=== PATIENT | male | born 1955 | race Caucasian/White ===

== ENCOUNTER 2019-06-26 16:51 | Emergency (ER) | payer MEDICARE, SELFPAY ==
--- NOTE | ~2019-06-26 | US_ITS ---
EXAMINATION: US venous doppler [facility] DATE: 06/27/2019 10:32 INDICATION: Bilateral lower limb swelling TECHNIQUE: Grayscale ultrasound images without and with compression and Doppler ultrasound images of the bilateral lower extremity veins were obtained. COMPARISON: None. FINDINGS: The visualized portions of right common femoral vein, profunda (deep) femoral vein, femoral vein, pop liteal veins, posterior tibial veins, peroneal veins, gastrocnemius vein and greater saphenous vein o utflow are patent. The visualized portions of left common femoral vein, profunda femoral vein, femoral vein, popliteal v ein, posterior tibial veins, peroneal veins, gastrocnemius vein and greater saphenous vein outflow ar e patent. IMPRESSION: 1. No deep venous thrombosis in either lower limb. Reviewed, dictated and finalized at location A. DOG VENDER
--- NOTE | ~2019-06-26 | XR_ITS ---
EXAMINATION: XR chest 2V EXAM DATE: 06/26/2019 17:48 INDICATION: Lung crackles. Cough. TECHNIQUE: Frontal and lateral projections of the chest obtained and reviewed. Comparison is made to prior examination from 01/21/2019. FINDINGS: The lungs are clear. There are no pleural effusions. The cardiomediastinal silhouette is within normal limits. There is no pneumothorax suspected. Patient has diffuse idiopathic skeletal h yperostosis (DISH). IMPRESSION: No acute cardiopulmonary findings. Reviewed, dictated and finalized at location A. POLISHER
[2019-06-26 17:06] VITALS: BP 133/77; PULSE 64; RESP 20; TEMP 36.6; O2SAT 98
--- NOTE | 2019-06-26 17:35 | ECG_ITS ---
Measurements Intervals [place] Rate: 60 P: 67 NH: 225 QRS: -21 QRSD: 108 T: 39 QT: 441 QTc: 443 Interpretive Statements SINUS RHYTHM WITH FIRST DEGREE AV BLOCK DELAYED PRECORDIAL R/S TRANSITION BASELINE WANDER- I, II, III, AVR, AVL ABNORMAL ECG Electronically Signed On 06-26-2019 20:13:56 COMPUTED TOMOGRAPHY TECHNOLOGIST by Jose Lai D.O.
[2019-06-26 17:55] LABS: Basophils Absolute Auto 0.05 K/mm3 (0.00-0.10); Eosinophils Absolute Auto 0.24 K/mm3 (0.02-0.50); Eosinophils Percent Auto 4.7 % (1.0-6.0); Hemoglobin 14.3 g/dL (14.0-18.0); Immature Granulocyte Absolute 0.01 K/mm3 (0.00-0.00); Immature Granulocyte Percent A 0.2 % (0.0-0.0); Lymphocytes Absolute Auto 1.94 K/mm3 (1.10-4.50); Lymphocytes Percent Auto 38.2 % (18.0-42.0); Mean Corpuscular Hemoglobin 31.2 pg (27.0-31.0); Mean Corpuscular Volume 91.7 fL (78.0-102.0); Mean Platelet Volume 9.4 fl (8.7-11.0); Monocytes Absolute Auto 0.55 K/mm3 (0.10-0.90); Monocytes Percent Auto 10.8 % (2.0-11.0); Neutrophils Absolute Auto 2.3 K/mm3 (1.7-7.2); Neutrophils Percent Auto 45.1 % (50.0-70.0); Platelet Count Result 148 K/mm3 (150-420); Red Blood Count 4.58 M/mm3 (4.70-6.10); Red Cell Distribution Width 14.3 % (11.6-14.4); White Blood Count 5.1 K/mm3 (4.8-10.8)
[2019-06-26 18:06] LABS: INR 3.3; Prothrombin Time 33.2 Seconds (9.64-11.0)
[2019-06-26 18:12] LABS: Alanine Aminotransferase 20 U/L (16-63); Albumin Level 3.3 g/dL (3.4-5.0); Alkaline Phosphatase 112 U/L (46-116); Anion Gap 11.2 mmol/L (7-16); Aspartate Amino Transferase 14 U/L (15-37); Bilirubin,Total 0.3 mg/dL (0.00-1.00); Blood Urea Nitrogen 14 mg/dL (7-18); Calcium 8.6 mg/dL (8.5-10.1); Carbon Dioxide 27 mmol/L (21-32); Chloride 104 mmol/L (98-108); Estimated CRCL calculation 96 ml/min; Estimated Glomerular Filt Rate > 60; Glucose 232 mg/dL (70-99); Osmolality Calculated 293 mOsm/kg (285-295); Potassium 4.2 mmol/L (3.5-5.1); Sodium 138 mmol/L (136-145); Total Protein 7.8 g/dL (6.4-8.2)
[2019-06-26 18:13] LABS: BNP 19.5 pg/mL (0-100); Troponin I < 0.02 ng/mL (0.00-0.056)
[2019-06-26] MEDS: ENOXAPARIN 100 MG/ML SYRINGE (20:15)
[2019-06-26] MEDS: ENOXAPARIN 30 MG/0.3 ML SYRINGE (20:15)
[2019-06-26 20:17] VITALS: BP 132/81; PULSE 54; RESP 20; O2SAT 98
--- NOTE | 2019-06-26 20:19 | ED.EXTPRO ---
HPI - Extremity Problem General Chief complaint: Extremity Problem,Nontraumatic Stated complaint: swelling in feet History of Present Illness HPI Narrative: Michael is a 64-year-old man with a past medical history of hyperlipidemia, diabetes, neuropathy and DVT/PE ( he may have had 1 on anticoagulation) that presented with bilateral lower extremity swelling. It has been present for about a week and may be getting worse. it is painful swelling without associated trauma. He reports his right ankle has been swollen since ankle fracture and subsequent ORIF many years ago however his left has become significantly more swollen and painful. He denies any chest pain, shortness of breath, nausea, vomiting, syncope/near syncope as well as fevers and chills. Related Data Home Medications Medication Instructions Recorded Confirmed atorvastatin 20 mg PO DAILY 06/26/19 06/26/19 famotidine 20 mg PO BID 06/26/19 06/26/19 metformin 1,000 mg PO QAM 06/26/19 06/26/19 metformin 500 mg PO HS 06/26/19 06/26/19 pregabalin [Lyrica] 50 mg PO DAILY 06/26/19 06/26/19 warfarin 7.5 mg PO DAILY 06/26/19 06/26/19 Allergies Allergy/AdvReac Type Severity Reaction Status Date / Time No Known Allergies Allergy Verified 09/04/15 10:30 Review of Systems Constitutional: Constitutional: Reports no additional constitutional complaints Eyes: Eyes: Reports no additional eye complaints ENT: Reports system reviewed and no additional complaints, except as documented Cardiovascular: Cardiovascular: Reports no additional cardiovascular complaints, Denies chest pain and Denies radiating jaw, neck or arm pain Respiratory: Respiratory: Reports no additional respiratory complaints Gastrointestinal: Gastrointestinal: Reports as per HPI and Reports no additional gastrointestinal complaints Musculoskeletal: Musculoskeletal: Reports no additional musculoskeletal complaints Integumentary/Breasts: Skin/Breast: Reports system reviewed and no additional complaints, except as docu Neurologic: Reports system reviewed and no additional complaints, except as documented Psychiatric: Psychiatric: Reports no additional psychiatric complaints Endocrine: Endocrine: Reports no additional endocrine complaints Hematologic/Lymphatic: Hematologic/Lymphatic: Reports no additional hematologic/lymphatic complaints Allergic/Immunologic: Allergic/Immunologic: Reports no additional allergic/immunologic complaints [facility] Family History Family History Other Family history of arthritis Family history of malignant neoplasm Family history of seizure disorder Hypertension Social History Social History Smoking status: Heavy tobacco smoker Alcohol intake: never Gender identity (if verbalized by the patient): Male Exam Const: General: no acute distress and alert; No confusion Orientation/consciousness: patient oriented x3 Limitations: No altered mental status HENMT: Other: Normocephalic, atraumatic Eyes: Conjunctivae: conjunctivae normal Pupils: Equal, round and reactive pupils present Neck: Neck: normal visual inspection Chest: Chest palpation & inspection: normal inspection of the chest Resp: Effort & Inspection: normal respiratory effort, not labored and not tachypneic Auscultation: clear to auscultation bilaterally Cardio: Rate: regular rate Rhythm: regular rhythm GI: Inspection: non-distended GI Palp: Yes Soft to palpation, No Tenderness to palpation present (GI) and No Guarding due to palpation present (GI) Skin: Other: stasis dermatitis in the lower extremities bilaterally Neuro: General: patient oriented x3 and moves all extremities Extrem: Other: 2+ pitting edema up to the mid shins Psych: Mental Status: mental status grossly normal Course Course Emergency Course: Michael was seen and evaluated. A CBC, CMP, BNP and troponin we
== END 2019-06-26 20:28 | disposition home or self-care (01) ==
PROVIDERS: Emergency Provider Family Medicine; PCP Family Medicine
DX: R60.0 Localized edema (principal); F17.200 Nicotine dependence, unspecified, uncomplicated; E78.5 Hyperlipidemia, unspecified; E11.9 Type 2 diabetes mellitus without complications; Z86.718 Personal history of other venous thrombosis and embolism; Z79.01 Long term (current) use of anticoagulants
CPT/HCPCS: 36415; 71046; 80053; 83880; 84484; 85025; 85610; 93005; 93970; 96372; 99284; J1650

== ENCOUNTER 2019-06-27 09:33 | Outpatient (CLI) | payer MEDICARE, SELFPAY ==
--- NOTE | ~2019-06-27 | US_ITS ---
EXAMINATION: US venous doppler [facility] DATE: 06/27/2019 10:32 INDICATION: Bilateral lower limb swelling TECHNIQUE: Grayscale ultrasound images without and with compression and Doppler ultrasound images of the bilateral lower extremity veins were obtained. COMPARISON: None. FINDINGS: The visualized portions of right common femoral vein, profunda (deep) femoral vein, femoral vein, pop liteal veins, posterior tibial veins, peroneal veins, gastrocnemius vein and greater saphenous vein o utflow are patent. The visualized portions of left common femoral vein, profunda femoral vein, femoral vein, popliteal v ein, posterior tibial veins, peroneal veins, gastrocnemius vein and greater saphenous vein outflow ar e patent. IMPRESSION: 1. No deep venous thrombosis in either lower limb. Reviewed, dictated and finalized at location A. ANT PRINTER OPERATOR
== END 2019-06-27 09:34 | disposition home or self-care (01) ==
PROVIDERS: PCP Family Medicine; Visit Provider Family Medicine
DX: M79.89 Other specified soft tissue disorders (principal); Z86.718 Personal history of other venous thrombosis and embolism; Z79.01 Long term (current) use of anticoagulants
CPT/HCPCS: 93970

== ENCOUNTER 2019-07-12 11:40 | Outpatient (RCR) | payer MEDICARE, SELFPAY ==
[2019-07-12 12:13] LABS: Prothrombin Time 20.2 Seconds (9.64-11.0)
[2019-07-12 12:20] LABS: Hemoglobin A1C 7.4 % (<5.7)
== END 2019-10-10 23:59 | disposition home or self-care (01) ==
LOC: CHSLAB 11:40
PROVIDERS: PCP Family Medicine; Visit Provider Family Medicine
DX: Z86.718 Personal history of other venous thrombosis and embolism (principal); E11.9 Type 2 diabetes mellitus without complications
CPT/HCPCS: 36415; 83036; 85610

== ENCOUNTER 2019-08-26 07:09 | Outpatient (CLI) | payer MEDICARE, SELFPAY ==
[2019-08-26 07:50] LABS: INR 1.4; Prothrombin Time 14.8 Seconds (9.64-11.0)
[2019-08-26 07:53] LABS: Hemoglobin A1C 8.3 % (<5.7)
== END 2019-08-26 07:10 | disposition home or self-care (01) ==
LOC: CHSLAB 07:12
PROVIDERS: PCP Family Medicine; Visit Provider Family Medicine
DX: Z86.718 Personal history of other venous thrombosis and embolism (principal); E11.9 Type 2 diabetes mellitus without complications
CPT/HCPCS: 36415; 83036; 85610

== ENCOUNTER 2019-09-02 11:16 | Outpatient (CLI) | payer MEDICARE, SELFPAY ==
[2019-09-02 11:30] LABS: Hematocrit 45.6 % (40.0-54.0); Hemoglobin 15.2 g/dL (14.0-18.0); Mean Corpuscular HGB Conc 33.3 g/dL (32.0-36.0); Mean Corpuscular Hemoglobin 31.2 pg (27.0-31.0); Mean Corpuscular Volume 93.6 fL (78.0-102.0); Mean Platelet Volume 9.9 fl (8.7-11.0); Platelet Count Result 159 K/mm3 (150-420); Red Blood Count 4.87 M/mm3 (4.70-6.10); Red Cell Distribution Width 14.6 % (11.6-14.4); White Blood Count 5.6 K/mm3 (4.8-10.8)
[2019-09-02 12:42] LABS: Alanine Aminotransferase 34 U/L (16-63); Albumin Level 3.9 g/dL (3.4-5.0); Alkaline Phosphatase 125 U/L (46-116); Anion Gap 15.4 mmol/L (7-16); Aspartate Amino Transferase 24 U/L (15-37); Bilirubin,Total 0.6 mg/dL (0.00-1.00); Blood Urea Nitrogen 15 mg/dL (7-18); Calcium 8.8 mg/dL (8.5-10.1); Carbon Dioxide 26 mmol/L (21-32); Chloride 102 mmol/L (98-108); Estimated Glomerular Filt Rate > 60; Folic Acid 17.2 ng/mL (8.6->20); Glucose 159 mg/dL (70-99); Osmolality Calculated 291 mOsm/kg (285-295); Potassium 4.4 mmol/L (3.5-5.1); Sodium 139 mmol/L (136-145); Vitamin B12 626 pg/mL (193-986)
[2019-09-02 12:45] LABS: Thyroid Stimulating Hormone Reflex 0.73 u/IU/mL (0.36-3.74)
== END 2019-09-02 11:17 | disposition home or self-care (01) ==
LOC: CHSLAB 11:20
PROVIDERS: PCP Family Medicine; Visit Provider Family Medicine
DX: M79.641 Pain in right hand (principal); E11.9 Type 2 diabetes mellitus without complications
CPT/HCPCS: 36415; 80053; 82607; 82746; 84443; 85027

== ENCOUNTER 2019-10-28 10:41 | Outpatient (CLI) | payer MEDICARE, SELFPAY ==
[2019-10-28 11:00] LABS: INR 1.7; Prothrombin Time 17.4 Seconds (9.64-11.0)
== END 2019-10-28 10:42 | disposition home or self-care (01) ==
LOC: CHSLAB 10:42
PROVIDERS: PCP Family Medicine; Visit Provider Family Medicine
DX: Z86.718 Personal history of other venous thrombosis and embolism (principal)
CPT/HCPCS: 36415; 85610

== ENCOUNTER 2019-11-04 07:26 | Outpatient (RCR) | payer MEDICARE, SELFPAY ==
[2019-10-25 07:59] LABS: Prothrombin Time 59.8 Seconds (9.64-11.0)
[2019-10-25 08:08] LABS: INR 6.2
[2019-11-04 07:49] LABS: INR 3.4; Prothrombin Time 33.3 Seconds (9.64-11.0)
== END 2020-01-23 23:59 | disposition home or self-care (01) ==
LOC: CHSLAB 07:26
PROVIDERS: Nurse Practitioner Family; PCP Family Medicine; Visit Provider Family Medicine
DX: Z86.718 Personal history of other venous thrombosis and embolism (principal)
CPT/HCPCS: 36415; 85610

== ENCOUNTER 2019-12-09 14:47 | Outpatient (CLI) | payer MEDICARE, SELFPAY ==
[2019-12-09 14:59] LABS: Hematocrit 42.1 % (40.0-54.0); Hemoglobin 13.7 g/dL (14.0-18.0); Mean Corpuscular HGB Conc 32.5 g/dL (32.0-36.0); Mean Corpuscular Hemoglobin 31.4 pg (27.0-31.0); Mean Corpuscular Volume 96.3 fL (78.0-102.0); Mean Platelet Volume 9.5 fl (8.7-11.0); Platelet Count Result 145 K/mm3 (150-420); Red Blood Count 4.37 M/mm3 (4.70-6.10); Red Cell Distribution Width 14.7 % (11.6-14.4); White Blood Count 5.5 K/mm3 (4.8-10.8)
[2019-12-09 15:15] LABS: Hemoglobin A1C 7.6 % (<5.7)
[2019-12-09 16:13] LABS: Alanine Aminotransferase 30 U/L (16-63); Albumin Level 3.5 g/dL (3.4-5.0); Alkaline Phosphatase 117 U/L (46-116); Anion Gap 5 mmol/L (8-16); Aspartate Amino Transferase 20 U/L (15-37); Bilirubin,Total 0.4 mg/dL (0.00-1.00); Blood Urea Nitrogen 12 mg/dL (7-18); Calcium 8.6 mg/dL (8.5-10.1); Carbon Dioxide 33 mmol/L (21-32); Chloride 102 mmol/L (98-108); Estimated Glomerular Filt Rate > 60; Folic Acid 15.2 ng/mL (8.6->20); Glucose 118 mg/dL (70-99); Osmolality Calculated 290 mOsm/kg (285-295); Potassium 4.6 mmol/L (3.5-5.1); Sodium 140 mmol/L (136-145); Total Protein 7.7 g/dL (6.4-8.2); Vitamin B12 573 pg/mL (193-986)
[2019-12-09 16:14] LABS: Thyroid Stimulating Hormone Reflex 0.61 u/IU/mL (0.36-3.74)
== END 2019-12-09 14:48 | disposition home or self-care (01) ==
LOC: CHSLAB 14:50
PROVIDERS: PCP Family Medicine; Visit Provider Family Medicine
DX: R53.1 Weakness (principal); E11.9 Type 2 diabetes mellitus without complications; M79.604 Pain in right leg; M79.605 Pain in left leg
CPT/HCPCS: 36415; 80053; 82607; 82746; 83036; 84443; 85027

== ENCOUNTER 2020-01-03 06:10 | Emergency (ER) | payer MEDICARE, SELFPAY ==
--- NOTE | ~2020-01-03 | XR_ITS ---
EXAMINATION: XR chest 2V DATE: 01/03/2020 07:46 INDICATION: Chest pain. Upper extremity pain. TECHNIQUE: PA and lateral views of the chest were obtained. COMPARISON: Chest radiograph dated 06/26/2019 FINDINGS: Bilateral calcified pulmonary nodules and calcified right hilar and mediastinal lymph nodes consisten t with old granulomatous disease. No other airspace opacities, pulmonary edema, pleural effusion or p neumothorax. The cardiomediastinal silhouette is normal. IMPRESSION: 1. No acute cardiopulmonary disease. Reviewed, dictated and finalized at location A.
[2020-01-03 06:34] VITALS: BP 97/61; PULSE 63; PULSE 68; RESP 17; TEMP 36.4; O2SAT 95
--- NOTE | 2020-01-03 06:56 | ECG_ITS ---
Measurements Intervals [place] Rate: 65 P: 76 RI: 232 QRS: -22 QRSD: 112 T: 56 QT: 427 QTc: 445 Interpretive Statements SINUS RHYTHM WITH FIRST DEGREE AV BLOCK INTRAVENTRICULAR CONDUCTION DELAY DELAYED PRECORDIAL R/S TRANSITION LOW QRS VOLTAGE IN PRECORDIAL LEADS ABNORMAL ECG Electronically Signed On 01-03-2020 7:16:24 CDT by Jose Lai D.O.
--- NOTE | 2020-01-03 06:58 | ED.CHESTPAIN ---
HPI - Chest Pain General Chief Complaint: Chest Pain Stated Complaint: chest pain and shoulder pain Source: patient and family Mode of arrival: ambulatory Limitations: no limitations History of Present Illness HPI narrative: this is a 64-year-old gentleman that presents with some some mild chest heaviness currently not having any chest pain is having some bilateral arm numbness and weakness with no nausea vomiting does have mild shortness of breath secondary to COPD and smoking history. Has a history of a DVT and pulmonary embolism and is currently on Coumadin. complaint: chest pain, chest heaviness and chest discomfort Onset (ago): hour(s) Timing of current episode: episodic Prior episodes: Yes Onset: during rest Pain location: parasternal Pain radiation: right arm and left arm Severity: mild Quality: tightness and heaviness Relieving factors: nothing Exacerbating factors: nothing Risk Factors Coronary artery disease risk factors: diabetes, smoking history, hyperlipidemia and hypertension Related Data Home Medications Medication Instructions Recorded Confirmed atorvastatin 20 mg PO DAILY 06/26/19 06/26/19 famotidine 10 mg tablet 10 mg PO DAILY 07/03/19 tramadol 50 mg tablet 50 mg PO Q6H PRN 07/03/19 metformin 500 mg tablet 1,000 mg PO BID tablet 11/28/19 warfarin 1 mg tablet 2 mg PO DAILY tablet 12/09/19 warfarin 5 mg tablet 5 mg PO DAILY 12/09/19 dulaglutide 0.75 mg/0.5 mL 0.75 mg SUB-Q WEEKLY 12/10/19 subcutaneous pen injector Allergies Allergy/AdvReac Type Severity Reaction Status Date / Time No Known Allergies Allergy Verified 01/01/20 08:47 Review of Systems Review of Systems: All systems reviewed & are unremarkable except as noted in HPI and below PMFSH Past Medical History Medical History DM2 (diabetes mellitus, type 2) DVT (deep venous thrombosis) GERD (gastroesophageal reflux disease) Hyperlipidemia Lymphedema Neuropathy Pulmonary embolism Tobacco abuse Weakness Surgical History Surgical History History of ankle surgery Family History Family History Father Lung cancer Mother Lung cancer Other Family history of arthritis Family history of malignant neoplasm Family history of seizure disorder Hypertension Social History Social History Smoking packs per day: 1 Smoking cigarettes per day: 20.0 Years smoked: 50 Smoking pack-years: 50.00 Smoking status: Former smoker Tobacco type: cigarettes Alcohol intake: never Additional living arrangements comments: . Gender identity (if verbalized by the patient): Male Sexual Orientation (if Verbalized by the Patient): Straight or Heterosexual Exam Const: General: no acute distress and alert Orientation/consciousness: patient oriented x3 HENMT: Head: normal to inspection Eyes: Conjunctivae: conjunctivae normal Pupils: Equal, round and reactive pupils present Neck: Neck: normal visual inspection Chest: Chest palpation & inspection: normal inspection of the chest Resp: Auscultation: wheezes and diminished lung sounds Cardio: Rate: regular rate Rhythm: regular rhythm GI: Auscultation: normal bowel sounds Skin: General skin exam: normal color Rashes: no rashes Neuro: General: moves all extremities, no meningeal signs and no focal motor deficits Extrem: General: normal to inspection and no pedal edema Psych: Mental Status: mental status grossly normal Course Vital Signs Vital signs: Vital Signs Temperature 36.4 C 01/03/20 06:34 Pulse Rate 63 01/03/20 06:34 Respiratory Rate 17 01/03/20 06:34 Blood Pressure 97/61 L 01/03/20 06:34 Pulse Oximetry 95 01/03/20 06:34 Temperature 36.4 C 01/03/20 06:34 Pulse
[2020-01-03 07:00] VITALS: BP 128/68; PULSE 64; RESP 10; O2SAT 95
[2020-01-03 07:20] VITALS: PULSE 62; RESP 18
[2020-01-03 07:23] LABS: Basophils Absolute Auto 0.04 K/mm3 (0.00-0.10); Basophils Percent Auto 0.7 % (0.0-1.0); Eosinophils Absolute Auto 0.18 K/mm3 (0.02-0.50); Eosinophils Percent Auto 3.3 % (1.0-6.0); Hematocrit 41.3 % (40.0-54.0); Hemoglobin 13.3 g/dL (14.0-18.0); Immature Granulocyte Absolute 0.02 K/mm3 (0.00-0.00); Immature Granulocyte Percent A 0.4 % (0.0-0.0); Lymphocytes Absolute Auto 1.41 K/mm3 (1.10-4.50); Lymphocytes Percent Auto 26.1 % (18.0-42.0); Mean Corpuscular HGB Conc 32.2 g/dL (32.0-36.0); Mean Corpuscular Hemoglobin 31.1 pg (27.0-31.0); Mean Corpuscular Volume 96.7 fL (78.0-102.0); Mean Platelet Volume 9.8 fl (8.7-11.0); Monocytes Absolute Auto 0.77 K/mm3 (0.10-0.90); Monocytes Percent Auto 14.3 % (2.0-11.0); Neutrophils Percent Auto 55.2 % (50.0-70.0); Platelet Count Result 147 K/mm3 (150-420); Red Blood Count 4.27 M/mm3 (4.70-6.10); White Blood Count 5.4 K/mm3 (4.8-10.8)
[2020-01-03] MEDS: IPRATROPIUM 0.5 MG/ALBUTEROL SULFATE 2.5 MG AMPUL.NEB 3 ML INHALATION (07:23)
[2020-01-03] MEDS: ASPIRIN 81 MG CHEWABLE TABLET 324 MG PO (07:29)
--- NOTE | 2020-01-03 07:33 | ED.CHESTPAIN ---
HPI - Chest Pain General Chief Complaint: Chest Pain Stated Complaint: chest pain and shoulder pain Time Seen by Provider: 01/03/20 07:10 Source: patient and family Mode of arrival: ambulatory Limitations: no limitations History of Present Illness HPI narrative: 64-year-old man with a history of type 2 diabetes, hypertension, dyslipidemia, and smoking comes in today complaining of pain across his shoulders and heaviness in his chest that started about 5:00 a.m.. Patient states he was sitting in recliner and he stood up and started walking and felt very weak and lightheaded. He states that he did not lose consciousness or fall. He denies shortness of breath, nausea, sweating since this began and he has had no previous similar episodes in the last few weeks. States that he had a stress test in the and has no history of coronary artery disease. MD complaint: chest heaviness Onset (ago): hour(s) (3) Timing of current episode: constant Prior episodes: No Onset: during rest Pain location: parasternal Pain radiation: left shoulder and right shoulder Severity: moderate Quality: heaviness Relieving factors: nothing Exacerbating factors: nothing Context: history of DVT/PE Treatment prior to arrival: none Risk Factors Coronary artery disease risk factors: diabetes, smoking history, hyperlipidemia and hypertension Thoracic aortic dissection risk factors: longstanding hypertension Pulmonary embolism risk factors: history of deep vein thrombosis and history of pulmonary embolism Related Data Home Medications Medication Instructions Recorded Confirmed atorvastatin 20 mg PO DAILY 06/26/19 01/03/20 famotidine 10 mg tablet 20 mg PO DAILY 07/03/19 01/03/20 metformin 500 mg tablet 1,000 mg PO BID tablet 11/28/19 01/03/20 warfarin 1 mg tablet 2 mg PO DAILY tablet 12/09/19 01/03/20 warfarin 5 mg tablet 5 mg PO DAILY 12/09/19 01/03/20 dulaglutide 0.75 mg/0.5 mL 0.75 mg SUB-Q WEEKLY 12/10/19 01/03/20 subcutaneous pen injector pregabalin [Lyrica] 150 mg PO BID 01/03/20 01/03/20 Allergies Allergy/AdvReac Type Severity Reaction Status Date / Time No Known Allergies Allergy Verified 01/01/20 08:47 Review of Systems Constitutional: Constitutional: Denies chills and Denies fever(s) Eyes: Eyes: Denies change in vision and Denies photophobia ENT: Denies dysphagia, Denies nasal congestion and Denies sore throat Cardiovascular: Cardiovascular: Denies chest pain and Denies radiating jaw, neck or arm pain Respiratory: Respiratory: Denies cough, Denies dyspnea and Denies wheezing Gastrointestinal: Gastrointestinal: Denies abdominal pain, Denies diarrhea, Denies nausea and Denies vomiting Genitourinary: Genitourinary: Denies dysuria and Denies urinary frequency Musculoskeletal: Musculoskeletal: Denies arthralgias and Denies joint swelling Integumentary/Breasts: Skin/Breast: Denies pruritus, Denies erythema and Denies rash Neurologic: Denies vertigo, Denies dizziness and Denies syncope Hematologic/Lymphatic: Hematologic/Lymphatic: Reports easy bleeding and Reports easy bruising Comments: On Warfarin Allergic/Immunologic: Allergic/Immunologic: Denies lip swelling and Reports wheezing PMFSH Past Medical History Medical History DM2 (diabetes mellitus, type 2) DVT (deep venous thrombosis) GERD (gastroesophageal reflux disease) Hyperlipidemia Lymphedema Neuropathy Pulmonary embolism Tobacco abuse Weakness Surgical History Surgical History History of ankle surgery Family History Family History Father Lung cancer Mother Lung cancer Other Family history of arthritis Family history of malignant neoplasm Family history of seizure disorder Hypertension Social History Social History (Reviewed 01/03/20 @ 07:39 by Justin Jauregui
[2020-01-03 07:34] VITALS: PULSE 64; RESP 20
[2020-01-03 07:36] LABS: INR 1.8; Partial Thromboplastin Time 38.5 SEC (22.3-31.6)
[2020-01-03 07:40] LABS: BNP 7.2 pg/mL (0-100)
[2020-01-03 07:46] LABS: Alanine Aminotransferase 26 U/L (16-63); Albumin Level 3.4 g/dL (3.4-5.0); Alkaline Phosphatase 109 U/L (46-116); Anion Gap 7 mmol/L (8-16); Aspartate Amino Transferase 19 U/L (15-37); Bilirubin,Total 0.5 mg/dL (0.00-1.00); Blood Urea Nitrogen 18 mg/dL (7-18); Calcium 8.5 mg/dL (8.5-10.1); Carbon Dioxide 28 mmol/L (21-32); Chloride 105 mmol/L (98-108); Estimated CRCL calculation 85 ml/min; Estimated Glomerular Filt Rate > 60; Glucose 112 mg/dL (70-99); Osmolality Calculated 292 mOsm/kg (285-295); Sodium 140 mmol/L (136-145); Total Protein 7.8 g/dL (6.4-8.2); Troponin I < 0.02 ng/mL (0.00-0.056)
[2020-01-03 08:00] VITALS: BP 120/65; PULSE 69; RESP 19; O2SAT 99
--- NOTE | 2020-01-03 08:30 | PC.NURSE ---
Pt provided urinal and instructed to supply urine sample, pt verbalized understanding, but also stated that he didn't know if he would be able to pee. MD Boyd made aware.
[2020-01-03] MEDS: SODIUM CHLORIDE 0.9% IV 1,000 ML 999 ML IV CONT (08:31)
[2020-01-03 08:54] LABS: Lactic Acid Reflex 0.7 mmol/L (0.4-2.0)
[2020-01-03 09:22] VITALS: BP 108/64; PULSE 86; RESP 20; O2SAT 98
[2020-01-03 09:33] LABS: Add Urine Microscopic? NO; Appearance Urine Clear (Clear); Bilirubin Urine Negative (Negative); Blood Urine Negative (Negative); Color Urine Yellow (Yellow); Glucose Urine UA Negative (Negative); Ketones Urine Negative (Negative); Leukocyte Esterase Ur Negative (Negative); Nitrate Urine Negative (Negative); Protein Urine Negative (Negative)
== END 2020-01-03 09:22 | disposition left against medical advice (07) ==
PROVIDERS: Emergency Medicine; Emergency Provider Emergency Medicine; PCP Family Medicine
DX: R07.9 Chest pain, unspecified (principal); E11.9 Type 2 diabetes mellitus without complications; Z86.718 Personal history of other venous thrombosis and embolism; Z79.01 Long term (current) use of anticoagulants; K21.9 Gastro-esophageal reflux disease without esophagitis; Z87.891 Personal history of nicotine dependence; R06.2 Wheezing; Z79.899 Other long term (current) drug therapy
CPT/HCPCS: 36415; 71046; 80053; 81003; 83605; 83880; 84484; 85025; 85380; 85610; 85730; 87040; 87086; 93005; 94640; 96360; 99284; A9270; J7030

== ENCOUNTER 2020-01-16 14:05 | Outpatient (CLI) | payer MEDICARE, SELFPAY ==
[2020-01-16 14:20] LABS: Hemoglobin 15.2 g/dL (14.0-18.0); Mean Corpuscular HGB Conc 32.3 g/dL (32.0-36.0); Mean Corpuscular Hemoglobin 31.3 pg (27.0-31.0); Mean Corpuscular Volume 96.9 fL (78.0-102.0); Mean Platelet Volume 9.7 fl (8.7-11.0); Platelet Count Result 165 K/mm3 (150-420); Red Blood Count 4.85 M/mm3 (4.70-6.10); Red Cell Distribution Width 15.7 % (11.6-14.4); White Blood Count 6.6 K/mm3 (4.8-10.8)
[2020-01-16 14:44] LABS: Alanine Aminotransferase 26 U/L (16-63); Albumin Level 3.9 g/dL (3.4-5.0); Alkaline Phosphatase 117 U/L (46-116); Anion Gap 9 mmol/L (8-16); Aspartate Amino Transferase 16 U/L (15-37); Bilirubin,Total 0.5 mg/dL (0.00-1.00); Blood Urea Nitrogen 17 mg/dL (7-18); Calcium 8.7 mg/dL (8.5-10.1); Carbon Dioxide 24 mmol/L (21-32); Chloride 104 mmol/L (98-108); Estimated Glomerular Filt Rate > 60; Glucose 136 mg/dL (70-99); Osmolality Calculated 287 mOsm/kg (285-295); Potassium 4.6 mmol/L (3.5-5.1); Sodium 137 mmol/L (136-145); Total Protein 8.2 g/dL (6.4-8.2)
== END 2020-01-16 14:06 | disposition home or self-care (01) ==
LOC: CHSLAB 14:07
PROVIDERS: PCP Family Medicine; Visit Provider Family Medicine
DX: R19.7 Diarrhea, unspecified (principal)
CPT/HCPCS: 36415; 80053; 85027; 87324

== ENCOUNTER 2020-01-18 17:56 | Emergency (ER) | payer MEDICARE, SELFPAY ==
--- NOTE | 2020-01-18 18:01 | ED.NAVMDI ---
HPI - Nausea/Vomiting/Diarrhea General Chief complaint: Abdominal Pain Stated complaint: diarrhea vomiting weakness Source: patient and RN notes reviewed Mode of arrival: ambulatory Limitations: no limitations History of Present Illness HPI Narrative: Patient states he has been having nausea vomiting diarrhea for the last 3 days. He went to see his primary care physician 2 days ago. He had lab work and stool done for C difficile. The stool is negative labs were normal. He continues to feel weak. He continues to have diarrhea. He has been drinking Gatorade at home and is urinating regularly. He denies any urinary symptoms. MD elicited complaint: nausea, vomiting and diarrhea Onset (ago): day(s) (3) Description of vomiting: food contents Description of diarrhea: watery Associated nausea: Yes Associated abdominal pain: No Exacerbating factors: eating Relieving factors: none Associated symptoms: denies other symptoms Related Data Home Medications Medication Instructions Recorded Confirmed atorvastatin 20 mg PO DAILY 06/26/19 01/03/20 famotidine 10 mg tablet 20 mg PO DAILY 07/03/19 01/03/20 metformin 500 mg tablet 1,000 mg PO BID tablet 11/28/19 01/03/20 warfarin 1 mg tablet 2 mg PO DAILY tablet 12/09/19 01/03/20 warfarin 5 mg tablet 5 mg PO DAILY 12/09/19 01/03/20 dulaglutide 0.75 mg/0.5 mL 0.75 mg SUB-Q WEEKLY 12/10/19 01/03/20 subcutaneous pen injector pregabalin [Lyrica] 150 mg PO BID 01/03/20 01/03/20 Allergies Allergy/AdvReac Type Severity Reaction Status Date / Time No Known Allergies Allergy Verified 01/16/20 11:23 Review of Systems Review of Systems: All systems reviewed & are unremarkable except as noted in HPI and below Constitutional: Constitutional: Denies chills and Denies fever(s) Eyes: Eyes: Reports no additional eye complaints ENT: Reports system reviewed and no additional complaints, except as documented Cardiovascular: Cardiovascular: Reports no additional cardiovascular complaints Respiratory: Respiratory: Reports no additional respiratory complaints Gastrointestinal: Gastrointestinal: Reports as per HPI Genitourinary: Genitourinary: Reports no additional male genitourinary complaints, Denies dysuria, Denies urinary frequency and Denies urinary incontinence Musculoskeletal: Musculoskeletal: Denies myalgias Integumentary/Breasts: Skin/Breast: Reports system reviewed and no additional complaints, except as docu Neurologic: Reports as per HPI Psychiatric: Psychiatric: Reports no additional psychiatric complaints Endocrine: Endocrine: Reports no additional endocrine complaints Hematologic/Lymphatic: Hematologic/Lymphatic: Reports no additional hematologic/lymphatic complaints [facility] Past Medical History Medical History DM2 (diabetes mellitus, type 2) DVT (deep venous thrombosis) GERD (gastroesophageal reflux disease) Hyperlipidemia Lymphedema Neuropathy Pulmonary embolism Tobacco abuse Weakness Surgical History Surgical History History of ankle surgery Family History Family History Father Lung cancer Mother Lung cancer Other Family history of arthritis Family history of malignant neoplasm Family history of seizure disorder Hypertension Social History Social History (Updated 01/18/20 @ 19:08 by Ross Garrett MD) Smoking packs per day: 0.5 Smoking cigarettes per day: 10.0 Years smoked: 50 Smoking pack-years: 25.00 Smoking status: Current every day smoker Tobacco type: cigarettes Alcohol intake: never Additional living arrangements comments: . Gender identity (if verbalized by the patient): Male Exam Const: General: healthy appearing, no acute distress and alert Nutritional Appearance: well nourished and obese centrally obese Ave
[2020-01-18 18:10] VITALS: BP 123/86; PULSE 81; RESP 18; TEMP 36.6; O2SAT 98
[2020-01-18 19:24] LABS: Basophils Absolute Auto 0.04 K/mm3 (0.00-0.10); Basophils Percent Auto 0.5 % (0.0-1.0); Eosinophils Absolute Auto 0.35 K/mm3 (0.02-0.50); Eosinophils Percent Auto 4.4 % (1.0-6.0); Hemoglobin 14.7 g/dL (14.0-18.0); Immature Granulocyte Absolute 0.01 K/mm3 (0.00-0.00); Immature Granulocyte Percent A 0.1 % (0.0-0.0); Lymphocytes Absolute Auto 1.96 K/mm3 (1.10-4.50); Lymphocytes Percent Auto 24.9 % (18.0-42.0); Mean Corpuscular HGB Conc 32.7 g/dL (32.0-36.0); Mean Corpuscular Hemoglobin 31.1 pg (27.0-31.0); Mean Corpuscular Volume 95.3 fL (78.0-102.0); Mean Platelet Volume 9.9 fl (8.7-11.0); Monocytes Absolute Auto 0.74 K/mm3 (0.10-0.90); Monocytes Percent Auto 9.4 % (2.0-11.0); Neutrophils Absolute Auto 4.8 K/mm3 (1.7-7.2); Neutrophils Percent Auto 60.7 % (50.0-70.0); Platelet Count Result 146 K/mm3 (150-420); Red Blood Count 4.72 M/mm3 (4.70-6.10); Red Cell Distribution Width 15.3 % (11.6-14.4); White Blood Count 7.9 K/mm3 (4.8-10.8)
[2020-01-18 19:39] LABS: Alanine Aminotransferase 28 U/L (16-63); Albumin Level 3.8 g/dL (3.4-5.0); Alkaline Phosphatase 113 U/L (46-116); Amylase 18 U/L (25-115); Anion Gap 9 mmol/L (8-16); Aspartate Amino Transferase 26 U/L (15-37); Bilirubin,Total 0.7 mg/dL (0.00-1.00); Blood Urea Nitrogen 18 mg/dL (7-18); Carbon Dioxide 25 mmol/L (21-32); Chloride 103 mmol/L (98-108); Estimated CRCL calculation 64 ml/min; Estimated Glomerular Filt Rate > 60; Glucose 102 mg/dL (70-99); Lipase 51 U/L (73-393); Osmolality Calculated 285 mOsm/kg (285-295); Sodium 137 mmol/L (136-145); Total Protein 8.4 g/dL (6.4-8.2)
[2020-01-18 20:12] LABS: Add Urine Microscopic? YES; Appearance Urine Sl Cloudy (Clear); Bilirubin Urine 2+ (Negative); Blood Urine Negative (Negative); Color Urine Amber (Yellow); Glucose Urine UA Negative (Negative); Ketones Urine 1+ (Negative); Leukocyte Esterase Ur Negative LEU/UL (Negative); Nitrate Urine Negative (Negative); Protein Urine Trace (Negative); Specific Grav Ur >= 1.030 (1.010-1.020)
[2020-01-18 20:21] LABS: Bacteria Urine 1+ /hpf; Mucus Urine Moderate /lpf; RBC Urine None seen /hpf (0-2); Squamous Epithelial Cell Urine Few /hpf (Few); WBC Urine None seen /hpf (0-3)
[2020-01-18 20:51] VITALS: BP 140/86; PULSE 104; RESP 20; TEMP 37.1; O2SAT 97
== END 2020-01-18 20:52 | disposition home or self-care (01) ==
PROVIDERS: Emergency Provider Emergency Medicine; PCP Family Medicine
DX: K52.9 Noninfective gastroenteritis and colitis, unspecified (principal); E11.9 Type 2 diabetes mellitus without complications; Z86.718 Personal history of other venous thrombosis and embolism; Z79.01 Long term (current) use of anticoagulants; K21.9 Gastro-esophageal reflux disease without esophagitis; E78.5 Hyperlipidemia, unspecified; F17.200 Nicotine dependence, unspecified, uncomplicated
CPT/HCPCS: 36415; 80053; 81001; 82150; 83690; 85025; 99282; 99283

== ENCOUNTER 2020-01-20 14:33 | Outpatient (CLI) | payer MEDICARE, SELFPAY ==
[2020-01-21 23:22] LABS: SARS-CoV-2 RNA PCR Negative
== END 2020-01-20 14:34 | disposition home or self-care (01) ==
LOC: CHSLAB 14:35
PROVIDERS: PCP Nurse Practitioner Family; Visit Provider Nurse Practitioner Family
DX: R19.7 Diarrhea, unspecified (principal); Z20.828 Contact with and (suspected) exposure to other viral communicable diseases
CPT/HCPCS: 87635; C9803; U0003

== ENCOUNTER 2020-05-02 06:48 | Outpatient (CLI) | payer MEDICARE, SELFPAY ==
--- NOTE | ~2020-05-02 | XR_ITS ---
XR lumbar spine 6V w bending 05/02/2020 08:18 Indication: Low back pain Procedure: 7 views of the lumbar spine including flexion/extension views Comparison: 02/27/2015 Findings: No fracture or traumatic malalignment. There are prominent ventral osteophytes at multiple levels. No evidence for spondylolisthesis. No significant disc narrowing. There is mild lower lumbar facet hypertrophy at L5-S1. There is atherosclerosis of the aorta. Prominent marginal osteophytes lat erally. Impression: 1: Mild-moderate lumbar spondylosis. Reviewed, dictated and finalized at location A. MILLING MACHINE SET UP OPERATOR Impression: 1: Mild-moderate lumbar spondylosis.
--- NOTE | ~2020-05-02 | MR_ITS ---
EXAMINATION: MR lumbar spine wo con DATE: 05/02/2020 07:40 INDICATION: Low back pain. TECHNIQUE: Magnetic resonance imaging (MRI) of the lumbar spine was performed without intravenous con trast. Sequences included sagittal T2-weighted FSE, sagittal T2-weighted FS FSE, sagittal T1-weighted FSE, and axial T2-weighted FSE. COMPARISON: Lumbar spine radiographs 05/02/2020 FINDINGS: There is 5 degrees levocurvature of lumbar spine. Vertebral body heights are normal. Interv ertebral disc heights are normal. The distal spinal cord signal intensity is normal. The conus medull angela is at L2. Epidural lipomatosis is noted. The following disc levels are specifically discussed: L1-L2: The disc does not extend beyond the endplate margin. There is moderate bilateral facet joint o steoarthritis. There is mild right neural foraminal stenosis. There is no central canal stenosis. L2-L3: The disc is bulging and has an annular fissure. There is moderate bilateral facet joint osteoa rthritis. There is mild bilateral neural foraminal stenosis. There is mild central canal stenosis. L3-L4: The disc is bulging. There is severe bilateral facet joint osteoarthritis. There is mild bilat eral neural foraminal stenosis. There is mild central canal stenosis. L4-L5: The disc is bulging and has an annular fissure. There is moderate right and severe left facet joint osteoarthritis. There is moderate right and mild left neural foraminal stenosis. There is mild central canal stenosis. L5-S1: The disc does not extend beyond the endplate margin. There is severe bilateral facet joint ost eoarthritis. There is mild bilateral neural foraminal stenosis. There is no central canal stenosis. IMPRESSION: 1. Mild lumbar spondylosis. Reviewed, dictated and finalized at location A. TOPPER IMPRESSION: 1. Mild lumbar spondylosis.
--- NOTE | ~2020-05-02 | XR_ITS ---
XR thoracic spine 3V 05/02/2020 08:18 Indication: Back pain Procedure: 3 views thoracic spine Comparison: No prior studies for comparison. Findings: Mild dextrocurvature of the thoracic spine. Vertebral body heights are maintained. There ar e bulky anterior osteophytes, compatible with diffuse idiopathic skeletal hyperostosis. No acute frac ture or traumatic malalignment. Surrounding osseous structures within normal limits. Impression: 1: No acute abnormality of the thoracic spine. 2: Diffuse idiopathic skeletal hyperostosis (DISH) of the thoracic spine. Reviewed, dictated and finalized at location A. ITORY SUPERVISOR Impression: 1: No acute abnormality of the thoracic spine. 2: Diffuse idiopathic skeletal hyperostosis (DISH) of the thoracic spine.
== END 2020-05-02 06:49 | disposition home or self-care (01) ==
LOC: CHSIMG 06:54
PROVIDERS: PCP Family Medicine; Visit Provider Nurse Practitioner Family
DX: M54.6 Pain in thoracic spine (principal); M54.5 Low back pain
CPT/HCPCS: 72072; 72114; 72148

== ENCOUNTER 2020-06-11 10:11 | Outpatient (CLI) | payer MEDICARE, SELFPAY ==
--- NOTE | ~2020-06-11 | US_ITS ---
EXAMINATION: US venous doppler [place] DATE: 06/11/2020 11:26 INDICATION: Venous thrombosis and embolism TECHNIQUE: Grayscale ultrasound images without and with compression and Doppler ultrasound images of the right lower extremity veins were obtained. COMPARISON: 06/27/2019 FINDINGS: The visualized portions of right common femoral vein, profunda (deep) femoral vein, femoral vein, pop liteal vein, peroneal trunk, posterior tibial veins, peroneal veins, gastrocnemius vein and greater s aphenous vein outflow are patent. IMPRESSION: 1. No deep venous thrombosis in the right lower limb. Reviewed, dictated and finalized at location A. SAWYER
--- NOTE | ~2020-06-11 | XR_ITS ---
EXAMINATION: XR chest 2V DATE: 06/11/2020 10:51 INDICATION: Shortness of breath TECHNIQUE: PA and lateral views of the chest are obtained. COMPARISON: 01/03/2020 FINDINGS: The lungs are free of acute opacities. Calcified pulmonary nodules are consistent with old granulomatous disease. There is no pleural effusion or pneumothorax. The cardiomediastinal silhouette is normal. There are bridging osteophytes at multiple levels in the spine, consistent with diffuse i diopathic skeletal hyperostosis (DISH). IMPRESSION: 1. No acute cardiopulmonary abnormality. Reviewed, dictated and finalized at location A. CTOR PROJECT MANAGEMENT
--- NOTE | ~2020-06-11 | XR_ITS ---
XR foot RT 2V DATE: 06/11/2020 10:51 INDICATION: Recent fall. Pain and swelling. TECHNIQUE: 4 views of right foot COMPARISON: None FINDINGS: Plate and screws along the lateral malleolus and a screw through the distal tibia for prior trimalleolar fracture. There is diffuse osteopenia. There is prominent soft tissue swelling. No recent fracture or dislocation. No periosteal reaction or bone destruction. Plantar and posterior calcaneal enthesopathy. IMPRESSION: Prominent soft tissue swelling Diffuse osteopenia No recent fracture or dislocation Postoperative change of distal tibia and fibula from ORIF for trimalleolar fracture Calcaneal enthesopathy Reviewed, dictated and finalized at location B. MAKER IMPRESSION: Prominent soft tissue swelling Diffuse osteopenia No recent fracture or dislocation Postoperative change of distal tibia and fibula from ORIF for trimalleolar frac ture Calcaneal enthesopathy
--- NOTE | ~2020-06-11 | XR_ITS ---
XR ankle RT 2V DATE: 06/11/2020 10:51 INDICATION: Fall 2 weeks ago; swelling. TECHNIQUE: 4 views COMPARISON: 05/13/2018 right ankle FINDINGS: Plate and screws along the distal fibular shaft extending to the lateral malleolus. There i s a transverse screw through the distal tibial epiphyseal area. There is interval healing of trimalle olar fracture and reduction of posterolateral dislocation since 05/13/2018. There is a large soft tissue swelling, greater laterally. No recent fracture or dislocation is eviden t. Osteopenia. Plantar and posterior calcaneal enthesopathy. IMPRESSION: Soft tissue swelling; no recent fracture or dislocation Status post ORIF trimalleolar fracture/dislocation Calcaneal enthesopathy Reviewed, dictated and finalized at location B. ODITIES MANAGER
== END 2020-06-11 10:12 | disposition home or self-care (01) ==
LOC: CHSIMG 10:13
PROVIDERS: PCP Nurse Practitioner Family; Visit Provider Nurse Practitioner Family
DX: Z86.718 Personal history of other venous thrombosis and embolism (principal); M79.89 Other specified soft tissue disorders; M79.671 Pain in right foot; R06.02 Shortness of breath
CPT/HCPCS: 71046; 73600; 73620; 93971

== ENCOUNTER 2020-11-21 22:55 | Emergency (ER) | payer MEDICARE, SELFPAY ==
--- NOTE | ~2020-11-21 | CT_ITS ---
EXAMINATION: CT pelvis wo con DATE: 11/21/2020 23:33 INDICATION: Left hip pain and hematoma post fall one week prior TECHNIQUE: High resolution computed tomography (CT) of the pelvis was performed without intravenous c ontrast. Additional sagittal and coronal reconstructions were performed. Automated exposure control a nd iterative reconstruction technique were employed. The dose-length product was 915.87 mGy-cm. COMPARISON: None FINDINGS: Bone alignment is normal. No fracture. Mild bilateral hip osteoarthritis. No hip joint effusions. Mikhail dder, prostate and visualized portions of the bowels including the appendix are normal. Atherosclerot ic calcification is at the inferior abdominal aorta extending to the bilateral iliac and femoral glenys cinthia. IMPRESSION: 1. Mild bilateral hip osteoarthritis. No acute osseous abnormality. Reviewed, dictated and finalized at location A.
[2020-11-21 23:21] VITALS: BP 137/61; PULSE 74; RESP 18; TEMP 36.3; O2SAT 96
[2020-11-21] MEDS: HYDROcodone/acetaminophen (*CRX) 10-325 MG TABLET 1 TAB PO (23:41)
--- NOTE | 2020-11-21 23:49 | ED.LOWEXIN ---
HPI - Extremity Injury (Lower) General Chief Complaint: Extremity Injury, Lower Stated Complaint: Left hip injury Time Seen by Provider: 11/21/20 23:30 Source: patient Mode of arrival: ambulatory Limitations: no limitations History of Present Illness HPI Narrative: Patient comes in after a fall to the left hip a 4 days ago. Pain has been severe, sharp, made worse with movement, lessens with rest, not decreasing since the fall 4 days ago. Tylenol in great excess has not decreased the pain. He simply lost his balance and fell, precipitaiting the pain. MD complaint: hip injury Onset (ago): day(s) Type of Injury: blunt Place: home Severity: severe Relieving factors: nothing Exacerbating factors: weight bearing, movement and palpation Context: direct blow Other symptoms: none Related Data Home Medications Medication Instructions Recorded Confirmed famotidine 10 mg tablet 20 mg PO DAILY 07/03/19 01/20/20 dulaglutide 0.75 mg/0.5 mL 1.5 mg SUB-Q WEEKLY ml 09/28/20 09/28/20 subcutaneous pen injector Allergies Allergy/AdvReac Type Severity Reaction Status Date / Time No Known Allergies Allergy Verified 09/28/20 08:12 Review of Systems Constitutional: Constitutional: Reports no additional constitutional complaints Eyes: Eyes: Reports no additional eye complaints ENT: Reports system reviewed and no additional complaints, except as documented Cardiovascular: Cardiovascular: Reports no additional cardiovascular complaints Respiratory: Respiratory: Reports no additional respiratory complaints Gastrointestinal: Gastrointestinal: Reports no additional gastrointestinal complaints Genitourinary: Genitourinary: Reports no additional male genitourinary complaints Musculoskeletal: Musculoskeletal: Reports no additional musculoskeletal complaints Integumentary/Breasts: Skin/Breast: Reports system reviewed and no additional complaints, except as docu Neurologic: Reports system reviewed and no additional complaints, except as documented Psychiatric: Psychiatric: Reports no additional psychiatric complaints Endocrine: Endocrine: Reports no additional endocrine complaints Hematologic/Lymphatic: Hematologic/Lymphatic: Reports no additional hematologic/lymphatic complaints Allergic/Immunologic: Allergic/Immunologic: Reports no additional allergic/immunologic complaints [facility] Past Medical History Medical History DM2 (diabetes mellitus, type 2) DVT (deep venous thrombosis) GERD (gastroesophageal reflux disease) Hyperlipidemia Lymphedema Neuropathy Pulmonary embolism Tobacco abuse Weakness Surgical History Surgical History History of ankle surgery Family History Family History Father Lung cancer Mother Lung cancer Other Family history of arthritis Family history of malignant neoplasm Family history of seizure disorder Hypertension Social History Social History Smoking packs per day: 0.5 Smoking cigarettes per day: 10.0 Years smoked: 50 Smoking pack-years: 25.00 Smoking status: Current every day smoker Tobacco type: cigarettes Alcohol intake: never Additional living arrangements comments: . Gender identity (if verbalized by the patient): Male Exam Const: General: no acute distress and alert Orientation/consciousness: patient oriented x3 HENMT: Head: normal to inspection Ears: external ears normal General nose exam: Normal external nose present Mouth: Yes Normal oral and palatal mucosa present Eyes: Conjunctivae: conjunctivae normal Neck: Neck: normal visual inspection Chest: Chest palpation & inspection: normal inspection of the chest Resp: Effort & Inspection: normal respiratory effort Auscultation: clear to auscultation bi
[2020-11-22 00:09] VITALS: BP 137/61; PULSE 74; RESP 20; TEMP 36.3; O2SAT 96
== END 2020-11-22 00:11 | disposition home or self-care (01) ==
PROVIDERS: Emergency Provider Emergency Medicine; PCP Nurse Practitioner Family
DX: S70.02XA Contusion of left hip, initial encounter (principal); W19.XXXA Unspecified fall, initial encounter; E11.9 Type 2 diabetes mellitus without complications; K21.9 Gastro-esophageal reflux disease without esophagitis; E78.5 Hyperlipidemia, unspecified; F17.200 Nicotine dependence, unspecified, uncomplicated
CPT/HCPCS: 72192; 99283; 99284; A9270

== ENCOUNTER 2020-12-08 01:21 | Emergency (ER) | payer MEDICARE, SELFPAY ==
--- NOTE | ~2020-12-08 | XR_ITS ---
EXAMINATION: XR abdomen obstructive series DATE: 12/08/2020 03:00 INDICATION: Nausea. Belching. TECHNIQUE: Supine and upright views of the abdomen. FINDINGS: 05/18/2016 The visualized lung parenchyma is normal.. There is a nonobstructive bowel gas pattern. Gas and stool are seen throughout the colon to the level of the rectum. There is no free air. IMPRESSION: 1. No acute abdominal abnormality. Reviewed, dictated and finalized at location A.
[2020-12-08 01:25] VITALS: BP 148/93; PULSE 77; RESP 20; TEMP 36.3; O2SAT 97
--- NOTE | 2020-12-08 01:38 | ED.ABDPAIN ---
HPI - Abdominal Pain General Chief Complaint: Abdominal Pain Stated Complaint: Abdominal Pain Time Seen by Provider: 12/08/20 01:39 Source: patient and family Mode of arrival: wheelchair Limitations: no limitations History of Present Illness HPI narrative: 65-year-old man with a history of type 2 diabetes, PE, GERD and COPD comes to the emergency department complaining of abdominal pain was gotten gradually worse over last 4 days. His states he has also not had a bowel movement and is unable to belch. He denies new shortness of breath, chest pain, fever, chills, dysuria, black or bloody stools, sore throat, cold symptoms and sick contacts. MD elicited complaint: abdominal pain Pertinent past history: none Onset (ago): day(s) (4) Pain Consistency: constant Location: diffuse Severity: severe Quality: dull Radiation: none Migration to: no migration Exacerbating factors: nothing Relieving factors: nothing Associated symptoms: nausea Treatments prior to arrival: antacids Related Data Home Medications Medication Instructions Recorded Confirmed famotidine 10 mg tablet 20 mg PO BID 07/03/19 12/08/20 dulaglutide 0.75 mg/0.5 mL 1.5 mg SUB-Q WEEKLY ml 09/28/20 12/08/20 subcutaneous pen injector Allergies Allergy/AdvReac Type Severity Reaction Status Date / Time No Known Allergies Allergy Verified 09/28/20 08:12 Review of Systems Constitutional: Constitutional: Denies chills and Denies fever(s) Eyes: Eyes: Denies change in vision and Denies photophobia ENT: Denies nasal congestion and Denies sore throat Cardiovascular: Cardiovascular: Denies chest pain and Denies radiating jaw, neck or arm pain Respiratory: Respiratory: Reports cough, Reports dyspnea (Chronic) and Reports wheezing Gastrointestinal: Gastrointestinal: Reports abdominal pain, Denies diarrhea, Reports nausea and Denies vomiting Genitourinary: Genitourinary: Reports dysuria and Reports urinary frequency Musculoskeletal: Musculoskeletal: Denies back pain, Denies arthralgias and Denies joint swelling Integumentary/Breasts: Skin/Breast: Denies pruritus, Denies erythema and Denies rash Neurologic: Denies vertigo, Denies dizziness and Denies syncope Hematologic/Lymphatic: Hematologic/Lymphatic: Reports easy bleeding and Reports easy bruising Allergic/Immunologic: Allergic/Immunologic: Denies lip swelling and Denies throat swelling PMFSH Past Medical History Medical History DM2 (diabetes mellitus, type 2) DVT (deep venous thrombosis) GERD (gastroesophageal reflux disease) Hyperlipidemia Lymphedema Neuropathy Pulmonary embolism Tobacco abuse Weakness Surgical History Surgical History History of ankle surgery Family History Family History Father Lung cancer Mother Lung cancer Other Family history of arthritis Family history of malignant neoplasm Family history of seizure disorder Hypertension Social History Social History (Updated 12/08/20 @ 01:52 by Justin Nix MD) Smoking packs per day: 0.5 Smoking cigarettes per day: 10.0 Years smoked: 50 Smoking pack-years: 25.00 Smoking status: Current every day smoker Tobacco type: cigarettes Alcohol use details: Denies Substance use: current Substance use type: marijuana Living arrangements: with family Additional living arrangements comments: . Gender identity (if verbalized by the patient): Male Exam Const: General: alert and ill appearing acutely (Mildly) Orientation/consciousness: patient oriented x3 Other: [id number] acute distress. HENMT: Head: normal to inspection Mouth: Yes moist mucous membranes Throat: posterior oropharynx normal Eyes: Conjunctivae: conjunctivae normal Pupils: Equal, round and reactive pupils present E
--- NOTE | 2020-12-08 01:44 | ECG_ITS ---
Measurements Intervals [place] Rate: 63 P: 68 [place]: 214 QRS: -17 QRSD: 107 T: 38 QT: 408 QTc: 418 Interpretive Statements SINUS RHYTHM WITH FIRST DEGREE AV BLOCK LOW QRS VOLTAGE IN PRECORDIAL LEADS BASELINE ARTIFACT- I, II, III ABNORMAL ECG Electronically Signed On 12-08-2020 7:33:00 CDT by Jose Lai D.O.
[2020-12-08] MEDS: ONDANSETRON INJ 4 MG/2 ML VIAL IV PUSH (01:58)
[2020-12-08 01:59] LABS: Basophils Absolute Auto 0.02 K/mm3 (0.00-0.10); Basophils Percent Auto 0.5 % (0.0-1.0); Eosinophils Absolute Auto 0.16 K/mm3 (0.02-0.50); Eosinophils Percent Auto 3.6 % (1.0-6.0); Hematocrit 42.3 % (40.0-54.0); Hemoglobin 14.1 g/dL (14.0-18.0); Immature Granulocyte Absolute 0.01 K/mm3 (0.00-0.00); Immature Granulocyte Percent A 0.2 % (0.0-0.0); Lymphocytes Absolute Auto 1.77 K/mm3 (1.10-4.50); Mean Corpuscular HGB Conc 33.3 g/dL (32.0-36.0); Mean Corpuscular Hemoglobin 31.4 pg (27.0-31.0); Mean Corpuscular Volume 94.2 fL (78.0-102.0); Mean Platelet Volume 9.6 fl (8.7-11.0); Monocytes Absolute Auto 0.55 K/mm3 (0.10-0.90); Monocytes Percent Auto 12.4 % (2.0-11.0); Neutrophils Absolute Auto 1.9 K/mm3 (1.7-7.2); Neutrophils Percent Auto 43.3 % (50.0-70.0); Platelet Count Result 147 K/mm3 (150-420); Red Blood Count 4.49 M/mm3 (4.70-6.10); Red Cell Distribution Width 14.9 % (11.6-14.4); White Blood Count 4.4 K/mm3 (4.8-10.8)
[2020-12-08] MEDS: HYDROmorphone HCL INJ (*CRX) 2 MG/ML VIAL 0.5 MG IV PUSH (02:02)
[2020-12-08] MEDS: SODIUM CHLORIDE 0.9% IV 1,000 ML 999 ML IV CONT (02:03)
[2020-12-08 02:08] LABS: Glucose Point of Care 109 mg/dl (65-105)
[2020-12-08 02:19] LABS: Lactic Acid Reflex 0.8 mmol/L (0.4-2.0)
[2020-12-08 02:25] LABS: Alanine Aminotransferase 40 U/L (16-63); Albumin Level 3.3 g/dL (3.4-5.0); Alkaline Phosphatase 113 U/L (46-116); Anion Gap 13 mmol/L (8-16); Aspartate Amino Transferase 22 U/L (15-37); Bilirubin,Total 0.9 mg/dL (0.00-1.00); Blood Urea Nitrogen 11 mg/dL (7-18); Calcium 9.3 mg/dL (8.5-10.1); Carbon Dioxide 23 mmol/L (21-32); Chloride 103 mmol/L (98-108); Estimated CRCL calculation 102 ml/min; Estimated Glomerular Filt Rate > 60; Glucose 117 mg/dL (70-99); Lipase 44 U/L (73-393); Osmolality Calculated 288 mOsm/kg (285-295); Potassium 3.8 mmol/L (3.5-5.1); Sodium 139 mmol/L (136-145); Total Protein 7.9 g/dL (6.4-8.2); Troponin I 5.6 ng/L (0.00-60.4)
[2020-12-08 03:21] LABS: Add Urine Microscopic? YES; Appearance Urine Clear (Clear); Bilirubin Urine Negative (Negative); Blood Urine Negative (Negative); Color Urine Yellow (Yellow); Glucose Urine UA Negative (Negative); Ketones Urine Trace (Negative); Leukocyte Esterase Ur Negative LEU/UL (Negative); Nitrate Urine Negative (Negative); Protein Urine Negative (Negative); Specific Grav Ur 1.025 (1.010-1.020)
[2020-12-08 03:26] LABS: Bacteria Urine Trace /hpf; Mucus Urine Few /lpf; RBC Urine 0-2 /hpf (0-2); Squamous Epithelial Cell Urine Rare /hpf (Few); WBC Urine 0-3 /hpf (0-3)
[2020-12-08 03:33] VITALS: BP 133/62
--- NOTE | 2020-12-08 03:33 | PC.NURSE ---
pt resting per cot, no complaint at this time. resting eyes closed.
[2020-12-08 03:56] VITALS: BP 133/71; PULSE 84; RESP 20; TEMP 36.3; O2SAT 98
== END 2020-12-08 04:03 | disposition home or self-care (01) ==
PROVIDERS: Emergency Provider Emergency Medicine; PCP Family Medicine
DX: R10.84 Generalized abdominal pain (principal); E11.9 Type 2 diabetes mellitus without complications; K21.9 Gastro-esophageal reflux disease without esophagitis; J44.9 Chronic obstructive pulmonary disease, unspecified; F17.200 Nicotine dependence, unspecified, uncomplicated
CPT/HCPCS: 36415; 74019; 80053; 81001; 82948; 83605; 83690; 84484; 85025; 93005; 96361; 96374; 96375; 99283; 99284; J1170; J2405; J7030

== ENCOUNTER 2021-03-15 17:16 | Emergency (ER) | payer MEDICARE, SELFPAY ==
--- NOTE | ~2021-03-15 | XR_ITS ---
XR knee RT 3V 03/15/2021 18:22 Indication: Right knee pain after recent fall Procedure: 3 views right knee Comparison: 01/18/2012 Findings: There is mild tricompartment osteoarthritis of the knee. No acute fracture, subluxation or dislocation. No significant joint effusion. No foreign bodies. Impression: 1: Mild tricompartment osteoarthritis of the right knee. Reviewed, dictated and finalized at location A. L WEATHER STRIPPER Impression: 1: Mild tricompartment osteoarthritis of the right knee.
--- NOTE | ~2021-03-15 | XR_ITS ---
XR knee LT 3V 03/15/2021 18:22 Indication: Left knee pain after fall Procedure: 3 views left knee Comparison: 12/04/2006 Findings: There is mild patellofemoral compartment osteoarthritis. No fracture, subluxation or disloc ation. No significant joint effusion. No foreign bodies. Impression: 1: No acute fracture. Reviewed, dictated and finalized at location A. STITCH FRONT EDGE TAPE SEWER Impression: 1: No acute fracture.
--- NOTE | 2021-03-15 17:53 | ED.LOWEXIN ---
HPI - Extremity Injury (Lower) General Chief Complaint: Fall Stated Complaint: Both knee pain Time Seen by Provider: 03/15/21 17:53 Source: patient Mode of arrival: ambulatory Limitations: no limitations History of Present Illness HPI Narrative: 65-year-old man with a history of DVT/PE, type 2 diabetes, and chronic right ankle pain after ORIF comes in today complaining of bilateral knee pain, left greater than right, after he fell today. He states that he tripped and fell forward onto his anterior knees. He had a similar episode yesterday. He denies lightheadedness, weakness, shortness of breath, chest pain or palpitations associated with falls and he has none of those symptoms now. He has had no prior knee surgeries. The patient's warfarin is currently on hold due to an elevated INR. MD complaint: knee injury Injury: Bilateral: knee Type of Injury: blunt Place: home Severity: moderate Relieving factors: rest Exacerbating factors: weight bearing, movement and palpation Context: fall Associated symptoms: swelling Other symptoms: none Related Data Home Medications Medication Instructions Recorded Confirmed famotidine 10 mg tablet 20 mg PO BID 07/03/19 03/15/21 dulaglutide 0.75 mg/0.5 mL 1.5 mg SUB-Q WEEKLY ml 09/28/20 03/15/21 subcutaneous pen injector Allergies Allergy/AdvReac Type Severity Reaction Status Date / Time No Known Allergies Allergy Verified 03/08/21 07:56 Review of Systems Review of Systems: All systems reviewed & are unremarkable except as noted in HPI and below ENT: Denies nasal congestion and Denies sore throat Cardiovascular: Cardiovascular: Denies chest pain and Denies radiating jaw, neck or arm pain Respiratory: Respiratory: Denies cough, Denies dyspnea and Denies wheezing Gastrointestinal: Gastrointestinal: Denies abdominal pain, Denies nausea and Denies vomiting Genitourinary: Genitourinary: Denies hematuria and Denies dysuria Musculoskeletal: Musculoskeletal: Denies back pain, Reports arthralgias and Reports joint swelling Integumentary/Breasts: Skin/Breast: Denies pruritus and Denies rash Neurologic: Denies vertigo, Denies dizziness, Denies syncope, Denies focal weakness and Denies weakness Hematologic/Lymphatic: Hematologic/Lymphatic: Reports easy bleeding and Reports easy bruising Allergic/Immunologic: Allergic/Immunologic: Denies lip swelling and Denies throat swelling PMFSH Past Medical History Medical History DM2 (diabetes mellitus, type 2) DVT (deep venous thrombosis) GERD (gastroesophageal reflux disease) Hyperlipidemia Lymphedema Neuropathy Pulmonary embolism Tobacco abuse Weakness Surgical History Surgical History History of ankle surgery Family History Family History Father Lung cancer Mother Lung cancer Other Family history of arthritis Family history of malignant neoplasm Family history of seizure disorder Hypertension Social History Social History Smoking packs per day: 0.5 Smoking cigarettes per day: 10.0 Years smoked: 50 Smoking pack-years: 25.00 Smoking status: Current every day smoker Tobacco type: cigarettes Alcohol use details: Denies Substance use: current Substance use type: marijuana Additional living arrangements comments: . Gender identity (if verbalized by the patient): Male Sexual Orientation (if Verbalized by the Patient): Straight or Heterosexual Exam Const: General: healthy appearing and alert Orientation/consciousness: patient oriented x3 Limitations: no limitations Other: Moderate acute distress. Resp: Effort & Inspection: normal respiratory effort and not labored Auscultation: clear to auscultation bilaterally, no rales, no rhonchi and
[2021-03-15 17:56] VITALS: BP 136/59; PULSE 78; RESP 18; TEMP 36.6; O2SAT 95
[2021-03-15] MEDS: HYDROcodone/acetaminophen (*CRX) 5-325 MG TABLET 1 TAB PO (18:11)
--- NOTE | 2021-03-15 18:59 | PC.NURSE ---
refused ice packs
[2021-03-15 19:10] VITALS: BP 136/88; PULSE 66; RESP 16; TEMP 36.4; O2SAT 96
== END 2021-03-15 19:11 | disposition home or self-care (01) ==
PROVIDERS: Emergency Provider Emergency Medicine; PCP Family Medicine
DX: S80.212A Abrasion, left knee, initial encounter (principal); S80.211A Abrasion, right knee, initial encounter; S80.02XA Contusion of left knee, initial encounter; W19.XXXA Unspecified fall, initial encounter
CPT/HCPCS: 73562; 99283; 99284; A9270

== ENCOUNTER 2021-05-12 06:55 | Outpatient (RCR) | payer MEDICARE, SELFPAY ==
[2021-02-22 07:54] LABS: Prothrombin Time 11.1 Seconds (9.50-12.10)
[2021-03-01 07:33] LABS: INR 4.1; Prothrombin Time 41.1 Seconds (9.50-12.10)
[2021-03-08 07:39] LABS: Prothrombin Time 73.6 Seconds (9.50-12.10)
[2021-03-08 07:42] LABS: INR 7.6
[2021-03-15 07:31] LABS: Prothrombin Time 78.6 Seconds (9.50-12.10)
[2021-03-22 07:30] LABS: INR 1.3; Prothrombin Time 13.6 Seconds (9.50-12.10)
[2021-03-29 07:27] LABS: INR 1.7; Prothrombin Time 17.9 Seconds (9.50-12.10)
[2021-04-05 07:25] LABS: INR 2.4; Prothrombin Time 24.6 Seconds (9.50-12.10)
[2021-04-12 07:24] LABS: INR 3.3; Prothrombin Time 33.4 Seconds (9.50-12.10)
[2021-04-19 07:18] LABS: INR 2.8; Prothrombin Time 28.6 Seconds (9.50-12.10)
[2021-04-26 07:23] LABS: Prothrombin Time 20.7 Seconds (9.50-12.10)
[2021-05-12 07:19] LABS: Prothrombin Time 11.1 Seconds (9.50-12.10)
== END 2021-05-23 23:59 | disposition home or self-care (01) ==
LOC: CHSLAB 06:55
PROVIDERS: PCP Family Medicine; Visit Provider Family Medicine
DX: Z79.01 Long term (current) use of anticoagulants (principal)
CPT/HCPCS: 36415; 85610

== ENCOUNTER 2021-07-07 20:20 | Outpatient (CLI) | payer MEDICARE, SELFPAY ==
--- NOTE | 2021-07-11 15:22 | WPDSLEEPSTUD ---
Sleep Study Date of Study: 07/07/21 Ordering Provider: Sarath Arreaga DO Interpreting Physician: Alpa Cooper MD Sleep Study Type: Split Polysomnogram Height: 1.83 m Weight: 118.8 kg Body Mass Index: 35.5 Neck Circumference (inches): 17 [place]: 16 Reason for Sleep Study Hypersomnolence, fatigue, difficulty getting to sleep, non-restorative sleep Sleep History Michael Gonzalez is a 66 year old man with complaints of core poor quality sleep, and feeling tired all the time. He wakes up during the night. He is excessively sleepy during the day and has a difficult time waking in the morning. He occasionally awakens from sleep feeling short of breath, he frequently awakens at night with heartburn, belching or coughing. He occasionally snores. Frequently his snoring is loud enough that others complain. He frequently has trouble sleeping with a cold. He rarely wakes up gasping for breath at night. He frequently has breathing problems at night observed by others. He rarely sweats excessively at night. He occasionally notices his heart pounding or beating irregularly at night. He constantly falls asleep during the day, involuntarily but never falls asleep while driving. He rarely has loss of muscle tone with strong emotion. He occasionally feels paralyzed on waking or falling asleep. He occasionally has vivid dreamlike scenes upon awakening or falling asleep. He does not feel afraid to go to sleep. He rarely has nightmares. He does not remember his dreams. He rarely has racing thoughts. He does not feel sad or depressed. He rarely has anxiety. He frequently has muscular tension. He frequently notices parts of his body jerk kicking and he frequently kicks at night. He constantly has crawling and aching feelings in his legs, and he constantly has leg pain at night. He does not have morning jaw pain. He does not grind his teeth during sleep. He constantly is bothered by pain during the day and awakened by pain during the night. He frequently wakes up feeling stiff in the morning. He constantly wakes up with sore achy muscles and pain in the neck and spine. He is disabled. He has fatigue, sexual problems, memory problems and concentration difficulties. He takes antacids regularly. He has headaches. He has lost 45 lb in the last year. Normal bedtime is 10:30 p.m. to 11:00 p.m., falling asleep within 10 minutes sometimes much more quickly he wakes up 3 or 4 times at night to urinate, and although e tries to return to sleep, sometimes he stays awake. he wakes in the morning between 5:00 a.m. and 7:00 a.m.. He estimates getting 4 hours of sleep at night. He takes naps in the afternoon or evening. A short nap is not refreshing. He is drowsy in the morning for an hour or longer. Habits: Tobacco a pack per day. He drinks caffeine regularly. No alcohol. [facility] Past Medical History Medical History DM2 (diabetes mellitus, type 2) DVT (deep venous thrombosis) GERD (gastroesophageal reflux disease) Hyperlipidemia Lymphedema Neuropathy Pulmonary embolism Tobacco abuse Weakness Surgical History Surgical History History of ankle surgery Family History Family History Father Lung cancer Mother Lung cancer Other Family history of arthritis Family history of malignant neoplasm Family history of seizure disorder Hypertension Social History Social History Smoking packs per day: 0.5 Smoking cigarettes per day: 10.0 Years smoked: 50 Smoking pack-years: 25.00 Tobacco type: cigarettes Alcohol use details: Denies Substance use: current Substance use type: marijuana Additional living arrangements comments: . Gender identity (if verbalized by the patien
[2021-07-12 15:57] VITALS: BMI 35.5
== END 2021-07-08 05:59 | disposition home or self-care (01) ==
LOC: CHSCSM 20:22
PROVIDERS: PCP Family Medicine; Visit Provider Family Medicine
DX: G47.33 Obstructive sleep apnea (adult) (pediatric) (principal)
CPT/HCPCS: 95811

== ENCOUNTER 2021-08-27 09:56 | Outpatient (CLI) | payer MEDICARE, SELFPAY ==
--- NOTE | ~2021-08-27 | US_ITS ---
EXAMINATION: US arterial ankle brachial ind DATE: 08/27/2021 10:51 INDICATION: Peripheral vascular disease TECHNIQUE: Segmental pressures and plethysmographic and Doppler waveforms of the brachial and lower e xtremity arteries were obtained. COMPARISON: None. FINDINGS: Right and left brachial artery pressures of 124 mm Hg and 117 mm Hg, respectively, are concordant (no rmal difference <= 30 mmHg). The right ankle-brachial index (CRISTI) is 0.95 (normal >= 0.9-1.0). The right great toe-brachial index (TBI) is 0.45 (normal >= 0.65). There are brisk systolic upstrokes at both the right posterior tibial and dorsalis pedis arteries. The left CRISTI is 0.94. The left TBI is 0.70. There are brisk systolic upstrokes at both the left poste rior tibial and dorsalis pedis arteries. IMPRESSION: 1. Mild arterial occlusive disease with borderline bilateral ABIs and mildly decreased right TBI. Reviewed, dictated and finalized at location A. IMPRESSION: 1. Mild arterial occlusive disease with borderline bilateral ABIs and mildly de creased right TBI.
== END 2021-08-27 09:57 | disposition home or self-care (01) ==
LOC: CHSIMG 09:58
PROVIDERS: PCP Family Medicine; Visit Provider Family Medicine
DX: I73.9 Peripheral vascular disease, unspecified (principal)
CPT/HCPCS: 93922

== ENCOUNTER 2021-09-28 12:04 | Outpatient (CLI) | payer MEDICARE, SELFPAY ==
[2021-09-28 12:13] LABS: Hematocrit 31.5 % (37.0-46.0); Hemoglobin 9.8 g/dL (12.4-15.3); Mean Corpuscular HGB Conc 31.1 g/dL (32.0-36.0); Mean Corpuscular Hemoglobin 29.8 pg (27.0-31.0); Mean Corpuscular Volume 95.7 fL (78.0-102.0); Mean Platelet Volume 9.1 fl (8.7-11.0); Platelet Count Result 217 K/mm3 (150-420); Red Blood Count 3.29 M/mm3 (4.70-6.10); Red Cell Distribution Width 17.7 % (11.6-14.4); White Blood Count 7.2 K/mm3 (4.8-10.8)
== END 2021-09-28 12:05 | disposition home or self-care (01) ==
LOC: CHSLAB 12:05
PROVIDERS: PCP Family Medicine; Visit Provider Family Medicine
DX: R53.1 Weakness (principal); E11.9 Type 2 diabetes mellitus without complications
CPT/HCPCS: 36415; 83036; 85027

== ENCOUNTER 2021-11-11 18:39 | Inpatient (IN) | payer MEDICARE, SELFPAY ==
[2021-11-11] VITALS (43 sets, daily range): BP systolic 70–116; BP diastolic 49–71; PULSE 68–100; RESP 11–27; TEMP 36.1–37.7; O2SAT 93–100
--- NOTE | ~2021-11-11 | CT_ITS ---
EXAMINATION: CT brain wo con DATE: 11/11/2021 20:04 INDICATION: Altered mental status. Dizziness. TECHNIQUE: Computed tomography (CT) of the head was performed without intravenous contrast. The mA wa s adjusted according to patient size. Iterative reconstruction technique was employed. The dose-lengt h product was 681.00 mGy-cm. COMPARISON: None FINDINGS: There are scattered areas of low attenuation in the cerebral white matter. There is no intr acranial hemorrhage, acute infarction, or abnormal intracranial mass lesion. The ventricles are shreya l in size. There is mild mucosal thickening in the ethmoid sinuses. The orbits are normal. The mastoi d air cells are normal. IMPRESSION: 1. Mild nonspecific cerebral white matter disease, which likely represents chronic small vessel ische lina disease. Reviewed, dictated and finalized at location A. IMPRESSION: 1. Mild nonspecific cerebral white matter disease, which likely represents client support analyst ariane small vessel ischemic disease.
--- NOTE | ~2021-11-11 | XR_ITS ---
EXAMINATION: XR chest 1V portable DATE: 11/11/2021 20:04 INDICATION: Dizziness. Altered mental status. Weakness. TECHNIQUE: A single frontal view of the chest was obtained. COMPARISON: Chest 2 views 06/11/2020 FINDINGS: Calcified lung nodules and calcified hilar and mediastinal lymph nodes are consistent with old granulomatous disease. No pleural effusion or pneumothorax. The heart size is normal. IMPRESSION: 1. No acute cardiopulmonary disease. Reviewed, dictated and finalized at location A.
--- NOTE | 2021-11-11 19:37 | ECG_ITS ---
Measurements Intervals [place] Rate: 79 P: 116 [place]: 194 QRS: 201 QRSD: 90 T: 156 QT: 382 QTc: 440 Interpretive Statements SINUS RHYTHM ARM LEADS REVERSED LOW VOLTAGE- PRECORDIAL LEADS BASELINE ARTIFACT- I, III, AVL, V1 BORDERLINE ECG Electronically Signed On 11-11-2021 20:30:28 CDT by Jose Lai D.O.
[2021-11-11] MEDS: ACETAMINOPHEN 325 MG TABLET 650 MG PO (19:42)
[2021-11-11] MEDS: MORPHINE SULFATE (*CRX) 4 MG/ML INJ IM (19:43)
--- NOTE | 2021-11-11 19:47 | PC.NURSE ---
PT REFUSES IV, IVF, AND IV MEDICATIONS AT THIS TIME. ERP IS AWARE. WARM BLANKETS HAVE BEEN PROVIDED TO PT. AT BEDSIDE. WILL CONTINUE TO MONITOR.
--- NOTE | 2021-11-11 19:54 | ED.LOWEXIN ---
HPI - Extremity Injury (Lower) General Chief Complaint: Extremity Injury, Lower Stated Complaint: leg pain Time Seen by Provider: 11/11/21 18:43 Source: patient, family and RN notes reviewed Mode of arrival: wheelchair Limitations: no limitations History of Present Illness complaint: other (bilateral leg pain, weakness and dizziness x 2 days. worse sxs this PM. pt was unable to walk w/o falling.) Place: home Severity: mild Severity scale (1-10): 4 Relieving factors: rest Exacerbating factors: weight bearing Associated symptoms: numbness and tingling Related Data Allergies Allergy/AdvReac Type Severity Reaction Status Date / Time No Known Allergies Allergy Verified 12/07/21 14:00 Review of Systems Review of Systems: All systems reviewed & are unremarkable except as noted in HPI and below Constitutional: Constitutional: Reports no additional constitutional complaints Eyes: Eyes: Reports no additional eye complaints ENT: Reports system reviewed and no additional complaints, except as documented Cardiovascular: Cardiovascular: Reports no additional cardiovascular complaints Respiratory: Respiratory: Reports no additional respiratory complaints Gastrointestinal: Gastrointestinal: Reports no additional gastrointestinal complaints Musculoskeletal: Musculoskeletal: Reports no additional musculoskeletal complaints, Reports arthralgias and Reports muscle cramps Integumentary/Breasts: Skin/Breast: Reports system reviewed and no additional complaints, except as docu Neurologic: Reports system reviewed and no additional complaints, except as documented Psychiatric: Psychiatric: Reports no additional psychiatric complaints Endocrine: Endocrine: Reports no additional endocrine complaints Hematologic/Lymphatic: Hematologic/Lymphatic: Reports no additional hematologic/lymphatic complaints Allergic/Immunologic: Allergic/Immunologic: Reports no additional allergic/immunologic complaints [facility] Past Medical History Medical History Bilateral leg pain DM2 (diabetes mellitus, type 2) DVT (deep venous thrombosis) GERD (gastroesophageal reflux disease) Hyperlipidemia Lymphedema Neuropathy Pulmonary embolism Tobacco abuse Weakness Surgical History Surgical History History of ankle surgery Family History Family History Father Lung cancer Mother Lung cancer Other Family history of arthritis Family history of malignant neoplasm Family history of seizure disorder Hypertension Social History Social History Smoking packs per day: 2 Smoking cigarettes per day: 40.0 Years smoked: 40 Smoking pack-years: 80.00 Smoking status: Current every day smoker Tobacco type: cigarettes Additional smoking assessment comments: currently down to 1/2 pack Alcohol intake: current Alcohol use details: Denies Substance use: current Substance use type: marijuana Last use: 11/11/21 Additional living arrangements comments: . Gender identity (if verbalized by the patient): Male Sexual Orientation (if Verbalized by the Patient): Straight or Heterosexual Spiritual care concerns: No Exam Const: General: healthy appearing and no acute distress Nutritional Appearance: well nourished Orientation/consciousness: patient oriented x3 Limitations: no limitations HENMT: Head: normal to inspection Ears: external ears normal, TM's normal bilaterally and EAC's normal General nose exam: Normal external nose present and Normal nares present Face and sinus: normal facial exam and sinuses nontender Mouth: Yes Normal oral and palatal mucosa present and Yes moist mucous membranes Teeth and gingiva: dentition normal Throat: posterior oropharynx normal Eyes:
--- NOTE | 2021-11-11 20:09 | PC.NURSE ---
PT HAS RETURNED FROM CT, HAS HAD EKG COMPLETED. PT IS AWAITING LAB DRAW. AT BEDSIDE. ANOTHER WARM BLANKET PROVIDED. WILL CONTINUE TO MONITOR.
[2021-11-11 20:28] LABS: Hematocrit 22.2 % (37.0-46.0); Mean Corpuscular HGB Conc 30.6 g/dL (32.0-36.0); Mean Corpuscular Hemoglobin 29.7 pg (27.0-31.0); Mean Corpuscular Volume 96.9 fL (78.0-102.0); Mean Platelet Volume 9.3 fl (8.7-11.0); Platelet Count Result 195 K/mm3 (150-420); Red Blood Count 2.29 M/mm3 (4.70-6.10); Red Cell Distribution Width 18.8 % (11.6-14.4)
[2021-11-11 20:47] LABS: Alanine Aminotransferase 15 U/L (16-63); Albumin Level 1.9 g/dL (3.4-5.0); Alkaline Phosphatase 127 U/L (46-116); Anion Gap 8 mmol/L (8-16); Aspartate Amino Transferase 18 U/L (15-37); Bilirubin,Total 1.3 mg/dL (0.00-1.00); Blood Urea Nitrogen 15 mg/dL (7-18); Calcium 8.1 mg/dL (8.5-10.1); Carbon Dioxide 24 mmol/L (21-32); Chloride 99 mmol/L (98-108); Estimated CRCL calculation 91 ml/min; Estimated Glomerular Filt Rate > 60; Glucose 107 mg/dL (70-99); Osmolality Calculated 272 mOsm/kg (285-295); Potassium 3.6 mmol/L (3.5-5.1); Sodium 131 mmol/L (136-145); Total Protein 7.4 g/dL (6.4-8.2); Troponin I 6.5 ng/L (0.00-60.4)
--- NOTE | 2021-11-11 20:49 | PC.NURSE ---
CRITICAL HGB CALLED PER LAB, ERP AWARE. ADVISED PT AND IV SITE IS ESTABLISHED AT THIS TIME. WILL CONTINUE TO MONITOR. REPORTS DR GUERRERO HAS BEEN EVALUATING PT FOR ANEMIA.
[2021-11-11 20:50] LABS: Lactic Acid Reflex 0.9 mmol/L (0.4-2.0)
[2021-11-11 21:01] LABS: Hemoglobin 6.8 g/dL (12.4-15.3)
[2021-11-11 21:02] LABS: Ethanol < 3 mg/dL (0-6)
--- NOTE | 2021-11-11 21:12 | PC.NURSE ---
UPON REASSESSMENT OF PT, HAS PT STANDING AT BEDSIDE USING URINAL. PT TOLERATES WELL, RETURNED TO STRETCHER WITHOUT INCIDENT. UA SENT TO LAB. WILL CONTINUE TO MONITOR.
[2021-11-11 21:15] LABS: Band Neutrophils Percent 0 % (0-6); Basophils Absolute Manual 0.07 K/mm3 (0-0.1); Basophils Percent Manual 1 % (0-1); Eosinophils Absolute Manual 0.07 K/mm3 (0.02-0.5); Eosinophils Percent Manual 1 % (1-6); Lymphocytes Absolute Manual 1.82 K/mm3 (1.1-4.5); Lymphocytes Percent Manual 26 % (18-44); Monocytes Absolute Manual 0.98 K/mm3 (0.1-0.90); Monocytes Percent Manual 14 % (3-9); Neutrophils Absolute Manual 4.06 K/mm3 (1.3-6.7); Neutrophils Percent Manual 58 % (46-73)
[2021-11-11 21:16] LABS: Platelet Estimate Adequate (Adequate)
[2021-11-11 21:20] LABS: Add Urine Microscopic? YES; Appearance Urine Clear (Clear); Bilirubin Urine 1+ (Negative); Blood Urine Negative (Negative); Color Urine Dark Yellow (Yellow); Glucose Urine UA Negative (Negative); Ketones Urine Negative (Negative); Leukocyte Esterase Ur Negative (Negative); Nitrate Urine Negative (Negative); Protein Urine Negative (Negative); Urobilinogen Urine >=8.0 mg/dL (0.2-1.0)
[2021-11-11 21:27] LABS: Amphetamine Screen Urine Negative (Negative); Barbiturate Screen Urine Negative (Negative); Benzodiazepines Screen Urine Negative (Negative); Cannabinoid Screen Urine Positive (Negative); Cocaine Screen Urine Negative (Negative); Methadone Screen Urine Negative (Negative); Opiate Screen Urine Positive (Negative); Phencyclidine Screen Urine Negative (Negative)
[2021-11-11] MEDS: SODIUM CHLORIDE 0.9% IV 250 ML 30 ML IV CONT (21:50)
[2021-11-11 21:53] LABS: Bacteria Urine Trace /hpf; RBC Urine 0-2 /hpf (0-2); Squamous Epithelial Cell Urine Rare /hpf (Few); WBC Urine 0-3 /hpf (0-3)
--- NOTE | 2021-11-11 22:07 | PCDIET ---
[id number] Blood consent obtained, rectal exam completed per ERP. returns to bedside post procedure. blood to be transfused. nad noted. pt denies any needs or complaints. will continue to monitor.
[2021-11-11 22:16] LABS: Occult Blood Negative (Negative)
--- NOTE | 2021-11-11 23:13 | PC.NURSE ---
PT IS SLEEPING IN EXAM ROOM AT THIS TIME. PT IS AWAITING ADMISSION AND 2ND UNIT OF BLOOD TO BE READY. AT BEDSIDE. WILL CONTINUE TO MONITOR.
[2021-11-11 23:32] LABS: Hematocrit 24.9 % (37.0-46.0); Hemoglobin 7.8 g/dL (12.4-15.3)
[2021-11-12] VITALS (11 sets, daily range): BP systolic 98–116; BP diastolic 58–70; PULSE 56–71; RESP 14–18; TEMP 36.3–37.1; O2SAT 94–97; BMI 32.5
--- NOTE | 2021-11-12 | PC.NURSE ---
pt is to be admitted to room 206 pt and aware, has left for the evening. pt has blood transfusing at this time. nad noted. vss. pt denies any needs or complaints, declines wearing a hospital gown. pt has had a total of 1000ml urine output thus far. will continue to monitor.
--- NOTE | 2021-11-12 00:29 | PC.NURSE ---
BLOOD INFUSING ON ADMISSION, 110ML INFUSED.
--- NOTE | 2021-11-12 00:35 | ADMGEN ---
This patient, Michael Gonzalez, was admitted to 2nd Floor Room 206-1. Patient oriented to hospital policies and general routines including ID bracelet, bed and alarms, visiting hours, pain management, procedures, bathroom and other care routines, personal items, smoking policy, room service/diet, and visiting hours. Information on how to activate the Rapid Response Team has been discussed. Patient are encouraged to report perceived risks to care and to ask questions if they do not understand what they are told or what they should do.
[2021-11-12] MEDS: SODIUM CHLORIDE 0.9% IV 1,000 ML 100 ML IV CONT (02:53)
--- NOTE | 2021-11-12 03:00 | PC.NURSE ---
Blood transfusion complete, no adverse reactions note, pt tolerated well.
[2021-11-12 05:17] LABS: Basophils Absolute Auto 0.03 K/mm3 (0.00-0.10); Basophils Percent Auto 0.5 % (0.0-1.0); Eosinophils Absolute Auto 0.11 K/mm3 (0.02-0.50); Hematocrit 26.7 % (37.0-46.0); Hemoglobin 8.4 g/dL (12.4-15.3); Immature Granulocyte Absolute 0.02 K/mm3 (0.00-0.00); Immature Granulocyte Percent A 0.4 % (0.0-0.0); Lymphocytes Absolute Auto 1.67 K/mm3 (1.10-4.50); Lymphocytes Percent Auto 29.9 % (18.0-42.0); Mean Corpuscular HGB Conc 31.5 g/dL (32.0-36.0); Mean Corpuscular Volume 95.4 fL (78.0-102.0); Mean Platelet Volume 9.4 fl (8.7-11.0); Monocytes Absolute Auto 0.65 K/mm3 (0.10-0.90); Monocytes Percent Auto 11.6 % (2.0-11.0); Neutrophils Absolute Auto 3.1 K/mm3 (1.7-7.2); Neutrophils Percent Auto 55.6 % (50.0-70.0); Platelet Count Result 185 K/mm3 (150-420); Red Cell Distribution Width 18.7 % (11.6-14.4); White Blood Count 5.6 K/mm3 (4.8-10.8)
[2021-11-12 05:32] LABS: Alanine Aminotransferase 15 U/L (16-63); Albumin Level 1.7 g/dL (3.4-5.0); Alkaline Phosphatase 118 U/L (46-116); Anion Gap 5 mmol/L (8-16); Aspartate Amino Transferase 15 U/L (15-37); Bilirubin,Total 1.7 mg/dL (0.00-1.00); Blood Urea Nitrogen 11 mg/dL (7-18); Carbon Dioxide 26 mmol/L (21-32); Chloride 105 mmol/L (98-108); Estimated CRCL calculation 101 ml/min; Estimated Glomerular Filt Rate > 60; Glucose 160 mg/dL (70-99); INR 1.2; Osmolality Calculated 284 mOsm/kg (285-295); Partial Thromboplastin Time 32.3 SEC (23.90-30.70); Potassium 3.6 mmol/L (3.5-5.1); Prothrombin Time 12.7 Seconds (9.50-12.10); Sodium 136 mmol/L (136-145)
--- NOTE | 2021-11-12 08:22 | PM.SD2 ---
Same Day Admit/Disch: HPI History of Present Illness Chief complaint: ANEMIA Narrative: Michael Gonzalez is a 66 year old male came in for bilateral leg pain. Patient was found to be anemic with a hgb of 6.8 . Patient is asmptomatic with no source of bleeding noted. Patient guaiac is negative for blood. Patient was admitted to the floor with Anemia more than likely of Chronic disease and some hypotension. [facility] Past Medical History Medical History Bilateral leg pain DM2 (diabetes mellitus, type 2) DVT (deep venous thrombosis) GERD (gastroesophageal reflux disease) Hyperlipidemia Lymphedema Neuropathy Pulmonary embolism Tobacco abuse Weakness Surgical History Surgical History History of ankle surgery Family History Family History Father Lung cancer Mother Lung cancer Other Family history of arthritis Family history of malignant neoplasm Family history of seizure disorder Hypertension Social History Social History Smoking packs per day: 0.5 Smoking cigarettes per day: 10.0 Years smoked: 30 Smoking pack-years: 15.00 Smoking status: Current every day smoker Tobacco type: cigarettes Alcohol intake: current Alcohol use details: Denies Substance use: current Substance use type: marijuana Last use: 11/11/21 Additional living arrangements comments: . Gender identity (if verbalized by the patient): Male Sexual Orientation (if Verbalized by the Patient): Straight or Heterosexual Spiritual care concerns: No Comments At time as signature, I have reviewed and agree with nursing past medical, social, surgical and family history. Please see nursing chart for further information. There is no relevant family history pertinent to the presenting complaint. Same Day Admit/Disch: Med Pre-admit Medications Home Medications Medication Instructions Recorded Confirmed Type furosemide 20 mg tablet (Lasix) 20 mg PO QAM PRN edema #30 tabs 06/11/20 11/11/21 Rx quetiapine 25 mg tablet (Seroquel) 25 mg PO BID anxiety or agitation 03/08/21 11/11/21 Rx #60 tabs rivaroxaban 10 mg tablet (Xarelto) See Rx Instructions .Route 04/27/21 11/11/21 Rx .COMPLEX #90 tabs dulaglutide 3 mg/0.5 mL 3 mg (0.5 mL) subcut WEEKLY #2 mL 07/01/21 11/11/21 Rx subcutaneous pen injector (Trulicity) sertraline 50 mg tablet See Rx Instructions .Route 07/09/21 11/11/21 Rx .COMPLEX #90 tabs atorvastatin 20 mg tablet See Rx Instructions .Route 08/02/21 11/11/21 Rx .COMPLEX #90 tabs cilostazol 50 mg tablet 50 mg PO BID #60 tabs 08/31/21 11/11/21 Rx famotidine 10 mg tablet 20 mg PO BID #180 tabs 09/06/21 11/11/21 Rx lisinopril 5 mg tablet 5 mg PO DAILY #90 tabs 09/28/21 11/11/21 Rx gabapentin 300 mg capsule See Rx Instructions .Route 10/26/21 11/11/21 Rx .COMPLEX #270 caps acetaminophen 325 mg capsule 650 mg PO Q8H PRN pain #20 caps 11/11/21 Rx (Tylenol) Exam Narrative: GENERAL:pale / Jaudice -appearing, well-nourished, and in no acute distress. HEAD:Normocephalic, atraumatic. EYES: PERRLA and EOMI. ENT: Nares clear, no rhinorrhea or epistaxis. Mucous membranes moist. CHEST: Clear to auscultation. No respiratory distress. HEART: Regular rate and rhythm. ABDOMEN: Soft, nontender, nondistended, normal active bowel sounds. EXTREMITIES: Normal range of motion. No edema. SKIN: Warm, dry, no rash. NEURO: No focal deficits. Alert and oriented x3. very anxious and at time impulsive , Anger outburst at time DS: Data Data Completed and Pending Labs on day of discharge: Labs from last 24 hours 11/12/21 11/12/21 11/12/21 05:04 05:04 05:04 WBC 5.6 RBC 2.80 L Hgb 8.4 L Hct 26.7 L MCV 95.4 MCH 30.0 MCHC 31.5 L
[2021-11-12] MEDS: PANTOPRAZOLE SODIUM IV 40 MG VIAL IV PUSH (08:38)
[2021-11-12] MEDS: ATORVASTATIN 10 MG TABLET 20 MG PO (08:38)
[2021-11-12] MEDS: lisinopriL 5 MG TABLET PO (08:39)
[2021-11-12] MEDS: GABAPENTIN 300 MG CAPSULE PO (08:39)
[2021-11-12] MEDS: QUEtiapine FUMARATE 25 MG TABLET PO (08:39)
[2021-11-12] MEDS: SERTRALINE HCL 50 MG TABLET PO (08:39)
--- NOTE | 2021-11-12 11:00 | PC.NURSE ---
Reviewed discharge instructions with pt's . Pt unable to keep attention and said she is my ears . All questions answered and pt transported via wheelchair and assisted into private vehicle.
--- NOTE | 2021-11-16 09:53 | PC.NURSE ---
Spouse states they received and understood the discharge instructions. Has no other comments.
== END 2021-11-12 11:00 | disposition home or self-care (01) | DRG 812 ==
LOC: CHSED 22:48 → CHS2ND 11-12 00:27
PROVIDERS: Admitting Provider Internal Medicine; Emergency Provider Emergency Medicine; PCP Family Medicine; Visit Provider Internal Medicine
DX: D64.9 Anemia, unspecified (principal); E11.40 Type 2 diabetes mellitus with diabetic neuropathy, unspecified; E11.51 Type 2 diabetes mellitus with diabetic peripheral angiopathy without gangrene; E78.5 Hyperlipidemia, unspecified; K21.9 Gastro-esophageal reflux disease without esophagitis; M25.50 Pain in unspecified joint; F17.210 Nicotine dependence, cigarettes, uncomplicated; Z86.718 Personal history of other venous thrombosis and embolism; Z86.711 Personal history of pulmonary embolism; M79.604 Pain in right leg; M79.605 Pain in left leg; I89.0 Lymphedema, not elsewhere classified; Z79.01 Long term (current) use of anticoagulants
CPT/HCPCS: 36415; 36430; 70450; 71045; 80053; 80307; 81001; 83605; 84484; 85014; 85018; 85025; 85610; 85730; 86850; 86900; 86901; 86920; 93005; 96360; 96361; 96372; 97161; 97165; 99285; A9270; C9113; J2270; J7030; J7050; P9016

== ENCOUNTER 2021-11-18 10:20 | Outpatient (CLI) | payer MEDICARE, SELFPAY ==
[2021-11-18 10:34] LABS: Hematocrit 28.9 % (37.0-46.0); Hemoglobin 8.9 g/dL (12.4-15.3); Mean Corpuscular HGB Conc 30.8 g/dL (32.0-36.0); Mean Corpuscular Hemoglobin 29.7 pg (27.0-31.0); Mean Corpuscular Volume 96.3 fL (78.0-102.0); Mean Platelet Volume 9.3 fl (8.7-11.0); Platelet Count Result 206 K/mm3 (150-420); Red Cell Distribution Width 17.2 % (11.6-14.4); White Blood Count 6.1 K/mm3 (4.8-10.8)
[2021-11-18 12:24] LABS: Alanine Aminotransferase 15 U/L (16-63); Albumin Level 2.2 g/dL (3.4-5.0); Alkaline Phosphatase 146 U/L (46-116); Anion Gap 6 mmol/L (8-16); Aspartate Amino Transferase 22 U/L (15-37); Bilirubin,Total 1.2 mg/dL (0.00-1.00); Blood Urea Nitrogen 12 mg/dL (7-18); Carbon Dioxide 28 mmol/L (21-32); Chloride 99 mmol/L (98-108); Estimated Glomerular Filt Rate > 60; Glucose 100 mg/dL (70-99); Iron 33 ug/dL (65-175); Osmolality Calculated 275 mOsm/kg (285-295); Percent Iron Saturation 24 % (12-57); Potassium 3.8 mmol/L (3.5-5.1); Sodium 133 mmol/L (136-145); Total Protein 7.5 g/dL (6.4-8.2)
[2021-11-18 12:32] LABS: Ferritin > 1000 ng/mL (26-388)
== END 2021-11-18 10:21 | disposition home or self-care (01) ==
LOC: CHSLAB 10:22
PROVIDERS: PCP Family Medicine; Visit Provider Family Medicine
DX: D64.9 Anemia, unspecified (principal)
CPT/HCPCS: 36415; 80053; 82728; 83540; 83550; 85027

== ENCOUNTER 2021-11-25 13:46 | Outpatient (CLI) | payer MEDICARE, SELFPAY ==
[2021-11-25 14:41] LABS: Occult Blood Negative (Negative)
== END 2021-11-25 13:47 | disposition home or self-care (01) ==
LOC: CHSLAB 13:47
PROVIDERS: PCP Family Medicine; Visit Provider Family Medicine
DX: D64.9 Anemia, unspecified (principal)
CPT/HCPCS: 82272

== ENCOUNTER 2021-12-01 21:41 | Emergency (ER) | payer MEDICARE, SELFPAY ==
[2021-12-01] VITALS (10 sets, daily range): BP systolic 103–118; BP diastolic 53–64; PULSE 89; RESP 20; TEMP 36.4; O2SAT 94–100
--- NOTE | 2021-12-01 21:49 | ED.WEAKNESS ---
HPI - Weakness General Chief complaint: Weakness Stated complaint: weakness, fatigue Time Seen by Provider: 12/01/21 21:49 Source: patient History of Present Illness HPI Narrative: 66-year-old male, smoker with a history of dyslipidemia, diabetes mellitus, peripheral neuropathy, DVT/pulmonary embolism, Lymphedema the bilateral legs,hypertension, COPD, CORA, chronic anemia presents to the ER -- generalized weakness -- fatigue -- dizziness -- his stated that he had low blood pressure of 103/64. patient seen by primary care physician on 11/18/2021 for similar symptoms patient and his are concerned about possible low blood counts. The patient had a negative stool guaiac and normal iron studies. The patient had upper GI endoscopy and colonoscopy 8 years ago. MD Complaint: generalized weakness Onset (ago): day(s) ( Weakness started yesterday.) Duration: constant Location: generalized Migration: none Relieving factors: none Exacerbating factors: none Associated symptoms: denies other symptoms Related Data Allergies Allergy/AdvReac Type Severity Reaction Status Date / Time No Known Allergies Allergy Verified 12/01/21 21:53 Review of Systems Review of Systems: All systems reviewed & are unremarkable except as noted in HPI and below Constitutional: Constitutional: Reports as per HPI, Reports no additional constitutional complaints and Reports weakness Eyes: Eyes: Reports as per HPI and Reports no additional eye complaints ENT: Reports system reviewed and no additional complaints, except as documented and Reports as per HPI Cardiovascular: Cardiovascular: Reports as per HPI and Reports no additional cardiovascular complaints Respiratory: Respiratory: Reports as per HPI, Reports no additional respiratory complaints and Reports cough Gastrointestinal: Gastrointestinal: Reports as per HPI and Reports no additional gastrointestinal complaints Genitourinary: Genitourinary: Reports no additional male genitourinary complaints and Reports as per HPI Musculoskeletal: Musculoskeletal: Reports no additional musculoskeletal complaints and Reports as per HPI Integumentary/Breasts: Skin/Breast: Reports system reviewed and no additional complaints, except as docu and Reports as per HPI Comments: chronic venous stasis changes both legs Neurologic: Reports system reviewed and no additional complaints, except as documented and Reports as per HPI Psychiatric: Psychiatric: Reports no additional psychiatric complaints and Reports as per HPI Endocrine: Endocrine: Reports no additional endocrine complaints and Reports as per HPI Hematologic/Lymphatic: Hematologic/Lymphatic: Reports no additional hematologic/lymphatic complaints and Reports as per HPI Allergic/Immunologic: Allergic/Immunologic: Reports no additional allergic/immunologic complaints and Reports as per HPI [facility] Past Medical History Medical History Bilateral leg pain DM2 (diabetes mellitus, type 2) DVT (deep venous thrombosis) GERD (gastroesophageal reflux disease) Hyperlipidemia Lymphedema Neuropathy Pulmonary embolism Tobacco abuse Weakness Surgical History Surgical History History of ankle surgery Family History Family History Father Lung cancer Mother Lung cancer Other Family history of arthritis Family history of malignant neoplasm Family history of seizure disorder Hypertension Social History Social History Smoking packs per day: 0.5 Smoking cigarettes per day: 10.0 Years smoked: 30 Smoking pack-years: 15.00 Smoking status: Current every day smoker Tobacco type: cigarettes Alcohol intake: current Alcohol use details: Denies Substance use: current Substance use t
--- NOTE | 2021-12-01 22:09 | ECG_ITS ---
Measurements Intervals [place] Rate: 79 P: 66 [place]: 195 QRS: -16 QRSD: 97 T: 40 QT: 395 QTc: 455 Interpretive Statements SINUS RHYTHM LOW QRS VOLTAGE IN PRECORDIAL LEADS [QRS DEFLECTION < 1.0 mV IN CHEST LEADS] COMPARED TO ECG 11/11/2021 20:11:03 NO SIGNIFICANT CHANGES Electronically Signed On 12-02-2021 18:38:36 CDT by Nancy Hazel M.D.
[2021-12-01 22:26] LABS: Hematocrit 23.9 % (37.0-46.0); Hemoglobin 7.4 g/dL (12.4-15.3); Mean Corpuscular Hemoglobin 30.5 pg (27.0-31.0); Mean Corpuscular Volume 98.4 fL (78.0-102.0); Mean Platelet Volume 9.6 fl (8.7-11.0); Platelet Count Result 176 K/mm3 (150-420); Red Blood Count 2.43 M/mm3 (4.70-6.10); Red Cell Distribution Width 17.6 % (11.6-14.4); White Blood Count 5.7 K/mm3 (4.8-10.8)
[2021-12-01 22:43] LABS: Alanine Aminotransferase 15 U/L (16-63); Albumin Level 1.8 g/dL (3.4-5.0); Alkaline Phosphatase 139 U/L (46-116); Anion Gap 7 mmol/L (8-16); Aspartate Amino Transferase 21 U/L (15-37); Bilirubin,Total 1.6 mg/dL (0.00-1.00); Blood Urea Nitrogen 11 mg/dL (7-18); Calcium 8.3 mg/dL (8.5-10.1); Carbon Dioxide 26 mmol/L (21-32); Chloride 98 mmol/L (98-108); Estimated CRCL calculation 81 ml/min; Estimated Glomerular Filt Rate > 60; Glucose 129 mg/dL (70-99); Lipase 59 U/L (73-393); Osmolality Calculated 273 mOsm/kg (285-295); Potassium 3.6 mmol/L (3.5-5.1); Sodium 131 mmol/L (136-145); Total Protein 7.8 g/dL (6.4-8.2); Troponin I 7.2 ng/L (0.00-60.4)
[2021-12-01 22:46] LABS: Lactic Acid Reflex 0.5 mmol/L (0.4-2.0)
[2021-12-01 22:47] LABS: Band Neutrophils Percent 1 % (0-6); Basophils Percent Manual 0 % (0-1); Eosinophils Percent Manual 0 % (1-6); Lymphocytes Absolute Manual 1.93 K/mm3 (1.1-4.5); Lymphocytes Percent Manual 34 % (18-44); Monocytes Absolute Manual 0.57 K/mm3 (0.1-0.90); Monocytes Percent Manual 10 % (3-9); Neutrophils Absolute Manual 3.19 K/mm3 (1.3-6.7); Neutrophils Percent Manual 55 % (46-73); Platelet Estimate Adequate (Adequate); Total Cells Counted 100
[2021-12-01 23:01] LABS: SARS-CoV-2 RNA PCR Negative (Negative)
== END 2021-12-01 23:25 | disposition home or self-care (01) ==
PROVIDERS: Emergency Provider Internal Medicine Critical Care Medicine; PCP Family Medicine
DX: R53.1 Weakness (principal); D64.9 Anemia, unspecified; E46 Unspecified protein-calorie malnutrition; Z20.822 Contact with and (suspected) exposure to COVID-19; E78.5 Hyperlipidemia, unspecified; E11.9 Type 2 diabetes mellitus without complications; Z86.718 Personal history of other venous thrombosis and embolism; I10 Essential (primary) hypertension; J44.9 Chronic obstructive pulmonary disease, unspecified
CPT/HCPCS: 36415; 80053; 83605; 83690; 84484; 85025; 93005; 99284; C9803; U0003; U0005

== ENCOUNTER 2021-12-03 21:20 | Emergency (ER) | payer MEDICARE, SELFPAY ==
--- NOTE | ~2021-12-03 | XR_ITS ---
XR chest 1V portable 12/03/2021 21:56 Indication: Dyspnea. COPD. Procedure: AP portable chest Comparison: 01/03/2020 Findings: Heart size normal. There are subtle bibasilar infiltrates, suspicious for developing pneumo marcy. There is a calcified granuloma in the left upper lung. No pleural effusion or pneumothorax. No a cute osseous abnormality. The lungs are hyperinflated which is consistent with, but not diagnostic of chronic obstructive pulmonary disease. Impression: 1: Subtle bibasilar infiltrates, suspicious for developing pneumonia.. Reviewed, dictated and finalized at location A. Impression: 1: Subtle bibasilar infiltrates, suspicious for developing pneumonia..
[2021-12-03 21:28] VITALS: BP 109/57; PULSE 77; RESP 16; TEMP 36.8; O2SAT 98
[2021-12-03 21:55] LABS: Basophils Percent Auto 0.7 % (0.2-1.2); Eosinophils Absolute Auto 0.1 K/mm3 (0-0.3); Eosinophils Percent Auto 1.5 % (0-4.4); Hematocrit 25.3 % (42.0-52.0); Hemoglobin 7.6 g/dL (14.0-18.0); Immature Granulocyte Absolute 0.02 K/mm3 (0.00-0.031); Immature Granulocyte Percent A 0.3 % (0-0.5); Lymphocytes Absolute Auto 1.82 K/mm3 (0.9-3.2); Lymphocytes Percent Auto 30.8 % (18.3-44.2); Mean Corpuscular Hemoglobin 29.5 pg (26-34); Mean Corpuscular Volume 98.1 fl (80-100); Mean Platelet Volume 9.7 fl (7.4-10.4); Monocytes Absolute Auto 0.6 K/mm3 (0.1-0.6); Monocytes Percent Auto 10.7 % (2.6-8.5); Neutrophils Absolute Auto 3.3 K/mm3 (1.3-6.7); Platelet Count Result 186 k/mm3 (150-375); Red Blood Count 2.58 M/mm3 (4.6-6.20); Red Cell Distribution Width 18.1 % (11.5-14.5); White Blood Count 5.9 K/mm3 (4.5-10.0)
--- NOTE | 2021-12-03 22:02 | ED.GENADULT ---
HPI - General Adult General Chief complaint: Recheck/Abnormal Lab/Rx Stated complaint: abd pain Time Seen by Provider: 12/03/21 21:36 History of Present Illness HPI narrative: 66-year-old male presents emergency room accompanied by his . He comes in secondary to just overall general fatigue. He was seen at another hospital back in October and noted to be anemic was admitted to the hospital at that time and transfused with blood. His hemoglobin is 8.9. He follow-up with his physician and was still 8.9. They checked him and he was noted to be Hemoccult negative. Does have underlying history of COPD. Not coughing up any blood. No blood in his urine. His position is got him scheduled to follow-up with a grain broker and market operator in that appointment is not been scheduled yet. He was so weak tonight that he just did not feel like eating. concerned that he may be more anemic again. Related Data Allergies Allergy/AdvReac Type Severity Reaction Status Date / Time No Known Allergies Allergy Verified 12/03/21 21:32 Review of Systems Review of Systems: CONSTITUTIONAL: Denies fever, chills, or sweats. EYES: Denies visual changes, redness, or discharge. ENT: Denies rhinorrhea, congestion, sore throat, or otalgia. CARDIOVASCULAR: Denies chest pain, palpitations, or edema. RESPIRATORY: Denies cough or dyspnea. GASTROINTESTINAL: Denies abdominal pain, nausea, vomiting, or diarrhea. GENITOURINARY: Denies dysuria or hematuria. SKIN: Denies rash or itching. MUSCULOSKELETAL: Denies back pain, joint pain, or myalgia. NEUROLOGIC: Denies headache, numbness, or weakness. PSYCHIATRIC: Denies anxiety or depression. [facility] Past Medical History Medical History Bilateral leg pain DM2 (diabetes mellitus, type 2) DVT (deep venous thrombosis) GERD (gastroesophageal reflux disease) Hyperlipidemia Lymphedema Neuropathy Pulmonary embolism Tobacco abuse Weakness Surgical History Surgical History History of ankle surgery Family History Family History Father Lung cancer Mother Lung cancer Other Family history of arthritis Family history of malignant neoplasm Family history of seizure disorder Hypertension Social History Social History Smoking packs per day: 0.5 Smoking cigarettes per day: 10.0 Years smoked: 30 Smoking pack-years: 15.00 Smoking status: Current every day smoker Tobacco type: cigarettes Alcohol intake: current Alcohol use details: Denies Substance use: current Substance use type: marijuana Last use: 11/11/21 Additional living arrangements comments: . Gender identity (if verbalized by the patient): Male Sexual Orientation (if Verbalized by the Patient): Straight or Heterosexual Spiritual care concerns: No Exam Narrative: APPEARANCE: Well appearing, no pain or distress, well-nourished. Head Normocephalic and atraumatic. EYES: PERRLA/EOMI, conjunctivae clear. NOSE: Normal with no drainage EARS:TMS clear with Ng, with good light reflex. THROAT: Pharynx clear, no exudate. NECK: Supple. No adenopathy, no masses. RESPIRATORY: Airway patent, respirations nonlabored. Clear to auscultation bilaterally, no rales, rhonchi, wheezing. CARDIOVASCULAR: Regular rate and rhythm without murmurs, rubs, or gallops. ABDOMINAL: Soft, nontender, nondistended, no hepatosplenomegaly Musculoskeletal: Moves all extremities. Strength/ROM intact, No edema, No calf tenderness. NEURO: Alert. Cranial nerves II through XII intact. Normal gait. Good coordination. Nonfocal examination. SKIN:: Warm, dry. Somewhat pale PSYCHIATRIC: Normal affect/mood, normal interaction RECTAL: Brown stool, prostate not overly enlarged, Hemoccult negative Course Vital Signs Vital signs:
[2021-12-03 22:05] LABS: Alanine Aminotransferase 18 U/L (6-50); Albumin Level 3.1 g/dL (3.5-5.1); Alkaline Phosphatase 165 U/L (38-126); Anion Gap 6 mmol/L (8-16); Aspartate Amino Transferase 38 U/L (17-59); Bilirubin,Total 1.7 mg/dL (0.2-1.3); Blood Urea Nitrogen 9 mg/dL (9-20); Calcium 8.3 mg/dL (8.4-10.2); Carbon Dioxide 26 mmol/L (22-30); Chloride 99 mmol/L (98-107); Estimated CRCL calculation 101 ml/min; Estimated Glomerular Filt Rate > 60; Glucose 161 mg/dL (65-110); Immature Reticulocyte Fraction 26.8 % (3.0-15.9); Potassium 3.7 mmol/L (3.4-5.0); Reticulocyte Hemoglobin Conten 29.4 pg (28.2-35.7); Reticulocyte Percent 2.49 % (0.7-4.3); Reticulocytes Absolute 0.06 B/L (32.2-175.7); Sodium 131 mmol/L (137-145)
[2021-12-03 22:17] LABS: NT Pro B Type Natriuretic Pept 508 pg/mL (5-100); Troponin I < 0.012 ng/mL (0.000-0.034)
[2021-12-03 22:30] VITALS: BP 103/66; PULSE 76; RESP 16; O2SAT 99
[2021-12-03 23:10] VITALS: BP 100/65; PULSE 74; RESP 16; O2SAT 99
== END 2021-12-03 23:10 | disposition home or self-care (01) ==
PROVIDERS: Emergency Provider Emergency Medicine; PCP Family Medicine
DX: D64.9 Anemia, unspecified (principal); R53.83 Other fatigue; J44.9 Chronic obstructive pulmonary disease, unspecified; E78.5 Hyperlipidemia, unspecified; E11.40 Type 2 diabetes mellitus with diabetic neuropathy, unspecified; K21.9 Gastro-esophageal reflux disease without esophagitis; Z86.718 Personal history of other venous thrombosis and embolism; Z86.711 Personal history of pulmonary embolism; F17.210 Nicotine dependence, cigarettes, uncomplicated; Z79.01 Long term (current) use of anticoagulants; R91.8 Other nonspecific abnormal finding of lung field
CPT/HCPCS: 36415; 71045; 80053; 83880; 84484; 85025; 85046; 99284

== ENCOUNTER 2021-12-06 09:52 | Outpatient (CLI) | payer MEDICARE, SELFPAY ==
[2021-12-06 10:04] LABS: Hematocrit 25.1 % (37.0-46.0); Hemoglobin 7.7 g/dL (12.4-15.3); Mean Corpuscular HGB Conc 30.7 g/dL (32.0-36.0); Mean Corpuscular Hemoglobin 30.6 pg (27.0-31.0); Mean Corpuscular Volume 99.6 fL (78.0-102.0); Mean Platelet Volume 9.7 fl (8.7-11.0); Platelet Count Result 195 K/mm3 (150-420); Red Blood Count 2.52 M/mm3 (4.70-6.10); Red Cell Distribution Width 17.8 % (11.6-14.4); White Blood Count 5.4 K/mm3 (4.8-10.8)
== END 2021-12-06 09:53 | disposition home or self-care (01) ==
LOC: CHSLAB 09:53
PROVIDERS: PCP Family Medicine; Visit Provider Family Medicine
DX: D64.9 Anemia, unspecified (principal)
CPT/HCPCS: 36415; 85027

== ENCOUNTER 2021-12-11 19:25 | Observation (INO) | payer MEDICARE, SELFPAY ==
[2021-12-11] VITALS (9 sets, daily range): BP systolic 90–114; BP diastolic 52–62; PULSE 70–87; RESP 18–114; TEMP 36.4–37.6; O2SAT 97–98; BMI 31.6
--- NOTE | ~2021-12-11 | XR_ITS ---
EXAMINATION: XR chest 2V Exam Date/Time: 12/11/2021 20:05 CDT HISTORY: left shoulder blade pain;hx of COPD, aplastic anemia Comparison: 06/11/2020, 12/03/2021. RESULT: Posterior costophrenic angles excluded from the [id number] in the lateral view. Lines, tubes, and devices: None. Lungs and pleura: Subtle hazy opacity projecting over the right lower lung.. Cardiomediastinal silhouette: Stable. Other: No acute osseous or upper abdominal finding. IMPRESSION: Subtle hazy opacity over the right lower lung may represent summation artifact or consolidation of pn eumonia. Reviewed, dictated and finalized at location K. IMPRESSION: Subtle hazy opacity over the right lower lung may represent summation artifact or consolidation of pneumonia.
--- NOTE | ~2021-12-11 | XR_ITS ---
EXAM: XR shoulder LT min 2V DATE: 12/11/2021 20:23 HISTORY: pain, hx of COPD, aplastic anemia . COMPARISON: None available. FINDINGS: Normal mineralization. No fracture or dislocation. No lytic or blastic lesion. Likely rota tor cuff pathology. Degenerative changes at the glenohumeral and AC joints. No erosion or periosteal change. Soft tissues within normal limits. IMPRESSION: No acute osseous finding in the left shoulder. Reviewed, dictated and finalized at location K.
--- NOTE | ~2021-12-11 | CT_ITS ---
EXAMINATION: CTA chest PE protocol DATE: 12/11/2021 21:19 INDICATION: elevated d dimer, left shoulder blade pain TECHNIQUE: Computed tomography angiography (CTA) of the chest was performed with 100 mL Omnipaque-350 intravenous contrast timed to evaluate the pulmonary arteries. Coronal maximum intensity projection 3D-reconstructions were created by the technologist. The dose-length product (DLP) was 497.10 mGy-cm. Automated exposure control and iterative reconstruction technique were employed. COMPARISON: 03/03/2014. X-ray chest, same date FINDINGS: Lung parenchyma and airways: Peripheral interstitial change, most pronounced in the subpleural lung i n the right lower lobe, likely represents the opacities in the prior radiograph. Pleura: Unremarkable. Thoracic inlet, axillae and chest wall: Unremarkable. Thoracic aorta: Ectasia and arch calcification. Mediastinum: Calcified lymph nodes. Heart and pericardium: Normal. Coronary artery calcifications: Moderate. Upper abdomen: Marked fatty infiltration of the pancreas. Bones: No acute osseous finding. Pulmonary arteries: Study quality: Adequate. No pulmonary emboli detected. IMPRESSION: No CT evidence of acute pulmonary embolus. Interstitial change in the lungs, without CT evidence of l obar pneumonia. Reviewed, dictated and finalized at location K. IMPRESSION: No CT evidence of acute pulmonary embolus. Interstitial change in the lungs, wi thout CT evidence of lobar pneumonia.
--- NOTE | 2021-12-11 19:54 | ECG_ITS ---
Measurements Intervals [place] Rate: 77 P: 64 [place]: 184 QRS: 4 QRSD: 104 T: 48 QT: 394 QTc: 447 Interpretive Statements SINUS RHYTHM NORMAL EKG NO SIGNIFICANT CHANGES Electronically Signed On 12-12-2021 15:05:06 CDT by Nancy Hazel M.D.
--- NOTE | 2021-12-11 20:00 | ED.GENADULT ---
HPI - General Adult General Chief complaint: Back Pain/Injury Stated complaint: pain in my back/weakness Time Seen by Provider: 12/11/21 19:38 Source: patient, family, RN notes reviewed and old records reviewed Mode of arrival: ambulatory Limitations: no limitations History of Present Illness HPI narrative: This is a 66 year old male with history of obstructive sleep apnea, anemia, PE/DVT who presents for evaluation of left shoulder blade pain . His is at bedside to assist with history. Patient is currently being evaluated by heme/onc Dr. Hicks regarding anemia. She states his hemoglobin on Monday was 7.5 but she is concerned he may have PE since he is complaining of left shoulder blade pain today. He describes his pain has sharp and worse with movement of his left shoulder. He denies any recent trauma to cause his pain. He has not taken anything for her pain. He denies associated nausea, vomiting, chills, chest pain, sob , or abdominal pain. He reports chronic cough due to smoking. He has chronic bilateral lymphedema but he denies any concerning new signs of DVT. He takes Xarelto 10 mg daily for history of DVT. Last DVT was 2 years ago per his . He rates his left shoulder blade pain has 9/10. He also denies any bleeding. Related Data Home Medications Medication Instructions Recorded Confirmed sertraline 50 mg tablet 50 mg PO DAILY 12/12/21 12/12/21 Allergies Allergy/AdvReac Type Severity Reaction Status Date / Time No Known Allergies Allergy Verified 12/11/21 19:52 Review of Systems Review of Systems: All systems reviewed & are unremarkable except as noted in HPI and below Constitutional: Constitutional: Reports fatigue and Reports weakness Cardiovascular: Cardiovascular: Denies chest pain and Denies radiating jaw, neck or arm pain Respiratory: Respiratory: Reports cough, Denies dyspnea and Reports wheezing Gastrointestinal: Gastrointestinal: Denies abdominal pain, Denies bloating, Denies nausea and Denies vomiting Musculoskeletal: Musculoskeletal: Reports arthralgias PMF Past Medical History Medical History (Updated 12/12/21 @ 05:31 by Brittney Canada MD) Anemia of chronic disease Chronic hyponatremia Claudication in peripheral vascular disease COPD (chronic obstructive pulmonary disease) DM2 (diabetes mellitus, type 2) DVT (deep venous thrombosis) 1998 and 2015 GERD (gastroesophageal reflux disease) Hiatal hernia Hyperlipidemia Ischemic colitis (04/2016) Lymphedema of both lower extremities MDD (major depressive disorder) Obstructive sleep apnea (06/2021) Polysomnogram demonstrated moderate obstructive sleep apnea with hypo apnea index of 15 desaturations of 85% he is treated with auto PAP with a range of 7-12 cm Peripheral neuropathy Pulmonary embolism 1990s Tobacco abuse Surgical History Surgical History (Updated 12/11/21 @ 22:36 by Lucinda Limon DO) Abnormal colonoscopy (04/2016) Colonic ulcer with pathology demonstrating acute and chronic colitis with benign ulcer consistent with ischemic colitis History of ankle surgery (2017) ORIF History of esophagogastroduodenoscopy (EGD) (~2012) Esophageal diverticulum S/P cubital tunnel release Family History Family History Father Lung cancer Mother Lung cancer Seizures Diabetes mellitus Sibling Lung cancer Hepatitis C Other Family history of arthritis Hypertension Social History Social History (Updated 12/12/21 @ 02:04 by Lucinda Limon DO) Smoking packs per day: 0.5 Smoking cigarettes per day: 10.0 Years smoked: 55 Smoking pack-years: 27.50 Smoking status: Current every day smoker Tobacco type: cigarettes Additional smoking assessment comments: currently down to 1/2 pack Alcohol intake: former Alcohol use details: Denies Substance use: former Substance use type: marijuana Last use:
[2021-12-11 20:05] LABS: Basophils Percent Auto 0.7 % (0.2-1.2); Eosinophils Absolute Auto 0.1 K/mm3 (0-0.3); Eosinophils Percent Auto 2.1 % (0-4.4); Hematocrit 22.8 % (42.0-52.0); Immature Granulocyte Absolute 0.03 K/mm3 (0.00-0.031); Immature Granulocyte Percent A 0.5 % (0-0.5); Lymphocytes Absolute Auto 2.01 K/mm3 (0.9-3.2); Mean Corpuscular HGB Conc 30.3 g/dl (32-36); Mean Corpuscular Hemoglobin 29.7 pg (26-34); Mean Corpuscular Volume 98.3 fl (80-100); Mean Platelet Volume 9.8 fl (7.4-10.4); Monocytes Absolute Auto 0.6 K/mm3 (0.1-0.6); Monocytes Percent Auto 10.5 % (2.6-8.5); Neutrophils Absolute Auto 3.2 K/mm3 (1.3-6.7); Neutrophils Percent Auto 53.2 % (45.5-73.1); Platelet Count Result 172 k/mm3 (150-375); Red Blood Count 2.32 M/mm3 (4.6-6.20); Red Cell Distribution Width 18.4 % (11.5-14.5); White Blood Count 6.1 K/mm3 (4.5-10.0)
[2021-12-11 20:17] LABS: INR 2.2; Prothrombin Time 23.9 Seconds (11.1-14.7)
[2021-12-11 20:18] LABS: Alanine Aminotransferase 20 U/L (6-50); Albumin Level 2.9 g/dL (3.5-5.1); Alkaline Phosphatase 178 U/L (38-126); Anion Gap 7 mmol/L (8-16); Aspartate Amino Transferase 49 U/L (17-59); Bilirubin,Total 1.6 mg/dL (0.2-1.3); Blood Urea Nitrogen 11 mg/dL (9-20); Calcium 8.1 mg/dL (8.4-10.2); Carbon Dioxide 26 mmol/L (22-30); Chloride 95 mmol/L (98-107); Estimated CRCL calculation 113 ml/min; Estimated Glomerular Filt Rate > 60; Glucose 224 mg/dL (65-110); Lipase 58 U/L (23-300); Magnesium 2.1 mg/dL (1.6-2.3); Partial Thromboplastin Time 51.3 SECONDS (22.3-36.8); Potassium 3.4 mmol/L (3.4-5.0); Sodium 128 mmol/L (137-145)
[2021-12-11] MEDS: ONDANSETRON INJ 4 MG/2 ML VIAL IV PUSH (20:25)
[2021-12-11] MEDS: HYDROmorphone HCL INJ (*CRX) 1 MG/ML SYR 0.5 MG IV PUSH (20:25)
[2021-12-11 20:28] LABS: Troponin I < 0.012 ng/mL (0.000-0.034)
[2021-12-11 20:40] LABS: Anisocytosis 1+ (NORMAL); D Dimer 0.95 ug/mL (<0.48); Hemoglobin 6.9 g/dL (14.0-18.0); Platelet Estimate Adequate (Adequate)
[2021-12-11 20:41] LABS: Atypical Lymphocytes Present
[2021-12-11] MEDS: SODIUM CHLORIDE 0.9% IV 1,000 ML 999 ML IV CONT (20:41)
--- NOTE | 2021-12-11 21:41 | PC.NURSE ---
Per Blood Bank, Type and Screen confirmation tube is needed and 1 unit PRBCs is NOT ready.
--- NOTE | 2021-12-11 22:12 | PM.IMHP ---
H&P: HPI History of Present Illness Date/Time: 12/11/21 23:00 Chief Complaint: Left shoulder pain Narrative: 66-year-old male with a past medical history of diabetic peripheral neuropathy, chronic pain, DVTs, pulmonary embolism, on chronic anticoagulation with Coumadin, peripheral vascular disease with claudication and COPD who presented to the ER with left shoulder pain and shortness of breath. The patient was hospitalized in October due to acute on chronic anemia and received 2 units of packed red blood cells. He has been from [facility] with Dr. Hicks and has an outpatient bone marrow biopsy scheduled to evaluate for myeloproliferative process such as aplastic anemia. His brought him into the ER today because she was concerned that the patient may have a recurrent PE. CTA performed in the ER was negative for pulmonary embolism but demonstrated chronic interstitial changes. There is no evidence of pneumonia. Unfortunately the patient's hemoglobin returned low at 6.9. The patient had previously received 2 units blood on 11/11/2021 and his hemoglobin had been up to 8.9 but has trended downward over the course of this month. His last outpatient hemoglobin on the was 7.5. Patient denies any hematochezia or melena. In the past his Hemoccult stools have been negative. The patient's blood work in the past has demonstrated anemia chronic disease with a low reticulocyte percentage. Patient received Dilaudid in the ER for shoulder pain. Imaging did not demonstrate any acute process to explain the patient's pain. Patient's pain is worse with movement of the opposite arm. Pain is aching in nature in a 7/10 in intensity. The pain is reproducible to palpation. Patient denies any known injury, pulling, tugging or straining. He reports that he woke up with pain 3 or 4 days ago. The pain has not changed any has not tried any medications at home for the pain. Pain was minimally relieved with Dilaudid in the ER. He reports chronic swelling and neuropathic pain to his right foot. He has had a total of 3 surgeries on the right foot the last 1 being in 2018. He has chronic swelling to that extremity that has not changed. Review of Systems Review of Systems: 12 systems were reviewed with pertinent positives and negatives per HPI. Except as documented in the HPI, all other systems were reviewed and are negative. [facility] Past Medical History Medical History (Updated 12/11/21 @ 22:41 by Lucinda Limon DO) Anemia of chronic disease Chronic hyponatremia Claudication in peripheral vascular disease COPD (chronic obstructive pulmonary disease) DM2 (diabetes mellitus, type 2) DVT (deep venous thrombosis) 1998 and 2015 GERD (gastroesophageal reflux disease) Hiatal hernia Hyperlipidemia Ischemic colitis (04/2016) Lymphedema of both lower extremities MDD (major depressive disorder) Obstructive sleep apnea (06/2021) Polysomnogram demonstrated moderate obstructive sleep apnea with hypo apnea index of 15 desaturations of 85% he is treated with auto PAP with a range of 7-12 cm Peripheral neuropathy Pulmonary embolism 1990s Tobacco abuse Surgical History Surgical History (Updated 12/11/21 @ 22:36 by Lucinda Limon DO) Abnormal colonoscopy (04/2016) Colonic ulcer with pathology demonstrating acute and chronic colitis with benign ulcer consistent with ischemic colitis History of ankle surgery (2017) ORIF History of esophagogastroduodenoscopy (EGD) (~2012) Esophageal diverticulum S/P cubital tunnel release Family History Family History Father Lung cancer Mother Lung cancer Seizures Diabetes mellitus Sibling Lung cancer Hepatitis C Other Family history of arthritis Hypertension Social History Social History (Updated 12/12/21 @ 02:04 by Lucinda Limon DO) Smoking packs per day: 0.5 Smoking cigarettes per day: 10.0 Years smoked: 55 Smokin
[2021-12-11 23:14] LABS: Appearance Urine Clear (Clear); Bilirubin Urine 2+ (Negative); Color Urine Amber (Yellow); Glucose Urine UA Trace mg/dL (Negative); Ketones Urine Trace mg/dL (Negative); Leukocyte Esterase Ur Negative LEU/UL (Negative); Nitrate Urine Negative (Negative); Protein Urine Trace mg/dL (Negative); Specific Grav Ur 1.015 (1.001-1.035); Urobilinogen Urine >=8.0 mg/dL (<2.0); pH Urine 5.5 (5.0-9.0)
[2021-12-11 23:17] LABS: Bacteria Urine Trace /hpf; Mucus Urine Heavy /lpf; Squamous Epithelial Cell Urine Few /hpf (Few); WBC Urine 0-3 /hpf
[2021-12-11 23:29] LABS: Add Urine Microscopic? YES; Blood Urine Trace-Intact (Negative)
[2021-12-11] MEDS: HYDROcodone/acetaminophen (*CRX) 5-325 MG TABLET 1 TAB PO (23:41)
--- NOTE | 2021-12-11 23:51 | ADMGEN ---
This patient, Michael Gonzalez, was admitted to 3 [facility] Room 316-02. Patient/family oriented to hospital policies and general routines including ID bracelet, bed and alarms, visiting hours, pain management, procedures, bathroom and other care routines, personal items, smoking policy, room service/diet, and visiting hours. Information on how to activate the Rapid Response Team has been discussed. Patient/Family are encouraged to report perceived risks to care and to ask questions if they do not understand what they are told or what they should do.
--- NOTE | 2021-12-12 00:17 | PCRCNOTE ---
Per RN: Pt does not use CPAP or 02. No hospital unit placed in room.
[2021-12-12 00:56] VITALS: BP 107/60; PULSE 67; RESP 18; TEMP 36.1; O2SAT 97
[2021-12-12 01:10] VITALS: O2SAT 95
[2021-12-12 01:56] VITALS: BP 104/60; PULSE 70; RESP 16; TEMP 36.1; O2SAT 95
[2021-12-12] MEDS: SODIUM CHLORIDE 0.9% IV 250 ML 30 ML IV CONT (02:10)
[2021-12-12 02:17] VITALS: BP 95/64; PULSE 64; RESP 20; TEMP 36.1; O2SAT 94
[2021-12-12 03:03] VITALS: BP 96/54; PULSE 64; RESP 17; TEMP 36.2; O2SAT 98
[2021-12-12] MEDS: traMADol HCL (*CRX) 50 MG TABLET PO (03:14)
[2021-12-12] MEDS: CYCLOBENZAPRINE HCL 5 MG TABLET PO (03:14)
[2021-12-12] MEDS: TUBING, BLOOD PLUM PUMP TUBING XX (03:15)
[2021-12-12] MEDS: TUBING, BLOOD PLUM PUMP TUBING 1 EACH XX (03:15)
[2021-12-12] MEDS: SODIUM CHLORIDE 0.9% IV 1,000 ML 75 ML IV CONT (04:26)
[2021-12-12 06:09] LABS: Basophils Percent Auto 0.4 % (0.2-1.2); Eosinophils Absolute Auto 0.1 K/mm3 (0-0.3); Eosinophils Percent Auto 2.5 % (0-4.4); Hematocrit 24.2 % (42.0-52.0); Hemoglobin 7.4 g/dL (14.0-18.0); Immature Granulocyte Absolute 0.02 K/mm3 (0.00-0.031); Immature Granulocyte Percent A 0.4 % (0-0.5); Lymphocytes Absolute Auto 1.54 K/mm3 (0.9-3.2); Lymphocytes Percent Auto 32.4 % (18.3-44.2); Mean Corpuscular HGB Conc 30.6 g/dl (32-36); Mean Corpuscular Hemoglobin 29.7 pg (26-34); Mean Corpuscular Volume 97.2 fl (80-100); Mean Platelet Volume 9.9 fl (7.4-10.4); Monocytes Absolute Auto 0.6 K/mm3 (0.1-0.6); Monocytes Percent Auto 12.4 % (2.6-8.5); Neutrophils Absolute Auto 2.5 K/mm3 (1.3-6.7); Neutrophils Percent Auto 51.9 % (45.5-73.1); Platelet Count Result 152 k/mm3 (150-375); Red Blood Count 2.49 M/mm3 (4.6-6.20); Red Cell Distribution Width 18.6 % (11.5-14.5); White Blood Count 4.8 K/mm3 (4.5-10.0)
[2021-12-12 06:23] LABS: Anion Gap 3 mmol/L (8-16); Blood Urea Nitrogen 10 mg/dL (9-20); Carbon Dioxide 28 mmol/L (22-30); Chloride 100 mmol/L (98-107); Estimated CRCL calculation 114 ml/min; Estimated Glomerular Filt Rate > 60; Glucose 144 mg/dL (65-110); Potassium 3.5 mmol/L (3.4-5.0); Sodium 131 mmol/L (137-145)
[2021-12-12] MEDS: cilostazoL 50 MG TABLET PO (08:12)
[2021-12-12] MEDS: RIVAROXABAN 10 MG TABLET PO (08:12)
[2021-12-12] MEDS: ATORVASTATIN 20 MG TABLET PO (08:12)
[2021-12-12] MEDS: FAMOTIDINE 20 MG TABLET PO (08:12)
[2021-12-12] MEDS: GABAPENTIN 300 MG CAPSULE PO (08:13)
[2021-12-12] MEDS: SERTRALINE HCL 50 MG TABLET PO (08:13)
[2021-12-12] MEDS: DICLOFENAC SODIUM 1% 100 GM GEL (*BKC) 1 APPLIC TOPICAL (08:14)
--- NOTE | 2021-12-12 11:43 | PC.NURSE ---
This nurse was called into pts room. pt and at bedside stated that the dr is not sending him home now. pt and noted to be frustrated. pt stated I am leaving here . this nurse explained to pt that it is important to stay here for tx due to condition. pt stated he does not want to stay here and hes going home. AMA papers were given, pt signed with no issues. pt requested a wheelchair to leave building.
--- NOTE | 2021-12-12 11:50 | PC.NURSE ---
this nurse notified provider that pt is leaving ama. provider stated that pt mentioned leaving ama to him when he was talking to pt in room. pt encouraged to stay and educated.
--- NOTE | 2021-12-12 12:12 | PM.IMPN ---
Progress Note: A&P Assessment and Plan (1) Anemia of chronic disease: Code(s): D63.8 - Anemia in other chronic diseases classified elsewhere Status: Acute Assessment and Plan: Acute on chronic anemia. Likely due to anemia chronic disease and/or some myelodysplastic process. The patient already has follow-up with Oncology as outpatient. Will transfuse 1 unit packed red blood cells and repeat CBC in a.m.. 12/12/2021 interval history 66-year-old male with history anemia, PE/ DVT on Xarelto presented with left shoulder pain around scapula concerning for PE patient had a CTA of the chest and was normal without any PE, upon arrival patient hemoglobin was 6.9 patient was given 1 unit of pack RBC and currently his hemoglobin 7.4 concerning for bleeding will consult GI, patient also seen by Hematology plan was to do a bone marrow biopsy will consult Hematology for further recommendation patient can have bone marrow biopsy while in the hospital, patient remains clinically stable will continue to monitor. (2) Obstructive sleep apnea: Onset Date: 06/2021 Code(s): G47.33 - Obstructive sleep apnea (adult) (pediatric) Status: Acute Assessment and Plan: Auto titrating CPAP has been ordered. (3) Chronic anticoagulation: Code(s): Z79.01 - penitentiary (current) use of anticoagulants Status: Acute Assessment and Plan: Will continue home Xarelto. (4) COPD (chronic obstructive pulmonary disease): Code(s): J44.9 - Chronic obstructive pulmonary disease, unspecified Status: Acute Assessment and Plan: Will continue p.r.n. inhalers. Smoking cessation encouraged. (5) Hyponatremia: Code(s): E87.1 - Hypo-osmolality and hyponatremia Status: Acute Assessment and Plan: Possibly due to hypovolemia. The patient received 1 L IV fluids in the ER. Will check spot urine creatinine and sodium. Will continue with gentle IV fluid hydration. Will repeat BMP in a.m.. Plan Patient has been admitted as observation status. Subjective Date/time seen: 12/12/21 12:12 HPI-Narrative: 66-year-old male with a past medical history of diabetic peripheral neuropathy, chronic pain, DVTs, pulmonary embolism, on chronic anticoagulation with Coumadin, peripheral vascular disease with claudication and COPD who presented to the ER with left shoulder pain and shortness of breath.? The patient was hospitalized in October due to acute on chronic anemia and received 2 units of packed red blood cells.? He has [facility]. Hicks and has an outpatient bone marrow biopsy scheduled to evaluate for myeloproliferative process such as aplastic anemia.? His brought him into the ER today because she was concerned that the patient may have a recurrent PE.? CTA performed in the ER was negative for pulmonary embolism but demonstrated chronic interstitial changes.? There is no evidence of pneumonia.? Unfortunately the patient's hemoglobin returned low at 6.9.? The patient had previously received 2 units blood on 11/11/2021 and his hemoglobin had been up to 8.9 but has trended downward over the course of this month.? His last outpatient hemoglobin on the was 7.5.? Patient denies any hematochezia or melena.? In the past his Hemoccult stools have been negative.? The patient's blood work in the past has demonstrated anemia chronic disease with a low reticulocyte percentage.? Patient received Dilaudid in the ER for shoulder pain.? Imaging did not demonstrate any acute process to explain the patient's pain.? Patient's pain is worse with movement of the opposite arm.? Pain is aching in nature in a 7/10 in intensity.? The pain is reproducible to palpation.? Patient denies any known injury, pulling, tugging or straining.? He reports that he woke up with pain 3 or 4 days ago.? The pain has not changed any has not tried any medications at home for the pain.? Pain was minimally relieved with Dila
--- NOTE | 2021-12-12 12:23 | PM.DS ---
DS: Admitting Diagnosis Discharge Date 12/12/21 Admitting Diagnosis Left shoulder pain DS: Discharge Diagnosis Discharge Diagnosis (1) Anemia of chronic disease: Code(s): D63.8 - Anemia in other chronic diseases classified elsewhere Status: Acute Assessment and Plan: Acute on chronic anemia. Likely due to anemia chronic disease and/or some myelodysplastic process. The patient already has follow-up with Oncology as outpatient. Will transfuse 1 unit packed red blood cells and repeat CBC in a.m.. 12/12/2021 interval history 66-year-old male with history anemia, PE/ DVT on Xarelto presented with left shoulder pain around scapula concerning for PE patient had a CTA of the chest and was normal without any PE, upon arrival patient hemoglobin was 6.9 patient was given 1 unit of pack RBC and currently his hemoglobin 7.4 concerning for bleeding will consult GI, patient also seen by Hematology plan was to do a bone marrow biopsy will consult Hematology for further recommendation patient can have bone marrow biopsy while in the hospital, patient remains clinically stable will continue to monitor. (2) Obstructive sleep apnea: Onset Date: 06/2021 Code(s): G47.33 - Obstructive sleep apnea (adult) (pediatric) Status: Acute Assessment and Plan: Auto titrating CPAP has been ordered. 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 (4) COPD (chronic obstructive pulmonary disease): Code(s): J44.9 - Chronic obstructive pulmonary disease, unspecified Status: Acute Assessment and Plan: Will continue p.r.n. inhalers. Smoking cessation encouraged. (5) Hyponatremia: Code(s): E87.1 - Hypo-osmolality and hyponatremia Status: Acute Assessment and Plan: Possibly due to hypovolemia. The patient received 1 L IV fluids in the ER. Will check spot urine creatinine and sodium. Will continue with gentle IV fluid hydration. Will repeat BMP in a.m.. Plan Patient has been admitted as observation status. DS: Summary Hospital Course Reason for hospitalization: Left shoulder pain Narrative: 66-year-old male with a past medical history of diabetic peripheral neuropathy, chronic pain, DVTs, pulmonary embolism, on chronic anticoagulation with Coumadin, peripheral vascular disease with claudication and COPD who presented to the ER with left shoulder pain and shortness of breath.? The patient was hospitalized in October due to acute on chronic anemia and received 2 units of packed red blood cells.? He has been [facility] Hicks and has an outpatient bone marrow biopsy scheduled to evaluate for myeloproliferative process such as aplastic anemia.? His brought him into the ER today because she was concerned that the patient may have a recurrent PE.? CTA performed in the ER was negative for pulmonary embolism but demonstrated chronic interstitial changes.? There is no evidence of pneumonia.? Unfortunately the patient's hemoglobin returned low at 6.9.? The patient had previously received 2 units blood on 11/11/2021 and his hemoglobin had been up to 8.9 but has trended downward over the course of this month.? His last outpatient hemoglobin on the was 7.5.? Patient denies any hematochezia or melena.? In the past his Hemoccult stools have been negative.? The patient's blood work in the past has demonstrated anemia chronic disease with a low reticulocyte percentage.? Patient received Dilaudid in the ER for shoulder pain.? Imaging did not demonstrate any acute process to explain the patient's pain.? Patient's pain is worse with movement of the opposite arm.? Pain is aching in nature in a 7/10 in intensity.? The pain is reproducible to palpation.? Patient denies any known injury, pulling, tugging or straining.? He reports that he woke up with pain 3 or 4 da
== END 2021-12-12 11:40 | disposition left against medical advice (07) ==
LOC: ANHED 19:38 → ANH3MEDSUR 12-12 03:07
PROVIDERS: Admitting Provider Internal Medicine; Emergency Provider General Practice; PCP Family Medicine; Visit Provider Family Medicine
DX: D62 Acute posthemorrhagic anemia (principal); G47.33 Obstructive sleep apnea (adult) (pediatric); J44.9 Chronic obstructive pulmonary disease, unspecified; E87.1 Hypo-osmolality and hyponatremia; E11.42 Type 2 diabetes mellitus with diabetic polyneuropathy; E11.51 Type 2 diabetes mellitus with diabetic peripheral angiopathy without gangrene; G89.29 Other chronic pain; I73.9 Peripheral vascular disease, unspecified; I89.0 Lymphedema, not elsewhere classified; K21.9 Gastro-esophageal reflux disease without esophagitis; M25.512 Pain in left shoulder; R06.02 Shortness of breath; F32.9 Major depressive disorder, single episode, unspecified; E78.5 Hyperlipidemia, unspecified; K44.9 Diaphragmatic hernia without obstruction or gangrene; K52.89 Other specified noninfective gastroenteritis and colitis; F12.90 Cannabis use, unspecified, uncomplicated; F17.210 Nicotine dependence, cigarettes, uncomplicated; Z86.718 Personal history of other venous thrombosis and embolism; Z86.711 Personal history of pulmonary embolism; Z79.1 Long term (current) use of non-steroidal anti-inflammatories (NSAID); Z79.51 Long term (current) use of inhaled steroids; Z79.01 Long term (current) use of anticoagulants; Z79.899 Other long term (current) drug therapy; Z83.3 Family history of diabetes mellitus; Z82.49 Family history of ischemic heart disease and other diseases of the circulatory system
CPT/HCPCS: 36415; 36430; 71046; 71275; 73030; 80048; 80053; 81001; 83690; 83735; 84484; 85025; 85380; 85610; 85730; 86850; 86900; 86901; 86920; 93005; 96361; 96374; 96375; 99285; A9270; G0378; J1170; J2405; J7030; J7050; P9016; Q9967

== ENCOUNTER 2021-12-16 10:59 | Outpatient (CLI) | payer MEDICARE, SELFPAY ==
[2021-12-16 11:26] LABS: Basophils Percent Auto 0.6 % (0.2-1.2); Eosinophils Absolute Auto 0.1 K/mm3 (0-0.3); Eosinophils Percent Auto 1.3 % (0-4.4); Hematocrit 24.2 % (42.0-52.0); Hemoglobin 7.4 g/dL (14.0-18.0); Immature Granulocyte Absolute 0.03 K/mm3 (0.00-0.031); Immature Granulocyte Percent A 0.6 % (0-0.5); Lymphocytes Absolute Auto 1.41 K/mm3 (0.9-3.2); Lymphocytes Percent Auto 26.9 % (18.3-44.2); Mean Corpuscular HGB Conc 30.6 g/dl (32-36); Mean Corpuscular Hemoglobin 29.6 pg (26-34); Mean Corpuscular Volume 96.8 fl (80-100); Mean Platelet Volume 9.4 fl (7.4-10.4); Monocytes Absolute Auto 0.5 K/mm3 (0.1-0.6); Monocytes Percent Auto 9.9 % (2.6-8.5); Neutrophils Absolute Auto 3.2 K/mm3 (1.3-6.7); Neutrophils Percent Auto 60.7 % (45.5-73.1); Platelet Count Result 145 k/mm3 (150-375); Red Cell Distribution Width 18.2 % (11.5-14.5); White Blood Count 5.2 K/mm3 (4.5-10.0)
[2021-12-17 14:15] LABS: Immature Reticulocyte Fraction 25.5 % (3.0-15.9); Reticulocyte Hemoglobin Conten 30.2 pg (28.2-35.7); Reticulocyte Percent 2.81 % (0.7-4.3); Reticulocytes Absolute 0.07 B/L (32.2-175.7)
[2021-12-17 16:56] LABS: Lactate Dehydrogenase 171 U/L (120-246)
[2021-12-17 19:46] LABS: Hepatitis C Virus Antibody Negative (Negative)
[2021-12-20 12:09] LABS: Hepatitis B Core Ab Total Nonreactive (Nonreactive)
[2021-12-21 07:30] LABS: HIV 1 2 Ag Ab 4th Gen w Rflxs Non-reactive (Non-reactive)
[2021-12-21 21:24] LABS: Erythropoietin (EPO) 234.1 mIU/mL (2.6-18.5)
== END 2021-12-16 11:00 | disposition home or self-care (01) ==
LOC: ANHLAB 11:01
PROVIDERS: PCP Family Medicine; Visit Provider Internal Medicine Hematology & Oncology
DX: D61.9 Aplastic anemia, unspecified (principal)
CPT/HCPCS: 36415; 82668; 83615; 85025; 85046; 86704; 86803; 87389; 87799

== ENCOUNTER 2021-12-21 00:42 | Day surgery (SDC) | payer MEDICARE, SELFPAY ==
[2021-12-20 14:56] VITALS: BMI 30.1
--- NOTE | 2021-12-20 15:13 | PC.NURSE ---
Pt last dose of Xarelto 12/19 at 1999 and cilostazol 12/20 in AM, Dr. Scott notified and reports to have pt hold Xarelto and cilostazol until after procedure. Pt and notified and report understanding.
--- NOTE | ~2021-12-21 | BM_ITS ---
EXAMINATION: CCL bone marrow asp w bx diag DATE: 12/21/2021 09:05 INDICATION: Anemia. TECHNIQUE: A time-out was performed to verify the patient's name, date of , and procedure to b e performed. The procedure including the risks, benefits, and alternatives was discussed with the pat ient. Risks discussed included bleeding and infection. The patient understood the risks and agreed to proceed. The skin overlying the left ilium was prepped and draped in usual sterile fashion. Anesth etic was administered with 1% lidocaine subcutaneously. Minimal sedation was achieved with 50 mcg fen tanyl IV. An 11 gauge needle was inserted into the ilium with fluoroscopic guidance. Bone marrow was aspirated. An 8 gauge needle was then inserted into the ilium with fluoroscopic guidance. A core bon e marrow biopsy was obtained. There were no immediate complications. Fluoroscopy exposure time was 0. 0 minutes. The total number of images was 22. FINDINGS: Real-time fluoroscopy demonstrates a marker overlying the left posterior superior iliac spi ne. IMPRESSION: 1. Fluoro-guided bone marrow aspiration. 2. Fluoro-guided bone marrow core biopsy. Reviewed, dictated and finalized at location A.
[2021-12-21 07:15] VITALS: BMI 31.1
[2021-12-21 07:16] LABS: Basophils Percent Auto 0.6 % (0.2-1.2); Eosinophils Absolute Auto 0.1 K/mm3 (0-0.3); Eosinophils Percent Auto 1.1 % (0-4.4); Hematocrit 23.1 % (42.0-52.0); Hemoglobin 7.1 g/dL (14.0-18.0); Immature Granulocyte Absolute 0.02 K/mm3 (0.00-0.031); Immature Granulocyte Percent A 0.4 % (0-0.5); Lymphocytes Absolute Auto 1.39 K/mm3 (0.9-3.2); Lymphocytes Percent Auto 25.9 % (18.3-44.2); Mean Corpuscular HGB Conc 30.7 g/dl (32-36); Mean Corpuscular Volume 97.5 fl (80-100); Mean Platelet Volume 10.2 fl (7.4-10.4); Monocytes Absolute Auto 0.6 K/mm3 (0.1-0.6); Monocytes Percent Auto 11.2 % (2.6-8.5); Neutrophils Absolute Auto 3.3 K/mm3 (1.3-6.7); Neutrophils Percent Auto 60.8 % (45.5-73.1); Platelet Count Result 147 k/mm3 (150-375); Red Blood Count 2.37 M/mm3 (4.6-6.20); Red Cell Distribution Width 18.7 % (11.5-14.5); White Blood Count 5.4 K/mm3 (4.5-10.0)
[2021-12-21 07:20] VITALS: BP 118/60; PULSE 68; RESP 17; TEMP 37.2; O2SAT 100
[2021-12-21 07:29] LABS: INR 1.6; Prothrombin Time 18.1 Seconds (11.1-14.7)
--- NOTE | 2021-12-21 07:29 | SUR.PREOP ---
Patient last smoked marijuana last night around 1999. Patient is also on a sample of an inhaler. does not have name with her and it has not been picked up at a pharmacy because it is just as a sample.
[2021-12-21 07:30] LABS: Anisocytosis 1+ (NORMAL); Ovalocytes 1+ (NORMAL); Platelet Estimate Adequate (Adequate)
[2021-12-21 07:31] LABS: Atypical Lymphocytes Present
--- NOTE | 2021-12-21 08:04 | WPDMODSED ---
Moderate Sedation Note-Pt Data Patient Data Diagnosis: Anemia. Present Complaint: Anemia. Procedure to be performed/Plan: Fluoro-guided bone marrow biopsy of ilium. Allergies Allergy/AdvReac Type Severity Reaction Status Date / Time No Known Allergies Allergy Verified 12/21/21 07:23 Home Medications Medication Instructions Recorded Confirmed Type cilostazol 50 mg tablet 50 mg PO BID #60 tabs 08/31/21 12/21/21 Rx famotidine 10 mg tablet 20 mg PO BID #180 tabs 09/06/21 12/21/21 Rx acetaminophen 325 mg capsule 650 mg PO Q8H PRN pain #20 caps 11/11/21 12/21/21 Rx (Tylenol) albuterol sulfate 90 mcg/actuation 1 inh inhalation Q4H PRN shortness 11/18/21 12/21/21 Rx aerosol inhaler of breath or wheezing #8.5 grams sertraline 50 mg tablet 50 mg PO DAILY 12/12/21 12/21/21 History atorvastatin 20 mg tablet 20 mg PO DAILY 12/20/21 12/21/21 History gabapentin 300 mg capsule 300 mg PO TID 12/20/21 12/21/21 History rivaroxaban 10 mg tablet (Xarelto) 10 mg PO DAILY 12/20/21 12/21/21 History ferrous sulfate 325 mg (65 mg 325 mg PO DAILY 12/21/21 12/21/21 History iron) tablet Current Medications: Active Medications Sodium Chloride (Normal Saline Iv) 1,000 mls @ 30 mls/hr IV CONT .Q24H [id number] Sedation/Anesthesia: No previous sedation/anesthesia problems (including family history). [facility] Past Medical History Medical History Anemia of chronic disease Chronic hyponatremia Claudication in peripheral vascular disease COPD (chronic obstructive pulmonary disease) DM2 (diabetes mellitus, type 2) DVT (deep venous thrombosis) 1998 and 2015 GERD (gastroesophageal reflux disease) Hiatal hernia Hyperlipidemia Ischemic colitis (04/2016) Lymphedema of both lower extremities MDD (major depressive disorder) Obstructive sleep apnea (06/2021) Polysomnogram demonstrated moderate obstructive sleep apnea with hypo apnea index of 15 desaturations of 85% he is treated with auto PAP with a range of 7-12 cm Peripheral neuropathy Pulmonary embolism 1990s Tobacco abuse Surgical History Surgical History Abnormal colonoscopy (04/2016) Colonic ulcer with pathology demonstrating acute and chronic colitis with benign ulcer consistent with ischemic colitis History of ankle surgery (2018) ORIF History of esophagogastroduodenoscopy (EGD) (~2012) Esophageal diverticulum S/P cubital tunnel release Family History Family History Father Lung cancer Mother Lung cancer Seizures Diabetes mellitus Sibling Lung cancer Hepatitis C Other Family history of arthritis Hypertension Social History Social History (Updated 12/12/21 @ 02:04 by Lucinda Limon DO) Smoking packs per day: 0.5 Smoking cigarettes per day: 10.0 Years smoked: 55 Smoking pack-years: 27.50 Smoking status: Current every day smoker Tobacco type: cigarettes Additional smoking assessment comments: currently down to 1/2 pack Alcohol intake: former Alcohol use details: Denies Substance use: former Substance use type: marijuana Last use: 11/11/21 Living arrangements: with family Additional living arrangements comments: He lives with his . They have no children. They live in [place]. 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 Gender identity (if verbalized by the patient): Male Sexual Orientation (if Verbalized by the Patient): Straight or Heterosexual Spiritual care concerns: No Mod Sed Physical Exam Physical Exam Pre Procedural Exam: Normal: Heart Rate, Heart Rhythm and Abdomen and Variation: Lungs (Coarse breath sounds. Wheezing.) Hours since solid foods: 10 Hours since liquid intake: 10 Mallampati Classification: class II Internal Medicine - PN:
--- NOTE | 2021-12-21 08:09 | SUR.PREOP ---
0800 Dr. Scott in room talking with patient and . He was informed again of last doses of Xarelto and cilostazol. Temp max of 99.3 on arrival today. Use of marijuana per patient last night. Informed of abnormal labs.
[2021-12-21 09:00] VITALS: BP 118/70; PULSE 70; RESP 16; O2SAT 95
[2021-12-21 09:15] VITALS: BP 125/70; PULSE 70; RESP 16; O2SAT 96
== END 2021-12-21 09:50 | disposition home or self-care (01) ==
PROVIDERS: PCP Family Medicine; Referring Provider Internal Medicine Hematology & Oncology; Visit Provider Radiology Diagnostic Radiology
DX: D64.9 Anemia, unspecified (principal); E11.42 Type 2 diabetes mellitus with diabetic polyneuropathy; E11.51 Type 2 diabetes mellitus with diabetic peripheral angiopathy without gangrene; E78.5 Hyperlipidemia, unspecified; J44.9 Chronic obstructive pulmonary disease, unspecified; K21.9 Gastro-esophageal reflux disease without esophagitis; F32.A Depression, unspecified; G47.33 Obstructive sleep apnea (adult) (pediatric); Z86.711 Personal history of pulmonary embolism; Z86.718 Personal history of other venous thrombosis and embolism; F17.210 Nicotine dependence, cigarettes, uncomplicated; Z79.51 Long term (current) use of inhaled steroids; Z79.01 Long term (current) use of anticoagulants
CPT/HCPCS: 36415; 38222; 85025; 85610; 88184; 88185; 88305; 88311; 88313; 88341; 88342; 88360; 88364; 88365; J1642; J2250; J3010; J7030

== ENCOUNTER 2021-12-25 20:21 | Emergency (ER) | payer MEDICARE, SELFPAY ==
--- NOTE | ~2021-12-25 | XR_ITS ---
EXAMINATION: XR chest 2V Exam Date/Time: 12/25/2021 21:05 CDT HISTORY: weakness, RECENT BONE MARROW TRANSPLANT Comparison: 12/11/2021, chest x-ray and CTPA. RESULT: Lines, tubes, and devices: None. Lungs and pleura: Slightly increased peripheral reticular and hazy opacities. Cardiomediastinal silhouette: Stable. Other: No acute osseous or upper abdominal finding. IMPRESSION: Slight interval worsening of the interstitial opacities in the lungs. Given history of bone marrow tr ansplant the pulmonary manifestations of wxurp-boapzy-bcjf disease could be considered in the differe ntial, along with other interstitial processes. Reviewed, dictated and finalized at location [facility]. IMPRESSION: Slight interval worsening of the interstitial opacities in the lungs. Given his tory of bone marrow transplant the pulmonary manifestations of gadsr-cyydqb-jiy t disease could be considered in the differential, along with other interstitia l processes.
[2021-12-25 20:42] VITALS: BP 106/53; PULSE 54; RESP 16; TEMP 36.4; O2SAT 100
--- NOTE | 2021-12-25 21:04 | ECG_ITS ---
Measurements Intervals [place] Rate: 57 P: 66 NJ: 201 QRS: -5 QRSD: 111 T: 20 QT: 488 QTc: 476 Interpretive Statements SINUS BRADYCARDIA BORDERLINE AV CONDUCTION DELAY MINIMAL Q WAVES- HIGH LATERAL LEADS BORDERLINE T WAVE ABNORMALITY- ANTERIOR LEADS BORDERLINE ECG COMPARED TO ECG 12/11/2021 20:04:17 SINUS BRADYCARDIA NOW PRESENT Electronically Signed On 12-26-2021 8:32:20 CDT by Jose Lai D.O.
--- NOTE | 2021-12-25 21:34 | ED.WEAKNESS ---
HPI - Weakness General Chief complaint: Weakness Stated complaint: sweating, leg pain Time Seen by Provider: 12/25/21 20:54 History of Present Illness HPI Narrative: Patient is a 66-year-old male with history of aplastic anemia who presents ER with weakness. Patient has had some fatigue throughout the day and has had multiple episodes of spontaneous diaphoresis. Denies fevers or chills. No chest pain or chest pressure or dyspnea. No urinary frequency or urgency. He is without diarrhea or abdominal pain. No blood in stool. Due to the frequent episodes of spontaneous sweating brought him to the ER to be evaluated. Recently had a bone marrow biopsy on 12/21/2021. Awaiting results. He sees Dr. Hicks. Patient reports some cramping in his legs today. Has history of peripheral vascular disease and claudication. Related Data Home Medications Medication Instructions Recorded Confirmed sertraline 50 mg tablet 50 mg PO DAILY 12/12/21 12/21/21 atorvastatin 20 mg tablet 20 mg PO DAILY 12/20/21 12/21/21 gabapentin 300 mg capsule 300 mg PO TID 12/20/21 12/21/21 rivaroxaban 10 mg tablet (Xarelto) 10 mg PO DAILY 12/20/21 12/21/21 ferrous sulfate 325 mg (65 mg 325 mg PO DAILY 12/21/21 12/21/21 iron) tablet Allergies Allergy/AdvReac Type Severity Reaction Status Date / Time No Known Allergies Allergy Verified 12/21/21 07:23 Review of Systems Review of Systems: All systems reviewed & are unremarkable except as noted in HPI and below Constitutional: Constitutional: Denies chills, Reports fatigue, Denies fever(s) and Reports weakness Comments: Diaphoresis ENT: Denies nasal congestion and Denies sore throat Cardiovascular: Cardiovascular: Denies chest pain, Denies rapid heart rate and Denies radiating jaw, neck or arm pain Respiratory: Respiratory: Denies chest congestion, Denies cough and Denies dyspnea Gastrointestinal: Gastrointestinal: Denies abdominal pain, Denies nausea and Denies vomiting Genitourinary: Genitourinary: Denies dysuria and Denies urinary frequency PMF Past Medical History Medical History Anemia of chronic disease Chronic hyponatremia Claudication in peripheral vascular disease COPD (chronic obstructive pulmonary disease) DM2 (diabetes mellitus, type 2) DVT (deep venous thrombosis) 1998 and 2015 GERD (gastroesophageal reflux disease) Hiatal hernia Hyperlipidemia Ischemic colitis (04/2016) Lymphedema of both lower extremities MDD (major depressive disorder) Obstructive sleep apnea (06/2021) Polysomnogram demonstrated moderate obstructive sleep apnea with hypo apnea index of 15 desaturations of 85% he is treated with auto PAP with a range of 7-12 cm Peripheral neuropathy Pulmonary embolism 1990s Tobacco abuse Surgical History Surgical History Abnormal colonoscopy (04/2016) Colonic ulcer with pathology demonstrating acute and chronic colitis with benign ulcer consistent with ischemic colitis History of ankle surgery (2018) ORIF History of esophagogastroduodenoscopy (EGD) (~2012) Esophageal diverticulum S/P cubital tunnel release Family History Family History Father Lung cancer Mother Lung cancer Seizures Diabetes mellitus Sibling Lung cancer Hepatitis C Other Family history of arthritis Hypertension Social History Social History (Updated 12/12/21 @ 02:04 by Lucinda Limon DO) Smoking packs per day: 0.5 Smoking cigarettes per day: 10.0 Years smoked: 55 Smoking pack-years: 27.50 Smoking status: Current every day smoker Tobacco type: cigarettes Additional smoking assessment comments: currently down to 1/2 pack Alcohol intake: former Alcohol use details: Denies Substance use: former Substance use type: marijuana Last use: 11/11/21 Additional living shanel
[2021-12-25 22:01] LABS: Alanine Aminotransferase 13 U/L (6-50); Albumin Level 2.8 g/dL (3.5-5.1); Alkaline Phosphatase 179 U/L (38-126); Anion Gap 4 mmol/L (8-16); Aspartate Amino Transferase 27 U/L (17-59); Bilirubin,Total 1.2 mg/dL (0.2-1.3); Blood Urea Nitrogen 9 mg/dL (9-20); Calcium 8.1 mg/dL (8.4-10.2); Carbon Dioxide 26 mmol/L (22-30); Chloride 106 mmol/L (98-107); Estimated CRCL calculation 153 ml/min; Estimated Glomerular Filt Rate > 60; Glucose 128 mg/dL (65-110); Potassium 3.4 mmol/L (3.4-5.0); Sodium 136 mmol/L (137-145)
[2021-12-25 22:10] LABS: Appearance Urine Clear (Clear); Bilirubin Urine Negative (Negative); Blood Urine Negative (Negative); Color Urine Yellow (Yellow); Glucose Urine UA Negative (Negative); Ketones Urine Negative (Negative); Leukocyte Esterase Ur Negative LEU/UL (Negative); Nitrate Urine Negative (Negative); Protein Urine Negative (Negative); Specific Grav Ur <= 1.005 (1.001-1.035); pH Urine 6.5 (5.0-9.0)
[2021-12-25 22:21] LABS: Add Urine Microscopic? YES; RBC Urine 0-2 /hpf (0-2); WBC Urine None seen /hpf (0-3)
[2021-12-25 22:26] LABS: Glucose Point of Care 128 mg/dl (65-105)
[2021-12-25 22:28] LABS: SARS-CoV-2 RNA PCR Negative
[2021-12-25 22:51] LABS: Basophils Percent Auto 0.6 % (0.2-1.2); Eosinophils Absolute Auto 0.1 K/mm3 (0-0.3); Eosinophils Percent Auto 1.2 % (0-4.4); Hematocrit 27.2 % (42.0-52.0); Hemoglobin 8.5 g/dL (14.0-18.0); Immature Granulocyte Absolute 0.03 K/mm3 (0.00-0.031); Immature Granulocyte Percent A 0.6 % (0-0.5); Lymphocytes Absolute Auto 1.51 K/mm3 (0.9-3.2); Lymphocytes Percent Auto 29.7 % (18.3-44.2); Mean Corpuscular HGB Conc 31.3 g/dl (32-36); Mean Corpuscular Hemoglobin 30.9 pg (26-34); Mean Corpuscular Volume 98.9 fl (80-100); Monocytes Absolute Auto 0.6 K/mm3 (0.1-0.6); Monocytes Percent Auto 11.4 % (2.6-8.5); Neutrophils Absolute Auto 2.9 K/mm3 (1.3-6.7); Neutrophils Percent Auto 56.5 % (45.5-73.1); Platelet Count Result 129 k/mm3 (150-375); Red Blood Count 2.75 M/mm3 (4.6-6.20); Red Cell Distribution Width 17.9 % (11.5-14.5); White Blood Count 5.1 K/mm3 (4.5-10.0)
[2021-12-25 23:00] LABS: Lactic Acid Reflex 0.7 mmol/L (0.7-2.0)
[2021-12-25 23:02] VITALS: PULSE 61; RESP 16; O2SAT 98
[2021-12-25 23:06] LABS: INR 1.4; Prothrombin Time 16.8 Seconds (11.1-14.7)
[2021-12-25 23:07] LABS: Partial Thromboplastin Time 39.9 SECONDS (22.3-36.8)
== END 2021-12-26 01:02 | disposition home or self-care (01) ==
PROVIDERS: Emergency Provider Emergency Medicine; PCP Family Medicine
DX: J18.9 Pneumonia, unspecified organism (principal); Z20.822 Contact with and (suspected) exposure to COVID-19; D64.9 Anemia, unspecified; J44.9 Chronic obstructive pulmonary disease, unspecified; E11.9 Type 2 diabetes mellitus without complications; K21.9 Gastro-esophageal reflux disease without esophagitis; E78.5 Hyperlipidemia, unspecified; G47.30 Sleep apnea, unspecified; Z79.01 Long term (current) use of anticoagulants
CPT/HCPCS: 36415; 71046; 80053; 81001; 82948; 83605; 85025; 85610; 85730; 86850; 86900; 86901; 93005; 99283; C9803; U0003; U0005

== ENCOUNTER 2021-12-31 14:24 | Outpatient (CLI) | payer MEDICARE, MEDICAID, SELFPAY ==
--- NOTE | 2021-12-31 14:26 | ECHO_ITS ---
Patient Info Name: Michael Gonzalez Age: 66 years : 1955 Gender: Male Ht: 72 in Wt: 230 lbs BSA: 2.33 m2 HR: 67 bpm BP: 115 / 65 mmHg Technical Quality: Good Exam Date: 12/31/2021 2:35 PM Exam Location: [facility] Patient Status: Outpatient Admit Date: 12/31/2021 Staff Ordering Physician: Sarath Arreaga DO Inflated Pad Buffer: Simba Ferreira RDCS, RT Attending Provider: Sarath Arreaga DO Referring Physician: Whitley RODRIGUEZ; Exam Type: CA echo doppler color flow Study Info Indications R60.0 - Localized edema Complete two-dimensional, color flow and Doppler transthoracic echocardiogram is performed. Strain analysis performed. Summary 1. Complete two-dimensional, color flow and Doppler transthoracic echocardiogram is performed. 2. Left ventricular chamber dimension is normal. 3. Left ventricular systolic function is normal, estimated at 55-60%. 4. There is moderate concentric increased left ventricular wall thickness. 5. The left ventricular diastolic function is grade II diastolic dysfunction. 6. E/e' 10 is mildly elevated. 7. Global longitudinal strain is normal at -19.4%. 8. There is mild aortic valve sclerosis. 9. The mitral valve has mildly calcified annulus. 10. There is trace mitral valve regurgitation. 11. Dilated inferior vena cava with <50% collapse upon inspiration consistent with significantly elevated right atrial pressure, 15 mmHg. Left Ventricle E/e' 10 is mildly elevated. Global longitudinal strain is normal at -19.4%. Left ventricular chamber dimension is normal. Left ventricular systolic function is normal, estimated at 55-60%. There is moderate concentric increased left ventricular wall thickness. The left ventricular diastolic function is grade II diastolic dysfunction. Right Ventricle Right ventricular chamber dimension is normal. Right ventricular systolic function is normal. Left Atria Left atrial chamber dimension is normal. Right Atria Right atrial chamber dimension is normal. Aortic Valve The aortic valve is trileaflet. There is mild aortic valve sclerosis. There is no aortic valve stenosis. There is no aortic valve regurgitation. Pulmonic Valve There is no pulmonic regurgitation. Mitral Valve The mitral valve has mildly calcified annulus. There is no mitral valve stenosis. There is trace mitral valve regurgitation. Tricuspid Valve There is no tricuspid valve regurgitation. Pericardium/Pleural There is no pericardial effusion. Inferior Vena Cava Dilated inferior vena cava with <50% collapse upon inspiration consistent with significantly elevated right atrial pressure, 15 mmHg. Aorta The aortic root size at the sinus of Valsalva is normal. Left Ventricular Outflow Tract Name Value Normal LVOT 2D LVOT Diameter 2.1 cm LVOT Doppler LVOT Peak Velocity 148 cm/s LVOT Peak Gradient 9 mmHg LVOT Mean Gradient 4 mmHg LVOT VTI 30 cm LVOT VTI/AV VTI Ratio 0.6 LVOT Stroke Volume
== END 2021-12-31 14:25 | disposition home or self-care (01) ==
LOC: CHSIMG 14:26
PROVIDERS: PCP Family Medicine; Visit Provider Family Medicine
DX: R60.0 Localized edema (principal); I50.9 Heart failure, unspecified
CPT/HCPCS: 93306

== ENCOUNTER 2022-01-15 14:53 | Emergency (ER) | payer MEDICARE, SELFPAY ==
[2022-01-15] VITALS (23 sets, daily range): BP systolic 100–120; BP diastolic 45–68; PULSE 81–100; RESP 16–25; TEMP 37.2; O2SAT 95–100
--- NOTE | ~2022-01-15 | XR_ITS ---
XR ankle RT min 3V DATE: 01/15/2022 15:25 INDICATION: Joint infection TECHNIQUE: 3 views of right ankle COMPARISON: None FINDINGS: Plate and multiple screws along the distal fibular shaft and lateral malleolus. Transverse screw of the distal tibia. There is soft tissue swelling of the anterolateral ankle and dorsum of the foot. No recent fracture or dislocation of the ankle or disruption of the ankle mortise is detected. No per iosteal reaction or bone destruction. Mild plantar and posterior calcaneal enthesopathy. IMPRESSION: Status post ORIF distal fibula and tibia Mild plantar and posterior calcaneal enthesopathy Anterolateral soft tissue swelling of the ankle and soft tissue swelling of the dorsum of the foot. Reviewed, dictated and finalized at location A.
--- NOTE | ~2022-01-15 | CT_ITS ---
CORRECTED REPORT order change [facility] 01/17/22 This report was recreated on 01/17/22 0935. Original report was signed by Michael Butler M.D. on 01/15/2022 17:[address] ankle RT wo con DATE: 01/15/2022 17:37 INDICATION: Ankle infection TECHNIQUE: Axial images through the ankle and sagittal and coronal reconstructions were performed without IV contrast material. Exam dose: 483.46 mGy-cm total exam DLP. COMPARISON: 01/11/2022 right ankle FINDINGS: There is soft tissue swelling and subcutaneous fat stranding which may be due to edema or inflammatory exudate. Plate and screws are noted along the distal fibular shaft and lateral malleolus laterally. There is a transverse screw through the distal tibial epiphysis providing fixation of prior posterior malleolar tibial fracture. No periosteal reaction or active bone destruction is detected. Apposing cortices at the tibiotalar and tarsal and tarsometatarsal joints are intact and joint space is relatively preserved, without evidence of significant cartilage loss or osteomyelitic bone destruction. However, a small amount of air is noted in the tibiotalar joint which might indicate infection if there has been no intervention such as joint aspiration. Plantar and posterior calcaneal enthesopathy. IMPRESSION: Small amount of air in the tibiotalar joint space; if there has been no intervention such as joint aspiration, this might be a sign of infection. However, no significant cartilage loss or active bone destruction at any of the joints of the ankle or hindfoot are identified Status post ORIF lateral and posterior malleolar fractures Plantar and posterior calcaneal enthesopathy Soft tissue swelling and subcutaneous edema and/or inflammatory change of the ankle and foot Reviewed, dictated and finalized at Location [facility]. Reviewed, dictated and finalized at location A. MTDD IMPRESSION: Small amount of air in the tibiotalar joint space; if there has bee n no intervention such as joint aspiration, this might be a sign of infection. However, no significant cartilage loss or active bone destruction at any of the joints of the ankle or hindfoot are identified Status post ORIF lateral and posterior malleolar fractures Plantar and posterior calcaneal enthesopathy Soft tissue swelling and subcutaneous edema and/or inflammatory change of the a nkle and foot
--- NOTE | 2022-01-15 15:05 | ECG_ITS ---
Measurements Intervals [place] Rate: 97 P: 72 PA: 177 QRS: -17 QRSD: 98 T: 54 QT: 359 QTc: 456 Interpretive Statements SINUS RHYTHM DELAYED PRECORDIAL R/S TRANSITION BORDERLINE ECG COMPARED TO ECG 12/25/2021 22:22:52 SINUS RHYTHM NOW PRESENT HEART RATE HAS INCREASED Electronically Signed On 01-16-2022 8:11:58 CDT by Jose Lai D.O.
[2022-01-15] MEDS: LACTATED RINGERS 1,000 ML 999 ML IV CONT ×2 (15:36→20:19)
[2022-01-15 15:45] LABS: Hemoglobin 7.4 g/dL (14.0-18.0); Mean Corpuscular HGB Conc 30.8 g/dl (32-36); Mean Corpuscular Hemoglobin 31.1 pg (26-34); Mean Corpuscular Volume 100.8 fl (80-100); Mean Platelet Volume 10.4 fl (7.4-10.4); Platelet Count Result 161 k/mm3 (150-375); Red Blood Count 2.38 M/mm3 (4.6-6.20); Red Cell Distribution Width 17.4 % (11.5-14.5); White Blood Count 7.5 K/mm3 (4.5-10.0)
[2022-01-15 15:57] LABS: Lactic Acid Reflex 1.7 mmol/L (0.7-2.0)
[2022-01-15 16:02] LABS: INR 2.5; Prothrombin Time 25.9 Seconds (11.1-14.7)
[2022-01-15 16:03] LABS: Partial Thromboplastin Time 49.2 SECONDS (22.3-36.8)
[2022-01-15 16:19] LABS: Alanine Aminotransferase 22 U/L (6-50); Albumin Level 3.1 g/dL (3.5-5.1); Alkaline Phosphatase 249 U/L (38-126); Anion Gap 9 mmol/L (8-16); Aspartate Amino Transferase 37 U/L (17-59); Bilirubin,Total 2.7 mg/dL (0.2-1.3); Blood Urea Nitrogen 7 mg/dL (9-20); Calcium 8.1 mg/dL (8.4-10.2); Carbon Dioxide 29 mmol/L (22-30); Chloride 88 mmol/L (98-107); Estimated CRCL calculation 99 ml/min; Estimated Glomerular Filt Rate > 60; Glucose 151 mg/dL (65-110); Potassium 3.1 mmol/L (3.4-5.0); Sodium 126 mmol/L (137-145)
[2022-01-15 16:25] LABS: Platelet Estimate Adequate (Adequate)
[2022-01-15 16:26] LABS: Anisocytosis 1+ (NORMAL); Band Neutrophils Percent 4 % (0-6); Eosinophils Absolute Manual 0.15 K/mm3 (0.02-0.5); Eosinophils Percent Manual 2 % (0-4); Lymphocytes Absolute Manual 2.47 K/mm3 (1.1-4.5); Lymphocytes Percent Manual 33 % (18-44); Monocytes Percent Manual 8 % (3-9); Neutrophils Absolute Manual 4.27 K/mm3 (1.3-6.7); Neutrophils Percent Manual 53 % (46-73)
[2022-01-15 16:27] LABS: Schistocytes None Seen (NORMAL)
[2022-01-15 16:29] LABS: CRP 29.2 mg/dL (<1.0)
[2022-01-15] MEDS: SODIUM CHLORIDE 0.9% IV 1,000 ML 999 ML IV CONT ×2 (17:21→18:25)
--- NOTE | 2022-01-15 17:25 | ED.SKABFB ---
HPI - Skin/Abscess/Foreign Bdy General Chief complaint: Wound/Laceration Stated complaint: foot sore, weakness Time Seen by Provider: 01/15/22 15:06 History of Present Illness HPI narrative: 66yoM h/o R ankle ORIF 2019 p/w possible infxn to ankle, first noticed 2d ago. PCP started him on gout meds, and today he went to urgent care and they tried to do a needle drainage and got purulent drainage so told pt to go to the ER. Related Data Home Medications Medication Instructions Recorded Confirmed sertraline 50 mg tablet 50 mg PO DAILY 12/12/21 12/21/21 atorvastatin 20 mg tablet 20 mg PO DAILY 12/20/21 12/21/21 gabapentin 300 mg capsule 300 mg PO TID 12/20/21 12/21/21 ferrous sulfate 325 mg (65 mg 325 mg PO DAILY 12/21/21 12/21/21 iron) tablet Allergies Allergy/AdvReac Type Severity Reaction Status Date / Time No Known Allergies Allergy Verified 01/15/22 15:05 Review of Systems Review of Systems: CONST: No fever. HEENT: No sore throat C/V: No chest pain RESP: No cough GI: No nausea : No dysuria. M/S: Right ankle pain and swelling SKIN: Redness with purulent drainage from lateral right ankle NEURO: [No headache or focal numbness or weakness] PSYCH: [No depression] [facility] Past Medical History Medical History Anemia of chronic disease Chronic hyponatremia Claudication in peripheral vascular disease COPD (chronic obstructive pulmonary disease) DM2 (diabetes mellitus, type 2) DVT (deep venous thrombosis) 1998 and 2015 GERD (gastroesophageal reflux disease) Hiatal hernia Hyperlipidemia Ischemic colitis (04/2016) Lymphedema of both lower extremities MDD (major depressive disorder) Obstructive sleep apnea (06/2021) Polysomnogram demonstrated moderate obstructive sleep apnea with hypo apnea index of 15 desaturations of 85% he is treated with auto PAP with a range of 7-12 cm Peripheral neuropathy Pulmonary embolism 1990s Tobacco abuse Surgical History Surgical History Abnormal colonoscopy (04/2016) Colonic ulcer with pathology demonstrating acute and chronic colitis with benign ulcer consistent with ischemic colitis History of ankle surgery (2017) ORIF History of esophagogastroduodenoscopy (EGD) (~2012) Esophageal diverticulum S/P cubital tunnel release Family History Family History Father Lung cancer Mother Lung cancer Seizures Diabetes mellitus Sibling Lung cancer Hepatitis C Other Family history of arthritis Hypertension Social History Social History Smoking packs per day: 0.5 Smoking cigarettes per day: 10.0 Years smoked: 55 Smoking pack-years: 27.50 Smoking status: Current every day smoker Tobacco type: cigarettes Additional smoking assessment comments: currently down to 1/2 pack Alcohol intake: former Alcohol use details: Denies Substance use: former Substance use type: marijuana Last use: 11/11/21 Additional living arrangements comments: He lives with his . They have no children. They live in [place]. 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 Gender identity (if verbalized by the patient): Male Sexual Orientation (if Verbalized by the Patient): Straight or Heterosexual Spiritual care concerns: No Exam Narrative: EXAMINATION OF ORGAN SYSTEMS/BODY AREAS: Constitutional: Vital signs per nursing GENERAL:[No acute distress, non-toxic appearing.] HEAD: Normal with no signs of head trauma. EYES: EOMI, conjunctiva normal ENT: Hearing grossly intact LUNGS: Nonlabored breathing. HEART: [Regular rate and rhythm] ABD: [Soft], [nontender to palpation] EXT: Tenderness to right ankle SKIN: Induration and fluctuance lateral right ank
[2022-01-15] MEDS: fentaNYL CITRATE INJ (*CRX) 100 MCG/2 ML VIAL IV PUSH ×2 (18:25→21:32)
[2022-01-15 18:35] LABS: SARS-CoV-2 RNA PCR Negative
[2022-01-15] MEDS: fentaNYL CITRATE INJ (*CRX) 100 MCG/2 ML VIAL 50 MCG IV PUSH (20:19)
--- NOTE | 2022-01-15 20:19 | PC.NURSE ---
called [facility] for ETA update. ETA [id number]
--- NOTE | 2022-01-15 20:27 | PC.NURSE ---
called [facility] to request transport. declined
--- NOTE | 2022-01-15 20:37 | PC.NURSE ---
called [facility] to request transport. declined
--- NOTE | 2022-01-15 20:45 | PC.NURSE ---
called [facility] to request transport. ETA 3 1/2 hour called [facility] lights and sirens. ETA 15 minutes.
--- NOTE | 2022-01-15 21:07 | PC.NURSE ---
[facility] here.
== END 2022-01-15 21:33 | disposition short-term general hospital (02) ==
PROVIDERS: Emergency Provider Emergency Medicine; PCP Family Medicine
DX: M00.9 Pyogenic arthritis, unspecified (principal); E11.42 Type 2 diabetes mellitus with diabetic polyneuropathy; Z20.822 Contact with and (suspected) exposure to COVID-19; J44.9 Chronic obstructive pulmonary disease, unspecified; E87.1 Hypo-osmolality and hyponatremia; E78.5 Hyperlipidemia, unspecified; D63.8 Anemia in other chronic diseases classified elsewhere; G47.33 Obstructive sleep apnea (adult) (pediatric); K21.9 Gastro-esophageal reflux disease without esophagitis; F32.9 Major depressive disorder, single episode, unspecified; Z86.718 Personal history of other venous thrombosis and embolism; Z86.711 Personal history of pulmonary embolism; F17.210 Nicotine dependence, cigarettes, uncomplicated; M77.9 Enthesopathy, unspecified; R94.31 Abnormal electrocardiogram [ECG] [EKG]; Z79.01 Long term (current) use of anticoagulants
CPT/HCPCS: 36415; 73610; 73700; 73701; 80053; 83605; 85025; 85610; 85730; 86140; 87040; 93005; 96361; 96365; 96367; 96375; 96376; 99285; C9803; J0692; J3010; J3370; J7030; J7120; U0003; U0005

== ENCOUNTER 2022-01-28 18:23 | Emergency (ER) | payer MEDICARE, SELFPAY ==
--- NOTE | ~2022-01-28 | XR_ITS ---
XR chest PICC line 01/28/2022 18:48 Indication: PICC line placement Procedure: AP portable chest Comparison: 12/25/2021 Findings: Bilateral interstitial infiltrates, right greater than left. There is peribronchial thicken ing. Heart size normal. Interval placement of left subclavian PICC line, tip in the SVC. No pleural e ffusion or pneumothorax. Impression: 1: Diffuse bilateral interstitial infiltrates which may represent edema or pneumonia. Reviewed, dictated and finalized at location A. Impression: 1: Diffuse bilateral interstitial infiltrates which may represent edema or pneu monia.
[2022-01-28 18:24] VITALS: BP 113/52; PULSE 77; RESP 20; TEMP 36.8; O2SAT 100
--- NOTE | 2022-01-28 18:34 | ECG_ITS ---
Measurements Intervals [place] Rate: 75 P: 65 MN: 184 QRS: -2 QRSD: 102 T: 55 QT: 427 QTc: 480 Interpretive Statements SINUS RHYTHM WITHIN NORMAL LIMITS COMPARED TO ECG 01/15/2022 15:08:30 NO SIGNIFICANT CHANGES Electronically Signed On 01-29-2022 7:58:08 CDT by Rai Marroquin M.D.
--- NOTE | 2022-01-28 18:44 | ED.RECABL ---
HPI - Recheck/Abnormal Lab/Rx General Chief Complaint: Recheck/Abnormal Lab/Rx Stated Complaint: needs blood transfusion Time Seen by Provider: 01/28/22 18:38 Source: patient, family and old records reviewed Mode of arrival: ambulatory Limitations: no limitations History of Present Illness HPI narrative: Patient is a 66 y/o male who presents to the ED with c/o low hemoglobin. Per patient's records, he has a history of anemia and has had previous blood transfusions. Sees Dr. Hicks. at bedside reports patient was transferred from here to [facility] on 01/15 for suspected infection of right ankle hardware. Patient was hospitalized there for a week and had hardware removed. He is currently receiving oral Flagyl and IV Rocephin through PICC line. Patient has a home health nurse to dress his blood twice a week. They were notified today that his hemoglobin was 6.9 and referred to the ED for transfusion. Patient has been feeling weak and fatigued. Denies fevers, denies pain, denies rectal bleeding, melena, hematemesis, nausea, vomiting, epistaxis, hematuria. Denies CP, SOB, cough. Patient is on Xarelto due to Hx of PE/DVT. Related Data Home Medications Medication Instructions Recorded Confirmed sertraline 50 mg tablet 50 mg PO DAILY 12/12/21 12/21/21 atorvastatin 20 mg tablet 20 mg PO DAILY 12/20/21 12/21/21 gabapentin 300 mg capsule 300 mg PO TID 12/20/21 12/21/21 ferrous sulfate 325 mg (65 mg 325 mg PO DAILY 12/21/21 12/21/21 iron) tablet atorvastatin 20 mg tablet mg 01/15/22 01/15/22 cilostazol 50 mg tablet mg 01/15/22 furosemide 20 mg tablet mg 01/15/22 gabapentin 300 mg capsule mg 01/15/22 sertraline 50 mg tablet mg 01/15/22 ceftriaxone 2 gram intravenous 2 g IV Q24H 01/24/22 solution cholecalciferol (vitamin D3) 1,250 1,250 mcg PO WEEKLY 01/24/22 mcg (50,000 unit) capsule metronidazole 500 mg tablet 500 mg PO Q8H 01/24/22 cyanocobalamin (vitamin B-12) 1,000 mcg PO DAILY 01/28/22 01/28/22 1,000 mcg tablet hydrocodone 5 mg-acetaminophen 325 1 tablet PO Q4H PRN pain 01/28/22 01/28/22 mg tablet Allergies Allergy/AdvReac Type Severity Reaction Status Date / Time No Known Allergies Allergy Verified 01/28/22 18:33 Review of Systems Review of Systems: CONSTITUTIONAL: Reports generalized weakness, fatigue. Denies fever, chills, or sweats. ENT: Denies epistaxis. CARDIOVASCULAR: Denies chest pain. RESPIRATORY: Denies cough or dyspnea. GASTROINTESTINAL: Denies abdominal pain, nausea, vomiting, rectal bleeding, melena, hematemesis, diarrhea. GENITOURINARY: Denies dysuria or hematuria. MUSCULOSKELETAL: Denies back pain, joint pain. NEUROLOGIC: Denies headache, numbness, or weakness. All systems reviewed & are unremarkable except as noted in HPI and below PMFSH Past Medical History Medical History Anemia of chronic disease Chronic hyponatremia Claudication in peripheral vascular disease COPD (chronic obstructive pulmonary disease) DM2 (diabetes mellitus, type 2) DVT (deep venous thrombosis) 1998 and 2015 GERD (gastroesophageal reflux disease) Hiatal hernia Hyperlipidemia Ischemic colitis (04/2016) Lymphedema of both lower extremities MDD (major depressive disorder) Obstructive sleep apnea (06/2021) Polysomnogram demonstrated moderate obstructive sleep apnea with hypo apnea index of 15 desaturations of 85% he is treated with auto PAP with a range of 7-12 cm Peripheral neuropathy Pulmonary embolism 1990s Tobacco abuse Surgical History Surgical History Abnormal colonoscopy (04/2016) Colonic ulcer with pathology demonstrating acute and chronic colitis with benign ulcer consistent with ischemic colitis History of ankle surgery (2018) ORIF History of esophagogastroduodenoscopy (EGD) (~2012) Esophageal diverticulum S/P cubital tunnel release Family History Family History (Reviewed
[2022-01-28 18:50] LABS: Hematocrit 23.6 % (42.0-52.0); Hemoglobin 7.6 g/dL (14.0-18.0); Immature Platelet Fraction Pct 5.7 % (0.9-11.2); Mean Corpuscular HGB Conc 32.2 g/dl (32-36); Mean Corpuscular Hemoglobin 31.1 pg (26-34); Mean Corpuscular Volume 96.7 fl (80-100); Platelet Count Result 74 k/mm3 (150-375); Red Blood Count 2.44 M/mm3 (4.6-6.20); Red Cell Distribution Width 18.1 % (11.5-14.5); White Blood Count 6.6 K/mm3 (4.5-10.0)
[2022-01-28 19:06] LABS: Alanine Aminotransferase 14 U/L (6-50); Albumin Level 2.9 g/dL (3.5-5.1); Alkaline Phosphatase 208 U/L (38-126); Anion Gap 8 mmol/L (8-16); Aspartate Amino Transferase 33 U/L (17-59); Blood Urea Nitrogen 9 mg/dL (9-20); Calcium 7.6 mg/dL (8.4-10.2); Carbon Dioxide 22 mmol/L (22-30); Chloride 100 mmol/L (98-107); Estimated CRCL calculation 151 ml/min; Estimated Glomerular Filt Rate > 60; Glucose 111 mg/dL (65-110); Potassium 3.8 mmol/L (3.4-5.0); Sodium 130 mmol/L (137-145)
[2022-01-28 19:14] LABS: Anisocytosis 1+ (NORMAL); Eosinophils Absolute Manual 0.26 K/mm3 (0.02-0.5); Eosinophils Percent Manual 4 % (0-4); Lymphocytes Absolute Manual 2.24 K/mm3 (1.1-4.5); Monocytes Absolute Manual 0.33 K/mm3 (0.1-0.90); Monocytes Percent Manual 5 % (3-9); Neutrophils Percent Manual 57 % (46-73); Platelet Estimate Decreased (Adequate); Total Cells Counted 100
[2022-01-28 19:44] LABS: INR 2.1; Prothrombin Time 22.4 Seconds (11.1-14.7)
[2022-01-28 19:44] LABS: Add Urine Microscopic? YES; Appearance Urine Cloudy (Clear); Bacteria Urine Trace /hpf; Bilirubin Urine Negative (Negative); Blood Urine Negative (Negative); Color Urine Amber (Yellow); Glucose Urine UA Negative (Negative); Ketones Urine Negative (Negative); Leukocyte Esterase Ur Trace LEU/UL (Negative); Mucus Urine Rare /lpf; Nitrate Urine Negative (Negative); Protein Urine Negative (Negative); Specific Grav Ur 1.018 (1.001-1.035); Squamous Epithelial Cell Urine Occasional /hpf (Few); WBC Urine 0-3 /hpf
[2022-01-28 19:45] LABS: Partial Thromboplastin Time 48.7 SECONDS (22.3-36.8)
[2022-01-28 19:52] LABS: NT Pro B Type Natriuretic Pept 1070 pg/mL (5-100)
[2022-01-28] MEDS: FUROSEMIDE 20 MG TABLET PO (21:21)
[2022-01-28 21:53] VITALS: BP 126/64; PULSE 82; RESP 22; O2SAT 100
== END 2022-01-28 21:25 | disposition home or self-care (01) ==
PROVIDERS: Physician Assistant; Emergency Provider General Practice; PCP Family Medicine
DX: I50.33 Acute on chronic diastolic (congestive) heart failure (principal); D63.8 Anemia in other chronic diseases classified elsewhere; R79.89 Other specified abnormal findings of blood chemistry; J44.9 Chronic obstructive pulmonary disease, unspecified; E11.51 Type 2 diabetes mellitus with diabetic peripheral angiopathy without gangrene; I70.219 Atherosclerosis of native arteries of extremities with intermittent claudication, unspecified extremity; E11.42 Type 2 diabetes mellitus with diabetic polyneuropathy; E78.5 Hyperlipidemia, unspecified; E87.1 Hypo-osmolality and hyponatremia; I89.0 Lymphedema, not elsewhere classified; G47.33 Obstructive sleep apnea (adult) (pediatric); K21.9 Gastro-esophageal reflux disease without esophagitis; F32.9 Major depressive disorder, single episode, unspecified; Z86.718 Personal history of other venous thrombosis and embolism; Z86.711 Personal history of pulmonary embolism; F17.210 Nicotine dependence, cigarettes, uncomplicated; R91.8 Other nonspecific abnormal finding of lung field; Z79.01 Long term (current) use of anticoagulants
CPT/HCPCS: 36415; 80053; 81001; 83880; 85025; 85055; 85610; 85730; 86850; 86900; 86901; 93005; 99285; A9270

== ENCOUNTER 2022-01-31 10:03 | Outpatient (CLI) | payer MEDICARE, SELFPAY ==
--- NOTE | ~2022-01-31 | XR_ITS ---
EXAMINATION: XR chest 2V DATE: 01/31/2022 10:31 INDICATION: Congestive heart failure and shortness of breath TECHNIQUE: AP and lateral views of the chest are obtained. COMPARISON: 01/28/2022 FINDINGS: Diffuse opacities persist with slight improvement. A left upper extremity PICC ends with it s tip in the distal superior vena cava. No pleural effusion or pneumothorax. The cardiomediastinal si lhouette is normal. There are bridging osteophytes at multiple levels in the spine, consistent with d iffuse idiopathic skeletal hyperostosis (DISH). Calcified pulmonary nodules and calcified bilateral h ilar lymph nodes are consistent with old granulomatous disease. IMPRESSION: 1. Diffuse lung disease with interval improvement, consistent with resolving pneumonia versus pulmona ry edema. Reviewed, dictated and finalized at location A. IMPRESSION: 1. Diffuse lung disease with interval improvement, consistent with resolving pn eumonia versus pulmonary edema.
[2022-01-31 10:24] LABS: Hemoglobin 7.2 g/dL (12.4-15.3); Mean Corpuscular HGB Conc 31.3 g/dL (32.0-36.0); Mean Corpuscular Volume 99.1 fL (78.0-102.0); Mean Platelet Volume 10.8 fl (8.7-11.0); Platelet Count Result 93 K/mm3 (150-420); Red Blood Count 2.32 M/mm3 (4.70-6.10); White Blood Count 5.3 K/mm3 (4.8-10.8)
[2022-01-31 10:35] LABS: Band Neutrophils Percent 0 % (0-6); Eosinophils Absolute Manual 0.05 K/mm3 (0.02-0.5); Eosinophils Percent Manual 1 % (1-6); Lymphocytes Absolute Manual 1.16 K/mm3 (1.1-4.5); Lymphocytes Percent Manual 22 % (18-44); Monocytes Absolute Manual 0.53 K/mm3 (0.1-0.90); Monocytes Percent Manual 10 % (3-9); Neutrophils Absolute Manual 3.55 K/mm3 (1.3-6.7); Neutrophils Percent Manual 67 % (46-73); Platelet Estimate Adequate (Adequate); Schistocytes None Seen (NORMAL); Total Cells Counted 100
[2022-01-31 11:16] LABS: Albumin Level 1.4 g/dL (3.4-5.0); Alkaline Phosphatase 165 U/L (46-116); Anion Gap 8 mmol/L (8-16); Aspartate Amino Transferase 19 U/L (15-37); Bilirubin,Total 1.5 mg/dL (0.00-1.00); Blood Urea Nitrogen 6 mg/dL (7-18); Calcium 7.2 mg/dL (8.5-10.1); Carbon Dioxide 26 mmol/L (21-32); Chloride 98 mmol/L (98-108); Estimated Glomerular Filt Rate > 60; Glucose 175 mg/dL (70-99); NT Pro B Type Natriuretic Pept 697 pg/mL (0-125); Osmolality Calculated 275 mOsm/kg (285-295); Potassium 3.5 mmol/L (3.5-5.1); Sodium 132 mmol/L (136-145)
[2022-01-31 11:25] LABS: Alanine Aminotransferase 6 U/L (16-63)
== END 2022-01-31 10:04 | disposition home or self-care (01) ==
LOC: CHSLAB 10:05
PROVIDERS: PCP Family Medicine; Visit Provider Physician Assistant
DX: D64.9 Anemia, unspecified (principal); I50.30 Unspecified diastolic (congestive) heart failure; R79.89 Other specified abnormal findings of blood chemistry
CPT/HCPCS: 36415; 71046; 80053; 83880; 85025; 85055

== ENCOUNTER 2022-02-03 22:52 | Observation (INO) | payer MEDICARE, SELFPAY ==
--- NOTE | ~2022-02-03 | XR_ITS ---
EXAMINATION: XR chest 1V portable DATE: 02/03/2022 23:30 INDICATION: Wheezing. TECHNIQUE: A single frontal view of the chest was obtained. COMPARISON: Chest 2 views 01/31/2022, chest CT 12/11/2021 FINDINGS: There is a diffuse interstitial pattern, consistent with mild pulmonary edema. Calcified pu lmonary nodules and calcified hilar lymph nodes are consistent with old granulomatous disease. No ple ural effusion or pneumothorax. The heart size is normal. A left upper extremity peripherally inserted central venous catheter (PICC) is seen with tip at the superior cavoatrial junction. IMPRESSION: 1. Mild pulmonary edema. Reviewed, dictated and finalized at location A. IMPRESSION: 1. Mild pulmonary edema.
[2022-02-03 22:53] VITALS: BP 108/57; PULSE 93; RESP 18; TEMP 36.6; O2SAT 98
[2022-02-03] MEDS: ALBUTEROL SULFATE NEB 2.5 MG/3 ML INH 5 MG INHALATION (23:13)
[2022-02-03] MEDS: IPRATROPIUM BR 0.02% INH SOLN 0.5 MG/2.5 ML VIAL INHALATION (23:14)
[2022-02-03 23:16] VITALS: PULSE 86; RESP 22; RESP 29; O2SAT 96
[2022-02-03 23:19] VITALS: BP 106/59; PULSE 86; RESP 23; O2SAT 100
[2022-02-03 23:22] VITALS: PULSE 85; RESP 22
[2022-02-03 23:37] VITALS: PULSE 92; RESP 31
[2022-02-03 23:54] VITALS: PULSE 94; RESP 34; O2SAT 95
[2022-02-04] VITALS (44 sets, daily range): BP systolic 76–114; BP diastolic 40–65; PULSE 84–101; RESP 14–28; TEMP 36.8–37.6; O2SAT 92–99; BMI 28.6
[2022-02-04 00:12] LABS: Mean Corpuscular HGB Conc 32.2 g/dl (32-36); Mean Corpuscular Hemoglobin 31.6 pg (26-34); Mean Corpuscular Volume 98.1 fl (80-100); Mean Platelet Volume 10.3 fl (7.4-10.4); Platelet Count Result 109 k/mm3 (150-375); Red Blood Count 2.12 M/mm3 (4.6-6.20); Red Cell Distribution Width 18.2 % (11.5-14.5); White Blood Count 4.9 K/mm3 (4.5-10.0)
[2022-02-04 00:16] LABS: Hematocrit 20.8 % (42.0-52.0); Hemoglobin 6.7 g/dL (14.0-18.0)
--- NOTE | 2022-02-04 00:17 | ED.GENADULT ---
HPI - General Adult General Chief complaint: Recheck/Abnormal Lab/Rx Stated complaint: low hemoglobin Time Seen by Provider: 02/03/22 23:00 History of Present Illness HPI narrative: Patient is a 66-year-old male who presents ER with concerns of anemia. Patient has known chronic anemia. There is no known cause for it. He sees Dr. Jc. He has been planned that he was going receive an iron infusion however patient was then hospitalized due to infected orthopedic hardware in his leg. He currently has a PICC line and is receiving IV antibiotics for the infection. At this time he has no fever chills or sweats. No chest pain or chest pressure. He has had no dark black stools and has not vomited any blood. He reports he had routine lab work performed and they were contacted this evening that he had a critically low hemoglobin and should come to the ER for transfusion. Related Data Home Medications Medication Instructions Recorded Confirmed sertraline 50 mg tablet 50 mg PO DAILY 12/12/21 02/04/22 atorvastatin 20 mg tablet 20 mg PO DAILY 12/20/21 02/04/22 gabapentin 300 mg capsule 300 mg PO TID 12/20/21 02/04/22 ferrous sulfate 325 mg (65 mg 325 mg PO DAILY 12/21/21 02/04/22 iron) tablet ceftriaxone 2 gram intravenous 2 g IV Q24H 01/24/22 02/04/22 solution cholecalciferol (vitamin D3) 1,250 1,250 mcg PO WEEKLY 01/24/22 02/04/22 mcg (50,000 unit) capsule metronidazole 500 mg tablet 500 mg PO BID 01/24/22 02/04/22 cyanocobalamin (vitamin B-12) 1,000 mcg PO DAILY 01/28/22 02/04/22 1,000 mcg tablet hydrocodone 5 mg-acetaminophen 325 1 tablet PO Q4H PRN pain 01/28/22 02/04/22 mg tablet cilostazol 50 mg tablet 50 mg PO DAILY 02/04/22 02/04/22 famotidine 10 mg tablet 10 mg PO DAILY 02/04/22 02/04/22 Allergies Allergy/AdvReac Type Severity Reaction Status Date / Time No Known Allergies Allergy Verified 02/04/22 05:04 Review of Systems Review of Systems: All systems reviewed & are unremarkable except as noted in HPI and below Constitutional: Constitutional: Denies chills, Reports fatigue and Denies fever(s) Cardiovascular: Cardiovascular: Denies chest pain, Denies rapid heart rate and Denies radiating jaw, neck or arm pain Respiratory: Respiratory: Denies cough, Denies dyspnea and Reports wheezing Gastrointestinal: Gastrointestinal: Denies abdominal pain, Denies diarrhea, Denies nausea and Denies vomiting Neurologic: Denies syncope, Denies focal weakness and Denies numbness PMFSH Past Medical History Medical History (Updated 02/04/22 @ 07:06 by Lucinda Limon DO) Anemia of chronic disease Chronic hyponatremia Claudication in peripheral vascular disease COPD (chronic obstructive pulmonary disease) Diastolic heart failure Echocardiogram December 2021: Left ventricular systolic function normal with EF of 55-60, moderate concentric left ventricular increased wall thickness, grade 2 diastolic dysfunction, mild aortic valve sclerosis, 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 consistent with significantly elevated right atrial pressures DM2 (diabetes mellitus, type 2) DVT (deep venous thrombosis) 1998 and 2015 GERD (gastroesophageal reflux disease) Hiatal hernia Hyperlipidemia Ischemic colitis (04/2016) Lymphedema of both lower extremities MDD (major depressive disorder) Obstructive sleep apnea (06/2021) Polysomnogram demonstrated moderate obstructive sleep apnea with hypo apnea index of 15 desaturations of 85% he is treated with auto PAP with a range of 7-12 cm Peripheral neuropathy Pulmonary embolism 1990s Tobacco abuse Surgical History Surgical History Abnormal colonoscopy (04/2016) Colonic ulcer with pathology demonstrating acute and chronic colitis with benign ulcer consistent with ischemic colitis History of ankle surgery (2017) ORIF History of esophagogastroduodenoscopy (EGD) (~2012) Esophageal diverticulum S/P cubital tunnel rele
[2022-02-04 00:22] LABS: Alanine Aminotransferase 11 U/L (6-50); Albumin Level 2.8 g/dL (3.5-5.1); Alkaline Phosphatase 194 U/L (38-126); Anion Gap 9 mmol/L (8-16); Aspartate Amino Transferase 39 U/L (17-59); Bilirubin,Total 1.8 mg/dL (0.2-1.3); Blood Urea Nitrogen 12 mg/dL (9-20); Calcium 7.7 mg/dL (8.4-10.2); Carbon Dioxide 27 mmol/L (22-30); Chloride 94 mmol/L (98-107); Estimated CRCL calculation 130 ml/min; Estimated Glomerular Filt Rate > 60; Glucose 149 mg/dL (65-110); Potassium 2.9 mmol/L (3.4-5.0); Sodium 130 mmol/L (137-145)
[2022-02-04 00:45] LABS: Anisocytosis 2+ (NORMAL); Lymphocytes Absolute Manual 1.37 K/mm3 (1.1-4.5); Macrocytosis 2+ (NORMAL); Monocytes Absolute Manual 0.39 K/mm3 (0.1-0.90); Monocytes Percent Manual 8 % (3-9); Myelocytes Percent 4 %; Neutrophils Percent Manual 58 % (46-73); Plasma Cells 2; Platelet Estimate Adequate (Adequate); Spherocytes 1+ (NORMAL); Total Cells Counted 100
[2022-02-04 00:46] LABS: Atypical Lymphocytes Present; Hypersegmented Neutrophils Present; Hypochromasia 3+ (NORMAL); Schistocytes None Seen (NORMAL); Toxic Granulation Present (NORMAL)
[2022-02-04 01:11] LABS: INR 3.5; Prothrombin Time 33.8 Seconds (11.1-14.7)
[2022-02-04 01:12] LABS: Partial Thromboplastin Time 56.2 SECONDS (22.3-36.8)
[2022-02-04] MEDS: TUBING, BLOOD PLUM PUMP TUBING 1 EACH XX (03:00)
[2022-02-04] MEDS: SODIUM CHLORIDE 0.9% IV 250 ML 30 ML IV CONT (03:00)
[2022-02-04] MEDS: SODIUM CHLORIDE 0.9% IV 500 ML (03:18)
[2022-02-04] MEDS: POTASSIUM CHLORIDE 20 MEQ PACKET (FOR LIQUID) 40 MEQ PO (03:22)
--- NOTE | 2022-02-04 03:45 | PM.IMHP ---
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 The patient is a relatively poor historian. Patient evidently presented to an outside hospital approximately 3 or 4 weeks ago due to an infection on his right ankle. He was noted to have abscess at the site where he had prior ORIF. He was transferred to [place] where he had hardware removed. He had a PICC line placed at that time and was discharged on Rocephin 2 g IV daily and Flagyl. He does have anemia of chronic disease and is had a extensive workup regarding his anemia including bone marrow biopsy in December that was unremarkable. He is followed by Dr. Kurt martin as outpatient. The patient reports that his last transfusion was right after his recent ankle surgery. He had followed up for his outpatient labs since he has been continued on antibiotics in at that time they were told his hemoglobin was 6.3 and he was directed to come to the ER. We route to the ER his hemoglobin was 6.7. He denies any palpitations, shortness shortness of breath, cough, congestion or increased weakness. He has marked wheezing on exam but denies any increased respiratory symptoms or fever. He does continue to smoke intermittently. He denies any urinary symptoms or changes in bowel habits. He reports that his ankle has been doing good in his pain is controlled. He states that he is supposed to return to the orthopedic surgeon next week to have his sutures removed. He denies any drainage from his wound in last changes bandage yesterday morning. He has not had any fevers or chills. He denies any melena or hematochezia. He denies any hematuria. His blood pressures have been ranging between the low 90 systolic and the 110s. This is not unusual for the patient. The patient had presented to the ER on the with a similar story but at that time his hemoglobin was reported to be 6.9 but his repeat hemoglobin on arrival to the ER was 7.6 which was his baseline. Patient is on chronic anticoagulation due to history of recurrent DVT and pulmonary embolism. He was switched from Coumadin to Xarelto in October. Review of Systems Review of Systems: 12 systems were reviewed with pertinent positives and negatives per HPI. Except as documented in the HPI, all other systems were reviewed and are negative. 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 consistent with significantly elevated right atrial pressures DM2 (diabetes mellitus, type 2) DVT (deep venous thrombosis) 1998 and 2015 GERD (gastroesophageal reflux disease) Hiatal hernia Hyperlipidemia Ischemic colitis (04/2016) Lymphedema of both lower extremities MDD (major depressive disorder) Obstructive sleep apnea (06/2021) Polysomnogram demonstrated moderate obstructive sleep apnea with hypo apnea index of 15 desaturations of 85% he is treated with auto PAP with a range of 7-12 cm Peripheral neuropathy Pulmonary embolism 1990s Tobacco abuse Surgical History Surgical History Abnormal colonoscopy (04/2016) Colonic ulcer with pathology demonstrating acute and chronic colitis with benign ulcer consistent with ischemic colitis Hi
[2022-02-04 04:40] LABS: Add Urine Microscopic? YES; Appearance Urine Clear (Clear); Bilirubin Urine 1+ (Negative); Blood Urine 1+ (Negative); Color Urine Amber (Yellow); Glucose Urine UA Negative (Negative); Ketones Urine Negative (Negative); Leukocyte Esterase Ur Trace LEU/UL (Negative); Mucus Urine Rare /lpf; Nitrate Urine Negative (Negative); Protein Urine Negative (Negative); Specific Grav Ur 1.021 (1.001-1.035); Squamous Epithelial Cell Urine Occasional /hpf (Few); WBC Urine 0-3 /hpf
--- NOTE | 2022-02-04 07:15 | P.PNIM_ITS ---
Progress Note: A&P Assessment and Plan (1) Anemia: Qualifiers: Anemia type: unspecified type Qualified Code(s): D64.9 - Anemia, unspecified Code(s): D64.9 - Anemia, unspecified Status: Acute Assessment and Plan: * Recurrent acute on chronic anemia. * Likely due to combination of anemia chronic disease, acute blood loss given patient's recent surgical procedures, and iron deficient anemia * Currently on anticoagulation for history of DVT/PE * 2 Units of PRBC * Follow with Dr. Hicks outpatient * Continue iron 325mg PO daily, increase to BID * Anemia labs from 12/31/21 iron 27, TIBC 139, % saturation 19, Transferrin 3.08, Ferritin 1700, B12 510, Folate 5.4 * Continue to trend H/H * Transfuse as indicated * Repeat H/H one hour post infusion (2) Hypokalemia: Code(s): E87.6 - Hypokalemia Status: Acute Assessment and Plan: * K is 2.9 * 40meq replacement * Recheck labs this afternoon * Mag level also ordered * Replace as indicated (3) Elevated INR: Code(s): R79.1 - Abnormal coagulation profile Status: Acute Assessment and Plan: * Current INR is 3.5 * Could be falsely elevated due to PICC line and heparin use or the Xarelto * Trend INR (4) COPD (chronic obstructive pulmonary disease): Code(s): J44.9 - Chronic obstructive pulmonary disease, unspecified Status: Acute Assessment and Plan: * Noted wheezing on exam but denies any change in his respiratory status from baseline. * p.r.n. albuterol nebulizers. * not interested in additional smoking cessation information. (5) Hyponatremia: Code(s): E87.1 - Hypo-osmolality and hyponatremia Status: Acute Assessment and Plan: * Current Na 130 * Seems to be at baseline * Continue to trend * Stable at this time Time Spent With Patient Time with patient: Greater than 35 minutes Subjective Date/time seen: 02/04/22 07:15 Interval history: 02/04/22 02/04/22? 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 The patient is a relatively poor historian.? Patient evidently presented to an outside hospital approximately 3 or 4 weeks ago due to an infection on his right ankle.? He was noted to have abscess at the site where he had prior ORIF.? He was transferred to [place] where he had hardware removed.? He had a PICC line placed at that time and was discharged on Rocephin 2 g IV daily and Flagyl.? He does have anemia of chronic disease and is had a extensive workup regarding his anemia including bone marrow biopsy in December that was unremarkable.? He is followed by Dr. Kurt martin as outpatient.? The patient reports that his last transfusion was right after his recent ankle surgery.? He had followed up for his outpatient labs since he has been continued on antibiotics in at that time they were told his hemoglobin was 6.3 and he was directed to come to the ER.? We route to the ER his hemoglobin was 6.7.? He denies any palpitations, shortness shortness of breath, cough, congestion or increased weakness.? He has marked wheezing on exam but denies any increased respiratory symptoms or fever.? He does continue to smoke inter
--- NOTE | 2022-02-04 07:15 | PM.IMPN ---
Progress Note: A&P Assessment and Plan (1) Anemia: Qualifiers: Anemia type: unspecified type Qualified Code(s): D64.9 - Anemia, unspecified Code(s): D64.9 - Anemia, unspecified Status: Acute Assessment and Plan: Recurrent acute on chronic anemia. Likely due to combination of anemia chronic disease, acute blood loss given patient's recent surgical procedures, and iron deficient anemia Currently on anticoagulation for history of DVT/PE 2 Units of PRBC Follow with Dr. Hicks outpatient Continue iron 325mg PO daily, increase to BID Anemia labs from 12/31/21 iron 27, TIBC 139, % saturation 19, Transferrin 3.08, Ferritin 1700, B12 510, Folate 5.4 Continue to trend H/H Transfuse as indicated Repeat H/H one hour post infusion (2) Hypokalemia: Code(s): E87.6 - Hypokalemia Status: Acute Assessment and Plan: K is 2.9 40meq replacement Recheck labs this afternoon Mag level also ordered Replace as indicated (3) Elevated INR: Code(s): R79.1 - Abnormal coagulation profile Status: Acute Assessment and Plan: Current INR is 3.5 Could be falsely elevated due to PICC line and heparin use or the Xarelto Trend INR (4) COPD (chronic obstructive pulmonary disease): Code(s): J44.9 - Chronic obstructive pulmonary disease, unspecified Status: Acute Assessment and Plan: Noted wheezing on exam but denies any change in his respiratory status from baseline. p.r.n. albuterol nebulizers. not interested in additional smoking cessation information. (5) Hyponatremia: Code(s): E87.1 - Hypo-osmolality and hyponatremia Status: Acute Assessment and Plan: Current Na 130 Seems to be at baseline Continue to trend Stable at this time Time Spent With Patient Time with patient: Greater than 35 minutes Subjective Date/time seen: 02/04/22 07:15 Interval history: 02/04/22 02/04/22? 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 The patient is a relatively poor historian.? Patient evidently presented to an outside hospital approximately 3 or 4 weeks ago due to an infection on his right ankle.? He was noted to have abscess at the site where he had prior ORIF.? He was transferred to [place] where he had hardware removed.? He had a PICC line placed at that time and was discharged on Rocephin 2 g IV daily and Flagyl.? He does have anemia of chronic disease and is had a extensive workup regarding his anemia including bone marrow biopsy in December that was unremarkable.? He is followed by Dr. Kurt martin as outpatient.? The patient reports that his last transfusion was right after his recent ankle surgery.? He had followed up for his outpatient labs since he has been continued on antibiotics in at that time they were told his hemoglobin was 6.3 and he was directed to come to the ER.? We route to the ER his hemoglobin was 6.7.? He denies any palpitations, shortness shortness of breath, cough, congestion or increased weakness.? He has marked wheezing on exam but denies any increased respiratory symptoms or fever.? He does continue to smoke intermittently.? He denies any urinary symptoms or changes in bowel habits.? He reports that his ankle has been doing good in his pain is controlled.? He states that he is supposed to return to the orthopedic surgeon next week to have his sutures removed.? He denies any drainage from his wound in last changes bandage yesterday morning.? He has not had any fevers or chills.? He denies any melena or hematochezia.? He denies any hematuria.? His blood pressures have been ranging between the low 90 systolic and the 110
[2022-02-04 07:45] LABS: Glucose Point of Care 146 mg/dl (65-105)
[2022-02-04] MEDS: FERROUS SULFATE 324 MG TABLET PO (08:16)
[2022-02-04] MEDS: cilostazoL 50 MG TABLET PO (08:16)
[2022-02-04] MEDS: FUROSEMIDE 10 MG TABLET PO (08:16)
[2022-02-04] MEDS: GABAPENTIN 300 MG CAPSULE PO ×2 (08:16→16:00)
[2022-02-04] MEDS: ATORVASTATIN 20 MG TABLET PO (08:16)
[2022-02-04] MEDS: FAMOTIDINE 10 MG TABLET PO (08:16)
[2022-02-04] MEDS: metroNIDAZOLE 250 MG TABLET 500 MG PO ×2 (08:17→19:27)
[2022-02-04] MEDS: SERTRALINE HCL 50 MG TABLET PO (08:17)
[2022-02-04] MEDS: CYANOCOBALAMIN 1,000 MCG TABLET 1000 MCG PO (08:17)
--- NOTE | 2022-02-04 09:00 | P.DS_ITS ---
DS: Admitting Diagnosis Discharge Date 02/04/22 0900 Admitting Diagnosis Symptomatic anemia DS: Discharge Diagnosis Discharge Diagnosis (1) Anemia: Qualifiers: Anemia type: unspecified type Qualified Code(s): D64.9 - Anemia, unspecified Code(s): D64.9 - Anemia, unspecified Status: Acute Assessment and Plan: * Recurrent acute on chronic anemia. * Likely due to combination of anemia chronic disease, acute blood loss given patient's recent surgical procedures, and iron deficient anemia * Currently on anticoagulation for history of DVT/PE * 2 Units of PRBC * Follow with Dr. Hicks outpatient * Continue iron 325mg PO daily, increase to BID * Anemia labs from 12/31/21 iron 27, TIBC 139, % saturation 19, Transferrin 3.08, Ferritin 1700, B12 510, Folate 5.4 * Continue to trend H/H * Transfuse as indicated * Repeat H/H 7.9/24.8 (2) Hypokalemia: Code(s): E87.6 - Hypokalemia Status: Acute Assessment and Plan: * K is 2.9 * 40meq replacement * Recheck labs this afternoon * Mag level also ordered * Replace as indicated * Recheck was 3.5 (3) Elevated INR: Code(s): R79.1 - Abnormal coagulation profile Status: Acute Assessment and Plan: * Current INR is 3.5 * Could be falsely elevated due to PICC line and heparin use or the Xarelto * Trend INR (4) COPD (chronic obstructive pulmonary disease): Code(s): J44.9 - Chronic obstructive pulmonary disease, unspecified Status: Acute Assessment and Plan: * Noted wheezing on exam but denies any change in his respiratory status from baseline. * p.r.n. albuterol nebulizers. * not interested in additional smoking cessation information. (5) Hyponatremia: Code(s): E87.1 - Hypo-osmolality and hyponatremia Status: Acute Assessment and Plan: * Current Na 132 * Seems to be at baseline * Continue to trend * Stable at this time Plan Discussed findings with Dr. Gomez who agrees with DC DS: Summary Hospital Course Hospital Course: Patient is 66-year-old male with a past medical history of anemia, DVT, PE, GERD, hyperlipidemia who presented to the ED with complaints of a chronic anemia. Patient has been going through a lot with his right ankle and was recently discharged from [place] with IV antibiotics. Patient is followed by Dr. Hicks for outpatient treatment of chronic anemia. Upon arrival patient was noted to have a hemoglobin of 6.7 and hematocrit of 20.8. Patient was given 2 units of packed red blood cells and hemoglobin hematocrit is currently 7.9/24.8. Iron has been increased to b.i.d.. Currently patient denies any complaints of chest pain, shortness a breath, nausea, vomiting, diarrhea, constipation, weakness or fatigue. Patient did state that he is mostly in a wheelchair due to his ankle. Urine is dark however patient and his both state that that is nothing new for him. Anemia peers to be of chronic disease, iron deficiency. Anemia labs have been drawn and supplementation has been adjusted. Patient does have follow-up appointment with Hematology on 03/01/2022. Potassium was a little low at 2.9 but is currently 3.5 after transfusion and supplementation. Patient is stable for discharge at this time, and currently denies any chest pain, shortness a breath, nausea, vomiting, diarrhea, constipation, weakness or fatigue. Patient is really wanti
--- NOTE | 2022-02-04 09:00 | PM.DS ---
DS: Admitting Diagnosis Discharge Date 02/04/22 0900 Admitting Diagnosis Symptomatic anemia DS: Discharge Diagnosis Discharge Diagnosis (1) Anemia: Qualifiers: Anemia type: unspecified type Qualified Code(s): D64.9 - Anemia, unspecified Code(s): D64.9 - Anemia, unspecified Status: Acute Assessment and Plan: Recurrent acute on chronic anemia. Likely due to combination of anemia chronic disease, acute blood loss given patient's recent surgical procedures, and iron deficient anemia Currently on anticoagulation for history of DVT/PE 2 Units of PRBC Follow with Dr. Hicks outpatient Continue iron 325mg PO daily, increase to BID Anemia labs from 12/31/21 iron 27, TIBC 139, % saturation 19, Transferrin 3.08, Ferritin 1700, B12 510, Folate 5.4 Continue to trend H/H Transfuse as indicated Repeat H/H 7.9/24.8 (2) Hypokalemia: Code(s): E87.6 - Hypokalemia Status: Acute Assessment and Plan: K is 2.9 40meq replacement Recheck labs this afternoon Mag level also ordered Replace as indicated Recheck was 3.5 (3) Elevated INR: Code(s): R79.1 - Abnormal coagulation profile Status: Acute Assessment and Plan: Current INR is 3.5 Could be falsely elevated due to PICC line and heparin use or the Xarelto Trend INR (4) COPD (chronic obstructive pulmonary disease): Code(s): J44.9 - Chronic obstructive pulmonary disease, unspecified Status: Acute Assessment and Plan: Noted wheezing on exam but denies any change in his respiratory status from baseline. p.r.n. albuterol nebulizers. not interested in additional smoking cessation information. (5) Hyponatremia: Code(s): E87.1 - Hypo-osmolality and hyponatremia Status: Acute Assessment and Plan: Current Na 132 Seems to be at baseline Continue to trend Stable at this time Plan Discussed findings with Dr. Gomez who agrees with DC DS: Summary Hospital Course Hospital Course: Patient is 66-year-old male with a past medical history of anemia, DVT, PE, GERD, hyperlipidemia who presented to the ED with complaints of a chronic anemia. Patient has been going through a lot with his right ankle and was recently discharged from [place] with IV antibiotics. Patient is followed by Dr. Hicks for outpatient treatment of chronic anemia. Upon arrival patient was noted to have a hemoglobin of 6.7 and hematocrit of 20.8. Patient was given 2 units of packed red blood cells and hemoglobin hematocrit is currently 7.9/24.8. Iron has been increased to b.i.d.. Currently patient denies any complaints of chest pain, shortness a breath, nausea, vomiting, diarrhea, constipation, weakness or fatigue. Patient did state that he is mostly in a wheelchair due to his ankle. Urine is dark however patient and his both state that that is nothing new for him. Anemia peers to be of chronic disease, iron deficiency. Anemia labs have been drawn and supplementation has been adjusted. Patient does have follow-up appointment with Hematology on 03/01/2022. Potassium was a little low at 2.9 but is currently 3.5 after transfusion and supplementation. Patient is stable for discharge at this time, and currently denies any chest pain, shortness a breath, nausea, vomiting, diarrhea, constipation, weakness or fatigue. Patient is really wanting to leave and rest been given to the patient along with signs and symptoms of when to return back to the hospital if needed. Talked to Dr. Hicks who recommended that the patient get a one time 500mg IV infusion of iron. He stated that he feels the patient should be able to maintain until his appointment on 03/01/22 Time Spent with Patient Time attestation: Total time spent providing and/or coordinating discharge services: Exam Const: General: cooperative, healthy appearing, no acute distress
[2022-02-04 10:08] LABS: Hematocrit 24.8 % (42.0-52.0); Hemoglobin 7.9 g/dL (14.0-18.0)
[2022-02-04 10:19] LABS: Anion Gap 8 mmol/L (8-16); Blood Urea Nitrogen 9 mg/dL (9-20); Calcium 7.7 mg/dL (8.4-10.2); Carbon Dioxide 27 mmol/L (22-30); Chloride 97 mmol/L (98-107); Estimated CRCL calculation 135 ml/min; Estimated Glomerular Filt Rate > 60; Glucose 126 mg/dL (65-110); Magnesium 2.1 mg/dL (1.6-2.3); Potassium 3.5 mmol/L (3.4-5.0); Sodium 132 mmol/L (137-145)
[2022-02-04 11:13] LABS: Hematocrit 23.8 % (42.0-52.0); Hemoglobin 7.6 g/dL (14.0-18.0); Mean Corpuscular HGB Conc 31.9 g/dl (32-36); Mean Corpuscular Hemoglobin 30.6 pg (26-34); Mean Platelet Volume 10.2 fl (7.4-10.4); Platelet Count Result 93 k/mm3 (150-375); Red Blood Count 2.48 M/mm3 (4.6-6.20); Red Cell Distribution Width 18.3 % (11.5-14.5); White Blood Count 4.5 K/mm3 (4.5-10.0)
[2022-02-04 11:27] LABS: INR 2.6; Prothrombin Time 26.6 Seconds (11.1-14.7)
[2022-02-04 11:28] LABS: Partial Thromboplastin Time 44.4 SECONDS (22.3-36.8)
[2022-02-04 11:42] LABS: Glucose Point of Care 125 mg/dl (65-105)
[2022-02-04 11:42] LABS: Transferrin < 80 mg/dL (206-381)
[2022-02-04 12:29] LABS: Folic Acid 5.7 ng/mL (2.76->20)
[2022-02-04 12:36] LABS: Iron 46 ug/dL (49-181)
[2022-02-04 12:47] LABS: Percent Iron Saturation 48 % (20-50)
[2022-02-04 14:52] LABS: Ferritin > 2000.00 ng/mL (11.1-264)
[2022-02-04] MEDS: IRON SUCROSE COMPLEX 500 MG in SODIUM CHLORIDE 0.9% IV 250 ML 78.57 MG IVPB (15:56)
[2022-02-04 17:09] LABS: Glucose Point of Care 120 mg/dl (65-105)
[2022-02-04] MEDS: RIVAROXABAN 10 MG TABLET PO (17:12)
== END 2022-02-04 19:40 | disposition home health service (06) ==
LOC: ANHED 02-04 01:25 → ANH2MED 02-04 06:10
PROVIDERS: Nurse Practitioner; Admitting Provider Internal Medicine; Emergency Provider Emergency Medicine; PCP Family Medicine; Visit Provider Internal Medicine
DX: D64.9 Anemia, unspecified (principal); E87.6 Hypokalemia; R79.1 Abnormal coagulation profile; E87.1 Hypo-osmolality and hyponatremia; Z79.2 Long term (current) use of antibiotics; J44.9 Chronic obstructive pulmonary disease, unspecified; I50.30 Unspecified diastolic (congestive) heart failure; Z86.718 Personal history of other venous thrombosis and embolism; E78.5 Hyperlipidemia, unspecified; G47.33 Obstructive sleep apnea (adult) (pediatric); Z86.711 Personal history of pulmonary embolism; F17.210 Nicotine dependence, cigarettes, uncomplicated; E11.42 Type 2 diabetes mellitus with diabetic polyneuropathy; Z79.01 Long term (current) use of anticoagulants
CPT/HCPCS: 36415; 36430; 71045; 80048; 80053; 81001; 82607; 82728; 82746; 82948; 83540; 83550; 83735; 84466; 85014; 85018; 85025; 85027; 85610; 85730; 86850; 86900; 86901; 86920; 87040; 94640; 96374; 96375; 99285; A9270; G0378; J1756; J7040; J7050; P9016

== ENCOUNTER 2022-02-07 14:40 | Outpatient (CLI) | payer MEDICARE, SELFPAY ==
[2022-02-07 14:58] LABS: Hematocrit 23.9 % (37.0-46.0); Hemoglobin 7.6 g/dL (12.4-15.3); Mean Corpuscular HGB Conc 31.8 g/dL (32.0-36.0); Mean Corpuscular Hemoglobin 30.4 pg (27.0-31.0); Mean Corpuscular Volume 95.6 fL (78.0-102.0); Mean Platelet Volume 10.7 fl (8.7-11.0); Platelet Count Result 115 K/mm3 (150-420); Red Cell Distribution Width 17.8 % (11.6-14.4); White Blood Count 5.8 K/mm3 (4.8-10.8)
[2022-02-07 15:12] LABS: Albumin Level 1.4 g/dL (3.4-5.0); Alkaline Phosphatase 156 U/L (46-116); Anion Gap 7 mmol/L (8-16); Aspartate Amino Transferase 22 U/L (15-37); Bilirubin,Total 2.1 mg/dL (0.00-1.00); Blood Urea Nitrogen 10 mg/dL (7-18); Calcium 8.1 mg/dL (8.5-10.1); Carbon Dioxide 28 mmol/L (21-32); Chloride 95 mmol/L (98-108); Estimated Glomerular Filt Rate > 60; Glucose 156 mg/dL (70-99); Osmolality Calculated 272 mOsm/kg (285-295); Potassium 3.6 mmol/L (3.5-5.1); Sodium 130 mmol/L (136-145); Total Protein 8.3 g/dL (6.4-8.2)
[2022-02-07 15:13] LABS: Alanine Aminotransferase < 6 U/L (16-63)
== END 2022-02-07 14:41 | disposition home or self-care (01) ==
PROVIDERS: PCP Family Medicine; Visit Provider Family Medicine
DX: R82.998 Other abnormal findings in urine (principal); D64.9 Anemia, unspecified
CPT/HCPCS: 36415; 80053; 85027; 87086

== ENCOUNTER 2022-02-09 22:30 | Emergency (ER) | payer MEDICARE, SELFPAY ==
[2022-02-09 22:33] VITALS: BP 85/46; PULSE 117; RESP 20; TEMP 36.5; O2SAT 91
[2022-02-09 23:00] LABS: Basophils Absolute Auto 0.1 K/mm3 (0.0-0.1); Basophils Percent Auto 0.8 % (0.2-1.2); Eosinophils Absolute Auto 0.3 K/mm3 (0-0.3); Eosinophils Percent Auto 4.7 % (0-4.4); Immature Granulocyte Absolute 0.04 K/mm3 (0.00-0.031); Immature Granulocyte Percent A 0.7 % (0-0.5); Lymphocytes Absolute Auto 1.19 K/mm3 (0.9-3.2); Lymphocytes Percent Auto 20.1 % (18.3-44.2); Mean Corpuscular HGB Conc 31.2 g/dl (32-36); Mean Corpuscular Volume 96.2 fl (80-100); Mean Platelet Volume 10.8 fl (7.4-10.4); Monocytes Absolute Auto 0.8 K/mm3 (0.1-0.6); Monocytes Percent Auto 14.2 % (2.6-8.5); Neutrophils Absolute Auto 3.5 K/mm3 (1.3-6.7); Neutrophils Percent Auto 59.5 % (45.5-73.1); Platelet Count Result 104 k/mm3 (150-375); White Blood Count 5.9 K/mm3 (4.5-10.0)
[2022-02-09 23:03] LABS: Hemoglobin 6.3 g/dL (14.0-18.0)
[2022-02-09 23:04] LABS: Hematocrit 20.2 % (42.0-52.0)
--- NOTE | 2022-02-09 23:05 | ED.RECABL ---
HPI - Recheck/Abnormal Lab/Rx General Chief Complaint: Recheck/Abnormal Lab/Rx Stated Complaint: abnormal labs Time Seen by Provider: 02/09/22 22:52 History of Present Illness HPI narrative: This is a 66-year-old male with past medical history of anemia of chronic disease, prior infections instrumentation of the right ankle, who was referred to the emergency department by his primary care doctor for hemoglobin of 6. Patient states he has had multiple transfusions in the past without a clear cause for his anemia. He denies bleeding from any source, complains of chronic fatigue but denies chest pain, shortness of breath or loss of consciousness. Related Data Home Medications Medication Instructions Recorded Confirmed atorvastatin 20 mg tablet 20 mg PO DAILY 12/20/21 02/04/22 gabapentin 300 mg capsule 300 mg PO TID 12/20/21 02/04/22 ceftriaxone 2 gram intravenous 2 g IV Q24H 01/24/22 02/04/22 solution cholecalciferol (vitamin D3) 1,250 1,250 mcg PO WEEKLY 01/24/22 02/04/22 mcg (50,000 unit) capsule metronidazole 500 mg tablet 500 mg PO BID 01/24/22 02/04/22 cyanocobalamin (vitamin B-12) 1,000 mcg PO DAILY 01/28/22 02/04/22 1,000 mcg tablet hydrocodone 5 mg-acetaminophen 325 1 tablet PO Q4H PRN pain 01/28/22 02/04/22 mg tablet famotidine 10 mg tablet 10 mg PO DAILY 02/04/22 02/04/22 Allergies Allergy/AdvReac Type Severity Reaction Status Date / Time No Known Allergies Allergy Verified 02/07/22 07:32 Review of Systems Review of Systems: CONSTITUTIONAL: Fatigue, chills denies fever, chills, or sweats. EYES: Denies visual changes, redness, or discharge. ENT: Denies rhinorrhea, congestion, sore throat, or otalgia. CARDIOVASCULAR: Denies chest pain, palpitations, or edema. RESPIRATORY: Denies cough or dyspnea. GASTROINTESTINAL: Denies abdominal pain, nausea, vomiting, or diarrhea. GENITOURINARY: Denies dysuria or hematuria. SKIN: Denies rash or itching. MUSCULOSKELETAL: Denies back pain, joint pain, or myalgia. NEUROLOGIC: Denies headache, numbness, dizziness, or weakness. PSYCHIATRIC: Denies anxiety or depression. FORMERLY [facility], [facility] Past Medical History Medical History (Updated 02/10/22 @ 05:05 by Pool Argueta MD) Anemia of chronic disease Chronic hyponatremia Claudication in peripheral vascular disease COPD (chronic obstructive pulmonary disease) Diastolic heart failure Echocardiogram December 2021: Left ventricular systolic function normal with EF of 55-60, moderate concentric left ventricular increased wall thickness, grade 2 diastolic dysfunction, mild aortic valve sclerosis, 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 consistent with significantly elevated right atrial pressures DM2 (diabetes mellitus, type 2) DVT (deep venous thrombosis) 1998 and 2015 GERD (gastroesophageal reflux disease) Hiatal hernia Hyperlipidemia Ischemic colitis (04/2016) Lymphedema of both lower extremities MDD (major depressive disorder) Obstructive sleep apnea (06/2021) Polysomnogram demonstrated moderate obstructive sleep apnea with hypo apnea index of 15 desaturations of 85% he is treated with auto PAP with a range of 7-12 cm Peripheral neuropathy Pulmonary embolism 1990s Tobacco abuse Surgical History Surgical History Abnormal colonoscopy (04/2016) Colonic ulcer with pathology demonstrating acute and chronic colitis with benign ulcer consistent with ischemic colitis History of ankle surgery (2017) ORIF History of esophagogastroduodenoscopy (EGD) (~2012) Esophageal diverticulum S/P cubital tunnel release Family History Family History Father Lung cancer Mother Lung cancer Seizures Diabetes mellitus Sibling Lung cancer Hepatitis C Other Family history of arthritis Hypertension Social History Social History Smoking pa
[2022-02-09 23:10] LABS: Alanine Aminotransferase 13 U/L (6-50); Albumin Level 2.7 g/dL (3.5-5.1); Alkaline Phosphatase 249 U/L (38-126); Anion Gap 7 mmol/L (8-16); Aspartate Amino Transferase 37 U/L (17-59); Bilirubin,Total 2.2 mg/dL (0.2-1.3); Blood Urea Nitrogen 12 mg/dL (9-20); Calcium 7.5 mg/dL (8.4-10.2); Carbon Dioxide 27 mmol/L (22-30); Chloride 95 mmol/L (98-107); Estimated CRCL calculation 130 ml/min; Estimated Glomerular Filt Rate > 60; Glucose 151 mg/dL (65-110); Potassium 2.9 mmol/L (3.4-5.0); Sodium 129 mmol/L (137-145)
[2022-02-09 23:13] LABS: INR 2.1; Prothrombin Time 22.6 Seconds (11.1-14.7)
[2022-02-10 00:02] LABS: Magnesium 2.3 mg/dL (1.6-2.3)
[2022-02-10 00:04] LABS: Hemoglobin 6.1 g/dL (14.0-18.0)
[2022-02-10 00:05] LABS: Hematocrit 19.2 % (42.0-52.0)
[2022-02-10 00:36] VITALS: BP 118/73; PULSE 117; RESP 18; TEMP 37.1; O2SAT 99
[2022-02-10] MEDS: POTASSIUM CHLORIDE 20 MEQ PACKET (FOR LIQUID) 40 MEQ PO (00:44)
[2022-02-10] MEDS: TUBING, BLOOD PLUM PUMP TUBING 1 EACH XX (00:46)
[2022-02-10] MEDS: SODIUM CHLORIDE 0.9% IV 250 ML 30 ML IV CONT (00:46)
[2022-02-10 00:53] VITALS: BP 120/66; PULSE 110; RESP 18; TEMP 37; O2SAT 99
[2022-02-10 01:17] LABS: SARS-CoV-2 RNA PCR Negative
[2022-02-10 02:08] VITALS: BP 109/62; PULSE 108; RESP 20; TEMP 36.9; O2SAT 99
[2022-02-10 02:25] LABS: Hemoglobin 6.7 g/dL (14.0-18.0)
[2022-02-10 02:26] LABS: Hematocrit 20.8 % (42.0-52.0)
[2022-02-10 02:37] VITALS: BP 126/73; PULSE 105; RESP 21; TEMP 37.1; O2SAT 98
[2022-02-10 02:53] VITALS: BP 110/67; PULSE 100; RESP 20; TEMP 36.8; O2SAT 97
[2022-02-10 04:04] VITALS: BP 116/71; PULSE 101; RESP 18; TEMP 37; O2SAT 97
== END 2022-02-10 05:21 | disposition home or self-care (01) ==
PROVIDERS: Emergency Provider Preventive Medicine Aerospace Medicine; PCP Family Medicine
DX: E11.42 Type 2 diabetes mellitus with diabetic polyneuropathy (principal); E11.51 Type 2 diabetes mellitus with diabetic peripheral angiopathy without gangrene; D63.8 Anemia in other chronic diseases classified elsewhere; E87.6 Hypokalemia; Z20.822 Contact with and (suspected) exposure to COVID-19; J44.9 Chronic obstructive pulmonary disease, unspecified; I50.30 Unspecified diastolic (congestive) heart failure; I11.0 Hypertensive heart disease with heart failure; I73.9 Peripheral vascular disease, unspecified; E87.1 Hypo-osmolality and hyponatremia; E78.5 Hyperlipidemia, unspecified; K21.9 Gastro-esophageal reflux disease without esophagitis; K44.9 Diaphragmatic hernia without obstruction or gangrene; G47.33 Obstructive sleep apnea (adult) (pediatric); F32.9 Major depressive disorder, single episode, unspecified; Z86.718 Personal history of other venous thrombosis and embolism; Z86.711 Personal history of pulmonary embolism; F17.210 Nicotine dependence, cigarettes, uncomplicated; Z79.01 Long term (current) use of anticoagulants
CPT/HCPCS: 36415; 36430; 80053; 83735; 85014; 85018; 85025; 85610; 86850; 86900; 86901; 86923; 96360; 96361; 99285; A9270; C9803; J7050; P9016; U0003; U0005

== ENCOUNTER 2022-02-11 08:39 | Outpatient (CLI) | payer MEDICARE, SELFPAY ==
--- NOTE | ~2022-02-11 | CT_ITS ---
EXAMINATION: CT abdomen pelvis wo con DATE: 02/11/2022 09:03 INDICATION: Hematuria TECHNIQUE: Computed tomography (CT) of the abdomen and pelvis was performed without intravenous contr ast. The dose-length product (DLP) was 1011.84 mGy-cm. Automated exposure control and iterative recon struction technique were employed. COMPARISON: 05/17/2016 FINDINGS: Minimal dependent atelectasis is present in the lung bases. The heart size is normal. There is a trace pericardial effusion. Attenuation of blood in the harness less than that of the myometriu m. Punctate calcifications in an otherwise normal spleen likely represent healed granulomatous diseas e. The liver, pancreas, gallbladder, and adrenal glands are normal. The kidneys are unremarkable. The re are left retroperitoneal lymph nodes adjacent to the left kidney which measure up to 4.3 x 3.1 cm. Mild additional retroperitoneal lymphadenopathy is noted. There is calcified atherosclerosis of the aorta and many of the other arteries. There is no free intraperitoneal gas or evidence of bowel obstr uction. There is moderate lumbar spondylosis. There are bridging osteophytes at multiple levels in th e lower thoracic spine, consistent with diffuse idiopathic skeletal hyperostosis (DISH). IMPRESSION: 1. Retroperitoneal lymphadenopathy, consistent with lymphoma versus metastatic disease. Reviewed, dictated and finalized at location B.
[2022-02-11 08:50] LABS: Hemoglobin 8.1 g/dL (12.4-15.3)
== END 2022-02-11 08:40 | disposition home or self-care (01) ==
LOC: CHSIMG 08:40
PROVIDERS: PCP Family Medicine; Visit Provider Family Medicine
DX: R31.9 Hematuria, unspecified (principal); D63.8 Anemia in other chronic diseases classified elsewhere
CPT/HCPCS: 74176; 85014; 85018

== ENCOUNTER 2022-02-11 22:28 | Emergency (ER) | payer MEDICARE, SELFPAY ==
[2022-02-11 22:44] VITALS: BP 91/60; PULSE 71; RESP 20; TEMP 36.6; O2SAT 99
--- NOTE | 2022-02-11 22:52 | ECG_ITS ---
Measurements Intervals [place] Rate: 121 P: [place]: 0 QRS: 4 QRSD: 98 T: 69 QT: 347 QTc: 493 Interpretive Statements ATRIAL FLUTTER WITH RAPID VENTRICULAR RESPONSE NONSPECIFIC ST & T-WAVE ABNORMALITY ABNORMAL RHYTHM ECG COMPARED TO ECG 01/28/2022 18:38:59 ATRIAL FLUTTER NOW PRESENT T-WAVE ABNORMALITY NOW PRESENT Electronically Signed On 02-12-2022 9:01:30 CDT by Nancy Hazel M.D.
[2022-02-11 23:06] LABS: Basophils Percent Auto 0.6 % (0.2-1.2); Eosinophils Absolute Auto 0.1 K/mm3 (0-0.3); Eosinophils Percent Auto 1.8 % (0-4.4); Hematocrit 22.9 % (42.0-52.0); Hemoglobin 7.6 g/dL (14.0-18.0); Immature Granulocyte Absolute 0.08 K/mm3 (0.00-0.031); Immature Granulocyte Percent A 1.2 % (0-0.5); Lymphocytes Absolute Auto 1.07 K/mm3 (0.9-3.2); Lymphocytes Percent Auto 15.9 % (18.3-44.2); Mean Corpuscular HGB Conc 33.2 g/dl (32-36); Mean Corpuscular Volume 93.5 fl (80-100); Mean Platelet Volume 10.6 fl (7.4-10.4); Monocytes Percent Auto 14.2 % (2.6-8.5); Neutrophils Absolute Auto 4.5 K/mm3 (1.3-6.7); Neutrophils Percent Auto 66.3 % (45.5-73.1); Platelet Count Result 116 k/mm3 (150-375); Red Blood Count 2.45 M/mm3 (4.6-6.20); Red Cell Distribution Width 17.6 % (11.5-14.5); White Blood Count 6.7 K/mm3 (4.5-10.0)
[2022-02-11 23:16] LABS: Alanine Aminotransferase 11 U/L (6-50); Albumin Level 2.8 g/dL (3.5-5.1); Alkaline Phosphatase 206 U/L (38-126); Anion Gap 12 mmol/L (8-16); Aspartate Amino Transferase 37 U/L (17-59); Bilirubin,Total 3.1 mg/dL (0.2-1.3); Blood Urea Nitrogen 13 mg/dL (9-20); Calcium 7.7 mg/dL (8.4-10.2); Carbon Dioxide 26 mmol/L (22-30); Chloride 92 mmol/L (98-107); Estimated CRCL calculation 129 ml/min; Estimated Glomerular Filt Rate > 60; Glucose 131 mg/dL (65-110); Lipase 28 U/L (23-300); Potassium 2.9 mmol/L (3.4-5.0); Sodium 130 mmol/L (137-145)
--- NOTE | 2022-02-12 01:58 | PC.NURSE ---
noted patient has existing picc line in place to left upper arm
[2022-02-12] MEDS: POTASSIUM CHLORIDE 20 MEQ TABLET 40 MEQ PO (02:06)
[2022-02-12] MEDS: SODIUM CHLORIDE 0.9% IV 1,000 ML 999 ML IV CONT (02:13)
[2022-02-12 04:09] LABS: Add Urine Microscopic? YES; Appearance Urine Clear (Clear); Bilirubin Urine Negative (Negative); Blood Urine 1+ (Negative); Color Urine Amber (Yellow); Glucose Urine UA Negative (Negative); Ketones Urine Negative (Negative); Leukocyte Esterase Ur Trace LEU/UL (Negative); Mucus Urine Rare /lpf; Nitrate Urine Negative (Negative); Protein Urine Negative (Negative); Specific Grav Ur 1.019 (1.001-1.035); Squamous Epithelial Cell Urine Few /hpf (Few); WBC Urine 0-3 /hpf
--- NOTE | 2022-02-12 04:31 | ED.GENADULT ---
HPI - General Adult General Chief complaint: Abdominal Pain Stated complaint: abd pain, diagnosed with lymphoma today Time Seen by Provider: 02/12/22 01:51 History of Present Illness HPI narrative: This is a 66-year-old male who was recently diagnosed with lymphoma. He then came to hospital as he had pain in his left armpit and across his belly. They were worried because they her that lymphoma can affect the armpits.This pain started after he had received the CT scan. The patient says that the pain is now resolved and he feels better and would like to go home. He denies fever, chills, chest pain difficulty breathing, abdominal pain, nausea vomiting or diarrhea. He does have some chronic health issues that are being taking care of by his mother. Related Data Home Medications Medication Instructions Recorded Confirmed atorvastatin 20 mg tablet 20 mg PO DAILY 12/20/21 02/04/22 gabapentin 300 mg capsule 300 mg PO TID 12/20/21 02/04/22 ceftriaxone 2 gram intravenous 2 g IV Q24H 01/24/22 02/04/22 solution cholecalciferol (vitamin D3) 1,250 1,250 mcg PO WEEKLY 01/24/22 02/04/22 mcg (50,000 unit) capsule metronidazole 500 mg tablet 500 mg PO BID 01/24/22 02/04/22 cyanocobalamin (vitamin B-12) 1,000 mcg PO DAILY 01/28/22 02/04/22 1,000 mcg tablet hydrocodone 5 mg-acetaminophen 325 1 tablet PO Q4H PRN pain 01/28/22 02/04/22 mg tablet famotidine 10 mg tablet 10 mg PO DAILY 02/04/22 02/04/22 Allergies Allergy/AdvReac Type Severity Reaction Status Date / Time No Known Allergies Allergy Verified 02/11/22 12:47 Review of Systems Review of Systems: CONSTITUTIONAL: Denies night sweats. EYES: No eye pain ENT: Denies rhinorrhea CARDIOVASCULAR: Denies palpitations RESPIRATORY: Denies hemoptysis GASTROINTESTINAL: Denies hematemesis GENITOURINARY: Denies hematuria. SKIN: Denies rash MUSCULOSKELETAL: Denies myalgia. NEUROLOGIC: Denies weakness. PSYCHIATRIC: Denies delusions PMFSH Past Medical History Medical History Anemia of chronic disease Chronic hyponatremia Claudication in peripheral vascular disease COPD (chronic obstructive pulmonary disease) Diastolic heart failure Echocardiogram December 2021: Left ventricular systolic function normal with EF of 55-60, moderate concentric left ventricular increased wall thickness, grade 2 diastolic dysfunction, mild aortic valve sclerosis, 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 consistent with significantly elevated right atrial pressures DM2 (diabetes mellitus, type 2) DVT (deep venous thrombosis) 1998 and 2015 GERD (gastroesophageal reflux disease) Hiatal hernia Hyperlipidemia Ischemic colitis (04/2016) Lymphedema of both lower extremities MDD (major depressive disorder) Obstructive sleep apnea (06/2021) Polysomnogram demonstrated moderate obstructive sleep apnea with hypo apnea index of 15 desaturations of 85% he is treated with auto PAP with a range of 7-12 cm Peripheral neuropathy Pulmonary embolism 1990s Tobacco abuse Surgical History Surgical History Abnormal colonoscopy (04/2016) Colonic ulcer with pathology demonstrating acute and chronic colitis with benign ulcer consistent with ischemic colitis History of ankle surgery (2017) ORIF History of esophagogastroduodenoscopy (EGD) (~2012) Esophageal diverticulum S/P cubital tunnel release Family History Family History Father Lung cancer Mother Lung cancer Seizures Diabetes mellitus Sibling Lung cancer Hepatitis C Other Family history of arthritis Hypertension Social History Social History Smoking packs per day: 1 Smoking cigarettes per day: 20.0 Years smoked: 55 Smoking pack-years: 55.00 Smoking status: Current every day smoker T
[2022-02-12 04:56] VITALS: BP 113/81; PULSE 113; RESP 16; O2SAT 96
== END 2022-02-12 05:00 | disposition home or self-care (01) ==
PROVIDERS: Emergency Medicine; Emergency Provider Emergency Medicine; PCP Family Medicine
DX: R10.9 Unspecified abdominal pain (principal); C85.90 Non-Hodgkin lymphoma, unspecified, unspecified site; E87.1 Hypo-osmolality and hyponatremia; E87.8 Other disorders of electrolyte and fluid balance, not elsewhere classified; E87.6 Hypokalemia; D63.8 Anemia in other chronic diseases classified elsewhere; J44.9 Chronic obstructive pulmonary disease, unspecified; I50.30 Unspecified diastolic (congestive) heart failure; E78.5 Hyperlipidemia, unspecified; E11.42 Type 2 diabetes mellitus with diabetic polyneuropathy; K21.9 Gastro-esophageal reflux disease without esophagitis; G47.33 Obstructive sleep apnea (adult) (pediatric); Z86.718 Personal history of other venous thrombosis and embolism; Z86.711 Personal history of pulmonary embolism; F17.210 Nicotine dependence, cigarettes, uncomplicated; Z79.01 Long term (current) use of anticoagulants
CPT/HCPCS: 36415; 80053; 81001; 83690; 85025; 93005; 96360; 99283; A9270; J7030

== ENCOUNTER 2022-02-15 17:54 | Inpatient (IN) | payer MEDICARE, SELFPAY ==
[2022-02-15] VITALS (23 sets, daily range): BP systolic 93–115; BP diastolic 45–88; PULSE 103–150; RESP 17–31; TEMP 36.8–37.3; O2SAT 95–98; BMI 28.8
--- NOTE | ~2022-02-15 | CT_ITS ---
EXAMINATION: CT abdomen pelvis w con DATE: 02/16/2022 09:07 INDICATION: Gastrointestinal hemorrhage. Diarrhea. TECHNIQUE: Computed tomography (CT) of the abdomen and pelvis was performed with 100 mL Omnipaque 350 intravenous contrast. Automated exposure control and iterative reconstruction technique were employe d. The dose-length product was 1166.46 mGy-cm. COMPARISON: CT abdomen and pelvis 02/11/22, 05/17/2016, pelvis CT 11/21/20 FINDINGS: The visualized portions of the lung bases demonstrate septal thickening. There are mild dep endent airspace opacities in the lower lobes. A calcified right lung nodule is consistent with old gr anulomatous disease. No pleural effusion. The heart size is normal. There are coronary artery calcifi cations. No pericardial effusion. There is a small sliding hiatal hernia. Calcifications in the liver and spleen are consistent with old granulomatous disease. There is mild splenomegaly. The gallbladde r is normal in size. The pancreas, adrenal glands, and left kidney are normal. There is focal cortica l volume loss of right kidney. There are no dilated loops of bowel. The base of the appendix is dilat ed to 13 mm, which is chronic. The tip of the appendix is normal. There is aortocaval, left para-aort ic, and periportal lymphadenopathy. For example, a left para-aortic node measures 4.4 x 3.3 cm. There is mild lumbar spondylosis. There are bridging endplate osteophytes at multiple levels in the thorac ic spine, consistent with diffuse idiopathic skeletal hyperostosis (DISH). IMPRESSION: 1. No specific etiology for gastrointestinal hemorrhage. 2. Abdominal lymphadenopathy, consistent with lymphoma versus metastatic disease. Consider CT-guided core needle biopsy of a left para-aortic lymph node. 3. Mild splenomegaly, new from 05/17/2016. 4. Opacities at the lung bases, likely a combination of mild pulmonary edema and mild atelectasis. Reviewed, dictated and finalized at location A. IMPRESSION: 1. No specific etiology for gastrointestinal hemorrhage. 2. Abdominal lymphadenopathy, consistent with lymphoma versus metastatic diseas e. Consider CT-guided core needle biopsy of a left para-aortic lymph node. 3. Mild splenomegaly, new from 05/17/2016. 4. Opacities at the lung bases, likely a combination of mild pulmonary edema an d mild atelectasis.
--- NOTE | ~2022-02-15 | XR_ITS ---
XR chest 1V portable DATE: 02/15/2022 18:28 INDICATION: Weakness. History of congestive heart failure. TECHNIQUE: Portable AP chest on 02/15/2022 at 1833 hours COMPARISON: 02/03/2022 portable AP chest at 2326 hours 01/31/2022 2 view chest 01/28/2022 portable AP chest 12/25/2021 AP and lateral chest PA and lateral chest FINDINGS: Left upper extremity PIC catheter in superior vena cava. Heart size is normal. No hilar or mediastinal enlargement is detected. Bilateral Nella B-lines are noted suggesting pulmonary interstitial prominence which are likely due to pulmonary interstitial edema, not present on 06/11/2020. No pulmonary consolidation or pneumothorax. Aortic calcification. Calcified mediastinal nodes consistent with old granulomatous disease. Osteopenia. IMPRESSION: Mild pulmonary interstitial edema Reviewed, dictated and finalized at location A.
--- NOTE | 2022-02-15 18:09 | ED.WEAKNESS ---
HPI - Weakness General Chief complaint: Unspecified Stated complaint: blood pressure low Time Seen by Provider: 02/15/22 17:58 Source: patient, family and RN notes reviewed Mode of arrival: wheelchair Limitations: no limitations History of Present Illness HPI Narrative: patient has been having some problems with low blood pressure today. Home health came in and noted him to have the lower blood pressure. He says he has just been feeling weak. states he has been having problems with intermittent weakness for some time now over the last month or so. She said he had 2 good days and then today just felt weak. He says been feeling like he had a fast heart rate. Told the nurse he had some shortness of breath but denied shortness of breath ME. He also complains of a rapid heart rate. he recently had a PICC line put in for IV antibiotics in order to treat an infection in the hardware in his right ankle. He has chronic anemia and has had several blood transfusions. Also has a history of COPD continues to smoke. Has a history of congestive heart failure and has been taking increased dose of Lasix to a.m. and 2:00 p.m.. Also recently diagnosed with lymphoma MD Complaint: generalized weakness Onset (ago): day(s) (2-3) Duration: constant and progressively worsening Location: generalized Migration: none Severity: moderate Relieving factors: rest Exacerbating factors: movement and exertion Context: history of similar Associated symptoms: other (rapid heart rate) Related Data Home Medications Medication Instructions Recorded Confirmed atorvastatin 20 mg tablet 20 mg PO DAILY 12/20/21 02/15/22 gabapentin 300 mg capsule 300 mg PO TID 12/20/21 02/15/22 ceftriaxone 2 gram intravenous 2 g IV Q24H 01/24/22 02/15/22 solution cholecalciferol (vitamin D3) 1,250 1,250 mcg PO WEEKLY 01/24/22 02/15/22 mcg (50,000 unit) capsule metronidazole 500 mg tablet 500 mg PO BID 01/24/22 02/15/22 cilostazol 50 mg tablet 50 mg PO DAILY 02/15/22 02/15/22 cyanocobalamin (vitamin B-12) 1,000 mcg PO DAILY 02/15/22 02/15/22 1,000 mcg tablet famotidine 20 mg tablet 20 mg PO DAILY 02/15/22 02/15/22 ferrous sulfate 325 mg (65 mg 325 mg PO BID 02/15/22 02/15/22 iron) tablet (FeroSul) furosemide 20 mg tablet 40 mg PO BID 02/15/22 02/15/22 hydrocodone 5 mg-acetaminophen 325 1 tablet PO Q4H PRN Pain 02/15/22 02/15/22 mg tablet Allergies Allergy/AdvReac Type Severity Reaction Status Date / Time No Known Allergies Allergy Verified 02/15/22 18:09 Review of Systems Review of Systems: All systems reviewed & are unremarkable except as noted in HPI and below Constitutional: Constitutional: Denies chills and Denies fever(s) PMFSH Past Medical History Medical History Anemia of chronic disease Chronic hyponatremia Claudication in peripheral vascular disease COPD (chronic obstructive pulmonary disease) Diastolic heart failure Echocardiogram December 2021: Left ventricular systolic function normal with EF of 55-60, moderate concentric left ventricular increased wall thickness, grade 2 diastolic dysfunction, mild aortic valve sclerosis, 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 consistent with significantly elevated right atrial pressures DM2 (diabetes mellitus, type 2) DVT (deep venous thrombosis) 1998 and 2015 GERD (gastroesophageal reflux disease) Hiatal hernia Hyperlipidemia Ischemic colitis (04/2016) Lymphedema of both lower extremities MDD (major depressive disorder) Obstructive sleep apnea (06/2021) Polysomnogram demonstrated moderate obstructive sleep apnea with hypo apnea index of 15 desaturations of 85% he is treated with auto PAP with a range of 7-12 cm Peripheral neuropathy Pulmonary embolism 1990s Tobacco abuse Surgical History Surgical History Abnormal colonoscopy (04/2016) Colonic ulcer with pathology demonstrating ac
--- NOTE | 2022-02-15 18:16 | ECG_ITS ---
Measurements Intervals [place] Rate: 121 P: [place]: 0 QRS: -15 QRSD: 104 T: 89 QT: 331 QTc: 471 Interpretive Statements ATRIAL FLUTTER/TACHYCARDIA WITH RAPID VENTRICULAR RESPONSE LOW QRS VOLTAGE IN PRECORDIAL LEADS NONSPECIFIC ST & T-WAVE ABNORMALITY ABNORMAL ECG COMPARED TO ECG 02/11/2022 22:58:29 NO SIGNIFICANT CHANGES Electronically Signed On 02-16-2022 16:17:56 CDT by Jovi Shipman M.D.
[2022-02-15 18:35] LABS: Basophils Absolute Auto 0.03 K/mm3 (0.00-0.10); Basophils Percent Auto 0.6 % (0.0-1.0); Eosinophils Absolute Auto 0.07 K/mm3 (0.02-0.50); Eosinophils Percent Auto 1.3 % (1.0-6.0); Immature Granulocyte Absolute 0.05 K/mm3 (0.00-0.00); Immature Granulocyte Percent A 0.9 % (0.0-0.0); Lymphocytes Absolute Auto 0.89 K/mm3 (1.10-4.50); Lymphocytes Percent Auto 16.9 % (18.0-42.0); Mean Corpuscular HGB Conc 32.3 g/dL (32.0-36.0); Mean Corpuscular Hemoglobin 30.5 pg (27.0-31.0); Mean Corpuscular Volume 94.5 fL (78.0-102.0); Mean Platelet Volume 10.3 fl (8.7-11.0); Monocytes Percent Auto 13.3 % (2.0-11.0); Neutrophils Absolute Auto 3.5 K/mm3 (1.7-7.2); Platelet Count Result 106 K/mm3 (150-420); Red Cell Distribution Width 17.4 % (11.6-14.4); White Blood Count 5.3 K/mm3 (4.8-10.8)
[2022-02-15 18:40] LABS: Hemoglobin 6.1 g/dL (12.4-15.3)
[2022-02-15 18:41] LABS: Hematocrit 18.9 % (37.0-46.0)
--- NOTE | 2022-02-15 18:50 | PC.NURSE ---
PT LYING ON STRETCHER, AT BEDSIDE PT HR 115, APPEARS AFLUTTER. PT HGB CALLED 6.1 ERP IS AWARE. NAD NOTED. WILL CONTINUE TO MONITOR.
[2022-02-15 18:58] LABS: Alanine Aminotransferase < 6 U/L (16-63); Albumin Level 1.2 g/dL (3.4-5.0); Alkaline Phosphatase 184 U/L (46-116); Anion Gap 9 mmol/L (8-16); Aspartate Amino Transferase 24 U/L (15-37); Bilirubin,Total 2.7 mg/dL (0.00-1.00); Blood Urea Nitrogen 12 mg/dL (7-18); Calcium 7.8 mg/dL (8.5-10.1); Carbon Dioxide 28 mmol/L (21-32); Chloride 93 mmol/L (98-108); Estimated CRCL calculation 74 ml/min; Estimated Glomerular Filt Rate > 60; Glucose 108 mg/dL (70-99); Magnesium 1.9 mg/dL (1.8-2.4); NT Pro B Type Natriuretic Pept 2061 pg/mL (0-125); Osmolality Calculated 270 mOsm/kg (285-295); Potassium 2.6 mmol/L (3.5-5.1); Sodium 130 mmol/L (136-145); Total Protein 7.9 g/dL (6.4-8.2)
[2022-02-15 19:14] LABS: CRP > 25.0 mg/dL (0.0-0.9)
[2022-02-15 19:15] LABS: Appearance Urine Clear (Clear); Bilirubin Urine 2+ (Negative); Glucose Urine UA Trace (Negative); Ketones Urine Trace (Negative); Leukocyte Esterase Ur Trace LEU/UL (Negative); Nitrate Urine Positive (Negative); Protein Urine Trace (Negative); Specific Grav Ur 1.015 (1.010-1.020); Urobilinogen Urine >=8.0 mg/dL (0.2-1.0)
[2022-02-15 19:22] LABS: Add Urine Microscopic? YES; Amorphous Sediment Urine Few; Bacteria Urine 1+ /hpf; Blood Urine Trace-Intact (Negative); Color Urine Dark Orange (Yellow); RBC Urine 0-2 /hpf (0-2); Squamous Epithelial Cell Urine Few /hpf (Few); WBC Urine 0-3 /hpf (0-3)
--- NOTE | 2022-02-15 19:25 | PC.NURSE ---
ERp Dr Garrett spoke to pt and about labs and bill for transfer. Pts oncologist is at [facility] and state they have been there numerous times. Call placed to [facility] for pt transfer. Will await call back from hospitalist. Orders obtained from Dr Garrett for PRBC's.
--- NOTE | 2022-02-15 19:33 | PC.NURSE ---
Pt resting c at bedside, VSS at this time. Awaiting call back from [place] for hospitalist. Current BP 106/63.
[2022-02-15] MEDS: metroNIDAZOLE 250 MG TABLET 500 MG PO (19:38)
[2022-02-15] MEDS: SODIUM CHLORIDE 0.9% IV 250 ML 30 ML IV CONT (20:27)
[2022-02-15] MEDS: POTASSIUM BICARBONATE 25 MEQ TABEF 50 MEQ PO (20:44)
--- NOTE | 2022-02-15 20:45 | PC.NURSE ---
Call back from [facility]OR[facility] Stewart Dr spoke to Dr Limon and advised to admit here. Call placed to Vilma YOUNG, hospitalist for admission.
--- NOTE | 2022-02-15 21:18 | PM.EVENT ---
Event Note Event Note Event Note: Xarelto on hold due to hgb of 6, cilostazol and lasix on hold due to low bp, cxr in the am. cefrtriaxone and metronidazole hold medication due to infection in hardware. unsure when metronidazole will need to be discontinued.
--- NOTE | 2022-02-15 21:23 | PC.NURSE ---
Pt will go to bed 205 for admit, Report given to SHELDON Paz and Sonia Serna RN.
[2022-02-15 22:50] LABS: Hematocrit 19.6 % (37.0-46.0); Hemoglobin 6.4 g/dL (12.4-15.3)
--- NOTE | 2022-02-15 23:29 | PC.NURSE ---
Antwon Navarro ordered a blood culture on patient.
[2022-02-16] VITALS (14 sets, daily range): BP systolic 90–126; BP diastolic 47–78; PULSE 60–117; RESP 18–24; TEMP 35.8–37.7; O2SAT 93–99
[2022-02-16] MEDS: SODIUM CHLORIDE 0.9% IV 500 ML 150 ML (00:15)
[2022-02-16] MEDS: ACETAMINOPHEN 325 MG TABLET 650 MG PO (00:57)
[2022-02-16 05:13] LABS: Hematocrit 21.1 % (37.0-46.0); Mean Corpuscular HGB Conc 32.2 g/dL (32.0-36.0); Mean Corpuscular Hemoglobin 30.1 pg (27.0-31.0); Mean Corpuscular Volume 93.4 fL (78.0-102.0); Mean Platelet Volume 10.6 fl (8.7-11.0); Platelet Count Result 88 K/mm3 (150-420); Red Blood Count 2.26 M/mm3 (4.70-6.10); Red Cell Distribution Width 16.2 % (11.6-14.4); White Blood Count 4.9 K/mm3 (4.8-10.8)
--- NOTE | 2022-02-16 05:15 | PC.NURSE ---
Lab called to report critical Hgb of 6.8.
[2022-02-16 05:16] LABS: Hemoglobin 6.8 g/dL (12.4-15.3)
[2022-02-16 05:25] LABS: Albumin Level 1.1 g/dL (3.4-5.0); Alkaline Phosphatase 164 U/L (46-116); Anion Gap 7 mmol/L (8-16); Aspartate Amino Transferase 22 U/L (15-37); Bilirubin,Total 2.7 mg/dL (0.00-1.00); Blood Urea Nitrogen 12 mg/dL (7-18); Calcium 7.6 mg/dL (8.5-10.1); Carbon Dioxide 28 mmol/L (21-32); Chloride 96 mmol/L (98-108); Estimated CRCL calculation 87 ml/min; Estimated Glomerular Filt Rate > 60; Glucose 107 mg/dL (70-99); Osmolality Calculated 271 mOsm/kg (285-295); Potassium 2.7 mmol/L (3.5-5.1); Sodium 131 mmol/L (136-145); Total Protein 7.1 g/dL (6.4-8.2)
[2022-02-16 05:36] LABS: Alanine Aminotransferase < 6 U/L (16-63)
--- NOTE | 2022-02-16 05:46 | PC.NURSE ---
Antwon Navarro NP, notified of pt's low hemoglobin of 6.8; New orders received and noted.
--- NOTE | 2022-02-16 06:25 | PC.NURSE ---
Antwon Navarro NP, called and ordered a CT scan of the abdomen and pelvis for 0900 this AM (02/16/22)
--- NOTE | 2022-02-16 06:25 | PC.NURSE ---
Antwon Navarro NP, suggested that Lamonte Guerra NP, talk to pt's oncologist about his condition; She also mentioned that she discuss hospice with oncologist and patient.
[2022-02-16 08:56] LABS: Occult Blood Negative (Negative)
[2022-02-16] MEDS: SODIUM CHLORIDE 0.9% IV 250 ML 30 ML IV CONT (09:00)
[2022-02-16] MEDS: KCL 20 MEQ/SW 100 ML 100 ML 50 MEQ IVPB (09:05)
[2022-02-16] MEDS: SERTRALINE HCL 50 MG TABLET PO (09:14)
[2022-02-16] MEDS: FAMOTIDINE 20 MG TABLET PO (09:14)
[2022-02-16] MEDS: GABAPENTIN 300 MG CAPSULE PO ×2 (09:14→13:01)
[2022-02-16] MEDS: SULFAMETHOXAZOLE/TRIMETHOPRIM 800/160 MG DS TABLET 1 TAB PO (09:14)
[2022-02-16] MEDS: ERGOCALCIFEROL 50,000 UNITS CAPSULE 50000 UNITS PO (09:15)
[2022-02-16] MEDS: CYANOCOBALAMIN 1,000 MCG TABLET 1000 MCG PO (09:16)
--- NOTE | 2022-02-16 11:00 | PM.IMHP ---
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 The patient is a relatively poor historian.? 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 Patient hemoglobin 2 day ago was 6.3 presented here at 6.1 with potassium of 2.7 sodium of 131 . Patient is on anticoagulation for history of DVT he is being seen by ID for infected hardware and has a PICC line and was receiving daily dose of Rocephin which is due to be stopped today and he is being placed on Cefadroxil 1000 mg po bid for 14 days. Patient get home health and he has an orthopedic Dr Smith. I spoke with [place] at Oncologist office who will be seeing him on FEB 25 @315. Discussed stable number of HGB that they are comfortable with in which I was informed 7.0 and pt would be seen next weeks. We completed a CT scan which was discussed with them as well and Dr. Hicks will review on his visit and they will come up with a plan Patient does continue to intermittently smoke. Patient denies any melena or hematochezi or Hemoptysis . Patient denies any shortness of breath or pain. WE will continue to transfuse until his hgb is above 7. Patient has informed me if his hgb is above 7 he is going home we will continue to monitor. Review of Systems Review of Systems: weakness, Chronic on acute anemia , All systems reviewed & are unremarkable except as noted in HPI and below PMFSH Past Medical History Medical History Anemia of chronic disease Chronic hyponatremia Claudication in peripheral vascular disease COPD (chronic obstructive pulmonary disease) Diastolic heart failure Echocardiogram December 2021: Left ventricular systolic function normal with EF of 55-60, moderate concentric left ventricular increased wall thickness, grade 2 diastolic dysfunction, mild aortic valve sclerosis, 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 consistent with significantly elevated right atrial pressures DM2 (diabetes mellitus, type 2) DVT (deep venous thrombosis) 1998 and 2015 GERD (gastroesophageal reflux disease) Hiatal hernia Hyperlipidemia Ischemic colitis (04/2016) Lymphedema of both lower extremities MDD (major depressive disorder) Obstructive sleep apnea (06/2021) Polysomnogram demonstrated moderate obstructive sleep apnea with hypo apnea index of 15 desaturations of 85% he is treated with auto PAP with a range of 7-12 cm Peripheral neuropathy Pulmonary embolism 1990s Tobacco abuse Surgical History Surgical History Abnormal colonoscopy (04/2016) Colonic ulcer with pathology demonstrating acute and chronic colitis with benign ulcer consistent with ischemic colitis History of ankle surgery (2018) ORIF History of esophagogastroduodenoscopy (EGD) (~2012) Esophageal diverticulum S/P cubital tunnel release Family History Family History Father Lung cancer Mother Lung cancer Seizures Diabetes mellitus Sibling Lung cancer Hepatitis C Other Family history of arthritis Hypertension Social History Social History Smoking packs per day: 1 Smoking cigarettes per day: 20.0 Years smoked: 50 Smoking pack-years: 50.00 Smoking status: Current every day smoker Tobacco type: cigarettes Second hand tobacco smoke exposure: No Additional smoking assessment comments: currently down to 1/2 pack Alcohol intake: nev
[2022-02-16 12:53] LABS: Hematocrit 23.8 % (37.0-46.0); Hemoglobin 7.9 g/dL (12.4-15.3); Immature Platelet Fraction Pct 3.5 % (1.0-7.0); Mean Corpuscular HGB Conc 33.2 g/dL (32.0-36.0); Mean Corpuscular Hemoglobin 30.6 pg (27.0-31.0); Mean Corpuscular Volume 92.2 fL (78.0-102.0); Mean Platelet Volume 10.8 fl (8.7-11.0); Platelet Count Result 88 K/mm3 (150-420); Red Blood Count 2.58 M/mm3 (4.70-6.10); Red Cell Distribution Width 16.1 % (11.6-14.4); White Blood Count 5.5 K/mm3 (4.8-10.8)
[2022-02-16 13:06] LABS: Anion Gap 6 mmol/L (8-16); Blood Urea Nitrogen 10 mg/dL (7-18); Calcium 7.9 mg/dL (8.5-10.1); Carbon Dioxide 28 mmol/L (21-32); Chloride 97 mmol/L (98-108); Estimated CRCL calculation 98 ml/min; Estimated Glomerular Filt Rate > 60; Glucose 125 mg/dL (70-99); Osmolality Calculated 272 mOsm/kg (285-295); Sodium 131 mmol/L (136-145)
[2022-02-16] MEDS: ONDANSETRON INJ 4 MG/2 ML VIAL IV PUSH (14:03)
--- NOTE | 2022-02-16 14:11 | PC.NURSE ---
Pt is leaving AMA with discharge orders . The peripheral IV is out but the Picc line remains. Picc flushed with 10 ml NS. Picc dressing changed by this RN prior to discharge. VSS, discharge instructions given to pt and spouse. Tele discontinued.
--- NOTE | 2022-02-16 15:13 | PC.NURSE ---
Pt discharged AMA. Discharge instructions given to pt and spouse, medication instructions given, S&S that require immediate attention discussed.
--- NOTE | 2022-02-21 11:22 | PC.NURSE ---
Spouse states her and pt received and understood the discharge instructions. Spouse stated the patient had good care .
== END 2022-02-16 14:45 | disposition left against medical advice (07) | DRG 812 ==
LOC: CHSED 21:08 → CHS2ND 21:16
PROVIDERS: Nurse Practitioner; Admitting Provider Internal Medicine; Emergency Provider Emergency Medicine; PCP Family Medicine; Visit Provider Nurse Practitioner Family
DX: D64.9 Anemia, unspecified (principal); I50.32 Chronic diastolic (congestive) heart failure; C85.90 Non-Hodgkin lymphoma, unspecified, unspecified site; J44.9 Chronic obstructive pulmonary disease, unspecified; E87.6 Hypokalemia; E87.1 Hypo-osmolality and hyponatremia; E11.42 Type 2 diabetes mellitus with diabetic polyneuropathy; E11.51 Type 2 diabetes mellitus with diabetic peripheral angiopathy without gangrene; E78.5 Hyperlipidemia, unspecified; K21.9 Gastro-esophageal reflux disease without esophagitis; K44.9 Diaphragmatic hernia without obstruction or gangrene; I89.0 Lymphedema, not elsewhere classified; T85.79XD Infection and inflammatory reaction due to other internal prosthetic devices, implants and grafts, subsequent encounter; G47.33 Obstructive sleep apnea (adult) (pediatric); F17.210 Nicotine dependence, cigarettes, uncomplicated; F32.9 Major depressive disorder, single episode, unspecified; Z79.01 Long term (current) use of anticoagulants; Z86.711 Personal history of pulmonary embolism; Z86.718 Personal history of other venous thrombosis and embolism; Z79.899 Other long term (current) drug therapy; M86.9 Osteomyelitis, unspecified; T84.629D Infection and inflammatory reaction due to internal fixation device of unspecified bone of leg, subsequent encounter; Z79.84 Long term (current) use of oral hypoglycemic drugs
CPT/HCPCS: 36415; 36430; 71045; 74177; 80048; 80053; 81001; 82272; 83735; 83880; 84484; 85014; 85018; 85025; 85027; 85055; 86140; 86850; 86900; 86901; 86920; 87040; 87086; 93005; 96360; 96361; 99285; A9270; J2405; J3480; J7040; J7050; P9016; Q9967

== ENCOUNTER 2022-02-18 14:26 | Emergency (ER) | payer MEDICARE, SELFPAY ==
[2022-02-18] VITALS (13 sets, daily range): BP systolic 91–102; BP diastolic 58–63; PULSE 112–120; RESP 16–20; TEMP 36.6; O2SAT 96–98
--- NOTE | 2022-02-18 14:53 | ED.GENADULT ---
HPI - General Adult General Chief complaint: Unspecified Stated complaint: Low blood pressure Time Seen by Provider: 02/18/22 14:51 Source: patient, family and RN notes reviewed Mode of arrival: wheelchair Limitations: physical limitation History of Present Illness HPI narrative: home health nurse was visiting the patient today and found blood pressure to be 78/58. They called their PCP who recommended he come to the emergency room. He has a history of chronic anemia hyponatremia hypokalemia. He was transfused 3 units of PRBC 3 days ago. MD complaint: Low blood pressure Onset (ago): hour(s) (1) Associated symptoms: weakness ( Generalized not new) Treatments prior to arrival: none Related Data Home Medications Medication Instructions Recorded Confirmed atorvastatin 20 mg tablet 20 mg PO DAILY 12/20/21 02/18/22 gabapentin 300 mg capsule 300 mg PO TID 12/20/21 02/18/22 cholecalciferol (vitamin D3) 1,250 1,250 mcg PO WEEKLY 01/24/22 02/18/22 mcg (50,000 unit) capsule metronidazole 500 mg tablet 500 mg PO BID 01/24/22 02/18/22 cilostazol 50 mg tablet 50 mg PO DAILY 02/15/22 02/18/22 cyanocobalamin (vitamin B-12) 1,000 mcg PO DAILY 02/15/22 02/18/22 1,000 mcg tablet famotidine 20 mg tablet 20 mg PO DAILY 02/15/22 02/18/22 ferrous sulfate 325 mg (65 mg 325 mg PO BID 02/15/22 02/18/22 iron) tablet (FeroSul) furosemide 20 mg tablet 40 mg PO BID 02/15/22 02/18/22 hydrocodone 5 mg-acetaminophen 325 1 tablet PO Q4H PRN Pain 02/15/22 02/18/22 mg tablet cefadroxil 500 mg capsule 1,000 mg PO BID 02/18/22 02/18/22 Allergies Allergy/AdvReac Type Severity Reaction Status Date / Time No Known Allergies Allergy Verified 02/18/22 15:01 Review of Systems Review of Systems: All systems reviewed & are unremarkable except as noted in HPI and below PMFSH Past Medical History Medical History Anemia of chronic disease Chronic hyponatremia Claudication in peripheral vascular disease COPD (chronic obstructive pulmonary disease) Diastolic heart failure Echocardiogram December 2021: Left ventricular systolic function normal with EF of 55-60, moderate concentric left ventricular increased wall thickness, grade 2 diastolic dysfunction, mild aortic valve sclerosis, 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 consistent with significantly elevated right atrial pressures DM2 (diabetes mellitus, type 2) DVT (deep venous thrombosis) 1998 and 2015 GERD (gastroesophageal reflux disease) Hiatal hernia Hyperlipidemia Ischemic colitis (04/2016) Lymphedema of both lower extremities MDD (major depressive disorder) Obstructive sleep apnea (06/2021) Polysomnogram demonstrated moderate obstructive sleep apnea with hypo apnea index of 15 desaturations of 85% he is treated with auto PAP with a range of 7-12 cm Peripheral neuropathy Pulmonary embolism 1990s Tobacco abuse Surgical History Surgical History Abnormal colonoscopy (04/2016) Colonic ulcer with pathology demonstrating acute and chronic colitis with benign ulcer consistent with ischemic colitis History of ankle surgery (2017) ORIF History of esophagogastroduodenoscopy (EGD) (~2012) Esophageal diverticulum S/P cubital tunnel release Family History Family History Father Lung cancer Mother Lung cancer Seizures Diabetes mellitus Sibling Lung cancer Hepatitis C Other Family history of arthritis Hypertension Social History Social History Smoking packs per day: 1 Smoking cigarettes per day: 20.0 Years smoked: 50 Smoking pack-years: 50.00 Smoking status: Current every day smoker Tobacco type: cigarettes Second hand tobacco smoke exposure: No Additional smoking assessment comments: currently down to 1/2 pack Alcoho
[2022-02-18 15:21] LABS: Hemoglobin 8.2 g/dL (12.4-15.3); Immature Platelet Fraction Pct 3.1 % (1.0-7.0); Mean Corpuscular HGB Conc 32.8 g/dL (32.0-36.0); Mean Corpuscular Hemoglobin 30.9 pg (27.0-31.0); Mean Corpuscular Volume 94.3 fL (78.0-102.0); Mean Platelet Volume 10.3 fl (8.7-11.0); Platelet Count Result 84 K/mm3 (150-420); Red Blood Count 2.65 M/mm3 (4.70-6.10); Red Cell Distribution Width 16.3 % (11.6-14.4); White Blood Count 6.1 K/mm3 (4.8-10.8)
[2022-02-18 15:37] LABS: Alanine Aminotransferase 6 U/L (16-63); Albumin Level 1.2 g/dL (3.4-5.0); Alkaline Phosphatase 305 U/L (46-116); Anion Gap 6 mmol/L (8-16); Aspartate Amino Transferase 31 U/L (15-37); Blood Urea Nitrogen 14 mg/dL (7-18); Carbon Dioxide 29 mmol/L (21-32); Chloride 95 mmol/L (98-108); Estimated CRCL calculation 73 ml/min; Estimated Glomerular Filt Rate > 60; Glucose 105 mg/dL (70-99); Osmolality Calculated 270 mOsm/kg (285-295); Potassium 2.9 mmol/L (3.5-5.1); Sodium 130 mmol/L (136-145)
--- NOTE | 2022-02-18 15:43 | PC.NURSE ---
PT IS LYING ON STRETCHER WITH AT BEDSIDE AWAITING RESULTS AT THIS TIME. NAD NOTED. WILL CONTINUE TO MONITOR.
[2022-02-18 15:48] LABS: Band Neutrophils Percent 0 % (0-6); Basophils Percent Manual 0 % (0-1); Eosinophils Percent Manual 0 % (1-6); Lymphocytes Absolute Manual 1.15 K/mm3 (1.1-4.5); Lymphocytes Percent Manual 19 % (18-44); Monocytes Absolute Manual 0.97 K/mm3 (0.1-0.90); Monocytes Percent Manual 16 % (3-9); Neutrophils Absolute Manual 3.96 K/mm3 (1.3-6.7); Neutrophils Percent Manual 65 % (46-73); Platelet Estimate Decreased (Adequate); Total Cells Counted 100
[2022-02-18] MEDS: POTASSIUM BICARBONATE 25 MEQ TABEF 50 MEQ PO (16:23)
--- NOTE | 2022-02-18 16:25 | PC.NURSE ---
ERP WAS AT BEDSIDE SPEAKING WITH PT AND . NAD. WILL CONTINUE TO MONITOR.
== END 2022-02-18 16:43 | disposition home or self-care (01) ==
PROVIDERS: Emergency Provider Emergency Medicine; PCP Family Medicine
DX: E87.1 Hypo-osmolality and hyponatremia (principal); E87.6 Hypokalemia; I95.0 Idiopathic hypotension; J44.9 Chronic obstructive pulmonary disease, unspecified; E11.9 Type 2 diabetes mellitus without complications; E78.5 Hyperlipidemia, unspecified; F17.200 Nicotine dependence, unspecified, uncomplicated
CPT/HCPCS: 36415; 80053; 83735; 85025; 85055; 99283; A9270

== ENCOUNTER 2022-02-22 15:58 | Inpatient (IN) | payer MEDICARE, SELFPAY ==
[2022-02-22] VITALS (52 sets, daily range): BP systolic 79–100; BP diastolic 49–63; PULSE 99–141; RESP 13–23; TEMP 36.4; O2SAT 96–100
--- NOTE | ~2022-02-22 | US_ITS ---
EXAMINATION: US abdomen limited DATE: 02/23/2022 09:47 INDICATION: Hyperbilirubinemia. TECHNIQUE: Multiple grayscale and Doppler ultrasound images of the abdomen were obtained. COMPARISON: CT abdomen and pelvis 02/16/2022 FINDINGS: The visualized portion of the head of the pancreas is normal. The liver is normal without f ocal lesion. There is normal flow in main portal vein. The gallbladder is normal in size and contains sludge. Gallbladder wall thickening is noted. No sonographic Ferreira sign. The common duct is normal and measures 5 mm. IMPRESSION: 1. Gallbladder sludge. Gallbladder wall thickening may be seen with interstitial edema, chronic liver disease, or chronic cholecystitis. Reviewed, dictated and finalized at location A. IMPRESSION: 1. Gallbladder sludge. Gallbladder wall thickening may be seen with interstitia l edema, chronic liver disease, or chronic cholecystitis.
--- NOTE | ~2022-02-22 | XR_ITS ---
EXAMINATION: XR chest 1V portable Exam Date/Time: 02/22/2022 17:45 CDT HISTORY: altered loc Comparison: X-ray and CT abdomen and pelvis 02/15/2022, CTPA 12/11/2021. RESULT: Lines, tubes, and devices: Interval removal of the left upper extremity PICC. Lungs and pleura: Stable reticular opacities with a peripheral and lower lung predominance. Cardiomediastinal silhouette: Stable. Other: No acute osseous or upper abdominal finding. IMPRESSION: Pulmonary opacities may reflect a component of interstitial edema and/or underlying interstitial dise ase. Reviewed, dictated and finalized at location K. IMPRESSION: Pulmonary opacities may reflect a component of interstitial edema and/or underl juana interstitial disease.
--- NOTE | ~2022-02-22 | CT_ITS ---
EXAMINATION: CT brain wo con DATE: 02/22/2022 19:27 INDICATION: altered loc . TECHNIQUE: Computed tomography (CT) of the head was performed without intravenous contrast. The mA wa s adjusted according to patient size. Iterative reconstruction technique was employed. The dose-lengt h product was 681.00 mGy-cm. COMPARISON: 11/11/2021. FINDINGS: No acute intracranial hemorrhage or extra-axial fluid collection. No hydrocephalus, mass, or herniation. No acute ischemic infarct. Unremarkable dural venous sinus attenuation. No acute osseous abnormality. The aerated spaces are clear. Mild atrophy and chronic white matter change. Atherosclerotic intracranial calcification. IMPRESSION: No acute intracranial process. Reviewed, dictated and finalized at location K.
--- NOTE | ~2022-02-22 | CT_ITS ---
EXAMINATION: CT biopsy lymph node DATE: 02/24/2022 14:27 INDICATION: Retroperitoneal lymphadenopathy. TECHNIQUE: The procedure including the risks, benefits, and alternatives was discussed with the patie nt. Risks discussed included bleeding and infection. The patient verbalized understanding of the risk s and agreed to proceed. The skin overlying the retroperitoneum was prepped and draped in usual ster ile fashion. Anesthetic was administered with 1% lidocaine subcutaneously. A 16 gauge outer needle was advanced under CT guidance into the left para-aortic region. An 18 gauge core biopsy needle was t hen used to obtain 6 core biopsy specimens. The mA was adjusted according to patient size. Iterative reconstruction technique was employed. The dose-length product was 199.91 mGy-cm. The needle was vicente jerry and the entry site was cleaned and dressed. There were no immediate complications. FINDINGS: CT images demonstrate the outer needle tip adjacent to an enlarged left paraaortic lymph no de. IMPRESSION: 1. CT-guided core needle biopsy of an enlarged left paraaortic lymph node. Reviewed, dictated and finalized at location A.
--- NOTE | ~2022-02-22 | CT_ITS ---
EXAMINATION: CT abdomen pelvis wo con DATE: 02/23/2022 11:22 INDICATION: Anemia. TECHNIQUE: Computed tomography (CT) of the abdomen and pelvis was performed without intravenous contr ast. Automated exposure control and iterative reconstruction technique were employed. The dose-length product was 1086.64 mGy-cm. COMPARISON: CT abdomen and pelvis 02/16/2022 FINDINGS: The visualized portions of the lung bases demonstrate small pleural effusions. There is smo oth septal thickening, consistent with pulmonary edema. There are dependent airspace opacities bilate rally, likely atelectasis. Calcified right lung nodules and calcified right hilar lymph nodes are con sistent with old granulomatous disease. The heart size is normal. There are coronary artery calcifica tions. No pericardial effusion. There is a small sliding hiatal hernia. Calcifications in the liver a nd spleen are consistent with old granulomatous disease. There is mild splenomegaly. The gallbladder is normal in size. The pancreas, adrenal glands, and kidneys are normal. There is no urolithiasis. Th ere is a Elena catheter in expected position. There are no dilated loops of bowel. The appendix is no rmal. There is aortocaval and left para-aortic lymphadenopathy. For example, and left para-aortic nod e measures 4.9 x 3.3 cm. IMPRESSION: 1. Mild pulmonary edema. 2. Small pleural effusions. 3. Abdominal lymphadenopathy suspicious for lymphoma or metastatic disease. Consider CT-guided biopsy of a left para-aortic lymph node. 4. Mild splenomegaly. Reviewed, dictated and finalized at location A. IMPRESSION: 1. Mild pulmonary edema. 2. Small pleural effusions. 3. Abdominal lymphadenopathy suspicious for lymphoma or metastatic disease. Con repairer typewriter CT-guided biopsy of a left para-aortic lymph node. 4. Mild splenomegaly.
--- NOTE | 2022-02-22 16:16 | ECG_ITS ---
Measurements Intervals [place] Rate: 137 P: VT: 0 QRS: -25 QRSD: 103 T: 81 QT: 306 QTc: 463 Interpretive Statements ATRIAL FLUTTER/TACHYCARDIA WITH RAPID VENTRICULAR RESPONSE BORDERLINE ST-T WAVE ABNORMALITY- LAT/HIGH LAT LEADS BASELINE WANDER- I, II ABNORMAL ECG COMPARED TO ECG 02/15/2022 18:06:21 NO SIGNIFICANT CHANGES Electronically Signed On 02-22-2022 16:32:01 CDT by Jose Lai D.O.
--- NOTE | 2022-02-22 16:32 | ED.AMS ---
HPI - Altered Mental Status General Chief Complaint: Unspecified Stated Complaint: LOW O2 SAT Time Seen by Provider: 02/22/22 16:11 History of Present Illness HPI narrative: states that patient slept all day yesterday and has been very listless all day today. She says his BP has been running low for a couple of days and the [facility] HH nurse today could not get a oxygen saturation so they came to the ER. Pt has not been eating well but has been drinking per . Pt had recent diagnosis of lymphoma and has had a recent blood transfusion due to anemia but has not been bleeding or passing dark or bloody stools. Pt has not been febrile. Pt is unable to provide much history himself. Related Data Home Medications Medication Instructions Recorded Confirmed atorvastatin 20 mg tablet 20 mg PO DAILY 12/20/21 02/18/22 gabapentin 300 mg capsule 300 mg PO TID 12/20/21 02/18/22 cholecalciferol (vitamin D3) 1,250 1,250 mcg PO WEEKLY 01/24/22 02/18/22 mcg (50,000 unit) capsule metronidazole 500 mg tablet 500 mg PO BID 01/24/22 02/18/22 cilostazol 50 mg tablet 50 mg PO DAILY 02/15/22 02/18/22 cyanocobalamin (vitamin B-12) 1,000 mcg PO DAILY 02/15/22 02/18/22 1,000 mcg tablet famotidine 20 mg tablet 20 mg PO DAILY 02/15/22 02/18/22 ferrous sulfate 325 mg (65 mg 325 mg PO BID 02/15/22 02/18/22 iron) tablet (FeroSul) furosemide 20 mg tablet 40 mg PO BID 02/15/22 02/18/22 hydrocodone 5 mg-acetaminophen 325 1 tablet PO Q4H PRN Pain 02/15/22 02/18/22 mg tablet cefadroxil 500 mg capsule 1,000 mg PO BID 02/18/22 02/18/22 Allergies Allergy/AdvReac Type Severity Reaction Status Date / Time No Known Allergies Allergy Verified 02/22/22 16:17 Review of Systems Review of Systems: ROS unobtainable: Yes unobtainable due to mental status PMFSH Past Medical History Medical History Anemia of chronic disease Chronic hyponatremia Claudication in peripheral vascular disease COPD (chronic obstructive pulmonary disease) Diastolic heart failure Echocardiogram December 2021: Left ventricular systolic function normal with EF of 55-60, moderate concentric left ventricular increased wall thickness, grade 2 diastolic dysfunction, mild aortic valve sclerosis, 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 consistent with significantly elevated right atrial pressures DM2 (diabetes mellitus, type 2) DVT (deep venous thrombosis) 1998 and 2015 GERD (gastroesophageal reflux disease) Hiatal hernia Hyperlipidemia Ischemic colitis (04/2016) Lymphedema of both lower extremities MDD (major depressive disorder) Obstructive sleep apnea (06/2021) Polysomnogram demonstrated moderate obstructive sleep apnea with hypo apnea index of 15 desaturations of 85% he is treated with auto PAP with a range of 7-12 cm Peripheral neuropathy Pulmonary embolism 1990s Tobacco abuse Surgical History Surgical History Abnormal colonoscopy (04/2016) Colonic ulcer with pathology demonstrating acute and chronic colitis with benign ulcer consistent with ischemic colitis History of ankle surgery (2017) ORIF History of esophagogastroduodenoscopy (EGD) (~2012) Esophageal diverticulum S/P cubital tunnel release Family History Family History Father Lung cancer Mother Lung cancer Seizures Diabetes mellitus Sibling Lung cancer Hepatitis C Other Family history of arthritis Hypertension Social History Social History (Updated 02/22/22 @ 21:02 by Perri Noriega NP) Social History: 0 children diabled Smoking packs per day: 1 Smoking cigarettes per day: 20.0 Years smoked: 50 Smoking pack-years: 50.00 Smoking status: Current every day smoker Tobacco type: cigarettes Second hand tobacco smoke exposure: No Additional smoking assessment comments: currently
[2022-02-22 16:34] LABS: Basophils Percent Auto 0.7 % (0.2-1.2); Eosinophils Percent Auto 0.7 % (0-4.4); Hematocrit 25.7 % (42.0-52.0); Hemoglobin 8.1 g/dL (14.0-18.0); Immature Granulocyte Absolute 0.11 K/mm3 (0.00-0.031); Immature Granulocyte Percent A 1.8 % (0-0.5); Immature Platelet Fraction Pct 7.2 % (0.9-11.2); Lymphocytes Absolute Auto 1.11 K/mm3 (0.9-3.2); Lymphocytes Percent Auto 18.1 % (18.3-44.2); Mean Corpuscular HGB Conc 31.5 g/dl (32-36); Mean Corpuscular Hemoglobin 30.3 pg (26-34); Mean Corpuscular Volume 96.3 fl (80-100); Mean Platelet Volume 10.8 fl (7.4-10.4); Monocytes Absolute Auto 0.8 K/mm3 (0.1-0.6); Monocytes Percent Auto 12.4 % (2.6-8.5); Neutrophils Absolute Auto 4.1 K/mm3 (1.3-6.7); Neutrophils Percent Auto 66.3 % (45.5-73.1); Platelet Count Result 71 k/mm3 (150-375); Red Blood Count 2.67 M/mm3 (4.6-6.20); Red Cell Distribution Width 16.8 % (11.5-14.5); White Blood Count 6.1 K/mm3 (4.5-10.0)
[2022-02-22] MEDS: SODIUM CHLORIDE 0.9% IV 500 ML 999 ML IV CONT ×3 (16:43→19:03)
[2022-02-22 16:47] LABS: Lactic Acid Reflex 1.3 mmol/L (0.7-2.0)
[2022-02-22 16:49] LABS: Alanine Aminotransferase 12 U/L (6-50); Albumin Level 2.9 g/dL (3.5-5.1); Alkaline Phosphatase 352 U/L (38-126); Anion Gap 12 mmol/L (8-16); Aspartate Amino Transferase 41 U/L (17-59); Bilirubin,Total 4.4 mg/dL (0.2-1.3); Blood Urea Nitrogen 15 mg/dL (9-20); Calcium 7.7 mg/dL (8.4-10.2); Carbon Dioxide 27 mmol/L (22-30); Chloride 91 mmol/L (98-107); Estimated CRCL calculation 113 ml/min; Estimated Glomerular Filt Rate > 60; Glucose 116 mg/dL (65-110); Potassium 3.7 mmol/L (3.4-5.0); Sodium 130 mmol/L (137-145)
[2022-02-22 17:02] LABS: INR 3.2
[2022-02-22 17:03] LABS: Partial Thromboplastin Time 59.8 SECONDS (22.3-36.8)
[2022-02-22 17:14] LABS: Influenza A QL RT-PCR Negative (Negative); Influenza B QL RT-PCR Negative (Negative); SARS-CoV-2 RNA PCR Negative
[2022-02-22 17:18] LABS: Platelet Estimate Decreased (Adequate)
[2022-02-22 17:19] LABS: Anisocytosis 2+ (NORMAL); Hypochromasia 1+ (NORMAL); Schistocytes None Seen (NORMAL)
[2022-02-22 18:43] LABS: Glucose Point of Care 103 mg/dl (65-105)
--- NOTE | 2022-02-22 18:44 | PC.NURSE ---
decrease in LOC at this time. BSBS checked, WNL. Dr. Carrillo aware. new orders received
[2022-02-22 19:10] LABS: Add Urine Microscopic? YES; Appearance Urine Clear (Clear); Bilirubin Urine 2+ (Negative); Blood Urine Negative (Negative); Color Urine Orange (Yellow); Glucose Urine UA Trace mg/dL (Negative); Ketones Urine Trace mg/dL (Negative); Leukocyte Esterase Ur Negative LEU/UL (Negative); Nitrate Urine Negative (Negative); Protein Urine Trace mg/dL (Negative); Urobilinogen Urine >=8.0 mg/dL (<2.0)
[2022-02-22 19:16] LABS: Bacteria Urine Trace /hpf; Mucus Urine Rare /lpf; RBC Urine 0-2 /hpf (0-2); Squamous Epithelial Cell Urine Many /hpf (Few); WBC Urine 0-3 /hpf
[2022-02-22] MEDS: AMIODARONE 150 MG/D5W 100 ML 150 MG/100 ML BAG 600 MG IV CONT (20:22)
[2022-02-22] MEDS: AMIODARONE 360 MG/D5W 200 ML 360 MG/200 ML BAG 33.33 MG IV CONT (20:44)
--- NOTE | 2022-02-22 21:00 | PM.IMHP ---
H&P: HPI History of Present Illness Date/Time: 02/22/22 21:00 Chief Complaint: Low O2 saturation. Narrative: This is a 66-year-old male patient who was recently diagnosed with lymphoma and has had severe anemia and has had have blood transfusions. The patient slept all day yesterday and has been listless all day today. The stated his blood pressures been running low for couple days in the [facility] Home Health nurse could not get an oxygen saturation on him and sent him to the emergency room. The patient has not been eating or drinking well. He appears to be jaundice. He is afebrile and the is at the bedside answering questions. He has a history of atrial fibrillation and was found to be in AFib with RVR and he was hypotensive. His H&H is stable at 8.1 and 25.7. His sodium is low at 130 which is his baseline. His albumin is low at 2.9. Patient has approximately 3+ to 4+ pitting edema to lower extremities. He was found to be negative for influenza a and B as well as COVID. Patient had been given 3 L of IV fluid boluses. The patient's blood pressure did come up slightly but then would come back down. Seed Expert was consulted and recommended that we start him on amiodarone and antibiotics. Patient's blood pressure is slightly improved. However the patient appears to be jaundice and still is nonverbal. The is answering questions for him. The patient is going to be admitted to inpatient ICU on the date of service of 02/23/2020 Review of Systems Review of Systems: The is answering questions please see HPI All systems reviewed & are unremarkable except as noted in HPI and below Constitutional: Constitutional: Reports as per HPI and Reports no additional constitutional complaints Eyes: Eyes: Reports as per HPI and Reports no additional eye complaints ENT: Reports system reviewed and no additional complaints, except as documented and Reports Normal hearing present Cardiovascular: Cardiovascular: Reports no additional cardiovascular complaints Respiratory: Respiratory: Reports no additional respiratory complaints and Reports no additional respiratory complaints Gastrointestinal: Gastrointestinal: Reports as per HPI and Reports no additional gastrointestinal complaints Musculoskeletal: Musculoskeletal: Reports no additional musculoskeletal complaints Integumentary/Breasts: Skin/Breast: Reports system reviewed and no additional complaints, except as docu and Reports as per HPI Neurologic: Reports system reviewed and no additional complaints, except as documented, Reports as per HPI and Reports Normal hearing present Psychiatric: Psychiatric: Reports no additional psychiatric complaints and Reports as per HPI Endocrine: Endocrine: Reports no additional endocrine complaints Hematologic/Lymphatic: Hematologic/Lymphatic: Reports no additional hematologic/lymphatic complaints Allergic/Immunologic: Allergic/Immunologic: Reports no additional allergic/immunologic complaints [facility] Past Medical History Medical History Anemia of chronic disease Chronic hyponatremia Claudication in peripheral vascular disease COPD (chronic obstructive pulmonary disease) Diastolic heart failure Echocardiogram December 2021: Left ventricular systolic function normal with EF of 55-60, moderate concentric left ventricular increased wall thickness, grade 2 diastolic dysfunction, mild aortic valve sclerosis, 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 consistent with significantly elevated right atrial pressures DM2 (diabetes mellitus, type 2) DVT (deep venous thrombosis) 1998 and 2015 GERD (gastroesophageal reflux disease) Hiatal hernia Hyperlipidemia Ischemic colitis (04/2016) Lymphedema of both lower extremities MDD (major depressive disorder) Obstructive sleep apnea (06/2021) Polysomnogram demonstrated moderate obstructive sleep apnea with hypo apnea index of 15 desaturations of 8
[2022-02-22] MEDS: ENOXAPARIN 120 MG/0.8 ML SYRINGE 105 MG SUB-Q (21:24)
[2022-02-23] VITALS (110 sets, daily range): BP systolic 90–114; BP diastolic 55–97; PULSE 92–134; RESP 14–28; TEMP 36.3–37.2; O2SAT 91–100; BMI 29.3
[2022-02-23 00:11] LABS: Alveolar/Arterial O2 Gradient 35.4 mmHg; Base Excess ABG 3.6 mEq/l (+/-2.0); Fractional Inspired Oxygen 21 %; HCO3 ABG 27.7 mEq/l (22.0-26.0); Oxygen Content ABG 8.2 %vol (16.0-22.0); Oxygen Saturation ABG 94.3 % (95.0-100.0); PCO2 ABG 39.5 mmHg (35.0-45.0); PO2 FiO2 Ratio Arterial Blood 3.19 %; pH ABG 7.463 (7.350-7.450)
[2022-02-23 00:12] LABS: Device ROOM AIR; Modified Allen's Test Pass; Site Drawn RIGHT RADIAL; Total Hemoglobin 6.4 g/dL (12.0-18.0)
--- NOTE | 2022-02-23 00:37 | PC.NURSE ---
patient transferred to ICU with IV meds infusing
[2022-02-23 01:16] LABS: Glucose Point of Care 152 mg/dl (65-105)
[2022-02-23 01:39] LABS: Hematocrit 18.2 % (42.0-52.0); Hemoglobin 5.7 g/dL (14.0-18.0)
[2022-02-23] MEDS: AMIODARONE 360 MG/D5W 200 ML 360 MG/200 ML BAG 16.67 MG IV CONT (02:05)
[2022-02-23] MEDS: IPRATROPIUM BR 0.02% INH SOLN 0.5 MG/2.5 ML VIAL INHALATION ×4 (02:30→20:31)
[2022-02-23] MEDS: SODIUM CHLORIDE 0.9% IV 250 ML 30 ML IV CONT ×3 (03:10→09:23)
[2022-02-23 05:54] LABS: Glucose Point of Care 115 mg/dl (65-105)
[2022-02-23] MEDS: PHYTONADIONE ADULT INJ 10 MG in DEXTROSE 5% IN WATER 50 ML 100 MG IVPB (09:00)
--- NOTE | 2022-02-23 10:06 | PM.CNCAR ---
Assessment and Plan Assessment and plan (1) Atrial flutter with rapid ventricular response: Code(s): I48.92 - Unspecified atrial flutter Status: Acute Assessment and Plan: ECG confirming atrial flutter with RVR. His ECGs from 02/11 showed atrial flutter with RVR, along with ECG from 02/15 and 02/22 Recent echocardiogram from 12/31/2021 showing normal LV size, LVEF 55-60%, moderate increased LV wall thickness, grade 2 diastolic dysfunction, trace MVR. As patient is in sinus rhythm now, would stop Amiodarone drip and transition to oral Amio. Given severe anemia with Hgb 5.7, not a candidate for anticoagulation at this time. History of Present Illness History of Present Illness Consult date/time: 02/23/22 10:06 Requesting physician: Trisha Lieberman MD Consult reason: Other (Atrial flutter) Reason For Visit: Hypotension Narrative: Patient is a 66-year-old male who was recently diagnosed with lymphoma. Complicated by severe anemia requiring blood transfusions. Patient was sent to the ED because [facility] home health nurse was unable to get an oxygen saturation on him. Also noted to have low blood pressures. Patient noted to be in atrial flutter with RVR on presentation, for which we are consulted. Patient was started on Amiodarone drip. Patient currently in sinus rhythm on 0.5 of Amio. Denies chest pain, shortness of breath, palpitations. Hgb 5.7 this AM. Review of Systems Review of Systems: 12-point ROS obtained. Negative, unless stated in [facility] Past Medical History Medical History Anemia of chronic disease Chronic hyponatremia Claudication in peripheral vascular disease COPD (chronic obstructive pulmonary disease) Diastolic heart failure Echocardiogram December 2021: Left ventricular systolic function normal with EF of 55-60, moderate concentric left ventricular increased wall thickness, grade 2 diastolic dysfunction, mild aortic valve sclerosis, 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 consistent with significantly elevated right atrial pressures DM2 (diabetes mellitus, type 2) DVT (deep venous thrombosis) 1998 and 2015 GERD (gastroesophageal reflux disease) Hiatal hernia Hyperlipidemia Ischemic colitis (04/2016) Lymphedema of both lower extremities MDD (major depressive disorder) Obstructive sleep apnea (06/2021) Polysomnogram demonstrated moderate obstructive sleep apnea with hypo apnea index of 15 desaturations of 85% he is treated with auto PAP with a range of 7-12 cm Peripheral neuropathy Pulmonary embolism 1990s Tobacco abuse Surgical History Surgical History Abnormal colonoscopy (04/2016) Colonic ulcer with pathology demonstrating acute and chronic colitis with benign ulcer consistent with ischemic colitis History of ankle surgery (2018) ORIF History of esophagogastroduodenoscopy (EGD) (~2012) Esophageal diverticulum S/P cubital tunnel release Family History Family History Father Lung cancer Mother Lung cancer Seizures Diabetes mellitus Sibling Lung cancer Hepatitis C Other Family history of arthritis Hypertension Social History Social History Social History: The patient lives with his and they have no children. He is Diabled. He continues to smoke approximately half a pack- 1 pack a cigarettes a day. No alcohol marijuana or illicit drugs. His is the [employer]. Code status full code Smoking packs per day: 1 Smoking cigarettes per day: 20.0 Years smoked: 55 Smoking pack-years: 55.00 Smoking status: Current every day smoker Tobacco type: cigarettes Second hand tobacco smoke exposure: No Additional smoking assessment comments: currently down to 1/2 pack Alcohol intake: never Al
[2022-02-23] MEDS: PANTOPRAZOLE SODIUM IV 40 MG VIAL IV PUSH ×2 (10:43→21:03)
[2022-02-23] MEDS: AMIODARONE HCL 200 MG TABLET 400 MG PO ×2 (10:43→17:24)
[2022-02-23 10:50] LABS: Basophils Percent Auto 0.4 % (0.2-1.2); Eosinophils Absolute Auto 0.1 K/mm3 (0-0.3); Eosinophils Percent Auto 2.4 % (0-4.4); Hematocrit 23.1 % (42.0-52.0); Hemoglobin 7.4 g/dL (14.0-18.0); Immature Platelet Fraction Pct 7.2 % (0.9-11.2); Lymphocytes Absolute Auto 0.48 K/mm3 (0.9-3.2); Lymphocytes Percent Auto 9.5 % (18.3-44.2); Mean Corpuscular Hemoglobin 29.7 pg (26-34); Mean Corpuscular Volume 92.8 fl (80-100); Mean Platelet Volume 11.4 fl (7.4-10.4); Monocytes Absolute Auto 0.6 K/mm3 (0.1-0.6); Monocytes Percent Auto 11.2 % (2.6-8.5); Neutrophils Absolute Auto 3.8 K/mm3 (1.3-6.7); Neutrophils Percent Auto 74.5 % (45.5-73.1); Platelet Count Result 48 k/mm3 (150-375); Red Blood Count 2.49 M/mm3 (4.6-6.20); Red Cell Distribution Width 17.1 % (11.5-14.5); White Blood Count 5.1 K/mm3 (4.5-10.0)
[2022-02-23 11:06] LABS: Ammonia 10 umol/L (9-30); Lactic Acid Reflex 1.2 mmol/L (0.7-2.0)
[2022-02-23 11:09] LABS: Alanine Aminotransferase 10 U/L (6-50); Albumin Level 2.4 g/dL (3.5-5.1); Alkaline Phosphatase 238 U/L (38-126); Anion Gap 10 mmol/L (8-16); Aspartate Amino Transferase 28 U/L (17-59); Bilirubin,Total 3.4 mg/dL (0.2-1.3); Blood Urea Nitrogen 12 mg/dL (9-20); Calcium 7.1 mg/dL (8.4-10.2); Carbon Dioxide 26 mmol/L (22-30); Chloride 95 mmol/L (98-107); Estimated CRCL calculation 114 ml/min; Estimated Glomerular Filt Rate > 60; Glucose 115 mg/dL (65-110); Phosphorus 5.5 mg/dL (2.5-4.5); Sodium 131 mmol/L (137-145)
[2022-02-23 11:12] LABS: Hemoglobin A1C 5.3 % (<5.7)
[2022-02-23 12:03] LABS: Glucose Point of Care 116 mg/dl (65-105)
[2022-02-23 12:15] LABS: Anisocytosis 1+ (NORMAL); Hypochromasia 1+ (NORMAL); Platelet Estimate Decreased (Adequate); Poikilocytosis 1+ (NORMAL); Schistocytes None Seen (NORMAL)
--- NOTE | 2022-02-23 14:08 | WPDCNINT ---
Assessment and Plan Assessment and plan (1) Atrial flutter with rapid ventricular response: Code(s): I48.92 - Unspecified atrial flutter Status: Acute Assessment and Plan: Patient presented with me weakness, low O2 sats, was found to be in AFib RVR with hypotension in the ER -patient was given amiodarone bolus and started on amiodarone infusion with conversion to sinus rhythm. -appreciate Cardiology evaluation and recommendations, patient is being placed on oral amiodarone and amiodarone infusion be discontinued. -echocardiogram 12/31/2021 showed normal LV size, LVEF of 55-60%, grade 2 diastolic dysfunction, trace MVR, moderate increased LV wall thickness. (2) Acute hypotension: Code(s): I95.9 - Hypotension, unspecified Status: Acute Assessment and Plan: Acute hypotension was probably related with AFib RVR a and anemia -once patient was started on amiodarone, given IV fluids and packed RBCs, blood patient remained stable and improving -will continue to monitor (3) Anemia: Qualifiers: Anemia type: unspecified type Qualified Code(s): D64.9 - Anemia, unspecified Code(s): D64.9 - Anemia, unspecified Status: Acute Assessment and Plan: Patient has a history of aplastic anemia has been requiring multiple blood transfusions over the last few months -patient dropped his hemoglobin in the hospital to 5.7 requiring 2 units of packed RBCs -patient is on Xarelto for history of DVTs and PE -will hold Xarelto for now -INR was elevated, patient was given vitamin K and FFP -stool for Hemoccult on 02/16/2022 was negative -will repeat stool for Hemoccult -checks serial H&H (4) Hyperbilirubinemia: Code(s): E80.6 - Other disorders of bilirubin metabolism Status: Acute Assessment and Plan: Hyperbilirubinemia likely related to anemia, possibly due to gallbladder sludge and wall thickening. Patient possibly has some chronic underlying liver disease -02/23:right upper quadrant ultrasound showed: ?Gallbladder sludge. Gallbladder wall thickening may be seen with interstitial edema, chronic liver disease, or chronic cholecystitis. -02/23 CT scan of the abdomen and pelvis showed mild pulmonary edema, small pleural effusions, abdominal lymphadenopathy suspicious for lymphoma or metastatic disease. Consider CT I did biopsy of the left para-aortic lymph node. Mild splenomegaly. (5) Lymphoma: Code(s): C85.90 - Non-Hodgkin lymphoma, unspecified, unspecified site Status: Acute Assessment and Plan: CT scan of the abdomen pelvis from 02/16 and 02/23 suspicious for lymphoma, -await Hematology/Oncology to evaluate the patient -he is on Xarelto with elevated INR, left be cautious with biopsy (6) Elevated INR: Code(s): R79.1 - Abnormal coagulation profile Status: Acute Assessment and Plan: Elevated INR could be related to Xarelto, underlying liver disease -patient with drop in his hemoglobin, was given vitamin K and FFP on 02/23 (7) COPD (chronic obstructive pulmonary disease): Code(s): J44.9 - Chronic obstructive pulmonary disease, unspecified Status: Acute Assessment and Plan: Will start bronchodilators (8) DM2 (diabetes mellitus, type 2): Code(s): E11.9 - Type 2 diabetes mellitus without complications Status: Chronic Assessment and Plan: Continue sliding scale insulin and Accu-Chek Plan DVT prophylaxis: SCD Stress ulcer prophylaxis: Protonix IV q.12 hours Nutrition: Clear liquid diet Code Status: Patient is a modified code, no intubation but okay for CPR Critical Care Time Spent: 48 minutes Due to a high probability of clinically significant, life threatening deterioration, the patient required my highest level of preparedness to intervene emergently and I personally spent this critical care time directly and personally managing the patient. This critical care time included obtaining a history; ex
[2022-02-23 17:30] LABS: Glucose Point of Care 95 mg/dl (65-105)
--- NOTE | 2022-02-23 18:27 | PDONCCN ---
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 Patient also had bone marrow aspiration and biopsy done in November 2021 that showed no clonal B cells or blasts. Marrow was hypocellular with trilineage hematopoiesis with no evidence of neoplasia and dysplasia. He came into the hospital due to tiredness and fatigue along with listlessness and sleepiness. He has been eating poorly and has lost more than 5 lb weight. He has chills all the time. Denies any fevers. Patient also has a history of atrial flutter. He was found to be hypotensive with tachycardia. Labs showed hemoglobin of 5.7. He received 2 units of packed red blood cell and fresh frozen plasma. He also received 3 units of packed red blood cell on February 15 that [facility]. There was no bleeding and bruising. There was some darkening of the urine. He seems to be quite lethargic. CT abdomen and pelvis showed abdominal lymphadenopathy suspicious for lymphoma or metastatic disease. There was 4.9 x 3.3 cm left para-aortic lymphadenopathy. Review of Systems - Review of Systems All systems reviewed & are unremarkable except as noted in HPI and bel - Neurologic Reports system reviewed and no additional complaints, except as documented, Reports hearing normal [facility] Medical History: Medical History (Last Reviewed 02/23/22 @ 10:13 by Anna Rivers MD) Anemia of chronic disease Chronic hyponatremia Claudication in peripheral vascular disease COPD (chronic obstructive pulmonary disease) Diastolic heart failure Echocardiogram December 2021: Left ventricular systolic function normal with EF of 55-60, moderate concentric left ventricular increased wall thickness, grade 2 diastolic dysfunction, mild aortic valve sclerosis, 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 consistent with significantly elevated right atrial pressures DM2 (diabetes mellitus, type 2) DVT (deep venous thrombosis) 1998 and 2015 GERD (gastroesophageal reflux disease) Hiatal hernia Hyperlipidemia Ischemic colitis Onset Date: 04/2016 Lymphedema of both lower extremities MDD (major depressive disorder) Obstructive sleep apnea Onset Date: 06/2021 Polysomnogram demonstrated moderate obstructive sleep apnea with hypo apnea index of 15 desaturations of 85% he is treated with auto PAP with a range of 7-12 cm Peripheral neuropathy Pulmonary embolism 1990s Tobacco abuse Surgical History: Surgical History (Last Reviewed 02/23/22 @ 10:13 by Anna Rivers MD) Abnormal colonoscopy Onset Date: 04/2016 Colonic ulcer with pathology demonstrating acute and chronic colitis with benign ulcer consistent with ischemic colitis History of ankle surgery Onset Date: 2017 ORIF History of esophagogastroduodenoscopy (EGD) Onset Date: ~2012 Esophageal diverticulum S/P cubital tunnel release Family History: Family History (Last Reviewed 02/23/22 @ 10:13 by Anna Rivers MD) Father Lung cancer Mother Lung cancer Seizures Diabetes mellitus Sibling Lung cancer Hepatitis C Other Family history of arthritis Hypertension - Social History Social History: Social History (Last Reviewed 02/23/22 @ 10:13 by Anna Rivers MD) Gender Identity: Gender identity (if verbalized by the patient): Male Sexual Orientation: Sexual Orientation (if Verbalized by the Patient): Straight or Heterosexual Alcohol Use: Alcohol intake: never Alcohol use details: Denies Substance Use: Subst
[2022-02-23 18:28] LABS: Hemoglobin 7.3 g/dL (14.0-18.0)
[2022-02-23 20:17] LABS: Immature Reticulocyte Fraction 16.8 % (3.0-15.9); Reticulocyte Hemoglobin Conten 28.4 pg (28.2-35.7); Reticulocyte Percent 2.29 % (0.7-4.3); Reticulocytes Absolute 0.06 B/L (32.2-175.7)
[2022-02-23 20:23] LABS: Lactate Dehydrogenase 101 U/L (120-246)
[2022-02-24] VITALS (16 sets, daily range): BP systolic 95–108; BP diastolic 50–65; PULSE 92–111; RESP 18–20; TEMP 36.2–37; O2SAT 92–96
[2022-02-24 00:02] LABS: Glucose Point of Care 129 mg/dl (65-105)
[2022-02-24] MEDS: IPRATROPIUM BR 0.02% INH SOLN 0.5 MG/2.5 ML VIAL INHALATION ×3 (02:54→20:33)
[2022-02-24 05:47] LABS: Glucose Point of Care 122 mg/dl (65-105)
[2022-02-24 07:07] LABS: Basophils Absolute Auto 0.1 K/mm3 (0.0-0.1); Basophils Percent Auto 1.1 % (0.2-1.2); Eosinophils Absolute Auto 0.1 K/mm3 (0-0.3); Eosinophils Percent Auto 1.7 % (0-4.4); Hematocrit 22.8 % (42.0-52.0); Immature Granulocyte Absolute 0.08 K/mm3 (0.00-0.031); Immature Granulocyte Percent A 1.5 % (0-0.5); Lymphocytes Absolute Auto 0.61 K/mm3 (0.9-3.2); Lymphocytes Percent Auto 11.4 % (18.3-44.2); Mean Corpuscular HGB Conc 31.1 g/dl (32-36); Mean Corpuscular Hemoglobin 29.8 pg (26-34); Mean Corpuscular Volume 95.8 fl (80-100); Mean Platelet Volume 11.6 fl (7.4-10.4); Monocytes Absolute Auto 0.6 K/mm3 (0.1-0.6); Monocytes Percent Auto 10.5 % (2.6-8.5); Neutrophils Absolute Auto 3.9 K/mm3 (1.3-6.7); Neutrophils Percent Auto 73.8 % (45.5-73.1); Platelet Count Result 41 k/mm3 (150-375); Red Blood Count 2.38 M/mm3 (4.6-6.20); Red Cell Distribution Width 17.5 % (11.5-14.5); White Blood Count 5.3 K/mm3 (4.5-10.0)
[2022-02-24 07:17] LABS: Alanine Aminotransferase 9 U/L (6-50); Albumin Level 2.5 g/dL (3.5-5.1); Alkaline Phosphatase 250 U/L (38-126); Anion Gap 11 mmol/L (8-16); Aspartate Amino Transferase 20 U/L (17-59); Bilirubin,Total 3.4 mg/dL (0.2-1.3); Blood Urea Nitrogen 10 mg/dL (9-20); Calcium 7.2 mg/dL (8.4-10.2); Carbon Dioxide 24 mmol/L (22-30); Chloride 96 mmol/L (98-107); Estimated CRCL calculation 114 ml/min; Estimated Glomerular Filt Rate > 60; Glucose 109 mg/dL (65-110); Magnesium 2.1 mg/dL (1.6-2.3); Phosphorus 5.4 mg/dL (2.5-4.5); Potassium 2.6 mmol/L (3.4-5.0); Sodium 131 mmol/L (137-145)
[2022-02-24 07:55] LABS: Hemoglobin 7.1 g/dL (14.0-18.0)
[2022-02-24 08:26] LABS: INR 1.8; Prothrombin Time 19.8 Seconds (11.1-14.7)
[2022-02-24] MEDS: POTASSIUM CHLORIDE 20 MEQ TABLET 40 MEQ PO (08:49)
[2022-02-24] MEDS: PANTOPRAZOLE SODIUM IV 40 MG VIAL IV PUSH ×2 (08:49→20:52)
--- NOTE | 2022-02-24 09:20 | PM.PNCARD ---
Progress Note: A&P Assessment and Plan (1) Atrial flutter with rapid ventricular response: Code(s): I48.92 - Unspecified atrial flutter Status: Acute Assessment and Plan: ECG confirming atrial flutter with RVR. His ECGs from 02/11 showed atrial flutter with RVR, along with ECG from 02/15 and 02/22 Recent echocardiogram from 12/31/2021 showing normal LV size, LVEF 55-60%, moderate increased LV wall thickness, grade 2 diastolic dysfunction, trace MVR. Continue oral amiodarone 400mg p.o. b.i.d. Should decrease to 200mg daily on discharge for maintenance dose Given severe anemia with Hgb 5.7, not a candidate for anticoagulation at this time. Cardiology will sign off at this time. Please do not hesitate to call us with questions. Subjective Date/time seen: 02/24/22 09:20 Cardiology follow up for atrial fibrillation Stable overnight. H/H stable this morning. He denies any chest pain, shortness of breath. Remains in sinus rhythm. Review of Systems Review of Systems: All systems reviewed & are unremarkable except as noted in HPI and below Exam Const: General: no acute distress Nutritional Appearance: average body habitus Other: Ill-appearing HENMT: Mouth: Yes dry mucous membranes Eyes: General: appearance normal, both eyes and all related structures Neck: Neck: no JVD Resp: Effort & Inspection: normal respiratory effort Auscultation: diminished lung sounds Cardio: Rate: regular rate Rhythm: regular rhythm Heart sounds: Murmur heart sound present systolic at the base GI: Auscultation: normal bowel sounds Urinary Catheter: Urinary Catheter: patent and draining and urine clear Skin: Other: No edema Neuro: Speech: normal speech Extrem: General: no edema Psych: Mental Status: mental status grossly normal Objective Data Vital Signs Vital Signs: Vital Signs - 24 hr 02/23/22 09:23 02/23/22 09:24 02/23/22 09:35 Temperature Pulse Rate 99 96 Respiratory Rate 20 21 H Blood Pressure Pulse Oximetry 96 Oxygen Delivery Room Air 02/23/22 09:30 02/23/22 10:43 02/23/22 10:00 Temperature 36.6 C Pulse Rate 101 H 106 H 102 H Respiratory Rate 22 H 19 Blood Pressure 111/97 H 103/65 Pulse Oximetry 96 94 Oxygen Delivery 02/23/22 10:00 02/23/22 12:00 02/23/22 12:00 Temperature Pulse Rate 102 H 103 H 103 H Respiratory Rate 16 Blood Pressure Pulse Oximetry 94 Oxygen Delivery Room Air 02/23/22 09:30 02/23/22 09:31 02/23/22 09:45 Temperature Pulse Rate 96 99 101 H Respiratory Rate 19 19 21 H Blood Pressure 103/65 103/64 Pulse Oximetry 100 100 Oxygen Delivery 02/23/22 09:46 02/23/22 10:00 02/23/22 10:01 Temperature Pulse Rate 102 H 106 H 104 H Respiratory Rate 20 27 H 25 H Blood Pressure 106/59 L Pulse Oximetry 99 98 97 Oxygen Delivery 02/23/22 10:15 02/23/22 10:16 02/23/22 10:30 Temperature Pulse Rate 104 H 104 H 103 H Respiratory Rate 21 H 18 18 Blood Pressure 104/61 100/64 Pulse Oximetry 97 97 95 Oxygen Delivery 02/23/22 10:31 02/23/22 10:45 02/23/22 10:46 Temperature Pulse Rate 103 H 101 H 101 H Respiratory Rate 22 H 22 H 20 Blood Pressure 103/65 Pulse Oximetry 96 95 95 Oxygen Delivery 02/23/22 11:00 02/23/22 11:01 02/23/22 11:07 Temperature Pulse Rate 101 H 104 H Respiratory Rate 17 19 Blood Pressure 102/62 102/62 Pulse Oximetry 95 96 95 Oxygen Delivery 02/23/22 11:15 02/23/22 11:25 02/23/22 11:30 Temperature Pulse Rate 102 H 107 H 104 H Respiratory Rate 19 19 16 Blood Pressure 102/62 Pulse Oximetry 98 100 98 Oxygen Delivery 02/23/22 11:45 02/23/22 12:00 02/23/22 12:01 Temperature 36.8 C Pulse Rate 104 H 102 H 102 H Respiratory Rate 17 17 16 Blood Pressure 102/58 L Pulse Oximetry 95 94 94 Oxygen Delivery 02/23/22 14:00 02/23/22 12:10 02/23/22 12:15 Temperature Pulse Rate 105 H 105 H 102 H Respiratory Rate 16 16 Blood Press
[2022-02-24] MEDS: AMIODARONE HCL 200 MG TABLET 400 MG PO ×2 (09:50→17:38)
[2022-02-24] MEDS: POTASSIUM CHLORIDE INJ 40 MEQ in SODIUM CHLORIDE 0.9% IV 500 ML 130 MEQ IVPB (10:53)
[2022-02-24 11:47] LABS: Glucose Point of Care 121 mg/dl (65-105)
[2022-02-24 18:10] LABS: Glucose Point of Care 183 mg/dl (65-105)
--- NOTE | 2022-02-24 18:45 | PM.IMPN ---
Progress Note: A&P Assessment and Plan (1) Atrial flutter with rapid ventricular response: Code(s): I48.92 - Unspecified atrial flutter Status: Acute Assessment and Plan: Patient presented with me weakness, low O2 sats, was found to be in AFib RVR with hypotension in the ER -patient was given amiodarone bolus and started on amiodarone infusion with conversion to sinus rhythm. -appreciate Cardiology evaluation and recommendations, patient is being placed on oral amiodarone and amiodarone infusion be discontinued. -echocardiogram 12/31/2021 showed normal LV size, LVEF of 55-60%, grade 2 diastolic dysfunction, trace MVR, moderate increased LV wall thickness. (2) Acute hypotension: Code(s): I95.9 - Hypotension, unspecified Status: Acute Assessment and Plan: Acute hypotension was probably related with AFib RVR a and anemia -once patient was started on amiodarone, given IV fluids and packed RBCs, blood patient remained stable and improving -will continue to monitor (3) Anemia: Qualifiers: Anemia type: unspecified type Qualified Code(s): D64.9 - Anemia, unspecified Code(s): D64.9 - Anemia, unspecified Status: Acute Assessment and Plan: Patient has a history of aplastic anemia has been requiring multiple blood transfusions over the last few months -patient dropped his hemoglobin in the hospital to 5.7 requiring 2 units of packed RBCs -patient is on Xarelto for history of DVTs and PE -will hold Xarelto for now -INR was elevated, patient was given vitamin K and FFP -stool for Hemoccult on 02/16/2022 was negative -will repeat stool for Hemoccult -checks serial H&H (4) Hyperbilirubinemia: Code(s): E80.6 - Other disorders of bilirubin metabolism Status: Acute Assessment and Plan: Hyperbilirubinemia likely related to anemia, possibly due to gallbladder sludge and wall thickening. Patient possibly has some chronic underlying liver disease -02/23:right upper quadrant ultrasound showed: ?Gallbladder sludge. Gallbladder wall thickening may be seen with interstitial edema, chronic liver disease, or chronic cholecystitis. -02/23 CT scan of the abdomen and pelvis showed mild pulmonary edema, small pleural effusions, abdominal lymphadenopathy suspicious for lymphoma or metastatic disease. Consider CT I did biopsy of the left para-aortic lymph node. Mild splenomegaly. Underwent CT-guided biopsy of left para-aortic lymph node (5) Lymphoma: Code(s): C85.90 - Non-Hodgkin lymphoma, unspecified, unspecified site Status: Acute Assessment and Plan: Recently diagnosed CT scan of the abdomen pelvis from 02/16 and 02/23 suspicious for lymphoma, heme Onc evaluated and plan for biopsy of his left para-aortic lymph node which was done today 02/24/2022 (6) Elevated INR: Code(s): R79.1 - Abnormal coagulation profile Status: Acute Assessment and Plan: Elevated INR could be related to Xarelto, underlying liver disease -patient with drop in his hemoglobin, was given vitamin K and FFP on 02/23 (7) COPD (chronic obstructive pulmonary disease): Code(s): J44.9 - Chronic obstructive pulmonary disease, unspecified Status: Acute Assessment and Plan: continue bronchodilators (8) DM2 (diabetes mellitus, type 2): Code(s): E11.9 - Type 2 diabetes mellitus without complications Status: Chronic Assessment and Plan: Continue sliding scale insulin and Accu-Chek Plan DVT prophylaxis: SCD Stress ulcer prophylaxis: Protonix IV q.12 hours Nutrition: Clear liquid diet history of right ankle infected hardware now right recently to surgery likely like off treated with IV antibiotics. On oral antibiotics currently until 02 of March. Will resume these Code Status: Patient is a modified code, no intubation but okay for CPR Subjective Date/time seen: 02/24/22 18:45 Interval history: This is a 66-year-old mal
[2022-02-24 19:36] LABS: Potassium 3.2 mmol/L (3.4-5.0)
[2022-02-24] MEDS: GABAPENTIN 300 MG CAPSULE PO (20:52)
[2022-02-24] MEDS: metroNIDAZOLE 250 MG TABLET 500 MG PO (20:52)
[2022-02-24] MEDS: CEPHALEXIN 500 MG CAPSULE 1000 MG PO (20:52)
[2022-02-25] VITALS (21 sets, daily range): BP systolic 97–111; BP diastolic 57–83; PULSE 98–112; RESP 16–20; TEMP 36.3–36.8; O2SAT 92–97
[2022-02-25 00:16] LABS: Glucose Point of Care 156 mg/dl (65-105)
[2022-02-25] MEDS: IPRATROPIUM BR 0.02% INH SOLN 0.5 MG/2.5 ML VIAL INHALATION ×4 (01:17→20:13)
[2022-02-25] MEDS: metroNIDAZOLE 250 MG TABLET 500 MG PO ×3 (05:47→20:39)
[2022-02-25 06:11] LABS: Glucose Point of Care 130 mg/dl (65-105)
[2022-02-25 06:40] LABS: Basophils Percent Auto 0.6 % (0.2-1.2); Eosinophils Absolute Auto 0.1 K/mm3 (0-0.3); Hematocrit 22.2 % (42.0-52.0); Immature Granulocyte Absolute 0.08 K/mm3 (0.00-0.031); Immature Granulocyte Percent A 1.5 % (0-0.5); Immature Platelet Fraction Pct 8.3 % (0.9-11.2); Lymphocytes Absolute Auto 0.73 K/mm3 (0.9-3.2); Lymphocytes Percent Auto 14.1 % (18.3-44.2); Mean Corpuscular HGB Conc 31.5 g/dl (32-36); Mean Corpuscular Hemoglobin 29.9 pg (26-34); Mean Corpuscular Volume 94.9 fl (80-100); Mean Platelet Volume 11.1 fl (7.4-10.4); Monocytes Absolute Auto 0.6 K/mm3 (0.1-0.6); Monocytes Percent Auto 11.8 % (2.6-8.5); Neutrophils Absolute Auto 3.7 K/mm3 (1.3-6.7); Platelet Count Result 40 k/mm3 (150-375); Red Blood Count 2.34 M/mm3 (4.6-6.20); Red Cell Distribution Width 17.2 % (11.5-14.5); White Blood Count 5.2 K/mm3 (4.5-10.0)
[2022-02-25 07:15] LABS: Alanine Aminotransferase 9 U/L (6-50); Albumin Level 2.4 g/dL (3.5-5.1); Alkaline Phosphatase 241 U/L (38-126); Anion Gap 9 mmol/L (8-16); Aspartate Amino Transferase 19 U/L (17-59); Blood Urea Nitrogen 12 mg/dL (9-20); Calcium 7.3 mg/dL (8.4-10.2); Carbon Dioxide 25 mmol/L (22-30); Chloride 100 mmol/L (98-107); Estimated CRCL calculation 135 ml/min; Estimated Glomerular Filt Rate > 60; Glucose 115 mg/dL (65-110); Magnesium 2.2 mg/dL (1.6-2.3); Potassium 3.1 mmol/L (3.4-5.0); Sodium 134 mmol/L (137-145)
[2022-02-25] MEDS: AMIODARONE HCL 200 MG TABLET 400 MG PO ×2 (08:08→17:01)
[2022-02-25] MEDS: FERROUS SULFATE 324 MG TABLET PO ×2 (08:08→17:02)
[2022-02-25] MEDS: PANTOPRAZOLE SODIUM IV 40 MG VIAL IV PUSH ×2 (08:08→20:38)
[2022-02-25] MEDS: ALPRAZolam (*CRX) 0.5 MG TABLET PO (08:09)
[2022-02-25] MEDS: SERTRALINE HCL 50 MG TABLET PO (08:09)
[2022-02-25] MEDS: CEPHALEXIN 500 MG CAPSULE 1000 MG PO ×2 (08:09→17:02)
[2022-02-25] MEDS: ATORVASTATIN 20 MG TABLET PO (08:09)
[2022-02-25] MEDS: POTASSIUM CHLORIDE 20 MEQ TABLET 40 MEQ PO (08:09)
[2022-02-25] MEDS: FAMOTIDINE 20 MG TABLET PO (08:09)
[2022-02-25] MEDS: CYANOCOBALAMIN 1,000 MCG TABLET 1000 MCG PO (08:09)
[2022-02-25] MEDS: GABAPENTIN 300 MG CAPSULE PO ×3 (08:10→17:02)
[2022-02-25] MEDS: POTASSIUM CHLORIDE 20 MEQ TABLET.ER PO (08:10)
[2022-02-25 11:56] LABS: Glucose Point of Care 137 mg/dl (65-105)
[2022-02-25] MEDS: ALBUTEROL SULFATE NEB 2.5 MG/3 ML INH INHALATION (14:03)
[2022-02-25 16:11] LABS: Basophils Percent Auto 0.6 % (0.2-1.2); Eosinophils Percent Auto 0.6 % (0-4.4); Hematocrit 21.5 % (42.0-52.0); Immature Granulocyte Absolute 0.11 K/mm3 (0.00-0.031); Immature Platelet Fraction Pct 7.2 % (0.9-11.2); Lymphocytes Absolute Auto 0.71 K/mm3 (0.9-3.2); Lymphocytes Percent Auto 13.1 % (18.3-44.2); Mean Corpuscular HGB Conc 31.6 g/dl (32-36); Mean Corpuscular Hemoglobin 29.8 pg (26-34); Mean Corpuscular Volume 94.3 fl (80-100); Mean Platelet Volume 10.8 fl (7.4-10.4); Monocytes Absolute Auto 0.6 K/mm3 (0.1-0.6); Monocytes Percent Auto 10.4 % (2.6-8.5); Neutrophils Percent Auto 73.3 % (45.5-73.1); Platelet Count Result 37 k/mm3 (150-375); Red Blood Count 2.28 M/mm3 (4.6-6.20); Red Cell Distribution Width 17.2 % (11.5-14.5); White Blood Count 5.4 K/mm3 (4.5-10.0)
[2022-02-25 16:17] LABS: Hemoglobin 6.8 g/dL (14.0-18.0)
--- NOTE | 2022-02-25 16:36 | PM.IMPN ---
Progress Note: A&P Assessment and Plan (1) Atrial flutter with rapid ventricular response: Code(s): I48.92 - Unspecified atrial flutter Status: Acute Assessment and Plan: Patient presented with me weakness, low O2 sats, was found to be in AFib RVR with hypotension in the ER -patient was given amiodarone bolus and started on amiodarone infusion with conversion to sinus rhythm. -appreciate Cardiology evaluation and recommendations, patient is being placed on oral amiodarone and amiodarone infusion be discontinued. -echocardiogram 12/31/2021 showed normal LV size, LVEF of 55-60%, grade 2 diastolic dysfunction, trace MVR, moderate increased LV wall thickness. amidoarone switch to oral 200 mg po daily (2) Acute hypotension: Code(s): I95.9 - Hypotension, unspecified Status: Acute Assessment and Plan: Acute hypotension was probably related with AFib RVR a and anemia -once patient was started on amiodarone, given IV fluids and packed RBCs, blood patient remained stable and improving -will continue to monitor hold lasix at [facility]. leg swelling has improved. (3) Anemia: Qualifiers: Anemia type: unspecified type Qualified Code(s): D64.9 - Anemia, unspecified Code(s): D64.9 - Anemia, unspecified Status: Acute Assessment and Plan: Patient has a history of aplastic anemia has been requiring multiple blood transfusions over the last few months -patient dropped his hemoglobin in the hospital to 5.7 requiring 2 units of packed RBCs -patient is on Xarelto for history of DVTs and PE -will hold Xarelto for now -INR was elevated, patient was given vitamin K and FFP -stool for Hemoccult on 02/16/2022 was negative -repeat stool for Hemoccult pending. supsected hemolytic anemia. haptoglobin pending. LDH normal - (4) Hyperbilirubinemia: Code(s): E80.6 - Other disorders of bilirubin metabolism Status: Acute Assessment and Plan: Hyperbilirubinemia likely related to anemia, possibly due to gallbladder sludge and wall thickening. Patient possibly has some chronic underlying liver disease -02/23:right upper quadrant ultrasound showed: ?Gallbladder sludge. Gallbladder wall thickening may be seen with interstitial edema, chronic liver disease, or chronic cholecystitis. -02/23 CT scan of the abdomen and pelvis showed mild pulmonary edema, small pleural effusions, abdominal lymphadenopathy suspicious for lymphoma or metastatic disease. Consider CT I did biopsy of the left para-aortic lymph node. Mild splenomegaly. Underwent CT-guided biopsy of left para-aortic lymph node results pending (5) Lymphoma: Code(s): C85.90 - Non-Hodgkin lymphoma, unspecified, unspecified site Status: Acute Assessment and Plan: Recently diagnosed CT scan of the abdomen pelvis from 02/16 and 02/23 suspicious for lymphoma, heme Onc evaluated and plan for biopsy of his left para-aortic lymph node which was done today 02/24/2022 (6) Elevated INR: Code(s): R79.1 - Abnormal coagulation profile Status: Acute Assessment and Plan: Elevated INR could be related to Xarelto, underlying liver disease -patient with drop in his hemoglobin, was given vitamin K and FFP on 02/23 (7) COPD (chronic obstructive pulmonary disease): Code(s): J44.9 - Chronic obstructive pulmonary disease, unspecified Status: Acute Assessment and Plan: continue bronchodilators (8) DM2 (diabetes mellitus, type 2): Code(s): E11.9 - Type 2 diabetes mellitus without complications Status: Chronic Assessment and Plan: Continue sliding scale insulin and Accu-Chek Plan DVT prophylaxis: SCD Stress ulcer prophylaxis: Protonix IV q.12 hours Nutrition: Clear liquid diet history of right ankle infected hardware now right recently to surgery likely like off treated with IV antibiotics. On oral antibiotics currently until 02 of March. Will resume these to co
[2022-02-25] MEDS: SODIUM CHLORIDE 0.9% IV 250 ML 30 ML IV CONT (16:54)
[2022-02-25] MEDS: TUBING, BLOOD PLUM PUMP TUBING 1 EACH XX (16:54)
[2022-02-25] MEDS: predniSONE 20 MG TABLET 60 MG PO (17:09)
[2022-02-25 18:34] LABS: Glucose Point of Care 138 mg/dl (65-105)
--- NOTE | 2022-02-25 19:39 | PM.DS ---
DS: Admitting Diagnosis Discharge Date 02/25/22 Admitting Diagnosis Weakness DS: Discharge Diagnosis Discharge Diagnosis (1) Atrial flutter with rapid ventricular response: Code(s): I48.92 - Unspecified atrial flutter Status: Acute (2) Acute hypotension: Code(s): I95.9 - Hypotension, unspecified Status: Acute (3) Anemia: Qualifiers: Anemia type: unspecified type Qualified Code(s): D64.9 - Anemia, unspecified Code(s): D64.9 - Anemia, unspecified Status: Acute (4) Hyperbilirubinemia: Code(s): E80.6 - Other disorders of bilirubin metabolism Status: Acute (5) Lymphoma: Code(s): C85.90 - Non-Hodgkin lymphoma, unspecified, unspecified site Status: Acute (6) Elevated INR: Code(s): R79.1 - Abnormal coagulation profile Status: Acute (7) COPD (chronic obstructive pulmonary disease): Code(s): J44.9 - Chronic obstructive pulmonary disease, unspecified Status: Acute (8) DM2 (diabetes mellitus, type 2): Code(s): E11.9 - Type 2 diabetes mellitus without complications Status: Chronic DS: Summary Hospital Course Hospital Course: # Atrial flutter with rapid ventricular response: Patient presented with generalized weakness, low O2 sats, was found to be in AFib RVR with hypotension in the ER -patient was given amiodarone bolus and started on amiodarone infusion with conversion to sinus rhythm. - cardiology consulted and amiodarone was switched over to oral amiodarone. -echocardiogram 12/31/2021 showed normal LV size, LVEF of 55-60%, grade 2 diastolic dysfunction, trace MVR, moderate increased LV wall thickness. amidoarone switch to oral 200 mg po daily At discharge. Remains in intermittent AFib Due to severe anemia anticoagulation contraindicated. # Acute hypotension: ?Acute hypotension was probably related with AFib RVR a and anemia -once patient was started on amiodarone, given IV fluids and packed RBCs, blood patient remained stable and improving -will continue to monitor hold lasix at [facility]. leg swelling has improved. Patient has a history of aplastic anemia has been requiring multiple blood transfusions over the last few months -patient dropped his hemoglobin in the hospital to 5.7 requiring 2 units of packed RBCs -patient is on Xarelto for history of DVTs and PE - Xarelto was discontinued during the hospital stay and stopped at discharge due to ongoing anemia -INR was elevated, patient was given vitamin K and FFP -stool for Hemoccult on 02/16/2022 was negative -repeat stool for Hemoccult pending. supsected hemolytic anemia. oncology was consulted during the hospital stay. haptoglobin pending. LDH normal Suggested we start him on prednisone for possible hemolytic anemia. He does have underlying lymphoma however recent biopsy was negative for any involvement. - # Hyperbilirubinemia: Hyperbilirubinemia likely related to anemia, possibly due to gallbladder sludge and wall thickening.? Patient possibly has some chronic underlying liver disease -02/23:right upper quadrant ultrasound showed:??Gallbladder sludge. Gallbladder wall thickening may be seen with interstitial edema, chronic liver disease, or chronic cholecystitis. -02/23 CT scan of the abdomen and pelvis showed mild pulmonary edema, small pleural effusions, abdominal lymphadenopathy suspicious for lymphoma or metastatic disease.? Consider CT I did biopsy of the left para-aortic lymph node.? Mild splenomegaly. Underwent CT-guided? biopsy of left para-aortic lymph node results pending. This would be followed up by oncology as an outpatient basis # lymphoma: Recently diagnosed CT scan of the abdomen pelvis from 02/16 and 02/23 suspicious for lymphoma, ?heme Onc evaluated and plan for biopsy of his left para-aortic lymph node which was done 02/24/2022 # elevated INR: Elevated INR could be related to Xarelto, underlying liver disease -patient with drop in his hem
[2022-02-25 21:21] LABS: Glucose Point of Care 159 mg/dl (65-105)
[2022-03-01 04:51] LABS: Haptoglobin 271 mg/dL (43-212)
== END 2022-02-25 21:36 | disposition home health service (06) | DRG 841 ==
LOC: ANHED 20:35 → ANHICU 02-23 03:16 → ANH3MEDSUR 02-23 17:15
PROVIDERS: Emergency Medicine; Internal Medicine; Internal Medicine Hematology & Oncology; Nurse Practitioner; Admitting Provider Internal Medicine; Emergency Provider Emergency Medicine; PCP Family Medicine; Visit Provider Internal Medicine
DX: C85.90 Non-Hodgkin lymphoma, unspecified, unspecified site (principal); D61.9 Aplastic anemia, unspecified; I48.92 Unspecified atrial flutter; I50.32 Chronic diastolic (congestive) heart failure; E87.1 Hypo-osmolality and hyponatremia; I95.9 Hypotension, unspecified; E11.42 Type 2 diabetes mellitus with diabetic polyneuropathy; E11.51 Type 2 diabetes mellitus with diabetic peripheral angiopathy without gangrene; E80.6 Other disorders of bilirubin metabolism; R79.1 Abnormal coagulation profile; G47.33 Obstructive sleep apnea (adult) (pediatric); J44.9 Chronic obstructive pulmonary disease, unspecified; F17.210 Nicotine dependence, cigarettes, uncomplicated; E78.5 Hyperlipidemia, unspecified; K21.9 Gastro-esophageal reflux disease without esophagitis; K44.9 Diaphragmatic hernia without obstruction or gangrene; F32.9 Major depressive disorder, single episode, unspecified; Z20.822 Contact with and (suspected) exposure to COVID-19; Z79.01 Long term (current) use of anticoagulants; Z79.899 Other long term (current) drug therapy; Z86.711 Personal history of pulmonary embolism; Z86.718 Personal history of other venous thrombosis and embolism
CPT/HCPCS: 36415; 36430; 36600; 38505; 70450; 71045; 74176; 76705; 77012; 80053; 81001; 82140; 82805; 82948; 83010; 83036; 83605; 83615; 83735; 84100; 84132; 84443; 85014; 85018; 85025; 85046; 85055; 85610; 85730; 86850; 86880; 86900; 86901; 86923; 87040; 87502; 88184; 88305; 88341; 88342; 93005; 94640; 96361; 96365; 96366; 96367; 96372; 96375; 96376; 97162; 99285; A9270; C9113; G0378; J0282; J0692; J1650; J3370; J3430; J3480; J7040; J7050; J7512; P9016; P9017; U0003; U0005

== ENCOUNTER 2022-03-11 03:48 | Inpatient (IN) | payer MEDICARE, MEDICAID, SELFPAY ==
[2022-03-11] VITALS (16 sets, daily range): BP systolic 130–144; BP diastolic 65–75; PULSE 78–101; RESP 16–20; TEMP 36.2–36.7; O2SAT 96–100; BMI 23.5
--- NOTE | ~2022-03-11 | XR_ITS ---
EXAMINATION: XR chest 1V portable DATE: 03/16/2022 06:15 INDICATION: Atelectasis. TECHNIQUE: A single frontal view of the chest was obtained. COMPARISON: Chest single view 03/15/2022, chest CT 03/15/2022 FINDINGS: There are airspace opacities in all lung zones bilaterally, left worse than right. There is an interstitial pattern in right lung. Calcified bilateral lung nodules and calcified hilar and medi astinal lymph nodes are consistent with old granulomatous disease. There is a small left pleural effu amanda. No pneumothorax. The heart size is normal. There is a right internal jugular port with tip in s uperior vena cava. IMPRESSION: 1. Diffuse lung disease with improvement in left upper lobe, likely a combination of pneumonia and pu lmonary edema. 2. Stable small left pleural effusion. 3. Cardiomegaly. Reviewed, dictated and finalized at location A. STANT MAINTENANCE MANAGER IMPRESSION: 1. Diffuse lung disease with improvement in left upper lobe, likely a combinati on of pneumonia and pulmonary edema. 2. Stable small left pleural effusion. 3. Cardiomegaly.
--- NOTE | ~2022-03-11 | XR_ITS ---
EXAMINATION: XR chest port-a-cath/central DATE: 03/14/2022 15:17 INDICATION: Port placement. TECHNIQUE: A single frontal view of the chest was obtained on 2 radiographs. COMPARISON: Chest single view 02/22/2022 FINDINGS: There is volume loss of left hemithorax. There is complete opacification of left hemithorax with leftward shift of the mediastinum. There is interstitial pattern in the right lung, consistent with mild pulmonary edema. Calcified hilar and mediastinal lymph nodes are consistent with old granul omatous disease. The heart size is normal. There is a right internal jugular port with tip in superio r vena cava. IMPRESSION: 1. Port tip in superior vena cava. 2. New complete opacification of left hemithorax with leftward shift of the mediastinum, likely predo minantly atelectasis. 3. Mild pulmonary edema. Reviewed, dictated and finalized at location A. ER SORTER IMPRESSION: 1. Port tip in superior vena cava. 2. New complete opacification of left hemithorax with leftward shift of the med iastinum, likely predominantly atelectasis. 3. Mild pulmonary edema.
--- NOTE | ~2022-03-11 | CT_ITS ---
EXAMINATION:CT diagnostic chest wo con DATE: 03/15/2022 10:56 INDICATION: Pleural effusion. Atelectasis. TECHNIQUE: Computed tomography (CT) of the chest was performed without intravenous contrast. Automate d exposure control and iterative reconstruction technique were employed. The dose-length product (DLP ) was 240.46 mGy-cm. COMPARISON: Chest CT 12/11/2021, CT abdomen and pelvis 02/23/2022 FINDINGS: There is mild emphysema. There are patchy groundglass and airspace opacities in right upper lobe, right middle lobe, and right lower lobe, consistent with pneumonia. Calcified pulmonary nodule s and calcified hilar and mediastinal lymph nodes are consistent with old granulomatous disease. Ther e are extensive airspace opacities, nodules, and groundglass opacities in left lung. There is volume loss of left hemithorax with material in the left-sided bronchi. These findings are likely a combinat ion of atelectasis and pneumonia in left lung. There is a small left pleural effusion. The heart size is normal. There are coronary artery calcifications. There is a right internal jugular port with tip in superior vena cava. Calcifications in the spleen are consistent with old granulomatous disease. T here is aortocaval and left para-aortic lymphadenopathy. There is contrast in the gallbladder. There are bridging endplate osteophytes at multiple levels in the spine, consistent with diffuse idiopathic skeletal hyperostosis (DISH). IMPRESSION: 1. Diffuse lung disease, left worse than right, consistent with pneumonia and a component of left-jose luis ed atelectasis. 2. Small left pleural effusion. 3. Abdominal lymphadenopathy again seen, consistent with lymphoma. 4. Mild emphysema. Reviewed, dictated and finalized at location A. RS INSPECTOR IMPRESSION: 1. Diffuse lung disease, left worse than right, consistent with pneumonia and a component of left-sided atelectasis. 2. Small left pleural effusion. 3. Abdominal lymphadenopathy again seen, consistent with lymphoma. 4. Mild emphysema.
--- NOTE | ~2022-03-11 | XR_ITS ---
EXAMINATION: XR chest 1V portable DATE: 03/15/2022 05:53 INDICATION: Shortness of breath. TECHNIQUE: A single frontal view of the chest was obtained. COMPARISON: Chest single view 03/14/2022 FINDINGS: There is volume loss of left hemithorax with leftward shift of the mediastinum. There are a irspace opacities in all left lung zones. Calcified left lung nodules and calcified left hilar and me diastinal lymph nodes are consistent with old granulomatous disease. There is an interstitial pattern in right lung, consistent with pulmonary edema. No pneumothorax. The heart size is normal. There is a right internal jugular port with tip in superior vena cava. IMPRESSION: 1. Volume loss of left hemithorax with airspace opacities in all left lung zones with interval improv ement, likely predominantly atelectasis. 2. Mild pulmonary edema. Reviewed, dictated and finalized at location A. R PHOTOVOLTAIC SYSTEMS ENGINEER IMPRESSION: 1. Volume loss of left hemithorax with airspace opacities in all left lung zone s with interval improvement, likely predominantly atelectasis. 2. Mild pulmonary edema.
--- NOTE | ~2022-03-11 | XR_ITS ---
EXAMINATION: XR fl guide central line place DATE: 03/14/2022 15:03 INDICATION: Port catheter insertion TECHNIQUE: 2 fluoroscopic images of the central chest were obtained during procedure performed by Dr. Rasmussen. Radiologist was not present for the imaging or procedure. The amount of fluoroscopy time us ed during this procedure was 0.6 minutes. COMPARISON: None. FINDINGS: Right internal jugular central venous port catheter with distal tip at the caudal superior vena cava. There is diffuse opacification of the visualized left hemithorax. Calcified bilateral hilar and medi astinal lymph nodes consistent with old granulomatous disease. IMPRESSION: 1. Right internal jugular central venous catheter tip at the caudal superior vena cava. 2. Opacification of the visualized portion of the left hemithorax of indeterminate etiology. Would re commend further evaluation with dedicated PA and lateral chest radiograph or CT. Reviewed, dictated and finalized at location A. GER UROLOGY IMPRESSION: 1. Right internal jugular central venous catheter tip at the caudal superior ve na cava. 2. Opacification of the visualized portion of the left hemithorax of indetermin ate etiology. Would recommend further evaluation with dedicated PA and lateral chest radiograph or CT.
--- NOTE | 2022-03-11 05:17 | ADMGEN ---
This patient, Michael Gonzalez, was admitted to IMU Room 206-02 at 0340. Patient/family oriented to hospital policies and general routines including ID bracelet, bed and alarms, visiting hours, pain management, procedures, bathroom and other care routines, personal items, smoking policy, room service/diet, and visiting hours. Information on how to activate the Rapid Response Team has been discussed. Patient/Family are encouraged to report perceived risks to care and to ask questions if they do not understand what they are told or what they should do.
[2022-03-11 05:30] LABS: Hematocrit 24.9 % (42.0-52.0); Hemoglobin 7.9 g/dL (14.0-18.0); Immature Granulocyte Absolute 0.22 K/mm3 (0.00-0.031); Immature Granulocyte Percent A 3.1 % (0-0.5); Immature Platelet Fraction Pct 11.7 % (0.9-11.2); Lymphocytes Absolute Auto 0.19 K/mm3 (0.9-3.2); Lymphocytes Percent Auto 2.7 % (18.3-44.2); Mean Corpuscular HGB Conc 31.7 g/dl (32-36); Mean Corpuscular Hemoglobin 28.6 pg (26-34); Mean Corpuscular Volume 90.2 fl (80-100); Mean Platelet Volume 11.4 fl (7.4-10.4); Monocytes Absolute Auto 0.3 K/mm3 (0.1-0.6); Monocytes Percent Auto 4.7 % (2.6-8.5); Neutrophils Absolute Auto 6.4 K/mm3 (1.3-6.7); Neutrophils Percent Auto 89.5 % (45.5-73.1); Red Blood Count 2.76 M/mm3 (4.6-6.20); Red Cell Distribution Width 20.4 % (11.5-14.5); White Blood Count 7.2 K/mm3 (4.5-10.0)
[2022-03-11 05:38] LABS: INR 1.6; Prothrombin Time 18.6 Seconds (11.1-14.7)
[2022-03-11 06:09] LABS: Platelet Count Result 22 k/mm3 (150-375)
[2022-03-11 06:15] LABS: Anisocytosis 2+ (NORMAL); Hypochromasia 1+ (NORMAL)
[2022-03-11] MEDS: ONDANSETRON INJ 4 MG/2 ML VIAL IV PUSH ×2 (06:15→16:22)
[2022-03-11 06:16] LABS: Schistocytes None Seen (NORMAL); Target Cells 1+ (NORMAL)
--- NOTE | 2022-03-11 06:17 | PM.IMHP ---
H&P: HPI History of Present Illness Date/Time: 03/11/22 06:17 Chief Complaint: Anemia, thrombocytopenia Narrative: Patient is a 66-year-old male past medical history of recently diagnosed lymphoma, biopsied left periaortic lymph node 02/24/2022, type 2 diabetes, history of DVT, COPD, AFib, chronic anemia presents the ED [facility] on 03/09/22 with lethargy and poor p.o. intake. His found to have hemoglobin 6.4 s/p 2u blood transfusions, platelets [id number] now s/p 1 or 2 platelet transfusions. Patient transferred to [facility] to be close to patient's oncologist Dr. Hicks. Obtaining stat labs, type and screen. Patient admitted for thrombocytopenia and anemia possible hemolytic anemia. Review of Systems Review of Systems: Constitutional: No Fever, No Chills, No Night Sweats, No Fatigue, No Malaise. Endorses generalized weakness ENT/Mouth: No Hearing Changes, No Ear Pain, No Nasal Congestion, No Sinus Pain, No Hoarseness, No sore throat, No Rhinorrhea, No Swallowing Difficulty Eyes: No Eye Pain, No Redness, No Vision Changes Cardiovascular: No Chest Pain, No Palpitations, No Dyspnea on Exertion, No Orthopnea, No Claudication, No Edema Respiratory: No Cough, No Sputum, No Wheezing, No Shortness of Breath Gastrointestinal: Endorses nausea, vomiting, abdominal pain Genitourinary: No Dysuria, No Urinary Frequency, No Hematuria, No Urinary Incontinence, No Urgency Musculoskeletal: No Arthralgias, No Myalgias, No Joint Swelling, No Joint Stiffness, No Back Pain Skin: Endorses jaundice Neuro: No Numbness, No Paresthesias, No Loss of Consciousness, No Syncope, No Dizziness, No Headache Psych: No Anxiety/Panic, No Depression, No Insomnia Heme: No Bruising, No Bleeding Lymph: No Adenopathy Endocrine: No Polyuria, No Polydipsia, No Temperature Intolerance [facility] Past Medical History Medical History Anemia of chronic disease Chronic hyponatremia Claudication in peripheral vascular disease COPD (chronic obstructive pulmonary disease) Diastolic heart failure Echocardiogram December 2021: Left ventricular systolic function normal with EF of 55-60, moderate concentric left ventricular increased wall thickness, grade 2 diastolic dysfunction, mild aortic valve sclerosis, 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 consistent with significantly elevated right atrial pressures DM2 (diabetes mellitus, type 2) DVT (deep venous thrombosis) 1998 and 2015 GERD (gastroesophageal reflux disease) Hiatal hernia Hyperlipidemia Ischemic colitis (04/2016) Lymphedema of both lower extremities MDD (major depressive disorder) Obstructive sleep apnea (06/2021) Polysomnogram demonstrated moderate obstructive sleep apnea with hypo apnea index of 15 desaturations of 85% he is treated with auto PAP with a range of 7-12 cm Peripheral neuropathy Pulmonary embolism 1990s Tobacco abuse Surgical History Surgical History Abnormal colonoscopy (04/2016) Colonic ulcer with pathology demonstrating acute and chronic colitis with benign ulcer consistent with ischemic colitis History of ankle surgery (2017) ORIF History of esophagogastroduodenoscopy (EGD) (~2012) Esophageal diverticulum S/P cubital tunnel release Family History Family History Father Lung cancer Mother Lung cancer Seizures Diabetes mellitus Sibling Lung cancer Hepatitis C Other Family history of arthritis Hypertension Social History Social History Social History: The patient lives with his and they have no children. He is Diabled. He continues to smoke approximately half a pack- 1 pack a cigarettes a day. No alcohol marijuana or illicit drugs. 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
[2022-03-11 06:42] LABS: Platelet Estimate Decreased (Adequate)
[2022-03-11 07:09] LABS: Procalcitonin 7.4 ng/mL
[2022-03-11 08:06] LABS: Alanine Aminotransferase 9 U/L (6-50); Albumin Level 2.2 g/dL (3.5-5.1); Alkaline Phosphatase 92 U/L (38-126); Anion Gap 9 mmol/L (8-16); Aspartate Amino Transferase 12 U/L (17-59); Bilirubin,Total 6.1 mg/dL (0.2-1.3); Blood Urea Nitrogen 26 mg/dL (9-20); Calcium 7.4 mg/dL (8.4-10.2); Carbon Dioxide 28 mmol/L (22-30); Chloride 101 mmol/L (98-107); Estimated CRCL calculation 188 ml/min; Estimated Glomerular Filt Rate > 60; Glucose 202 mg/dL (65-110); Potassium 3.5 mmol/L (3.4-5.0); Sodium 138 mmol/L (137-145)
[2022-03-11] MEDS: ALBUTEROL SULFATE NEB 2.5 MG/0.5 ML INH INHALATION (08:21)
[2022-03-11] MEDS: PROMETHAZINE HCL 25 MG/ML AMPUL 12.5 MG IV PUSH (10:51)
--- NOTE | 2022-03-11 13:03 | PM.IMPN ---
Progress Note: A&P Assessment and Plan (1) Hemolytic anemia: Code(s): D58.9 - Hereditary hemolytic anemia, unspecified Status: Acute (2) Thrombocytopenia: Code(s): D69.6 - Thrombocytopenia, unspecified Status: Acute (3) Hyperbilirubinemia: Code(s): E80.6 - Other disorders of bilirubin metabolism Status: Acute (4) Lymphoma: Code(s): C85.90 - Non-Hodgkin lymphoma, unspecified, unspecified site Status: Acute Plan -patient may have hemolysis with jaundice, hyperbilirubinemia -consulting clinical supervisor Dr. Hicks -continue prednisone 60 mg b.i.d., will need LUCRETIA per -continue home supplementation ferrous sulfate -type and screen ordered, goal platelets greater than 20 (1 or 2 u platelets given), hemoglobin greater than 7 (3u PRBC outside hospital) -with anemia, BID PPI for now will hold Xarelto # lymphoma newly diagnosed (non-Hodgkin) -biopsied left periaortic lymph node 02/24/2022, oncology to follow up with results # other chronic conditions -anxiety/depression: Zoloft, Xanax -peripheral neuropathy: Gabapentin 300 mg t.i.d., norco -GERD: ppi BID -supplements: Continue B12, D3 -hyperlipidemia: Continue Lipitor -atrial flutter: Continue amiodarone, no Xarelto for thrombocytopenia and anemia -COPD: prn albuterol -h/o DVT/PE: not tolerating anticoagulation at this time DVT prophylaxis: SCDs no anticoagulation due to thrombocytopenia continue to monitor platelets and INR. Hemoglobin is 6.8 Code status: Modified code- no intubation Disposition: Pending clinical course, hematology consult Time Spent With Patient Time with patient: 25 - 35 minutes Subjective Date/time seen: 03/11/22 13:03 Interval history: appears comfortable in bed Exam Const: General: comfortable and no acute distress HENMT: Ears: TM's normal bilaterally Face/Nose/Sinus: Normal nares present Eyes: General: appearance normal, both eyes and all related structures Pupils: Equal, round and reactive pupils present Neck: Neck: supple and no JVD Resp: Effort & Inspection: normal respiratory effort Auscultation: clear to auscultation bilaterally Cardio: Rate: regular rate Rhythm: regular rhythm GI: GI Palp: Yes Soft to palpation, No Tenderness to palpation present (GI) and No Guarding due to palpation present (GI) Skin: General skin exam: normal color Neuro: General: gait normal Speech: normal speech Motor exam (neuro): 5/5 motor strength present throughout Sensory Exam: normal sensation Extrem: General: normal to inspection and no pedal edema Psych: Mental Status: mental status grossly normal Objective Data Vital Signs Vital Signs: Vital Signs - 24 hr 03/11/22 04:00 03/11/22 04:00 03/11/22 03:45 Temperature 36.2 C L Pulse Rate 84 81 Respiratory Rate 18 Blood Pressure 130/70 Pulse Oximetry 96 99 Oxygen Delivery Nasal Cannula Oxygen Flow Rate 2 03/11/22 06:00 03/11/22 07:45 03/11/22 08:24 Temperature Pulse Rate 81 96 Respiratory Rate 20 Blood Pressure Pulse Oximetry 96 Oxygen Delivery Nasal Cannula Oxygen Flow Rate 2 03/11/22 08:25 03/11/22 08:40 03/11/22 08:00 Temperature 36.2 C L Pulse Rate 83 87 Respiratory Rate 20 18 Blood Pressure 144/74 H Pulse Oximetry 96 100 Oxygen Delivery Nasal Cannula Oxygen Flow Rate 2 03/11/22 08:00 03/11/22 10:00 03/11/22 12:00 Temperature Pulse Rate 90 89 Respiratory Rate Blood Pressure Pulse Oximetry 96 Oxygen Delivery Nasal Cannula Oxygen Flow Rate 2 03/11/22 12:00 Temperature Pulse Rate 86 Respiratory Rate Blood Pressure Pulse Oximetry Oxygen Delivery Oxygen Flow Rate Intake/Output Intake/Output: Intake & Output 03/08/22 03/09/22 03/10/22 03/11/22 23:59 23:59 23:59 23:59 Output Total 375 Balance -375 Meds/Results Medications: Active Medications Generic Name Dose Route Start Last Admin Trade Name Freq PRN [place]
--- NOTE | 2022-03-11 13:39 | PC.NURSE ---
Notified Dr. Gray that patient had nausea and not able to take PO meds. Telephone orders received and entered for Phenergan 12.5 IVP Q6hr. MD at bedside and verbal orders to place all PO meds on hold beside Amiodarone and Prednisone, which are to be continued.
--- NOTE | 2022-03-11 17:50 | PDONCCN ---
HPI - Date of Consult Date/Time: 03/11/22 17:50 Requesting Physician: Raúl Sanchez DO Primary Care Provider: Sarath Arreaga DO - Consult Narrative Reason for consult: Large B-cell lymphoma Narrative: Michael Gonzalez is a 66 year old male with recent diagnosis of large B-cell lymphoma status post left periaortic lymph node biopsy done on February 24, 2022. 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 He was transferred from [facility]. He has been complaining of tiredness and fatigue. He received 2 units of packed red blood cell for hemoglobin of 6.4 prior to the transfer. He denies any bleeding and bruising. Labs showed elevated bilirubin. He does have splenomegaly. Patient also has a history of heavy drinking in the past. Denies any fevers and chills. Patient is currently on prednisone taper for autoimmune hemolytic anemia. Review of Systems - Review of Systems All systems reviewed & are unremarkable except as noted in HPI and [facility] Medical History: Medical History (Last Reviewed 03/11/22 @ 06:24 by Abigail Sanchez DO) Anemia of chronic disease Chronic hyponatremia Claudication in peripheral vascular disease COPD (chronic obstructive pulmonary disease) Diastolic heart failure Echocardiogram December 2021: Left ventricular systolic function normal with EF of 55-60, moderate concentric left ventricular increased wall thickness, grade 2 diastolic dysfunction, mild aortic valve sclerosis, 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 consistent with significantly elevated right atrial pressures DM2 (diabetes mellitus, type 2) DVT (deep venous thrombosis) 1998 and 2015 GERD (gastroesophageal reflux disease) Hiatal hernia Hyperlipidemia Ischemic colitis Onset Date: 04/2016 Lymphedema of both lower extremities MDD (major depressive disorder) Obstructive sleep apnea Onset Date: 06/2021 Polysomnogram demonstrated moderate obstructive sleep apnea with hypo apnea index of 15 desaturations of 85% he is treated with auto PAP with a range of 7-12 cm Peripheral neuropathy Pulmonary embolism 1990s Tobacco abuse Surgical History: Surgical History (Last Reviewed 03/11/22 @ 06:25 by Abigail Sanchez DO) Abnormal colonoscopy Onset Date: 04/2016 Colonic ulcer with pathology demonstrating acute and chronic colitis with benign ulcer consistent with ischemic colitis History of ankle surgery Onset Date: 2017 ORIF History of esophagogastroduodenoscopy (EGD) Onset Date: ~2012 Esophageal diverticulum S/P cubital tunnel release Family History: Family History (Last Reviewed 03/11/22 @ 06:24 by Abigail Sanchez DO) Father Lung cancer Mother Lung cancer Seizures Diabetes mellitus Sibling Lung cancer Hepatitis C Other Family history of arthritis Hypertension - Social History Social History: Social History (Last Reviewed 03/11/22 @ 06:24 by Abigail Sanchez DO) Gender Identity: Gender identity (if verbalized by the patient): Male Sexual Orientation: Sexual Orientation (if Verbalized by the Patient): Straight or Heterosexual Alcohol Use: Alcohol intake: never Alcohol use details: Denies Substance Use: Substance use: never Substance use type: does not use Last use: 02/13/2022 Others: Spiritual care concerns: No Smoking Status: Smoking status: Current every day smoker Tobacco type: cigarettes Second hand tobacco smoke exposure: No Smoking Pack-years: Smoking packs per day: 1 Smoking cigarettes per day: 3 Years smoked: 55 Smoking pack-years: 8.25 Comments: Additional smoking assessment comments: currently down to 1/2 pack Social Determinants of Health: Has the Lack of Transportation Kept You From Medical Appointments or From
[2022-03-11 18:32] LABS: Lactate Dehydrogenase 134 U/L (120-246)
[2022-03-12] VITALS (22 sets, daily range): BP systolic 132–144; BP diastolic 64–73; PULSE 68–98; RESP 16–22; TEMP 35.7–37.3; O2SAT 98–100
[2022-03-12 06:16] LABS: Anion Gap 8 mmol/L (8-16); Blood Urea Nitrogen 28 mg/dL (9-20); Calcium 7.9 mg/dL (8.4-10.2); Carbon Dioxide 33 mmol/L (22-30); Chloride 104 mmol/L (98-107); Estimated CRCL calculation 155 ml/min; Estimated Glomerular Filt Rate > 60; Glucose 216 mg/dL (65-110); Potassium 2.9 mmol/L (3.4-5.0); Sodium 145 mmol/L (137-145)
[2022-03-12 07:33] LABS: Basophils Percent Auto 0.1 % (0.2-1.2); Hematocrit 26.5 % (42.0-52.0); Hemoglobin 8.2 g/dL (14.0-18.0); Immature Granulocyte Absolute 0.18 K/mm3 (0.00-0.031); Immature Granulocyte Percent A 2.4 % (0-0.5); Lymphocytes Absolute Auto 0.41 K/mm3 (0.9-3.2); Lymphocytes Percent Auto 5.4 % (18.3-44.2); Mean Corpuscular HGB Conc 30.9 g/dl (32-36); Mean Corpuscular Hemoglobin 28.5 pg (26-34); Mean Platelet Volume 13.4 fl (7.4-10.4); Monocytes Absolute Auto 0.4 K/mm3 (0.1-0.6); Monocytes Percent Auto 4.6 % (2.6-8.5); Neutrophils Absolute Auto 6.6 K/mm3 (1.3-6.7); Neutrophils Percent Auto 87.5 % (45.5-73.1); Red Blood Count 2.88 M/mm3 (4.6-6.20); White Blood Count 7.6 K/mm3 (4.5-10.0)
[2022-03-12 07:40] LABS: Platelet Count Result 12 k/mm3 (150-375)
[2022-03-12 07:41] LABS: Anisocytosis 1+ (NORMAL); Hypochromasia 1+ (NORMAL); Ovalocytes 1+ (NORMAL); Platelet Estimate Decreased (Adequate); Poikilocytosis 1+ (NORMAL); Schistocytes None Seen (NORMAL)
[2022-03-12] MEDS: IPRATROPIUM BR 0.02% INH SOLN 0.5 MG/2.5 ML VIAL INHALATION ×2 (08:11→11:55)
[2022-03-12] MEDS: ALBUTEROL SULFATE NEB 2.5 MG/3 ML INH ×2 (08:11→11:55)
[2022-03-12] MEDS: methylPREDNISolone SOD SUCC 125 MG VIAL 60 MG IV PUSH (08:56)
[2022-03-12] MEDS: ONDANSETRON INJ 4 MG/2 ML VIAL IV PUSH (08:56)
--- NOTE | 2022-03-12 09:39 | PM.IMPN ---
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 patient advised to get a PET scan as an outpatient. No signs of lymphoma at this point. Patient not his oral steroid will switch him to IV prednisone patient may need a platelet transfusion platelets drop down to 12,000 (2) Thrombocytopenia: Code(s): D69.6 - Thrombocytopenia, unspecified Status: Acute Assessment and Plan: splenomegaly may be the cause of thrombocytopenia. Check LDH, bilirubin fraction. Start patient on IV steroids patient not tolerating oral Xarelto still on hold due to anemia and thrombocytopenia (3) Hyperbilirubinemia: Code(s): E80.6 - Other disorders of bilirubin metabolism Status: Acute Assessment and Plan: multiple factors (4) Lymphoma: Code(s): C85.90 - Non-Hodgkin lymphoma, unspecified, unspecified site Status: Acute Subjective Date/time seen: 03/12/22 09:39 Interval history: appears comfortable in bed Exam Narrative: - GENERAL: Pleasant frail appearing male in no acute distress. Well-nourished. - EYES: EOMI. Anicteric. - HENT: Moist mucous membranes. - LUNGS: Diminished respiratory effort, otherwise clear - CARDIOVASCULAR: Regular rate and rhythm. No murmur. No JVD. - ABDOMEN: Soft, non-tender and non-distended. - EXTREMITIES: Peripheral pulses 2+. Non-tender. 3+ pitting edema b/l LE - NEUROLOGIC: No focal neurological deficits, generalized weakness 4/5 muscle strength. CN II-XII grossly intact. - PSYCHIATRIC: Awake, Alert and oriented x 3. Appropriate mood and affect. - SKIN: Jaundice, petechiae throughout mostly on chest, loose skin, appears to have lost weight Objective Data Vital Signs Vital Signs: Vital Signs - 24 hr 03/11/22 10:00 03/11/22 12:00 03/11/22 12:00 Temperature Pulse Rate 89 86 Respiratory Rate Blood Pressure Pulse Oximetry 100 Oxygen Delivery Nasal Cannula Oxygen Flow Rate 2 03/11/22 12:00 03/11/22 14:00 03/11/22 16:00 Temperature 36.7 C Pulse Rate 89 94 Respiratory Rate 16 Blood Pressure 132/68 Pulse Oximetry 100 96 Oxygen Delivery Nasal Cannula Oxygen Flow Rate 2 03/11/22 16:00 03/11/22 16:00 03/11/22 18:00 Temperature 36.2 C L Pulse Rate 101 H 95 85 Respiratory Rate 20 Blood Pressure 142/75 H Pulse Oximetry 99 Oxygen Delivery Oxygen Flow Rate 03/11/22 20:00 03/11/22 23:44 03/11/22 20:00 Temperature 36.6 C 36.4 C Pulse Rate 78 87 83 Respiratory Rate 20 20 Blood Pressure 141/65 H 137/74 Pulse Oximetry 98 99 Oxygen Delivery Oxygen Flow Rate 03/11/22 20:00 03/11/22 22:00 03/12/22 00:00 Temperature Pulse Rate 82 79 Respiratory Rate Blood Pressure Pulse Oximetry 98 Oxygen Delivery Nasal Cannula Oxygen Flow Rate 2 03/12/22 00:00 03/12/22 02:00 03/12/22 04:00 Temperature Pulse Rate 79 85 Respiratory Rate Blood Pressure Pulse Oximetry 99 Oxygen Delivery Nasal Cannula Oxygen Flow Rate 2 03/12/22 04:00 03/12/22 04:00 03/12/22 07:58 Temperature 36.4 C Pulse Rate 84 Respiratory Rate 20 Blood Pressure 135/73 Pulse Oximetry 98 100 100 Oxygen Delivery Nasal Cannula Nasal Cannula Oxygen Flow Rate 2 2 03/12/22 08:11 03/12/22 08:19 03/12/22 08:33 Temperature 35.7 C L Pulse Rate 78 80 68 Respiratory Rate 16 16 20 Blood Pressure 144/69 H Pulse Oximetry 100 Oxygen Delivery Oxygen Flow Rate 03/12/22 08:00 Temperature Pulse Rate 86 Respiratory Rate Blood Pressure Pulse Oximetry Oxygen Delivery Oxygen Flow Rate Intake/Output Intake/Output: Intake & Output 03/09/22 03/10/22 03/11/22 03/12/22 23:59 23:59 23:59 23:59 Intake Total 300 Output Total 975 300 Balance -975 0 Meds/Results Medica
--- NOTE | 2022-03-12 11:11 | PM.CNGS ---
Assessment and Plan Assessment and plan (1) Lymphoma: Code(s): C85.90 - Non-Hodgkin lymphoma, unspecified, unspecified site Status: Acute Assessment and Plan: Patient has a recent diagnosis of B-cell lymphoma and has been seen by medical oncology. Chemotherapy has been recommended and he is in need port placement or some other IV access for chemotherapy. Currently his platelet levels or any critically low level and he would not be safe for surgery. Will repeat CBC, PT/INR, and CMP in morning. Patient may be experiencing some acute liver failure which will increase bleeding risks as well. I have discussed the bleeding concerns with the patient and his . If platelet levels do not reach 25,000, he may be better suited for another PICC line to keep access for chemotherapy until he is more stable. Will continue to follow along with patient this weekend and possibly proceed with Port-A-Cath placement Monday if he is more stable. 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 He was recently diagnosed with large B-cell lymphoma and has had rapid decompensation over the past 3 weeks. He has been fatigued and anemic. He was transferred from [facility]. Patient does have a recent history of PICC line placed for IV antibiotics for a hardware infection in his ankle. The PICC line has since been removed. He denies any prior known liver problems. He does have a history of drinking alcohol but that has been about 30 years ago. He denies prior history of hepatitis. Review of Systems Review of Systems: All systems reviewed & are unremarkable except as noted in HPI and below Constitutional: Constitutional: Denies chills and Denies fever(s) Cardiovascular: Cardiovascular: Denies chest pain and Reports dyspnea Respiratory: Respiratory: Reports dyspnea Gastrointestinal: Gastrointestinal: Reports as per HPI [facility] Past Medical History Medical History Anemia of chronic disease Chronic hyponatremia Claudication in peripheral vascular disease COPD (chronic obstructive pulmonary disease) Diastolic heart failure Echocardiogram December 2021: Left ventricular systolic function normal with EF of 55-60, moderate concentric left ventricular increased wall thickness, grade 2 diastolic dysfunction, mild aortic valve sclerosis, 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 consistent with significantly elevated right atrial pressures DM2 (diabetes mellitus, type 2) DVT (deep venous thrombosis) 1998 and 2015 GERD (gastroesophageal reflux disease) Hiatal hernia Hyperlipidemia Ischemic colitis (04/2016) Lymphedema of both lower extremities MDD (major depressive disorder) Obstructive sleep apnea (06/2021) Polysomnogram demonstrated moderate obstructive sleep apnea with hypo apnea index of 15 desaturations of 85% he is treated with auto PAP with a range of 7-12 cm Peripheral neuropathy Pulmonary embolism 1990s Tobacco abuse Surgical History Surgical History Abnormal colonoscopy (04/2016) Colonic ulcer with pathology demonstrating acute and chronic colitis with benign ulcer consistent with ischemic colitis History of ankle surgery (2017) ORIF History of esophagogastroduodenoscopy (EGD) (~2012) Esophageal diverticulum S/P cubital tunnel release Family History Family History (R
[2022-03-12] MEDS: AMIODARONE HCL 200 MG TABLET PO (11:24)
[2022-03-13] VITALS (25 sets, daily range): BP systolic 126–140; BP diastolic 62–77; PULSE 85–98; RESP 16–20; TEMP 35.8–36.6; O2SAT 95–100
[2022-03-13 04:22] LABS: Hematocrit 25.6 % (42.0-52.0); Immature Platelet Fraction Pct 25.7 % (0.9-11.2); Mean Corpuscular HGB Conc 31.3 g/dl (32-36); Mean Corpuscular Hemoglobin 28.6 pg (26-34); Mean Corpuscular Volume 91.4 fl (80-100); Red Cell Distribution Width 19.8 % (11.5-14.5); White Blood Count 6.4 K/mm3 (4.5-10.0)
[2022-03-13 04:33] LABS: INR 1.6; Partial Thromboplastin Time 38.9 SECONDS (22.3-36.8); Prothrombin Time 18.8 Seconds (11.1-14.7)
[2022-03-13 04:34] LABS: Platelet Count Result 7 k/mm3 (150-375)
[2022-03-13 04:36] LABS: Alanine Aminotransferase 11 U/L (6-50); Albumin Level 2.2 g/dL (3.5-5.1); Alkaline Phosphatase 96 U/L (38-126); Anion Gap 8 mmol/L (8-16); Aspartate Amino Transferase 11 U/L (17-59); Bilirubin,Total 6.4 mg/dL (0.2-1.3); Blood Urea Nitrogen 31 mg/dL (9-20); Calcium 7.8 mg/dL (8.4-10.2); Carbon Dioxide 31 mmol/L (22-30); Chloride 106 mmol/L (98-107); Estimated CRCL calculation 240 ml/min; Estimated Glomerular Filt Rate > 60; Glucose 276 mg/dL (65-110); Potassium 2.6 mmol/L (3.4-5.0); Sodium 145 mmol/L (137-145)
[2022-03-13] MEDS: POTASSIUM CHLORIDE INJ 40 MEQ in SODIUM CHLORIDE 0.9% IV 500 ML 130 MEQ IVPB ×3 (06:14→14:25)
[2022-03-13] MEDS: TUBING, BLOOD PLUM PUMP TUBING 1 EACH XX (08:11)
[2022-03-13] MEDS: AMIODARONE HCL 200 MG TABLET PO (08:11)
[2022-03-13] MEDS: SODIUM CHLORIDE 0.9% IV 250 ML 30 ML IV CONT (08:11)
[2022-03-13] MEDS: ONDANSETRON INJ 4 MG/2 ML VIAL IV PUSH (08:24)
--- NOTE | 2022-03-13 09:35 | PM.PNGS ---
Progress Note: A&P Assessment and Plan (1) Lymphoma: Code(s): C85.90 - Non-Hodgkin lymphoma, unspecified, unspecified site Status: Acute Assessment and Plan: platelets remain critically low. He may not be a good candidate for surgical procedure at this time. Might have to consider PICC line or other access to start chemotherapy before he is stable enough for Port-A-Cath placement. 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 Receiving 2 units of platelets. Exam Const: Other: Jaundice Resp: Effort & Inspection: normal respiratory effort Auscultation: clear to auscultation bilaterally Objective Data Vital Signs Vital Signs: Vital Signs - 24 hr 03/12/22 10:00 03/12/22 11:24 03/12/22 11:44 Temperature Pulse Rate 88 86 Respiratory Rate Blood Pressure Pulse Oximetry 100 Oxygen Delivery Nasal Cannula Oxygen Flow Rate 2 03/12/22 11:58 03/12/22 12:12 03/12/22 12:00 Temperature Pulse Rate 82 91 78 Respiratory Rate 20 20 Blood Pressure Pulse Oximetry Oxygen Delivery Oxygen Flow Rate 03/12/22 12:17 03/12/22 14:00 03/12/22 16:29 Temperature 36.5 C 36.9 C Pulse Rate 81 93 98 Respiratory Rate 16 22 H Blood Pressure 143/68 H 134/69 Pulse Oximetry 100 100 Oxygen Delivery Oxygen Flow Rate 03/12/22 16:00 03/12/22 16:00 03/12/22 18:00 Temperature Pulse Rate 93 93 Respiratory Rate Blood Pressure Pulse Oximetry 100 Oxygen Delivery Nasal Cannula Oxygen Flow Rate 2 03/12/22 20:00 03/12/22 20:00 03/12/22 20:00 Temperature 37.3 C Pulse Rate 95 91 Respiratory Rate 18 Blood Pressure 141/64 H Pulse Oximetry 98 98 Oxygen Delivery Nasal Cannula Oxygen Flow Rate 2 03/12/22 22:00 03/12/22 23:31 03/13/22 00:00 Temperature 36.6 C Pulse Rate 90 94 87 Respiratory Rate 20 Blood Pressure 132/70 Pulse Oximetry 99 Oxygen Delivery Oxygen Flow Rate 03/13/22 00:00 03/13/22 02:00 03/13/22 04:00 Temperature 36.3 C L Pulse Rate 91 92 Respiratory Rate 20 Blood Pressure 140/74 Pulse Oximetry 99 100 Oxygen Delivery Nasal Cannula Oxygen Flow Rate 2 03/13/22 04:00 03/13/22 04:00 03/13/22 06:00 Temperature Pulse Rate 90 90 Respiratory Rate Blood Pressure Pulse Oximetry 100 Oxygen Delivery Nasal Cannula Oxygen Flow Rate 2 03/13/22 07:37 03/13/22 08:00 03/13/22 08:11 Temperature 36.0 C L Pulse Rate 93 98 Respiratory Rate 16 Blood Pressure 138/69 Pulse Oximetry 100 97 Oxygen Delivery Nasal Cannula Oxygen Flow Rate 2 03/13/22 08:15 03/13/22 08:21 03/13/22 08:00 Temperature 36.5 C 36.1 C L Pulse Rate 94 95 92 Respiratory Rate 18 16 Blood Pressure 132/77 136/72 Pulse Oximetry 97 95 Oxygen Delivery Oxygen Flow Rate 03/13/22 09:21 Temperature 36.0 C L Pulse Rate 94 Respiratory Rate 18 Blood Pressure 136/77 Pulse Oximetry 98 Oxygen Delivery Oxygen Flow Rate Intake/Output Intake/Output: Intake & Output 03/10/22 03/11/22 03/12/22 03/13/22 23:59 23:59 23:59 23:59 Intake Total 750 360 Output Total 975 1700 450 Balance -975 -950 -90 Meds/Results Medications: Active Medications Generic Name Dose Route Start Last Admin Trade Name Danialq PRN Reason Stop Dose Admin Acetaminophen 650 mg 03/11/22 06:14 Acetaminophen 325 Mg Tablet PO Q4H PRN Mild Pain (1-3) or Fever Hydrocodone Bitart/Acetaminophen 1 tab 03/11/22 06:12 Hydrocodone/Acetaminophen (*Crx) 5-325 Mg Tablet PO Q4H PRN Pain (Scale Scor
--- NOTE | 2022-03-13 10:24 | PM.IMPN ---
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 patient advised to get a PET scan as an outpatient. No signs of lymphoma at this point. Patient on prednisone (2) Thrombocytopenia: Code(s): D69.6 - Thrombocytopenia, unspecified Status: Acute Assessment and Plan: platelet count dropped to 7000. 2 units of platelets ordered. Monitor CBC daily. splenomegaly may be the cause of thrombocytopenia. Check LDH, bilirubin fraction. on steroids Xarelto still on hold due to anemia and thrombocytopenia (3) Hyperbilirubinemia: Code(s): E80.6 - Other disorders of bilirubin metabolism Status: Acute Assessment and Plan: multiple factors (4) Lymphoma: Code(s): C85.90 - Non-Hodgkin lymphoma, unspecified, unspecified site Status: Acute Assessment and Plan: management per oncology (5) Hypokalemia: Code(s): E87.6 - Hypokalemia Status: Acute Assessment and Plan: will replace with IV supplementation. Monitor BMP Subjective Date/time seen: 03/13/22 10:24 patient feels weak. Also reports nausea Review of Systems Review of Systems: All systems reviewed & are unremarkable except as noted in HPI and below Constitutional: Constitutional: Denies chills and Denies fever(s) Cardiovascular: Cardiovascular: Denies chest pain and Reports dyspnea Respiratory: Respiratory: Reports dyspnea Gastrointestinal: Gastrointestinal: Reports as per HPI Exam Const: General: cooperative and comfortable Orientation/consciousness: patient oriented x3 Other: jaundice HENMT: Head: normal to inspection Mouth: Yes Normal oral and palatal mucosa present Eyes: General: appearance normal, both eyes and all related structures Resp: Effort & Inspection: normal respiratory effort Auscultation: clear to auscultation bilaterally Cardio: Rate: regular rate Rhythm: regular rhythm Heart sounds: S1 normal heart sound present and S2 normal heart sound present GI: GI Palp: Yes Soft to palpation Auscultation: normal bowel sounds Skin: General skin exam: no rashes or lesions noted Other: jaundice Neuro: General: patient oriented x3, no focal motor deficits and CN's II-XI intact bilaterally Speech: normal speech Extrem: General: full ROM Psych: Appearance: grossly normal Objective Data Vital Signs Vital Signs: Vital Signs - 24 hr 03/12/22 11:24 03/12/22 11:44 03/12/22 11:58 Temperature Pulse Rate 86 82 Respiratory Rate 20 Blood Pressure Pulse Oximetry 100 Oxygen Delivery Nasal Cannula Oxygen Flow Rate 2 03/12/22 12:12 03/12/22 12:00 03/12/22 12:17 Temperature 97.7 F Pulse Rate 91 78 81 Respiratory Rate 20 16 Blood Pressure 143/68 H Pulse Oximetry 100 Oxygen Delivery Oxygen Flow Rate 03/12/22 14:00 03/12/22 16:29 03/12/22 16:00 Temperature 98.5 F Pulse Rate 93 98 93 Respiratory Rate 22 H Blood Pressure 134/69 Pulse Oximetry 100 Oxygen Delivery Oxygen Flow Rate 03/12/22 16:00 03/12/22 18:00 03/12/22 20:00 Temperature 99.2 F Pulse Rate 93 95 Respiratory Rate 18 Blood Pressure 141/64 H Pulse Oximetry 100 98 Oxygen Delivery Nasal Cannula Oxygen Flow Rate 2 03/12/22 20:00 03/12/22 20:00 03/12/22 22:00 Temperature Pulse Rate 91 90 Respiratory Rate Blood Pressure Pulse Oximetry 98 Oxygen Delivery Nasal Cannula Oxygen Flow Rate 2 03/12/22 23:31 03/13/22 00:00 03/13/22 00:00 Temperature 97.9 F Pulse Rate 94 87 Respiratory Rate 20 Blood Pressure 132/70 Pulse Oximetry 99 99 Oxygen Delivery Nasal Cannula Oxygen Flow Rate 2 03/13/22 02:00 03/13/22 04:00 03/13/22 04:00 Temperature 97.3 F L Pulse Rate 91 92 90 Respiratory Rate 20 Blood Pressure
[2022-03-14] VITALS (38 sets, daily range): BP systolic 85–138; BP diastolic 51–78; PULSE 89–104; RESP 16–23; TEMP 36.4–37.1; O2SAT 92–100
[2022-03-14 04:34] LABS: Hematocrit 23.7 % (42.0-52.0); Hemoglobin 7.3 g/dL (14.0-18.0); Immature Platelet Fraction Pct 6.4 % (0.9-11.2); Mean Corpuscular HGB Conc 30.8 g/dl (32-36); Mean Corpuscular Hemoglobin 28.2 pg (26-34); Mean Corpuscular Volume 91.5 fl (80-100); Mean Platelet Volume 10.8 fl (7.4-10.4); Red Blood Count 2.59 M/mm3 (4.6-6.20); Red Cell Distribution Width 20.1 % (11.5-14.5); White Blood Count 5.7 K/mm3 (4.5-10.0)
[2022-03-14 04:45] LABS: Platelet Count Result 25 k/mm3 (150-375)
[2022-03-14] MEDS: AMIODARONE HCL 200 MG TABLET PO (08:42)
[2022-03-14] MEDS: ONDANSETRON INJ 4 MG/2 ML VIAL IV PUSH (08:45)
[2022-03-14 08:49] LABS: Alanine Aminotransferase 12 U/L (6-50); Albumin Level 2.4 g/dL (3.5-5.1); Alkaline Phosphatase 92 U/L (38-126); Anion Gap 11 mmol/L (8-16); Aspartate Amino Transferase 18 U/L (17-59); Bilirubin,Total 8.5 mg/dL (0.2-1.3); Blood Urea Nitrogen 33 mg/dL (9-20); Calcium 7.4 mg/dL (8.4-10.2); Carbon Dioxide 27 mmol/L (22-30); Chloride 112 mmol/L (98-107); Estimated CRCL calculation 240 ml/min; Estimated Glomerular Filt Rate > 60; Glucose 258 mg/dL (65-110); Potassium 3.9 mmol/L (3.4-5.0); Sodium 150 mmol/L (137-145)
[2022-03-14] MEDS: PHYTONADIONE ADULT INJ 10 MG in DEXTROSE 5% IN WATER 50 ML 100 MG IVPB (08:51)
[2022-03-14] MEDS: SODIUM CHLORIDE 0.9% IV 250 ML 30 ML IV CONT (09:35)
[2022-03-14] MEDS: TUBING, BLOOD PLUM PUMP TUBING 1 EACH XX (09:36)
[2022-03-14] MEDS: ALBUTEROL SULFATE NEB 2.5 MG/0.5 ML INH INHALATION ×2 (09:37→17:03)
[2022-03-14] MEDS: IPRATROPIUM BR 0.02% INH SOLN 0.5 MG/2.5 ML VIAL INHALATION ×3 (09:37→20:29)
--- NOTE | 2022-03-14 09:38 | PM.IMPN ---
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 patient advised to get a PET scan as an outpatient. No signs of lymphoma at this point. (2) Thrombocytopenia: Code(s): D69.6 - Thrombocytopenia, unspecified Status: Acute Assessment and Plan: platelet count improved after 2 units of platelets transfusion. Monitor CBC daily. splenomegaly may be the cause of thrombocytopenia. Xarelto still on hold due to anemia and thrombocytopenia (3) Hyperbilirubinemia: Code(s): E80.6 - Other disorders of bilirubin metabolism Status: Acute Assessment and Plan: multiple factors (4) Lymphoma: Code(s): C85.90 - Non-Hodgkin lymphoma, unspecified, unspecified site Status: Acute Assessment and Plan: management per oncology Patient going for port placement today (5) Hypokalemia: Code(s): E87.6 - Hypokalemia Status: Acute Assessment and Plan: Resolved. Monitor BMP Subjective Date/time seen: 03/14/22 09:38 Patient reports nausea. No other complaints Review of Systems Review of Systems: All systems reviewed & are unremarkable except as noted in HPI and below Constitutional: Constitutional: Denies chills and Denies fever(s) Cardiovascular: Cardiovascular: Denies chest pain and Reports dyspnea Respiratory: Respiratory: Reports dyspnea Gastrointestinal: Gastrointestinal: Reports as per HPI Exam Const: General: cooperative and comfortable Orientation/consciousness: patient oriented x3 Other: jaundice HENMT: Head: normal to inspection Mouth: Yes Normal oral and palatal mucosa present Eyes: General: appearance normal, both eyes and all related structures Resp: Effort & Inspection: normal respiratory effort Auscultation: clear to auscultation bilaterally Cardio: Rate: regular rate Rhythm: regular rhythm Heart sounds: S1 normal heart sound present and S2 normal heart sound present GI: GI Palp: Yes Soft to palpation Auscultation: normal bowel sounds Skin: General skin exam: no rashes or lesions noted Other: jaundice Neuro: General: patient oriented x3, no focal motor deficits and CN's II-XI intact bilaterally Speech: normal speech Extrem: General: full ROM Psych: Appearance: grossly normal Objective Data Vital Signs Vital Signs: Vital Signs - 24 hr 03/13/22 10:00 03/13/22 10:36 03/13/22 10:52 Temperature 97.1 F L 97.1 F L Pulse Rate 88 89 86 Respiratory Rate 16 16 Blood Pressure 128/70 130/67 Pulse Oximetry 100 100 Oxygen Delivery Oxygen Flow Rate 03/13/22 12:17 03/13/22 11:52 03/13/22 12:00 Temperature 97.1 F L 97.1 F L Pulse Rate 89 89 88 Respiratory Rate 20 20 Blood Pressure 129/67 129/67 Pulse Oximetry 97 97 Oxygen Delivery Oxygen Flow Rate 03/13/22 12:00 03/13/22 14:00 03/13/22 15:36 Temperature Pulse Rate 90 Respiratory Rate Blood Pressure Pulse Oximetry 100 100 Oxygen Delivery Nasal Cannula Nasal Cannula Oxygen Flow Rate 2 2 03/13/22 16:00 03/13/22 16:15 03/13/22 18:00 Temperature 96.5 F L Pulse Rate 87 91 85 Respiratory Rate 20 Blood Pressure 134/69 Pulse Oximetry 97 Oxygen Delivery Oxygen Flow Rate 03/13/22 19:55 03/13/22 20:00 03/13/22 20:00 Temperature 97.6 F Pulse Rate 92 92 92 Respiratory Rate 20 20 Blood Pressure 130/62 Pulse Oximetry 97 97 Oxygen Delivery Nasal Cannula Oxygen Flow Rate 2 03/13/22 22:00 03/13/22 23:09 03/14/22 00:00 Temperature 97.9 F Pulse Rate 93 93 94 Respiratory Rate 20 Blood Pressure 126/64 Pulse Oximetry 100 Oxygen Delivery Oxygen Flow Rate 03/14/22 00:00 03/14/22 02:00 03/14/22 03:39 Temperature 98.1 F Pulse Rate 93 92 97 Respiratory Rate 20 20 Blood Pressure 136/62 Pulse Oxim
--- NOTE | 2022-03-14 12:55 | PC.NURSE ---
Spoke with Dr. Stokes about patient becoming agitated. Pt has scheduled zoloft and PRN xanax as home medications that were placed on hold during admission d/t patient being lethargic. New order to resume home medications of zoloft and xanax
--- NOTE | 2022-03-14 13:05 | PC.NURSE ---
To OR per [bed. Report given to [Mishel, RN @ 1300 ].
--- NOTE | 2022-03-14 13:41 | WPDANESEPPF ---
Anes - Initial Pre Proc Eval Procedure: Operation Date: 03/14/22 14:30 Proposed Procedures p Insertion Santiago Cath - Dionicio Rasmussen DO Date/Time: 03/14/22 13:41 Surgeon: Kaleb Stokes MD Pre Op Diagnosis: Hemolytic anemia, lymphoma Patient Data Age: 66 Gender: M Height: 1.96 m Weight: 92.2 kg Last Vital Signs Temp 36.6 C 03/14/22 13:30 Pulse 99 03/14/22 13:30 Resp 18 03/14/22 13:30 BP 129/69 03/14/22 13:30 Pulse Ox 95 03/14/22 13:30 O2 Del Method Room Air 03/14/22 13:30 O2 Flow Rate 2 03/14/22 09:38 Allergies Allergy/AdvReac Type Severity Reaction Status Date / Time No Known Allergies Allergy Verified 03/14/22 13:24 Home Medications Medication Instructions Recorded Confirmed Type albuterol sulfate 90 mcg/actuation 1 inh inhalation Q4H PRN shortness 11/18/21 03/11/22 Rx aerosol inhaler of breath or wheezing #8.5 grams atorvastatin 20 mg tablet 20 mg PO DAILY 12/20/21 03/11/22 History gabapentin 300 mg capsule 300 mg PO TID 12/20/21 03/11/22 History cholecalciferol (vitamin D3) 1,250 1,250 mcg PO WEEKLY 01/24/22 03/11/22 History mcg (50,000 unit) capsule ipratropium 0.5 mg-albuterol 3 mg 3 ml inhalation QID PRN shortness 02/08/22 03/11/22 Rx (2.5 mg base)/3 mL nebulization of breath or wheezing #90 mL soln sertraline 50 mg tablet 50 mg PO DAILY #90 tabs 02/08/22 03/11/22 Rx alprazolam 0.5 mg tablet 0.5 mg PO DAILY #20 tabs 02/11/22 03/11/22 Rx cilostazol 50 mg tablet 50 mg PO DAILY 02/15/22 03/11/22 History cyanocobalamin (vitamin B-12) 1,000 mcg PO DAILY 02/15/22 03/11/22 History 1,000 mcg tablet famotidine 20 mg tablet 20 mg PO DAILY 02/15/22 03/11/22 History ferrous sulfate 325 mg (65 mg 325 mg PO BID 02/15/22 03/11/22 History iron) tablet (FeroSul) hydrocodone 5 mg-acetaminophen 325 1 tablet PO Q4H PRN Pain (Scale 02/15/22 03/11/22 History mg tablet Score 4-6) ondansetron HCl 8 mg tablet 8 mg PO Q12H PRN nausea and 02/16/22 03/11/22 Rx vomiting #20 tabs amiodarone 200 mg tablet 200 mg PO DAILY #30 tabs 02/25/22 03/11/22 Rx potassium chloride 20 mEq 40 meq PO DAILY #30 tabs 02/25/22 03/11/22 Rx tablet,extended release(part/cryst) (Klor-Con M) prednisone 20 mg tablet 60 mg PO BID #60 tabs 02/25/22 03/11/22 Rx furosemide 20 mg tablet 40 mg PO DAILY 03/11/22 03/11/22 History rivaroxaban 10 mg tablet (Xarelto) 10 mg PO DAILY 03/11/22 03/11/22 History Laboratory Tests 03/14/22 03/14/22 03/14/22 04:06 06:01 08:20 WBC 5.7 K/mm3 K/mm3 (4.5-10.0) RBC 2.59 M/mm3 L M/mm3 (4.6-6.20) Hgb 7.3 g/dL L g/dL (14.0-18.0) Hct 23.7 % L % (42.0-52.0) MCV 91.5 fl fl (80-100) MCH 28.2 pg pg (26-34) MCHC 30.8 g/dl L g/dl (32-36) RDW 20.1 % H % (11.5-14.5) Plt Count 25 k/mm3 L D k/mm3 (150-375) MPV 10.8 fl H fl (7.4-10.4) % Immature Plt Fraction 6.4 % % (0.9-11.2) Sodium 150 mmol/L H mmol/L (137-145) Potassium 3.9 mmol/L mmol/L (3.4-5.0) Chloride 112 mmol/L H mmol/L (98-107) Carbon Dioxide 27 mmol/L mmol/L (22-30) Anion Gap 11 mmol/L mmol/L (8-16) BUN 33 mg/dL H mg/dL (9-20) Creatinine 0.30 mg/dL L mg/dL (0.7-1.3) Estim Creat Clear Calc 240 ml/min ml/min Estimated GFR > 60 (59 - ) Glucose 258 mg/dL H mg/dL (65-110) Calcium 7.4 mg/dL L mg/dL (8.4-10.2) Total Bilirubin 8.5 mg/dL H mg/dL (0.2-1.3) AST 18 U/L U/L (17-59) ALT 12 U/L U/L (6-50) Alkaline Phosphatase 92 U/L U/L (38-126) Total Protein 6.0 g/dL L g/dL (6.3-8.2) Albumin 2.4 g/dL L g/dL (3.5-5.1) Blood Type A Positive Patient hx anesthesia problems: none Family hx anesthesia problems: none Results Review: All pre-operative results and documents have
[2022-03-14 13:44] LABS: Glucose Point of Care 222 mg/dl (65-105)
--- NOTE | 2022-03-14 14:04 | WPDHPUPDATE1 ---
History and Physical Update Update Date/Time: 03/14/22 14:04 History and Physical has been reviewed, including an updated exam of the patient. There are NO changes in the patient's condition. Risks, benefits, and alternatives have been discussed and questions answered. Patient agrees to proceed with procedure.
[2022-03-14] MEDS: ceFAZolin 2 GM/D5W 50 ML 2 GM/50 ML BAG IVPB (14:16)
[2022-03-14] MEDS: HEPARIN SODIUM 5,000 UNITS/ML VIAL 5000 UNITS IV PUSH (14:30)
[2022-03-14] MEDS: LIDO 2%/EPINEPHRINE 1:100,000 50 ML VIAL INFILTRATE (14:53)
[2022-03-14] MEDS: HEPARIN SODIUM, PORCINE 10,000 UNITS/10 ML VIAL 10000 UNITS IV PUSH (14:56)
--- NOTE | 2022-03-14 15:02 | W.PM.PROC2 ---
Procedure Note - Detailed Date of Procedure 03/14/22 Pre-op Diagnosis Hemolytic anemia, lymphoma Post-op Diagnosis Same Procedure Performed Right Internal Jugular tunneled Port-a-Cath placement using ultrasound and fluoroscopic guidance Surgeon Dionicio Rasmussen, DO Anesthesia MAC and Local (0.5% bupivicaine with epinephrine) Findings SonoSite ultrasound was used to identify the right internal jugular vein. This was visualized as a compressible vessel just lateral to the carotid artery. The 18 gauge introducer needle was advanced under ultrasound guidance. Dark nonpulsatile blood was aspirated. The 0.035 in guidewire was then advanced under fluoroscopic guidance. Fluoroscopy was then used to guide advancement of the guidewire followed by the dilator sheath. The final fluoroscopic images demonstrated the catheter tip at the distal SVC and no kinks along its path. Description of Procedure Procedure as well as risks, benefits, and alternatives were discussed with patient. Written consent was obtained and placed in chart prior to procedure. Patient was brought back to surgical suite. Was placed supine on operating table. Time-out was done confirm patient procedure. IV sedation was then administered by the Anesthesia Department. The chest and neck area was prepped and draped in sterile fashion using chlorhexidine prep. Patient was placed in Trendelenburg position. SonoSite ultrasound was used to identify the Right internal jugular vein. It was visualized as a compressible vessel just lateral to the carotid artery. 1% lidocaine with epinephrine was infiltrated directly over the vessel under ultrasound guidance. An 18 gauge introducer needle was then advanced under ultrasound guidance directly into the right internal jugular vein. Dark nonpulsatile blood was aspirated. A 0.035 in guidewire was then advanced through the needle under fluoroscopic guidance. The guidewire was visualized advancing all the way down into the superior vena cava. 1% lidocaine with epinephrine was then infiltrated on the right anterior chest and along the tract up to the guidewire insertion site. A 3 cm incision was made with a 15 blade scalpel, and electrocautery was then used for dissection down through the subcutaneous tissue to the pectoral fascia. A pocket was created just inferior to the incision using blunt dissection. A small jordan incision was then also made at the insertion site at the neck. The tunneler was then advanced from the chest incision up to the neck incision and the catheter tubing was brought up through this tract. The dilator and sheath were then advanced over the guidewire under fluoroscopic visualization. The dilator and guidewire were then removed leaving the sheath in place. The catheter tubing was then advanced through the sheath under fluoroscopic guidance. The sheath was unsnapped and carefully peeled away. The catheter tubing was released underneath the neck incision. Fluoroscopy was used to confirm proper placement of the catheter tubing and no kinks along its path. The catheter was then cut to proper length and secured to the port. The port was then accessed with a Reeves needle and aspirated and flushed with heparinized saline. The port function with ease. The port was then hep-locked with Hep-Lock solution. The port was then placed within the pocket that was created, and was secured to the fascia using 3 0 Prolene simple interrupted sutures. The patient was flattened out in bed. Pravin's fascia was reapproximated using 3 0 Vicryl simple interrupted sutures. The skin of the incisions was then approximated using 4-0 Monocryl subcuticular suture. Exofin glue was then applied on top. The patient was then awakened from anesthesia and transferred to recovery. Implants Smart Port CT Port-A-Cath Estimated Blood Loss 5 Urine Output 275 Complications No immediate complications Condition [facility]
[2022-03-14] MEDS: LACTATED RINGERS 1,000 ML 30 ML IV CONT (15:07)
[2022-03-14 15:26] LABS: Glucose Point of Care 239 mg/dl (65-105)
--- NOTE | 2022-03-14 16:33 | PC.NURSE ---
Returned from OR per [bed]. Report received from [ SHELDON astorga @ [phone]].
[2022-03-14 16:47] LABS: Glucose Point of Care 264 mg/dl (65-105)
[2022-03-14] MEDS: INSULIN ASPART (*BKC) 100 UNITS/ML SUB-Q (16:56)
[2022-03-14] MEDS: predniSONE 20 MG TABLET 60 MG PO (16:56)
[2022-03-14 19:49] LABS: Glucose Point of Care 238 mg/dl (65-105)
[2022-03-15] VITALS (25 sets, daily range): BP systolic 118–139; BP diastolic 61–80; PULSE 90–119; RESP 12–20; TEMP 36.2–37.1; O2SAT 92–100
[2022-03-15] MEDS: IPRATROPIUM BR 0.02% INH SOLN 0.5 MG/2.5 ML VIAL INHALATION ×4 (01:29→20:31)
[2022-03-15] MEDS: ALBUTEROL SULFATE NEB 2.5 MG/3 ML INH (01:30)
--- NOTE | 2022-03-15 04:31 | ECG_ITS ---
Measurements Intervals [place] Rate: 99 P: 71 NV: 175 QRS: -32 QRSD: 118 T: 68 QT: 396 QTc: 509 Interpretive Statements SINUS RHYTHM LEFT AXIS DEVIATION DELAYED PRECORDIAL R/S TRANSITION LEFT VENTRICULAR HYPERTROPHY AND ST-T CHANGE MINIMAL Q WAVES- HIGH LATERAL LEADS BORDERLINE T WAVE ABNORMALITY- ANTERIOR LEADS BORDERLINE ECG COMPARED TO ECG 02/22/2022 16:14:52 SINUS RHYTHM NOW PRESENT LEFT-AXIS DEVIATION NOW PRESENT LEFT VENTRICULAR HYPERTROPHY NOW PRESENT Electronically Signed On 03-15-2022 13:59:38 SHEET WRITER by Jose Lai D.O.
--- NOTE | 2022-03-15 04:42 | ECG_ITS ---
Measurements Intervals [place] Rate: 140 P: -55 MN: 115 QRS: -38 QRSD: 104 T: 97 QT: 322 QTc: 493 Interpretive Statements ATRIAL FLUTTER/TACHYCARDIA WITH RAPID VENTRICULAR RESPONSE LEFT AXIS DEVIATION LEFT VENTRICULAR HYPERTROPHY AND ST-T CHANGE POOR R WAVE PROGRESSION, ANTERIOR LEADS MINIMAL Q WAVES- HIGH LATERAL LEADS BORDERLINE T WAVE ABNORMALITY- INFERIOR LEADS BASELINE ARTIFACT- I, II, III, AVR, AVL, AVF, V1 ABNORMAL ECG COMPARED TO ECG 02/22/2022 16:14:52 LEFT-AXIS DEVIATION NOW PRESENT LEFT VENTRICULAR HYPERTROPHY NOW PRESENT Electronically Signed On 03-18-2022 15:54:20 TACK PICKER by Joes Lai D.O.
[2022-03-15 07:42] LABS: Glucose Point of Care 255 mg/dl (65-105)
[2022-03-15 08:20] LABS: Basophils Percent Auto 0.3 % (0.2-1.2); Immature Granulocyte Absolute 0.26 K/mm3 (0.00-0.031); Immature Granulocyte Percent A 6.8 % (0-0.5); Immature Platelet Fraction Pct 6.2 % (0.9-11.2); Lymphocytes Absolute Auto 0.42 K/mm3 (0.9-3.2); Lymphocytes Percent Auto 10.9 % (18.3-44.2); Mean Corpuscular Hemoglobin 28.8 pg (26-34); Mean Corpuscular Volume 95.8 fl (80-100); Mean Platelet Volume 12.5 fl (7.4-10.4); Monocytes Absolute Auto 0.1 K/mm3 (0.1-0.6); Monocytes Percent Auto 2.6 % (2.6-8.5); Neutrophils Absolute Auto 3.1 K/mm3 (1.3-6.7); Neutrophils Percent Auto 79.4 % (45.5-73.1); Red Cell Distribution Width 19.7 % (11.5-14.5); White Blood Count 3.8 K/mm3 (4.5-10.0)
[2022-03-15 08:34] LABS: Alanine Aminotransferase 19 U/L (6-50); Albumin Level 2.4 g/dL (3.5-5.1); Alkaline Phosphatase 97 U/L (38-126); Anion Gap 11 mmol/L (8-16); Aspartate Amino Transferase 21 U/L (17-59); Bilirubin,Total 11.7 mg/dL (0.2-1.3); Blood Urea Nitrogen 29 mg/dL (9-20); Calcium 7.9 mg/dL (8.4-10.2); Carbon Dioxide 29 mmol/L (22-30); Chloride 114 mmol/L (98-107); Estimated CRCL calculation 155 ml/min; Estimated Glomerular Filt Rate > 60; Glucose 253 mg/dL (65-110); Magnesium 2.5 mg/dL (1.6-2.3); Phosphorus 5.5 mg/dL (2.5-4.5); Potassium 3.4 mmol/L (3.4-5.0); Sodium 154 mmol/L (137-145)
[2022-03-15] MEDS: INSULIN ASPART (*BKC) 100 UNITS/ML SUB-Q ×3 (08:34→16:51)
[2022-03-15] MEDS: ONDANSETRON INJ 4 MG/2 ML VIAL IV PUSH ×2 (08:37→16:51)
[2022-03-15 08:40] LABS: Hemoglobin 6.9 g/dL (14.0-18.0)
[2022-03-15 08:41] LABS: Platelet Count Result 19 k/mm3 (150-375)
--- NOTE | 2022-03-15 08:49 | PM.CNPUL ---
Assessment and Plan Assessment and plan (1) Lymphoma: Code(s): C85.90 - Non-Hodgkin lymphoma, unspecified, unspecified site Status: Acute (2) Atelectasis of left lung: Code(s): J98.11 - Atelectasis Status: Acute Assessment and Plan: 66-year-old man with a history of recently diagnosed B-cell lymphoma, hemolytic anemia, jaundice, coagulopathy has had left lung atelectasis which is relatively new. patient is currently on room air and he does not appear to be septic while off antibiotics. In view of a normal chest x-ray approximately 3 weeks ago this is probably related to retention of bronchial secretions. Plan: will proceed with a chest CT without contrast to assess in addition to atelectasis for pleural effusion/ pneumonia. Will continue with aggressive pulmonary toilet with nebulized short-acting bronchodilators q.4 hours, nebulized mucolytic agents incentive spirometry. Repeat chest x-ray in a.m.. Will consider bronchoscopy if atelectasis persists and coagulopathy is improved. 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.9 - Hereditary hemolytic anemia, unspecified Status: Acute (4) Thrombocytopenia: Code(s): D69.6 - Thrombocytopenia, unspecified Status: Acute (5) CORA (obstructive sleep apnea): Code(s): G47.33 - Obstructive sleep apnea (adult) (pediatric) Status: Acute (6) Elevated INR: Code(s): R79.1 - Abnormal coagulation profile Status: Acute (7) Diastolic congestive heart failure: Code(s): I50.30 - Unspecified diastolic (congestive) heart failure Status: Acute (8) COPD (chronic obstructive pulmonary disease): Code(s): J44.9 - Chronic obstructive pulmonary disease, unspecified Status: Acute History of Present Illness History of Present Illness Consult date: 03/15/22 Chief complaint: Hemolytic anemia, lymphoma Narrative: This 66-year-old man was transferred to this hospital after he was found to have anemia, thrombocytopenia. Patient was recently diagnosed with B-cell lymphoma following periaortic lymph node biopsy approximately 20 days ago. Patient appears confused and does not know why he was transferred to this hospital. He has been evaluated by Oncology/Hematology and has been treated for hemolytic anemia with steroids. Reportedly he has not received tree chemotherapy for his B-cell lymphoma. His past medical history is significant for type 2 diabetes, mild sleep apnea, history of DVT, COPD, atrial flutter, chronic anemia abdominal CT done approximately 20 days ago showed small pleural effusions bilaterally along with mild atelectasis. chest x-ray 20 days ago showed no active lung disease. Repeat chest x-ray done yesterday showed left lung atelectasis which on today's chest x-ray looks more or less unchanged, with perhaps partial reinflation of the left upper lobe. Patient has anemia low platelet count and prolonged PT/ INR. He is currently on room air. Review of Systems Review of Systems: all system review is negative except as noted in HPI and below. [facility]LY [facility] Past Medical History Medical History Anemia of chronic disease Chronic hyponatremia Claudication in peripheral vascular disease COPD (chronic obstructive pulmonary disease) Diastolic heart failure Echocardiogram December 2021: Left ventricular systolic function normal with EF of 55-60, moderate concentric left ventricular increased wall thickness, grade 2 diastolic dysfunction, mild aortic valve sclerosis, 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 consistent with significantly elevated right atrial pressures DM2 (diabetes mellitus, type 2) DVT (deep venous thrombosis) 1998 and 2015 GERD (gastroesophageal reflux disease) Hiatal hernia Hyperlipidemia Ischemic colitis (04/2016) Lymphedema of both lower extremities MDD (major depressive disorder) Obstructive sleep apnea (06/2021) Polysomnogram dem
[2022-03-15] MEDS: ALBUTEROL SULFATE NEB 2.5 MG/0.5 ML INH INHALATION ×3 (09:09→20:31)
[2022-03-15 09:34] LABS: Schistocytes None Seen (NORMAL)
[2022-03-15 09:35] LABS: Platelet Estimate Decreased (Adequate)
[2022-03-15] MEDS: PROMETHAZINE HCL 25 MG/ML AMPUL 12.5 MG IV PUSH (10:06)
--- NOTE | 2022-03-15 11:35 | WPDANESPN ---
Anes - Prog Note Post-Op Date/Time: 03/15/22 11:35 Vital Signs: Last Vital Signs Temp 36.3 C L 03/15/22 07:51 Pulse 98 03/15/22 10:00 Resp 20 03/15/22 09:18 BP 139/80 03/15/22 07:51 Pulse Ox 94 03/15/22 09:09 O2 Del Method Room Air 03/15/22 09:09 O2 Flow Rate 2 03/14/22 09:38 Pain Score (VAS): 0 I/O: Intake & Output 03/14/22 03/15/22 03/15/22 23:59 07:59 15:59 Intake Total 440 200 Output Total 300 825 225 Balance 672 -248 -022 Laboratory Tests 03/15/22 08:07 03/15/22 08:07 03/14/22 03/14/22 03/14/22 13:41 15:23 16:45 WBC RBC Hgb Hct MCV MCH MCHC RDW Plt Count MPV Immature Gran % (Auto) Neut % (Auto) Lymph % (Auto) [place] % (Auto) Eos % (Auto) Baso % (Auto) Lymph # (Auto) [place] # (Auto) Eos # (Auto) Baso # (Auto) Abs Immat Gran (auto) Absolute Neuts (auto) Absolute Nucleated RBC Nucleated RBC % Platelet Estimate % Immature Plt Fraction Schistocytes Sodium Potassium Chloride Carbon Dioxide Anion Gap BUN Creatinine Estim Creat Clear Calc Estimated GFR Glucose POC Capillary Glucose 222 H 239 H 264 H Calcium Phosphorus Magnesium Total Bilirubin AST ALT Alkaline Phosphatase Total Protein Albumin 03/14/22 03/15/22 03/15/22 19:38 07:37 08:07 WBC 3.8 L RBC 2.40 L Hgb 6.9 L* Hct 23.0 L MCV 95.8 MCH 28.8 MCHC 30.0 L RDW 19.7 H Plt Count 19 L* MPV 12.5 H Immature Gran % (Auto) 6.8 H Neut % (Auto) 79.4 H Lymph % (Auto) 10.9 L [place] % (Auto) 2.6 Eos % (Auto) 0.0 Baso % (Auto) 0.3 Lymph # (Auto) 0.42 L [place] # (Auto) 0.1 Eos # (Auto) 0.0 Baso # (Auto) 0.0 Abs Immat Gran (auto) 0.26 H Absolute Neuts (auto) 3.1 Absolute Nucleated RBC 0.0 Nucleated RBC % 0.0 Platelet Estimate Decreased % Immature Plt Fraction 6.2 Schistocytes None seen Sodium Potassium Chloride Carbon Dioxide Anion Gap BUN Creatinine Estim Creat Clear Calc Estimated GFR Glucose POC Capillary Glucose 238 H 255 H Calcium Phosphorus Magnesium Total Bilirubin AST ALT Alkaline Phosphatase Total Protein Albumin 03/15/22 08:07 WBC RBC Hgb Hct MCV MCH MCHC RDW Plt Count MPV Immature Gran % (Auto) Neut % (Auto) Lymph % (Auto) [place] % (Auto) Eos % (Auto) Baso % (Auto) Lymph # (Auto) [place] # (Auto) Eos # (Auto) Baso # (Auto) Abs Immat Gran (auto) Absolute Neuts (auto) Absolute Nucleated RBC Nucleated RBC % Platelet Estimate % Immature Plt Fraction Schistocytes Sodium 154 H Potassium 3.4 Chloride 114 H Carbon Dioxide 29 Anion Gap 11 BUN 29 H Creatinine 0.50 L Estim Creat Clear Calc 155 Estimated GFR > 60 Glucose 253 H POC Capillary Glucose Calcium 7.9 L Phosphorus 5.5 H Magnesium 2.5 H Total Bilirubin 11.7 H AST 21 ALT 19 Alkaline Phosphatase 97 Total Protein 7.0 Albumin 2.4 L Patient Feedback: Patient satisfied with anesthetic care.
[2022-03-15 12:04] LABS: Glucose Point of Care 245 mg/dl (65-105)
[2022-03-15] MEDS: ACETYLCYSTEINE 20% INHAL SOLN 800 MG/4 ML VIAL 200 MG INHALATION ×2 (13:32→20:31)
--- NOTE | 2022-03-15 15:26 | PM.IMPN ---
Progress Note: A&P Assessment and Plan (1) Pneumonia: Code(s): J18.9 - Pneumonia, unspecified organism Status: Acute Assessment and Plan: CXR yesterday showing left volume loss. CPT ordered. On nebs. Has coughing with eating and drinking so will order speech evaluation. Pulmonary consulted and CT chest ordered showing diffuse lung disease L>R consistent with PNA and atelectasis. Abx started. Will change Zosyn to Unasyn. Continue Vanco. Check BCx. 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.9 - Hereditary hemolytic anemia, unspecified Status: Acute Assessment and Plan: Patient with autoimmune hemolytic anemia. Hgb 6.9 and ptl 19K today. Hematology-Oncology aware and are managing. Continue oral prednisone. (3) Thrombocytopenia: Code(s): D69.6 - Thrombocytopenia, unspecified Status: Acute Assessment and Plan: Platelet count was 7K that improved after 2 units of platelets transfusion to 25K. Xarelto on hold. Mild splenomegaly noted; may be contributing to the thrombocytopenia. Heme/Onc following and appreciated their input (4) Hyperbilirubinemia: Code(s): E80.6 - Other disorders of bilirubin metabolism Status: Acute Assessment and Plan: Bili level has been elevated for a few months but worse today to 11.7. Abd US earlier this month showing GB sludge and wall thickening. Could be related to hemolysis (5) Lymphoma: Code(s): C85.90 - Non-Hodgkin lymphoma, unspecified, unspecified site Status: Acute Assessment and Plan: Port placed 03/14. Needs PET scan that is being arranged as outpatient. H/O following (6) Hypokalemia: Code(s): E87.6 - Hypokalemia Status: Acute Assessment and Plan: Resolved. Monitor BMP Subjective Date/time seen: 03/15/22 15:26 Interval history: 66yo male with lymphoma, DM and COPD her for lethargy and poor oral intake. Assuming care. Chart reviewed. Patient denies any chest pain or shortness of breath. He denies any nausea or vomiting but family and staff state patient was having bouts of emesis this morning. He does have a nonproductive cough. His states patient is having trouble swallowing including water and pills. It results in coughing spell with nausea then vomiting. Exam Narrative: AF 97.2 122/64 99 20 100% ra Gen - chronically ill appearing gaunt male in NARD Chest - decreased breath sound left mid and lower lung field with egophony. nml RR. Right upper chest with port that tunnels to RIJ. Wound is well approximated. CV - RRR S1/S2. Tele showing run of probable AFib but mostly staying in normal sinus Abd - Soft, NT/ND, Positive BS Ext - trace pedal edema Neuro - Alert but confused. oriented to year and location. Psych - Nml mood and affect Skin - jaundice, petechiae Objective Data Vital Signs Vital Signs: Vital Signs - 24 hr 03/14/22 15:35 03/14/22 15:50 03/14/22 16:05 Temperature Pulse Rate 99 97 101 H Respiratory Rate 22 H 18 20 Blood Pressure 106/61 103/58 L 109/63 Pulse Oximetry 92 92 94 Oxygen Delivery Room Air Room Air Room Air 03/14/22 16:21 03/14/22 16:36 03/14/22 17:04 Temperature 97.7 F 97.5 F L Pulse Rate 101 H 101 H 102 H Respiratory Rate 17 20 Blood Pressure 125/69 121/69 Pulse Oximetry 95 96 Oxygen Delivery 03/14/22 17:24 03/14/22 17:06 03/14/22 18:06 Temperature 97.8 F 97.5 F L Pulse Rate 96 100 102 H Respiratory Rate 20 20 16 Blood Pressure 115/59 L 112/64 Pulse Oximetry 100 95 Oxygen Delivery 03/14/22 16:35 03/14/22 16:00 03/14/22 18:00 Temperature Pulse Rate 99 100 Respiratory Rate Blood Pressure Pulse Oximetry 99 Oxygen Delivery Room Air 03/14/22 20:09 03/14/22 20:30 03/14/22 20:30 Temperature 98.6 F Pulse Rate 103 H 95 95 Respiratory Rate 20 20 20 Blood Pressure 123/68 Pulse Oximetry 100 98 Oxygen Delivery Room Air 03/14/22 20:37 03/14/22 20:00 1
[2022-03-15 16:10] LABS: Glucose Point of Care 243 mg/dl (65-105)
--- NOTE | 2022-03-15 17:01 | PCRCNOTE ---
Window of time for administration has passed. See next scheduled administration.
[2022-03-15] MEDS: AMPICILLIN SULB 3 GM/NS 100 ML 3 GM/100 ML VIAL IVPB ×2 (18:55→23:51)
--- NOTE | 2022-03-15 19:44 | WPDONCPN ---
Progress Note: A/P - Additional Plan Large B-cell lymphoma status post left periaortic lymph node biopsy done on February 24, 2022. Stage II A disease based on the last CT scan. MediPort has been placed. Patient clinical condition is not good enough to start chemotherapy yet. I would recommend transferring him to [facility] to start treatment with Rituxan that would likely help his lymphoma as well as thrombocytopenia and hemolytic anemia. We are not able to give him treatment with Rituxan here. Thrombocytopenia. This is likely secondary to combination of lymphoma, liver cirrhosis and splenomegaly. I will check platelet antibodies as well. Patient was not able to get prednisone orally. We will start him on IV Solu-Medrol. Autoimmune hemolytic anemia. We will minimize blood transfusion. Labs showed further rise in bilirubin. Bilirubin was normal. We will keep him on a steroid and was changed to Solu-Medrol. - Time Spent With Patient Total time spent is greater than 50% in coordination of care (as documented) at patient's floor/unit and/or counseling patient: 25 - 35 minutes Subjective Interval history: Large B-cell lymphoma Pancytopenia Liver cirrhosis and splenomegaly Review of Systems - Review of Systems Patient remains quite tired and fatigued. He denies any bleeding and bruising. He denies any chest pain but does have some abdominal pain. No fevers and chills. Exam Vital signs: Temp Pulse Resp BP Pulse Ox O2 Del Method O2 Flow Rate 36.4 C 96 18 118/63 92 Room Air 2 03/15/22 16:00 03/15/22 16:00 03/15/22 16:00 03/15/22 16:00 03/15/22 16:00 03/15/22 12:00 03/14/22 09:38 Narrative: Lungs are clear to auscultation bilaterally Cardiovascular regular rate rhythm no murmurs Abdomen soft nontender nondistended bowel sounds are positive Extremities no edema Skin color looked jaundiced PN: Objective Data - Labs CBC & Chem 7: 03/15/22 08:07 03/15/22 08:07 Labs: Laboratory Results - last 24 hr 03/14/22 03/15/22 03/15/22 19:38 07:37 08:07 WBC 3.8 L RBC 2.40 L Hgb 6.9 L* Hct 23.0 L MCV 95.8 MCH 28.8 MCHC 30.0 L RDW 19.7 H Plt Count 19 L* MPV 12.5 H Immature Gran % (Auto) 6.8 H Neut % (Auto) 79.4 H Lymph % (Auto) 10.9 L [place] % (Auto) 2.6 Eos % (Auto) 0.0 Baso % (Auto) 0.3 Lymph # (Auto) 0.42 L [place] # (Auto) 0.1 Eos # (Auto) 0.0 Baso # (Auto) 0.0 Abs Immat Gran (auto) 0.26 H Absolute Neuts (auto) 3.1 Absolute Nucleated RBC 0.0 Nucleated RBC % 0.0 Platelet Estimate Decreased % Immature Plt Fraction 6.2 Schistocytes None seen Sodium Potassium Chloride Carbon Dioxide Anion Gap BUN Creatinine Estim Creat Clear Calc Estimated GFR Glucose POC Capillary Glucose 238 H 255 H Calcium Phosphorus Magnesium Total Bilirubin AST ALT Alkaline Phosphatase Total Protein Albumin 03/15/22 03/15/22 03/15/22 08:07 11:57 16:07 WBC RBC Hgb Hct MCV MCH MCHC RDW Plt Count MPV Immature Gran % (Auto) Neut % (Auto) Lymph % (Auto) [place] % (Auto) Eos % (Auto) Baso % (Auto) Lymph # (Auto) [place] # (Auto) Eos # (Auto) Baso # (Auto) Abs Immat Gran (auto) Absolute Neuts (auto) Absolute Nucleated RBC Nucleated RBC % Platelet Estimate % Immature Plt Fraction Schistocytes Sodium 154 H Potassium 3.4 Chloride 114 H Carbon Dioxide 29 Anion Gap 11 BUN 29 H Creatinine 0.50 L Estim Creat Clear Calc 155 Estimated GFR > 60 Glucose 253 H POC Capillary Glucose 245 H 243 H Calcium 7.9 L Phosphorus 5.5 H Magnesium 2.5 H Total Bilirubin 11.7 H AST 21 ALT 19 Alkaline Phosphatase 97 Total Protein 7.0 Albumin 2.4 L
[2022-03-15 19:58] LABS: Glucose Point of Care 342 mg/dl (65-105)
[2022-03-15] MEDS: methylPREDNISolone SOD SUCC 125 MG VIAL 60 MG IV PUSH (20:33)
[2022-03-16] VITALS (29 sets, daily range): BP systolic 102–133; BP diastolic 55–94; PULSE 86–114; RESP 18–24; TEMP 36.3–37.2; O2SAT 92–99
[2022-03-16] MEDS: ALBUTEROL SULFATE NEB 2.5 MG/0.5 ML INH INHALATION ×3 (03:38→15:42)
[2022-03-16] MEDS: IPRATROPIUM BR 0.02% INH SOLN 0.5 MG/2.5 ML VIAL INHALATION ×3 (03:38→15:42)
[2022-03-16] MEDS: ACETYLCYSTEINE 20% INHAL SOLN 800 MG/4 ML VIAL 200 MG INHALATION ×3 (03:38→15:42)
[2022-03-16 05:01] LABS: Immature Granulocyte Absolute 0.29 K/mm3 (0.00-0.031); Immature Granulocyte Percent A 10.1 % (0-0.5); Immature Platelet Fraction Pct 11.7 % (0.9-11.2); Lymphocytes Absolute Auto 0.28 K/mm3 (0.9-3.2); Lymphocytes Percent Auto 9.8 % (18.3-44.2); Mean Corpuscular HGB Conc 30.6 g/dl (32-36); Mean Corpuscular Hemoglobin 28.4 pg (26-34); Mean Corpuscular Volume 92.9 fl (80-100); Mean Platelet Volume 13.4 fl (7.4-10.4); Monocytes Absolute Auto 0.1 K/mm3 (0.1-0.6); Monocytes Percent Auto 1.7 % (2.6-8.5); Neutrophils Absolute Auto 2.3 K/mm3 (1.3-6.7); Neutrophils Percent Auto 78.4 % (45.5-73.1); Red Blood Count 2.11 M/mm3 (4.6-6.20); Red Cell Distribution Width 19.9 % (11.5-14.5); White Blood Count 2.9 K/mm3 (4.5-10.0)
[2022-03-16 05:10] LABS: Alanine Aminotransferase 18 U/L (6-50); Albumin Level 2.2 g/dL (3.5-5.1); Alkaline Phosphatase 92 U/L (38-126); Anion Gap 6 mmol/L (8-16); Aspartate Amino Transferase 27 U/L (17-59); Bilirubin Indirect 1.7 mg/dL (0-1.1); Bilirubin,Total 13.7 mg/dL (0.2-1.3); Blood Urea Nitrogen 34 mg/dL (9-20); Calcium 7.6 mg/dL (8.4-10.2); Carbon Dioxide 28 mmol/L (22-30); Chloride 114 mmol/L (98-107); Estimated CRCL calculation 131 ml/min; Estimated Glomerular Filt Rate > 60; Glucose 359 mg/dL (65-110); Potassium 3.4 mmol/L (3.4-5.0); Sodium 148 mmol/L (137-145)
[2022-03-16 05:26] LABS: Hematocrit 19.6 % (42.0-52.0)
[2022-03-16 05:27] LABS: Anisocytosis 1+ (NORMAL); Hypochromasia 1+ (NORMAL); Ovalocytes 1+ (NORMAL); Platelet Count Result 7 k/mm3 (150-375); Platelet Estimate Decreased (Adequate)
[2022-03-16 05:28] LABS: Burr Cells 1+ (NORMAL)
[2022-03-16 06:00] LABS: Schistocytes None Seen (NORMAL)
[2022-03-16] MEDS: AMPICILLIN SULB 3 GM/NS 100 ML 3 GM/100 ML VIAL IVPB ×3 (06:51→18:37)
[2022-03-16 08:16] LABS: Glucose Point of Care 391 mg/dl (65-105)
[2022-03-16 08:16] LABS: Glucose Point of Care 400 mg/dl (65-105)
[2022-03-16] MEDS: INSULIN ASPART (*BKC) 100 UNITS/ML SUB-Q ×3 (08:28→16:42)
[2022-03-16] MEDS: methylPREDNISolone SOD SUCC 125 MG VIAL 60 MG IV PUSH (08:31)
[2022-03-16] MEDS: ALBUTEROL SULFATE NEB 2.5 MG/3 ML INH (08:45)
[2022-03-16] MEDS: ONDANSETRON INJ 4 MG/2 ML VIAL IV PUSH (08:48)
[2022-03-16] MEDS: SODIUM CHLORIDE 0.9% IV 250 ML 30 ML IV CONT ×2 (09:31→18:37)
--- NOTE | 2022-03-16 09:37 | PM.PNPUL ---
Progress Note: A&P Assessment and Plan (1) Pneumonia: Code(s): J18.9 - Pneumonia, unspecified organism Status: Acute Assessment and Plan: 66-year-old man with newly diagnosed B-cell lymphoma, hemolytic anemia with jaundice, thrombocytopenia, leukopenia on IV steroids for hemolytic anemia, on no chemotherapy for B-cell lymphoma has had new infiltrates in left lung suggestive of nosocomial pneumonia. There is a small pleural effusion on left as well. Patient is immunocompromised and and has been on broad-spectrum antibiotics to cover nosocomial pneumonia. Over the last 24 hours his respiratory status is essentially unchanged. he remains confused but still on room air. chest imaging studies showed no significant lung atelectasis. Plan continue with current regimen for nosocomial pneumonia. Change nebulized mucolytic agent to b.i.d. continue with short-acting bronchodilators p.r.n.. 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.9 - Hereditary hemolytic anemia, unspecified Status: Acute (3) Thrombocytopenia: Code(s): D69.6 - Thrombocytopenia, unspecified Status: Acute (4) Lymphoma: Code(s): C85.90 - Non-Hodgkin lymphoma, unspecified, unspecified site Status: Acute (5) Atrial flutter with rapid ventricular response: Code(s): I48.92 - Unspecified atrial flutter Status: Acute (6) Diastolic congestive heart failure: Code(s): I50.30 - Unspecified diastolic (congestive) heart failure Status: Acute (7) Anemia: Qualifiers: Anemia type: unspecified type Qualified Code(s): D64.9 - Anemia, unspecified Code(s): D64.9 - Anemia, unspecified Status: Acute Subjective Date/time seen: 03/16/22 09:37 patient remains on room air. He has no new respiratory symptoms. He is afebrile. Has been on antibiotics for nosocomial pneumonia since yesterday. Poor intake. Review of Systems Review of Systems: all system review is negative except as noted in HPI and below. Exam Narrative: GENERAL APPEARANCE: Well developed, well nourished. Patient appears confused. No respiratory distress while on room air HEENT: Sclerae icteric. Extraocular movements were intact and pupils were equal, round. Dry oral mucosa, thrush on tongue NECK: Supple. There was no thyroid enlargement, and no tenderness, or masses were felt. CHEST: Normal AP diameter and normal contour without any kyphoscoliosis. LUNGS: Auscultation of the lungs rhonchi right lung posteriorly and decreased breath sounds left upper chest anteriorly, no wheezing CARDIAC: There was a regular rate and rhythm without any murmurs, gallops, rubs. ABDOMEN: Soft and nontender with normal bowel sounds. LYMPH NODES: No lymphadenopathy was appreciated in the neck EXTREMITIES: No cyanosis, clubbing. old stasis dermatitis changes lower extremities. NEUROLOGIC: patient appears confused disoriented to time, moving all extremities. Objective Data Vital Signs Vital Signs: Vital Signs - 24 hr 03/15/22 10:00 03/15/22 12:00 03/15/22 13:32 Temperature 36.2 C L Pulse Rate 98 97 93 Respiratory Rate 16 18 Blood Pressure 122/64 Pulse Oximetry 97 Oxygen Delivery 03/15/22 13:55 03/15/22 12:00 03/15/22 14:00 Temperature Pulse Rate 94 96 99 Respiratory Rate 20 Blood Pressure Pulse Oximetry Oxygen Delivery 03/15/22 12:00 03/15/22 16:00 03/15/22 16:00 Temperature 36.4 C Pulse Rate 97 96 Respiratory Rate 18 Blood Pressure 118/63 Pulse Oximetry 100 92 Oxygen Delivery Room Air 03/15/22 16:00 03/15/22 18:00 03/15/22 20:00 Temperature 36.8 C Pulse Rate 96 95 Respiratory Rate 20 Blood Pressure 121/66 Pulse Oximetry 100 100 Oxygen Delivery Room Air 03/15/22 20:38 03/15/22 20:39 03/15/22 21:02 Temperature Pulse Rate 92 97 Respiratory Rate 16 16 Blood Pressure Pulse Oximetry 95 Oxygen Delivery Room Air 03/15/22 20:00 02/23
--- NOTE | 2022-03-16 09:51 | PCSTNOTE ---
Attempted Bedside Swallow Evaluation; patient consumed 5-6 pieces of fruit from fruit cocktail. He eventually stopped, asked for a vomit bag, with mild delay gagged and expectorated the fruit. No coughing noted. Other than a few sips of coffee, which he did not cough on, a true bedside evaluation could not be completed. Physician notified of results. Will attempt again by noon today.
[2022-03-16] MEDS: TUBING, BLOOD PLUM PUMP TUBING 1 EACH XX ×3 (10:34→18:37)
[2022-03-16] MEDS: SODIUM CHLORIDE 0.9% IV 250 ML 30 ML (10:55)
[2022-03-16 11:54] LABS: Glucose Point of Care 388 mg/dl (65-105)
--- NOTE | 2022-03-16 13:24 | PC.NURSE ---
Pt has not taken oral meds 03/15 and 03/16. Pt also having episodes of agitation as well as episodes of confusion and decrease in responsiveness. Dr. Pollard made aware. No new orders.
--- NOTE | 2022-03-16 14:36 | PCSTNOTE ---
Please refer to the Bedside Swallow Evaluation in the EMR. Please note, silent aspiration cannot be ruled out at bedside.
[2022-03-16 14:48] LABS: Hemoglobin 5.7 g/dL (14.0-18.0)
[2022-03-16 14:49] LABS: Hematocrit 19.2 % (42.0-52.0)
[2022-03-16 14:58] LABS: Vancomycin Trough 20.7 ug/mL (10.0-20.0)
--- NOTE | 2022-03-16 15:39 | PM.IMPN ---
Progress Note: A&P Assessment and Plan (1) Pneumonia: Code(s): J18.9 - Pneumonia, unspecified organism Status: Acute Assessment and Plan: CT chest 03/15 showing diffuse lung disease L>R consistent with PNA and atelectasis. CXR today reviewed showing much improved aeration to the left upper lung. Continue CPT and nebs. Speech evaluation noted and will remain on current diet. Pulmonary consulted and appreciate their input. Continue Vanco and Unasyn. BCx pending. Remains on room air. 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 Hgb 6.0 and ptl 7K today. Hem-Onc aware and are managing. Patient has received 1U PRBC. Was on Prednisone but changed to Solu-Medrol. BM bx did not contain lymphoma cells per oncology so felt anemia more related to hemolysis. No evidence of acute blood loss. Unclear why indirect bili is so low compared to the total. Even LDH was normal on 03/11 and no schistocytes. Repeat labs. Continue steroids. Check CT A/P. Oncology wants patient transferred to [facility] for Rituxan and call was made to transfer line. He is on wait list. (3) Thrombocytopenia: Code(s): D69.6 - Thrombocytopenia, unspecified Status: Acute Assessment and Plan: Platelet count was 7K that improved after 2 units of platelets transfusion to 25K. Xarelto on hold. Mild splenomegaly noted and which may be contributing to the thrombocytopenia. Consider TTP but indirect bili only mildly elevated. Does have mental status changes but could be related to the elevated bili. No fevers or COLEEN. Heme/Onc following and appreciated their input. ANti-plt Ab ordered. (4) Hyperbilirubinemia: Code(s): E80.6 - Other disorders of bilirubin metabolism Status: Acute Assessment and Plan: Bili level has been elevated for a few months but worse today to 13.7. Abd US earlier this month showing GB sludge and wall thickening but no cirrhosis or dilated ducts. Indirect only 1.7. Consider obstructive process from adenopathy? Check CT scan. GI consult (5) Lymphoma: Code(s): C85.90 - Non-Hodgkin lymphoma, unspecified, unspecified site Status: Acute Assessment and Plan: Port placed 03/14. Needs PET scan that is being arranged as outpatient. H/O following (6) Confusion: Code(s): R41.0 - Disorientation, unspecified Status: Acute Assessment and Plan: Patient alert but confused. [place] related to the elevated bilirubin. Mild splenomegaly noted but no cirrhosis but CT and Abd US earlier this month. B12 and TSH normal recently. Check Ammonia level. (7) Hypokalemia: Code(s): E87.6 - Hypokalemia Status: Acute Assessment and Plan: Resolved. Monitor BMP (8) Atelectasis of left lung: Code(s): J98.11 - Atelectasis Status: Acute Assessment and Plan: As above. Improved on CXR today. Plan Hyperglycemia - A1c 5.3 earlier this month. High glucose related to steroids. Continue sliding scale but increase to high dose. Add lantus. Subjective Date/time seen: 03/16/22 15:39 Interval history: 66yo male with lymphoma, DM and COPD her for lethargy and poor oral intake. No n/v. Patient states he is 'doing great'. No CP or abd pain. Patient is alert but confused. Exam Narrative: AF 97.9 117/63 89 18 95% ra Gen - chronically ill appearing gaunt male in NARD Chest - decreased breath sound left mid and lower lung field. nml RR. Right upper chest with port that tunnels to RIJ. Wound is well approximated without evidence of infection. CV - RRR S1/S2. Tele showing PVCs Abd - Soft, NT/ND, Positive BS Ext - no pedal edema Neuro - Alert but confused. oriented to hospital but not name of hospital Psych - Nml mood and affect Skin - jaundice, petechiae, dry eschar right lateral distal calf Objecti
[2022-03-16 15:44] LABS: Glucose Point of Care 358 mg/dl (65-105)
[2022-03-16 16:50] LABS: Glucose Point of Care 367 mg/dl (65-105)
[2022-03-16 16:55] LABS: Ammonia < 9 umol/L (9-30); Lactate Dehydrogenase 177 U/L (120-246)
--- NOTE | 2022-03-17 06:58 | PM.DS ---
DS: Admitting Diagnosis Discharge Date 03/16/22 Admitting Diagnosis Lethargy DS: Discharge Diagnosis Discharge Diagnosis (1) Pneumonia: Code(s): J18.9 - Pneumonia, unspecified organism Status: Acute 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.9 - Hereditary hemolytic anemia, unspecified Status: Acute (3) Thrombocytopenia: Code(s): D69.6 - Thrombocytopenia, unspecified Status: Acute (4) Hyperbilirubinemia: Code(s): E80.6 - Other disorders of bilirubin metabolism Status: Acute (5) Lymphoma: Code(s): C85.90 - Non-Hodgkin lymphoma, unspecified, unspecified site Status: Acute (6) Confusion: Code(s): R41.0 - Disorientation, unspecified Status: Acute (7) Hypokalemia: Code(s): E87.6 - Hypokalemia Status: Acute (8) Atelectasis of left lung: Code(s): J98.11 - Atelectasis Status: Acute DS: Summary Hospital Course Reason for hospitalization: 66yo male with lymphoma, DM, Afib and COPD her for lethargy and poor oral intake. Please see H&P for details. Hospital Course: Patient transferred from outside hospital with anemia and thrombocytopenia. He was found to have hemoglobin 6.4 and received 2u blood transfusions; platelets 14611 and received platelet transfusions.?CT chest 03/15 showing diffuse lung disease L>R consistent with PNA and atelectasis. CXR today reviewed showing much improved aeration to the left upper lung. Started CPT and nebs. Speech evaluation performed and patietn did well. Pulmonary consulted. Treated with Vanco and Unasyn. BCx no growth. Remains on room air.? Prednisone was continued since felt this was hemolytic anemia. Counts remained low here requiring 1U PRBC and 5U plt. 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 Hgb 6.0 and ptl 7K today. Hem-Onc aware and are managing. Patient has received 1U PRBC. Was on Prednisone but changed to Solu-Medrol. BM bx did not contain lymphoma cells per oncology so felt anemia more related to hemolysis. No evidence of acute blood loss. Unclear why indirect bili is so low compared to the total. Even LDH was normal on 03/11 and no schistocytes. Repeat labs. Continue steroids. Check CT A/P. Oncology wants patient transferred to [facility] for Rituxan and call was made to transfer line. He is on wait list. (3) Thrombocytopenia: ?Code(s): D69.6 - Thrombocytopenia, unspecified ?Status:?Acute ?Assessment and Plan: Platelet count was 7K that improved after 2 units of platelets transfusion to 25K. Xarelto on hold. Mild splenomegaly noted and which may be contributing to the thrombocytopenia. Consider TTP but indirect bili only mildly elevated. Does have mental status changes but could be related to the elevated bili. No fevers or COLEEN.? Heme/Onc following and appreciated their input. ANti-plt Ab ordered. (4) Hyperbilirubinemia: ?Code(s): E80.6 - Other disorders of bilirubin metabolism ?Status:?Acute ?Assessment and Plan: Bili level has been elevated for a few months but worse today to 13.7. Abd US earlier this month showing GB sludge and wall thickening but no cirrhosis or dilated ducts. Indirect only 1.7. Consider obstructive process from adenopathy? Check CT scan. GI consult (5) Lymphoma: ?Code(s): C85.90 - Non-Hodgkin lymphoma, unspecified, unspecified site ?Status:?Acute ?Assessment and Plan: Port placed 03/14. Needs PET scan that is being arranged as outpatient. H/O following (6) Confusion: ?Code(s): R41.0 - Disorientation, unspecified ?Status:?Acute ?Assessment and Plan: Patient alert but confused. Independence related to the elevated bilirubin. Mild splenomegaly noted but no cirrhosis but CT and Abd US earlier this month. B12 and TSH normal recently. Check Ammonia level. (7) Hypokalemia: ?Code(s): E87.6 - Hypokalemia ?Status:?Acute ?Assessment and Plan: Resolved.? Monitor BMP (8) Atelectasis of l
--- NOTE | 2022-03-17 07:32 | PM.TDS ---
Transfer Discharge Sum: Prov Provider Date of admission: 03/12/22 13:03 Primary care physician: Sarath Arreaga DO Admitting clinician: Raúl Sanchez DO Consults: 03/11/22 Consult to Physician Routine Comment: Spoke with Dr and notified him of consult Consulting Provider: Dionicio Rasmussen substance abuse clinician/MD group to consult: Consult Dr. Chavez for MediPort placement Reason for consultation: MediPort placement Has provider been notified: Yes Consult to Physician Routine Comment: spoke with the Dr and notified him of consult Consulting Provider: Arias Hicks Reason for consultation: hemolytic anemia Has provider been notified: Yes Wound/ET Consult Routine Reason for Consult:: rt lateral ankle 03/15/22 07:51 Consult to Physician Routine Comment: Spoke with Dr and notified him of consult Consulting Provider: Rehan Magallanes substance abuse clinician/MD group to consult: pulmonary Reason for consultation: left lung obstruction Has provider been notified: Yes 03/16/22 16:24 Consult to Physician Routine Comment: Spoke with the Dr and notified him of consult Consulting Provider: Kranthi Tello substance abuse clinician/MD group to consult: GI Reason for consultation: hyperbili Has provider been notified: Yes DS: Admitting Diagnosis Discharge Date 03/16/22 Admitting Diagnosis Lethargy DS: Discharge Diagnosis Discharge Diagnosis (1) Pneumonia: Code(s): J18.9 - Pneumonia, unspecified organism Status: Acute 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.9 - Hereditary hemolytic anemia, unspecified Status: Acute (3) Thrombocytopenia: Code(s): D69.6 - Thrombocytopenia, unspecified Status: Acute (4) Hyperbilirubinemia: Code(s): E80.6 - Other disorders of bilirubin metabolism Status: Acute (5) Lymphoma: Code(s): C85.90 - Non-Hodgkin lymphoma, unspecified, unspecified site Status: Acute (6) Confusion: Code(s): R41.0 - Disorientation, unspecified Status: Acute (7) Hypokalemia: Code(s): E87.6 - Hypokalemia Status: Acute (8) Atelectasis of left lung: Code(s): J98.11 - Atelectasis Status: Acute Transfer Discharge Sum: Med Medications Active and Home Medications: Home Medications albuterol sulfate 90 mcg/actuation aerosol inhaler 1 inh inhalation Q4H PRN shortness of breath or wheezing #8.5 grams 11/18/21 [Rx Confirmed 03/11/22] atorvastatin 20 mg tablet 20 mg PO DAILY 12/20/21 [History Confirmed 03/11/22] gabapentin 300 mg capsule 300 mg PO TID 12/20/21 [History Confirmed 03/11/22] cholecalciferol (vitamin D3) 1,250 mcg (50,000 unit) capsule 1,250 mcg PO WEEKLY 01/24/22 [History Confirmed 03/11/22] ipratropium 0.5 mg-albuterol 3 mg (2.5 mg base)/3 mL nebulization soln 3 ml inhalation QID PRN shortness of breath or wheezing #90 mL 02/08/22 [Rx Confirmed 03/11/22] sertraline 50 mg tablet 50 mg PO DAILY #90 tabs 02/08/22 [Rx Confirmed 03/11/22] alprazolam 0.5 mg tablet 0.5 mg PO DAILY #20 tabs 02/11/22 [Rx Confirmed 03/11/22] cilostazol 50 mg tablet 50 mg PO DAILY 02/15/22 [History Confirmed 03/11/22] cyanocobalamin (vitamin B-12) 1,000 mcg tablet 1,000 mcg PO DAILY 02/15/22 [History Confirmed 03/11/22] famotidine 20 mg tablet 20 mg PO DAILY 02/15/22 [History Confirmed 03/11/22] ferrous sulfate 325 mg (65 mg iron) tablet (FeroSul) 325 mg PO BID 02/15/22 [History Confirmed 03/11/22] hydrocodone 5 mg-acetaminophen 325 mg tablet 1 tablet PO Q4H PRN Pain (Scale Score 4-6) 02/15/22 [History Confirmed 03/11/22] ondansetron HCl 8 mg tablet 8 mg PO Q12H PRN nausea and vomiting #20 tabs 02/16/22 [Rx Confirmed 03/11/22] amiodarone 200 mg tablet 200 mg PO DAILY #30 tabs 02/25/22 [Rx Confirmed 03/11/22] potassium chloride 20 mEq tablet,extended release(part/cryst) (Klor-Con M) 40 meq PO DAILY #30 tabs 02/25/22 [Rx Confirmed 03/11/22] prednisone 20 mg tablet 60 mg PO BID #60 tabs 02/25/22 [Rx Confirmed 03/11/22] furosemide 20 mg t
[2022-03-19 23:02] LABS: Pneumococcal Antigen Urine Not Detected (Not Detected)
== END 2022-03-16 21:01 | disposition short-term general hospital (02) | DRG 840 ==
LOC: ANHIMU 03-13 07:32 → ANH3MEDSUR 03-13 13:21 → ANHIMU 03-13 13:35
PROVIDERS: Family Medicine; Hospitalist; Internal Medicine Hematology & Oncology; Internal Medicine Pulmonary Disease; Surgery; Admitting Provider Student in an Organized Health Care Education/Training Program; PCP Family Medicine; Visit Provider Internal Medicine
PROC: 0JH60XZ Insertion of Tunneled Vascular Access Device into Chest Subcutaneous Tissue and Fascia, Open Approach (ICD-10-PCS; principal; 2022-03-14 14:30)
DX: C83.30 Diffuse large B-cell lymphoma, unspecified site (principal); J18.9 Pneumonia, unspecified organism; D59.10 Autoimmune hemolytic anemia, unspecified; I50.32 Chronic diastolic (congestive) heart failure; I48.20 Chronic atrial fibrillation, unspecified; J98.11 Atelectasis; D61.818 Other pancytopenia; E87.6 Hypokalemia; Y95 Nosocomial condition; D69.6 Thrombocytopenia, unspecified; I73.9 Peripheral vascular disease, unspecified; I89.0 Lymphedema, not elsewhere classified; J44.9 Chronic obstructive pulmonary disease, unspecified; E78.5 Hyperlipidemia, unspecified; E11.42 Type 2 diabetes mellitus with diabetic polyneuropathy; E80.6 Other disorders of bilirubin metabolism; K44.9 Diaphragmatic hernia without obstruction or gangrene; K21.9 Gastro-esophageal reflux disease without esophagitis; G47.33 Obstructive sleep apnea (adult) (pediatric); F41.9 Anxiety disorder, unspecified; F32.9 Major depressive disorder, single episode, unspecified; F17.210 Nicotine dependence, cigarettes, uncomplicated; Z86.711 Personal history of pulmonary embolism; Z86.718 Personal history of other venous thrombosis and embolism
CPT/HCPCS: 36415; 36430; 71045; 71250; 77001; 80048; 80053; 80202; 82140; 82948; 83615; 83735; 84100; 84145; 85014; 85018; 85025; 85027; 85055; 85610; 85730; 86023; 86850; 86900; 86901; 86923; 87040; 87899; 92610; 93005; 94640; 96374; 96375; 96376; A9270; C1788; G0378; J0295; J0690; J1644; J1815; J2405; J2550; J2704; J2930; J3370; J3430; J3480; J7030; J7040; J7050; J7120; J7512; P9016; P9034